=== PATIENT | female | born 1990 | race Caucasian/White ===

== ENCOUNTER 2023-06-09 08:25 | Outpatient (OUT) | payer OTHER, SELFPAY ==
--- NOTE | 2023-06-09 08:32 | US_ITS ---
[address] [address] Patient Name: RONY NICOLE MRN: [id number] date: 1990 Sex: F Assigned Patient Location: US Current Patient Location: US Accession/Order Number: [id number] Exam Date: 06/09/2023 08:32 Report Date: 06/09/2023 09:12 At the request of: LYNNETTE SALGUERO Procedure: US OB transvaginal EXAMINATION: US OB transvaginal HISTORY: MISSED MENSES COMPARISON: No relevant comparison available. FINDINGS: Garcia intrauterine gestation Gestational sac: 2.33 cm, 7 weeks 0 days CRL: 1.56 cm, 8 weeks 0 days Yolk sac: 4.4 mm Heart rate: 153 beats minute Cervix: Closed, 4.7 cm The uterus is normal, anteverted, anteflexed The right ovary was not visualized The left ovary is normal. Clinical age: 8 weeks 3 days Clinical HOOD: 01/16/2024 Ultrasound age: 8 weeks 0 days Ultrasound HOOD: 01/19/2024 US/US OB transvaginal IMPRESSION: Viable garcia intrauterine gestation measuring 8 weeks 0 days Electronically authenticated by: ELIZABETH LERMA Date: 06/09/2023 09:12
== END 2023-06-09 08:26 | disposition home or self-care (01) ==
LOC: US 08:30
PROVIDERS: Visit Provider Obstetrics & Gynecology
DX: Z34.91 Encounter for supervision of normal pregnancy, unspecified, first trimester (principal); N92.6 Irregular menstruation, unspecified
CPT/HCPCS: 76817

== ENCOUNTER 2023-06-21 16:29 | Outpatient (OUT) | payer OTHER, SELFPAY ==
[2023-06-21 17:03] LABS: Basophils Percent Auto 0.4 % (0.2-2.0); Eosinophils Absolute Auto 0.3 10^3/uL (0.0-0.7); Eosinophils Percent Auto 3.6 % (0.9-7.0); Hemoglobin 12.1 g/dL (12.0-16.0); Immature Granulocytes Abs Auto 0.02 10^3/uL (0.00-0.03); Immature Granulocytes Pct Auto 0.3 % (0.0-0.5); Lymphocytes Percent Auto 28.2 % (20.5-60.0); Mean Corpuscular HGB Conc 34.6 g/dL (29.9-35.2); Mean Corpuscular Hemoglobin 31.3 pg (26.7-34.0); Mean Corpuscular Volume 90.4 fL (81.0-99.0); Mean Platelet Volume 10.6 fL (9.5-13.5); Monocytes Absolute Auto 0.5 10^3/uL (0.3-0.8); Monocytes Percent Auto 6.8 % (1.7-12.0); Neutrophils Absolute Auto 4.2 10^3/uL (1.4-6.5); Neutrophils Percent Auto 60.7 % (43.0-75.0); Platelet Count 280 10^3/uL (150-450); Red Blood Count 3.87 10^6/uL (4.20-5.40); Red Cell Distribution Width 11.9 % (11.0-15.0); White Blood Count 6.9 10^3/uL (4.0-11.0)
[2023-06-21 17:06] LABS: BOX Test Sent Out Y
[2023-06-21 17:10] LABS: Estimated Average Glucose 94 mg/dL; Glycohemoglobin A1C 4.9 % (4.5-6.2)
[2023-06-21 18:16] LABS: Thyroid Stimulating Hormone 2.622 uIU/mL (0.358-3.740)
[2023-06-23 06:09] LABS: HBsAg Screen Negative (Negative); HIV Ab/p24 Ag Screen Non Reactive (Non Reactive); Rubella Antibodies, IgG 2.43 index (Immune >0.99)
[2023-06-23 12:10] LABS: Rapid Plasma Reagin, Quant Non Reactive titer (NonRea<1:1)
[2023-06-26 12:08] LABS: HCV Ab Reactive (Non Reactive)
== END 2023-06-21 16:30 | disposition home or self-care (01) ==
PROVIDERS: Visit Provider Obstetrics & Gynecology
DX: N92.6 Irregular menstruation, unspecified (principal)
CPT/HCPCS: 36415; 83036; 84443; 85025; 86592; 86762; 86803; 86850; 86900; 86901; 87086; 87340; 87389; 87522

== ENCOUNTER 2023-07-03 16:40 | Emergency (ER) | payer OTHER, SELFPAY ==
--- NOTE | 2023-07-03 16:42 | US_ITS ---
[address] [address] Patient Name: RONY NICOLE MRN: [facility]:[id number] date: 1990 Sex: F Assigned Patient Location: ER Current Patient Location: .[facility] Accession/Order Number: [id number] Exam Date: 07/03/2023 17:00 Report Date: 07/03/2023 18:03 At the request of: FABIÁN NORWOOD Procedure: US OB transvaginal PROCEDURE: US OB transvaginal, 07/03/2023 5:00 PM EST CLINICAL INDICATIONS: Encounter for first trimester , vaginal bleeding for one week 4 para 3 Expected gestational age: 11 weeks 5 days Expected HOOD: 01/17/2024 COMPARISON: 06/09/2023 TECHNIQUE: Transvaginal first trimester obstetric sonogram, grayscale, color evaluation. FINDINGS: Intrauterine gestational saclike structure is identified. A pole is seen. Yolk sac is not evident. No cardiac activity could be documented during sonographic surveillance, color-flow or M-mode Doppler interrogation. Mean gestational sac size: 4.21 cm, 9 weeks 4 days crown-rump length: 3.09 cm Sonographic gestational age: 10 weeks 0 days +/- 6 days Sonographic HOOD: 01/29/2024 Perigestational hemorrhage is not evident. Maternal ovaries are not identified bilaterally. 4.2 cm transvaginal cervical length, closed US/US OB transvaginal IMPRESSION: 1. Single intrauterine nonviable failed first trimester with incomplete spontaneous . Intrauterine gestational sac is noted. 3.09 cm pole is seen without cardiac activity. This meets criteria for nonviable . 2. No perigestational hemorrhage 3. 4.2 cm transvaginal cervical length 4. Nonvisualization the maternal ovaries bilaterally RESULTS PLACED IN THE STAT CALL FOLDER AT THE TIME OF THIS DICTATION. Electronically authenticated by: DUYEN ALEXANDER Date: 07/03/2023 18:03
[2023-07-03 16:49] VITALS: BP 146/80; PULSE 77; RESP 20; TEMP 36.8; O2SAT 100; BMI 33.3
--- NOTE | 2023-07-03 16:57 | ED.PREGNANC1 ---
HPI - General Chief complaint: Vaginal Bleeding Stated complaint: 12WKS PREG, SPOTTING Time Seen by Provider: 07/03/23 16:42 Source: patient Mode of arrival: walk-in Limitations: no limitations History of Present Illness HPI Narrative: patient is a 32-year-old female who presents the emergency department for the evaluation of vaginal spotting at twelve weeks . She states for the last week she has had red spotting with wiping after urination. She states she has now started to see small clots. She denies fevers, chills, nausea, vomiting. She has no abdominal cramping or urinary symptoms. Last ultrasound at this facility was 06/09/23 showing a viable IUP at eight weeks at that time. Related Data Home Medications Medication Instructions Recorded Confirmed ondansetron HCl 4 mg tablet 4 mg PO Q12H PRN nausea and 07/03/23 07/03/23 vomiting vitamin with calcium 1 tab PO DAILY 07/03/23 07/03/23 no.72-iron 27 mg-folic acid 1 mg tablet (M- Plus) Allergies Allergy/AdvReac Type Severity Reaction Status Date / Time No Known Drug Allergies Allergy Verified 07/03/23 16:55 Review of Systems ROS Constitutional Denies: fever or chills Cardiovascular Denies: chest pain Respiratory Denies: shortness of breath or cough Gastrointestinal Denies: abdominal pain, nausea or vomiting Genitourinary Reports: vaginal bleeding; Denies: painful urination Musculoskeletal Denies: back pain Integumentary/Breast Denies: rash Neurological Denies: headache PFSH PFSH Social History Smoking status: Never smoker Exam Narrative Exam Narrative: Gen.: Awake, alert, in no distress Head: Normocephalic, atraumatic ENT: Moist mucous membranes Respiratory: No respiratory distress Gastrointestinal: Abdomen is soft, nondistended and nontender to palpation Extremities: Moves extremities equally Psych: Normal mood and affect Neuro: No focal neuro deficit Skin: Warm, dry, intact Constitutional Vital Signs, click to edit/add: Last Vital Signs Temp 98.2 F 07/03/23 16:49 Pulse 77 07/03/23 16:49 Resp 20 07/03/23 16:49 BP 146/80 H 07/03/23 16:49 Pulse Ox 100 07/03/23 16:49 O2 Del Method Room Air 07/03/23 16:49 Course Vital Signs Vital signs: Vital Signs Temperature 98.2 F 07/03/23 16:49 Pulse Rate 77 07/03/23 16:49 Respiratory Rate 20 07/03/23 16:49 Blood Pressure 146/80 H 07/03/23 16:49 Pulse Oximetry 100 07/03/23 16:49 Oxygen Delivery Method Room Air 07/03/23 16:49 Temperature 98.2 F 07/03/23 16:49 Pulse Rate 77 07/03/23 16:49 Respiratory Rate 20 07/03/23 16:49 Blood Pressure 146/80 H 07/03/23 16:49 Pulse Oximetry 100 07/03/23 16:49 Oxygen Delivery Method Room Air 07/03/23 16:49 MDM - OB/Uterine Contractions MDM Narrative Medical decision making narrative: patient with A positive blood type, unremarkable urine specimen. ultrasound shows demise with incomplete spontaneous , cervix is closed. These results were given to the patient, I contacted Dr. Guillory the on-call NURSE PRACTITIONER PHYSICIAN ASSISTANT, no indication for an emergent D and C at this time. Follow-up tomorrow in the office with Dr. Malagon and return to the Emergency Room if symptoms change or worsen. Patient was instructed to use Motrin every six hours with food. Medical Records Attestation: I reviewed the patient's medical records. Lab Data Attestation: I reviewed the patient's lab results. Labs: Lab Results 07/03/23 07/03/23 Range/Units 16:55 17:08 HCG, Quant 5151 mIU/mL Urine Color Lt. yellow (YELLOW) Urine Clarity Clear (CLEAR) Urine pH 6.5 (5.0-9.0) Ur Specific [place] 1.010 (1.005-1.025) Urine Protein Negative (NEG/TRACE) mg/dL Urine Glucose (UA) Negative (NEGATIVE) mg/dL Urine Ketones Negative (NEGATIVE) mg/dL Urine Occult Blood Small A (NEGATIVE) Urine Nitrite Negative (NEGATIVE) Urine Bilirubin Negative (NEGATIVE) Urine Urobilinogen 0.2 (0.2-1.0) EU/dL Ur Leukocyte Esterase Negative (NEGATIVE) Urine RBC 0-2 (0-2) #/HPF Urine WBC None seen (NONE SEEN) #/HPF Ur Squamous Epith Cells Rare (NONE/RARE) #/LPF Urine Crystals None seen (None Seen) #/HPF Urine Bacteria None seen (NONE SEEN) #/HPF Urine Casts None seen (NONE SEEN) #/LPF Urine Mucus None seen (NONE SEEN) Ur Culture Indicated? No Blood Type A Positive Discharge Plan Discharge Chief Complaint: Vaginal Bleeding Clinical Impression: Miscarriage, Vaginal bleeding Patient Disposition: Home, Self-Care Time of Disposition Decision: 18:38 Condition: Good Prescriptions / Home Meds: No Action ondansetron HCl 4 mg tablet 4 mg PO Q12H PRN (Reason: nausea and vomiting) M-Geraldine Plus 27 mg iron- 1 mg tablet 1 tab PO DAILY Instructions: Miscarriage (ED) Additional Instructions: Call Dr. Malagon's office in the morning to be scheduled Stand Alone Forms: Portal Instructions Referrals: Physician,Non-Staff, MD [Primary Care Provider] - 1 week
[2023-07-03 17:34] LABS: Bilirubin Urine NEGATIVE (NEGATIVE); Blood Urine SMALL (NEGATIVE); Clarity Urine CLEAR (CLEAR); Color Urine LT. YELLOW (YELLOW); Glucose Urine UA NEGATIVE (NEGATIVE); Ketones Urine NEGATIVE (NEGATIVE); Leukocyte Esterase Urine NEGATIVE (NEGATIVE); Nitrite Urine NEGATIVE (NEGATIVE); Protein Urine NEGATIVE (NEG/TRACE); Urobilinogen Urine 0.2 EU/dL (0.2-1.0); pH Urine 6.5 (5.0-9.0)
[2023-07-03 17:35] LABS: Urine Microscopic Indicated YES
[2023-07-03 17:45] LABS: HCG Quantitative 5151 mIU/mL
[2023-07-03 17:57] LABS: Bacteria Urine NONE SEEN #/HPF (NONE SEEN); Cast Seen? NONE SEEN #/LPF (NONE SEEN); Crystals Seen? None Seen #/HPF (None Seen); Mucus Urine NONE SEEN (NONE SEEN); RBC Urine 0-2 #/HPF (0-2); Squamous Epithelial Cell Urine RARE #/LPF (NONE/RARE); WBC Urine NONE SEEN #/HPF (NONE SEEN)
[2023-07-03 17:58] LABS: Urine Culture Indicated NO
--- OUTSIDE RECORDS SUMMARY | 2023-08-08 19:23 | XMS_ITS | CCD ---
Author Name Unknown Address [facility] [place] [address] Organization [facility] Care Team Providers Care Piano Player Name Role Phone DR LYNNETTE MALAGON Admitting Unavailable JOSE M, DR CHURCH Attending Unavailable REQUEST, DR RAMOS LISTED Primary Care Unavaila DR LYNNETTE Hurd Consulting Unavailable NONE, XXXX Primary Care Physician Unavailab Donovan Kemp Attending Unavailable LYNNETTE MALAGON Attending Unavailable LUKAS RIDER Attending Unavailable Allergies Allergy Classification Reported Allergen(s) Allergy Type Date of Onset Reaction(s) Facility (1 source) Cefaclor Drug Allergy 06-06-2013 [facility] Repository Medications Current Medications Medication Drug Class(es) Dates Sig (Normalized) Sig (Original) dextromethorphan hydrobromide 3 mg/ml / promethazine hydrochloride 1.25 mg/ml oral solution (1 source) Phenothiazine, Uncompetitive V-josgkm-A-aspartat e Receptor Antagonist, Sigma-1 Agonist Start: 12-07-2018 take 5 mL by mouth every six hours for cough dextromethorphan- promethazine 15 mg-6.25 mg/5 mL Oral Syrup 5 mL 5 mL, Oral, q6hr for cough, 120 mL, Refill(s) 0 Start Date: 12/07/18 Status: Ordered etonogestrel 68 mg drug implant (1 source) Progestin Start: 05-24-2018 Nexplanon 68 mg subcutaneous implant 68 mg = 1 EA, SubCutaneous, Once, Refills(s) 0 Start Date: 05/24/18 Status: Ordered fluticasone 0.05 mg/inh Nasal [place] (1 source) Start: 12-07-2018 fluticasone 0.05 mg/inh Nasal [place] 1 spray(s), Nasal, BID, 16 gram, Refill(s) 0 Start Date: 12/07/18 Status: Ordered pantoprazole 40 mg extended release oral tablet (1 source) Proton Pump Inhibitor Start: 05-21-2021 take 1 tablet by mouth once daily pantoprazole 40 mg Oral EC Tab 40 mg = 1 tab(s), Oral, Daily, # 30 tab(s), Refills(s) 0, Pharmacy: [facility]/pharmacy #[id number], 165, cm, 05/21/21 11:57:00 EDT, Height/Length Dosing, 91, kg, 05/21/21 11:57:00 EDT, Weight Dosing Start Date: 05/21/21 Status: Ordered Zofran ODT 4 mg Tab-Dis (2 sources) Start: 05-21-2021 take 1 tablet by mouth every six hours as needed for nausea Zofran ODT 4 mg Tab-Dis 4 mg = 1 tab(s), Oral, q6hr, PRN Nausea/Vomiting, # 12 tab(s), Refills(s) 0, [id number], 165, cm, 05/21/21 11:57:00 EDT, Height/Length Dosing, 91, kg, 05/21/21 11:57:00 EDT, Weight Dosing Start Date: 05/21/21 Status: Ordered Start: 12-07-2018 take 1 tablet by sheila th every six hours Zofran ODT 4 mg Tab-Dis 4 mg = 1 tab(s), Oral, q6hr, # 10 tab(s), Refills(s) 0 Start Date: 12/07/18 Status: Ordered Problems Active Problems Problem Classification Problem Date Documented Date Episodic/Chronic Abdominal pain (1 source) Abdominal pain; Translations: [Unspecified abdominal pain] Onset: 05-21-2023 Episodic Deficiency and other anemia (1 source) Anemia 12-03-2017 Episodic Immunizations and screening for infectious disease (1 source) Encounter for screening for human papillomavirus (HPV); Translations: [ENC SCREENING HUMAN PAPILLOMAVIRUS] Onset: 06-02-2022 Episodic Inflammatory diseases of female pelvic organs (1 source) Cyst of Bartholin's gland duct 11-28-2017 Episodic Other complications of (1 source) Finding related to ; Translations: [Other specified related conditions, unspecified trimester] Onset: 05-21-2023 Episodic Other screening for suspected conditions (not mental disorders or infectious disease) (4 sources) Encounter for screening for malignant neoplasm of cervix; Translations: [ENC SCREENING MALIG NEOPLASM CERV] Onset: 06-01-2022 Episodic Substance-related disorders (1 source) Smoker 02-18-2018 Chronic Comment on above: Added secondary to d ocumentation in Social History. Past or Other Problems Problem Classification Problem Date Documented Da te Episodic/Chronic Unclassified (3 sources) Onset: 06-14-2011 Resolved: 06-21-2018 06-29-2018 Results Test Name Value Interpretation Reference Range Facil ity Auto Diffon 05-21-2023 Basophils/100 WBC (Bld) 0.4 % Normal 0.0-2.[address] [facility] Comment on above: Order Comment: Order Added by Discern Expert. Performed By: #### 1 [id number], 7509456, 9819846, 4529436, 9679114, 6086084, 81549970, 5499946 #### [facility] [address] [place] [address] Basophils/Leukocytes Auto (B ld) [Pure # fraction] 0.0 E9/L Normal 0.0-0.2 [facility] Comment on above: Order Comment: Order Added by Discern Expert. Performed By: #### 1 [id number], 3199891, 0906119, 2465827, 9070374, 7976216, 72099581, 7595166 #### [facility] [address] [place] [address] Eosinophils/100 WBC (Bld) 1.5 % Normal 0.0-8.0 [facility] Comment on above: Order Comment: Order Added by Discern Expert. Performed By: #### 1 [id number], 7393243, 8177720, 1503655, 5258566, 6392024, 71630222, 1085898 #### [facility] [address] [place] [address] Eosinophils/Leukocytes Auto (Bld) [Pure # fraction] 0.1 E9/L Normal 0.0-0.5 [facility] Comment on above: Order Comment: Order Added by Discern Expert. Performed By: #### 1 8558221, 0909343, 9568867, 5357447, 2308677, 5073934, 15900491, 6850460 #### [facility] [address] [place] [address]3576 Lymphocytes/100 WBC (Bld) 33.2 % Normal 14.0-50.0 [facility] Comment on above: Order Comment: Order Added by Discern Expert. Performed By: #### 1 0242619, 4194916, 2350074, 5823558, 8600252, 6694141, 15104285, 4252275 #### [facility] [address] [place] [address] Lymphocytes/Leukocytes Auto (Bld) [Pure # fraction] 2.0 E9/L Normal 1.0-4.0 [facility] Comment on above: Order Comment: Order Added by Isael Expert. Performed By: #### 1 6782404, 1415493, 2280920, 4565102, 5926635, 3106692, 31255942, 6824072 #### [facility] [address] [place] [address] Monocytes/100 WBC (Bld) 7.8 % Normal 4.0-14.0 [facility] Comment on above: Order Comment: Order Added by Isael Expert. Performed By: #### 1 9298468, 2433984, 0934118, 8981805, 3338777, 1425278, 61387228, 0558970 #### [facility] [address] [place] [address] Monocytes/Leukocytes Auto (B ld) [Pure # fraction] 0.5 E9/L Normal 0.2-1.0 [facility] Comment on above: Order Comment: Order Added by Isael Expert. Performed By: #### 1 6668797, 9868070, 5242460, 7070263, 9941143, 1690009, 56354710, 0031501 #### [facility] [address] [place] [address] Neutrophils/100 WBC (Bld) 57.1 % Normal 36.0-75.0 [facility] Comment on above: Order Comment: Order Added by Discern Expert. Performed By: #### 1 3689858, 4693180, 5676248, 7278191, 5674565, 3338880, 94324066, 9167662 #### [facility] [address] [place] [address] Neutrophils/Leukocytes Auto (Bld) [Pure # fraction] 3.4 E9/L Normal 2.0-7.5 [facility] Comment on above: Order Comment: Order Added by Discern Expert. Performed By: #### 1 9711932, 3307303, 9780026, 4789147, 0022181, 7861204, 53009107, 6689205 #### [facility] [address] [place] [address] B hCG Qualon 05-21-2023 Beta hCG Ql Positive Normal [facility] Comment on above: Performed By: #### 1 5936035, 4963850, 0704161, 4093247, 6614461, 1293437, 56982360, 9776462 #### [facility] [address] [place] [address] BMPon 05-21-2023 Creatinine [Mass/Vol] 0.5 mg/dL Normal 0.5-1.3 [facility] Comment on above: Performed By: #### 1 1094942, 1863858, 8420810, 6681553, 1340338, 7632267, 65365733, 0865190 #### [facility] [address] [place] [address] Urea nitrogen [Mass/Vol] 13 mg/dL Normal 5-21 [facility] Comment on above: Performed By: #### 1 1126131, 6262148, 3089471, 4352845, 2559719, 8053094, 22589627, 1460976 #### [facility] [address] [place] [address] Urea nitrogen/Creatinine [Mass ratio] 26 No Units High 10-20 [facility] Comment on above: Performed By: #### 1 5791101, 0351251, 9110016, 5425556, 9746175, 6830426, 37211930, 1135939 #### [facility] [address] [place] [address] Anion gap [Moles/Vol] 8 mmol/L Normal 6-16 [facility] Comment on above: Performed By: #### 1 9298931, 1628326, 0327610, 0254758, 5459391, 7448340, 40614169, 0772376 #### [facility] [address] [place] [address] Calcium [Mass/Vol] 9.2 mg/dL Normal 8.9-11.1 [facility] Comment on above: Performed By: #### 1 2636101, 1609024, 7604189, 6625766, 1758432, 2049066, 75926858, 2184887 #### [facility] [address] [place] [address] Chloride [Moles/Vol] 111 mmol/L Normal 101-111 [facility] Comment on above: Performed By: #### 1 4314616, 4456765, 4368418, 9396076, 2499810, 1245825, 97973839, 9398165 #### [facility] [address] [place] [address] CO2 [Moles/Vol] 23 mmol/L Normal 21-31 [facility] Comment on above: Performed By: #### 1 7555225, 8463165, 8855355, 6124231, 1204527, 3042243, 14571702, 1312924 #### [facility] [address] [place] [address] Glucose [Mass/Vol] 101 mg/dL Normal 55-199 [facility] Comment on above: Result Comment: If t his glucose result represents a fasting glucose, interpretation should refer to the following reference range: 55-99 mg/dL Performed By: #### 1 0710438, 4834798, 9855846, 6203494, 8499667, 1399213, 95803766, 8729501 #### [facility] [address] [place] [address] Potassium [Moles/Vol] 3.6 mmol/L Normal 3.5-5.3 [facility] Comment on above: Performed By: #### 1 0471221, 7381427, 3170133, 2439684, 4591919, 7418396, 89042384, 1375901 #### [facility] [address] [place] [address] Sodium [Moles/Vol] 138 mmol/L Normal 135-145 [facility] Comment on above: Performed By: #### 1 9290847, 2015505, 9837905, 1114999, 4532362, 6998875, 99819754, 8753622 #### [facility] [address] [place] [address] BhCG Quanton 05-21-2023 HCG.beta subunit Qn 9779 m[IU]/mL High 1-3 [facility] Comment on above: Result Comment: GEST ATIONAL AGE HCG RANGE (mIU/mL) NON- <1-3 0.2-1 WEEKS 5-50 1-2 WEEKS 50-500 2-3 WEEKS 100-5,000 3-4 WEEKS 500-10,000 4-5 WEEKS 1,000-50,000 5-6 WEEKS 10,000-100,000 6-8 WEEKS 15,000-200,000 8-12 WEEKS 10,000-100,000 Performed By: #### 1 1578858, 6263385, 4475615, 1476158, 8007199, 4728172, 73112454, 0014316 #### [facility] [address] [place] [address] CBC w/ Auto Diffon Erythrocyte distribution wid th (RBC) [Ratio] 12.9 % Normal 10.9-14.2 [facility] Comment on above: Performed By: #### 1 1883735, 0240099, 7313668, 7684084, 2737313, 2736055, 86535766, 4439552 #### [facility] [address] [place] [address] Hematocrit (Bld) [Volume fraction] 36.4 % Normal 34.0-46.0 [facility] Comment on above: Performed By: #### 1 6792854, 0707509, 0047045, 9959539, 0588088, 7825402, 44563500, 1992742 #### [facility] [address] [place] [address] Hemoglobin (Bld) [Mass/Vol] 12.5 g/dL Normal 12.0-16. 0 [facility] Comment on above: Performed By: #### 1 3628251, 2653063, 2155684, 3298083, 7961461, 9857164, 33331320, 2720858 #### [facility] [address] [place] [address] 57049 MCH (RBC) [Entitic mass] 30.4 pg Normal 27.0-34.0 [facility] Comment on above: Performed By: #### 1 9421730, 1424055, 5325878, 0126116, 4200492, 1944206, 28180341, 5868540 #### [facility] [address] [place] [address] 99624 MCHC (RBC) [Mass/Vol] 34.3 g/dL Normal 31.4-36.0 [facility] Comment on above: Performed By: #### 1 8442960, 9254934, 9151019, 7100987, 7927526, 3257451, 82552859, 0117728 #### [facility] [address] [place] [address]291 MCV (RBC) [Entitic vol] 88.4 fL Normal 80.0-100.[address] [facility] Comment on above: Performed By: #### 1 2764492, 3281107, 2430231, 2241937, 4180139, 1754028, 70354289, 8144495 #### [facility] [address] [place] [address]47 Platelet mean volume (Bld) [Entitic vol] 9.0 fL Normal 6.4-10.8 [facility] Comment on above: Performed By: #### 1 0431109, 7832134, 4891128, 7399202, 6366413, 2830119, 01992169, 9440427 #### [facility] [address] [place] [address] Platelets (Bld) [#/Vol] 273.0 E9/L Normal 150.0-500.0 [facility] Comment on above: Performed By: #### 1 6500482, 0310861, 3553266, 5095225, 8804874, 0883140, 82792773, 8615867 #### [facility] [address] [place] [address] RBC (Bld) [#/Vol] 4.1 E12/L Low 4.3-5.9 [facility] Comment on above: Performed By: #### 1 9275843, 9076430, 9211325, 8544984, 1190402, 1606769, 65038219, 1861539 #### [facility] [address] [place] [address] WBC corrected for nucl RBC A uto (Bld) [#/Vol] 5.9 E9/L Normal 4.0-11.0 [facility] Comment on above: Performed By: #### 1 6954636, 6950179, 0456538, 6607861, 0014867, 6647617, 51518733, 1420563 #### [facility] [address] [place] [address] CHEMISTRYOrdered By: SYSTEM SYSTEM on 05-21-2023 Albumin [Mass/Vol] 4.0 g/dL Normal 3.3 - 5.0 gm/dL [facility] Albumin/Globulin [Mass ratio] 1.3 {ratio} Normal 1.1 - 2.2 [facility] ALP [Catalytic activity/Vol] 50 [iU]/d Normal 21 - 98 Int._Unit/L [facility] ALT No additional P-5'-P [Catalytic activity/Vol] 19 [iU]/d Normal 6 - 46 Int._Unit/L [facility] Anion gap [Moles/Vol] 8 mmol/L Normal 6 - 16 mEq/L [facility] AST [Catalytic activity/Vol] 17 [iU]/d Normal 5 - 43 Int._Unit/L [facility] Bilirubin [Mass/Vol] 0.5 mg/dL Normal 0.0 - 1.1 mg/dL [facility] Bilirubin.direct [Mass/Vol] 0.1 mg/dL Normal 0.1 - 0.4 mg/dL [facility] Bilirubin.indirect [Mass or moles/Vol] 0.4 mg/dL Normal 0.1 - 0.9 mg/dL [facility] Calcium [Mass/Vol] 9.2 mg/dL Normal 8.9 - 11.1 mg/dL [facility] Chloride [Moles/Vol] 111 mmol/L Normal 101 - 111 mmol/ L [facility] CO2 [Moles/Vol] 23 mmol/L Normal 21 - 31 mmol/L [facility] Creatinine [Mass/Vol] 0.5 mg/dL Normal 0.5 - 1.3 mg/d L [facility] GFR/1.73 sq M.predicted among non-blacks MDRD (S/P/Bld) [Vol rate/Area] 129 mL/min/1.73 m2 Normal >=59mL/min/1.73 m2 [facility] Comment on above: Interpretive Data: C hronic kidney disease could be indicated at eGFR's of less than 60 mL/min/1.73m2. Kidney failure is indicated at less than 15 mL/min/1.73m2. Globulin (S) [Mass/Vol] 3.0 g/dL Normal 1.4 - 4.0 gm /dL [facility] Glucose [Mass/Vol] 101 mg/dL Normal 55 - 199 mg/dL [facility] Comment on above: Interpretive Data: I f this glucose result represents a fasting glucose, interpretation should refer to the following reference range: 55-99 mg/dL HCG.beta subunit Qn 9779 m[IU]/mL High 1 - 3 mIU/mL [facility] Comment on above: Interpretive Data: G ESTATIONAL AGE HCG RANGE (mIU/mL) NON- <1-3 0.2-1 WEEKS 5-50 1-2 WEEKS 50-500 2-3 WEEKS 100-5,000 3-4 WEEKS 500-10,000 4-5 WEEKS 1,000-50,000 5-6 WEEKS 10,000-100,000 6-8 WEEKS 15,000-200,000 8-12 WEEKS 10,000-100,000 Lipase [Catalytic activity/Vol] 32 U/L Normal 13 - 58 unit/L [facility] Potassium [Moles/Vol] 3.6 mmol/L Normal 3.5 - 5.3 mmol /L [facility] Protein [Mass/Vol] 7.0 g/dL Normal 6.0 - 7.8 gm/dL [facility] Sodium [Moles/Vol] 138 mmol/L Normal 135 - 145 mmol/L [facility] Urea nitrogen [Mass/Vol] 13 mg/dL Normal 5 - 21 mg/d L [facility] Urea nitrogen/Creatinine [Mass ratio] 26 mg/mg High 10 - 20 [facility] Consent for Treatmenton 100 Consent for Treatment [id number]:127 Normal [facility] Discharge Instructionson Discharge Instructions [id number]:127 Normal [facility] ED Clinical Summaryon 2022 ED Clinical Summary [place] [id number] ED Clinical Summary Person Information Name: RONY BOLAÑOS [facility] Age: 32 Years : 1990 Sex: Female Language: Croatian PCP: NONE, XXXX Marital Status: Single Visit Id: Visit Reason: Diarrhea; Nausea; Headache; HEADACHE DIZZNESS ABD PAIN Speciality: Acuity: 3 Enc Type: Emergency Med Service: Emergency Arrival: 05/21/2023 10:49:01 Discharge: 05/21/2023 15:06:40 LOS: 000 04:17 Checkin: 05/21/2023 10:49:01 Checkout: 05/21/2023 15:06:40 Dispo Type: Home (Routine DC) EVENTS: Event Name Event Status Request Date/Time Start Date/Time Complete Date/Time Arrive Complete 05/21/2023 10:49:01 05/21/2023 10:49:01 05/21/2023 10:49:01 Document Home Meds Request 05/21/2023 10:49:01 Triage Complete 05/21/2023 10:49:01 05/21/2023 11:05:03 05/21/2023 11:05:03 Registration Complete 05/21/2023 11:00:00 05/21/2023 11:00:00 05/21/2023 11:00:00 Reg Complete Request 05/21/2023 11:00:00 Reg Bed Request Complete 05/21/2023 11:00:00 05/21/2023 11:00:00 05/21/2023 11:00:00 Bed Assign Complete 05/21/2023 11:01:47 05/21/2023 11:01:47 05/21/2023 11:01:47 Dr Exam Complete 05/21/2023 11:01:47 05/21/2023 11:06:03 05/21/2023 11:06:03 RN Exam Complete 05/21/2023 11:01:47 05/21/2023 15:07:37 05/21/2023 15:07:37 Registration Start 05/21/2023 11:06:03 05/21/2023 14:29:40 Dr Exam Complete 05/21/2023 11:08:01 05/21/2023 11:08:01 05/21/2023 11:08:01 Pending Labs Complete 05/21/2023 11:27:27 05/21/2023 12:55:42 Lab Complete 05/21/2023 11:27:27 05/21/2023 12:55:43 Urine Collect Complete 05/21/2023 11:27:27 05/21/2023 12:55:43 X-Ray Complete 05/21/2023 11:27:27 05/21/2023 11:47:13 05/21/2023 11:58:53 Swab Complete 05/21/2023 11:27:27 05/21/2023 12:24:31 Pending Labs Complete 05/21/2023 11:54:44 05/21/2023 11:54:44 05/21/2023 12:19:42 Lab Complete 05/21/2023 11:54:44 05/21/2023 11:54:44 05/21/2023 12:19:42 Wet Read Request 05/21/2023 11:58:53 Pending Labs Complete 05/21/2023 11:58:54 05/21/2023 11:58:54 05/21/2023 11:59:01 Lab Complete 05/21/2023 11:58:54 05/21/2023 11:58:54 05/21/2023 11:59:01 Pending Labs Complete 05/21/2023 12:22:31 05/21/2023 12:22:31 05/21/2023 12:22:31 Pending Labs Cancel 05/21/2023 12:30:04 05/21/2023 12:35:17 Lab Cancel 05/21/2023 12:30:04 05/21/2023 12:35:17 Pending Labs Complete 05/21/2023 12:36:08 05/21/2023 12:36:08 05/21/2023 13:17:56 Lab Complete 05/21/2023 12:36:08 05/21/2023 12:36:08 05/21/2023 13:17:56 Meds Admin Complete 05/21/2023 12:44:29 05/21/2023 13:05:24 US Complete 05/21/2023 13:19:22 05/21/2023 14:06:37 05/21/2023 14:37:45 US Complete 05/21/2023 14:19:44 05/21/2023 14:19:53 05/21/2023 14:36:26 Discharge Complete 05/21/2023 14:59:08 05/21/2023 15:09:51 05/21/2023 15:09:51 Transfer Complete 05/21/2023 15:09:51 05/21/2023 15:09:51 05/21/2023 15:09:51 ADDRESS: [address] [place] [id number] PHYS DOC NOTES: MEDICAL INFORMATION: Prescriptions Given: Medications to Continue with No Changes Other Medications dextromethorphan-promethazine (dextromethorphan-promethazine 15 mg-6.25 mg/5 mL Oral Syrup 5 mL) 5 Milliliter By Mouth every 6 hours as needed for cough. Refills: 0. etonogestrel (Nexplanon 68 mg subcutaneous implant) 1 Each Subcutaneous Once. fluticasone nasal (fluticasone 0.05 mg/inh Nasal [place]) 1 Sprays Nasal Inhalation 2 times a day. Refills: 0. ondansetron (Zofran ODT 4 mg Tab-Dis) 1 Tablets By Mouth every 6 hours. Refills: 0. ondansetron (Zofran ODT 4 mg Tab-Dis) 1 Tablets By Mouth every 6 hours as needed Nausea/Vomiting. Refills: 0. pantoprazole (pantoprazole 40 mg Oral EC Tab) 1 Tablets By Mouth every day. Refills: 0. PATIENT EDUCATION INFORMATION: Instructions: Abdominal Pain During , Uzaf-uy-Surj Follow up: With: Address: When: Jason Raines [address] [place] [address], [facility] [address], [place] [address] [facility] (1) In 3 days 05/24/2023 Comments: Follow-up with your GUIDANCE SERVICES COORDINATOR. If not have any may follow-up with Dr. Raines. With: Address: When: XXXX [facility] , [place] In 3 days DIAGNOSIS: Abdominal pain in ; Unspecified abdominal pain Normal [facility] ED Note-Physicianon 05-21-20 ED Note-Physician Basic Information Time Seen: Joo LR, Osman Reese. 05/21/2023 11:06 Chief Complaint Patient presents with 3 days of headache, diarhrea with cramping, and nausea. History of Present Illness A 32-year-old female reports to the emergency department chief complaint of a headache, diarrhea with cramping in her abdomen, as well as some nausea. Reports that she is just felt unwell for the last 3 days. She states that she has not had any medication today. Reports that she just generally feels well. Denies any fevers or chills. Denies any cough or sore throat. Despite this he was going on. She reports that she has not been around any recent sick contacts, but her was also in the emergency department as she started to have fever as well as a sore throat. She denies any known allergies. Reports otherwise she is not on any medications. Review of Systems A 10 point review of systems is negative except as noted above. Medical and Surgical History: Reviewed and noted Social history: Lives at home Family History: Reviewed. Tobacco: denies Physical Exam Vitals & Measurements T: 36.7 ?C(Oral) HR: 77(Peripheral) RR: 16 BP: 147/84 SpO2: 100% HT: 165.10 cm WT: 100 kg BMI: 36.69 General: The patient appears well and in no apparent distress. Patient is resting comfortably in chair. afebrile Skin: Warm, dry, no pallor noted. Head: Normocephalic, atraumatic Neck: No JVD Eye: PERRLA, EOMI ENT: Moist mucus membranes Cardiovascular: Regular rate normal peripheral perfusion. radial pulses +2 bilaterally Respiratory: No respiratory distress no accessory muscle use no obvious audible wheezing. Lung sounds clear to auscultation Chest Wall: no deformity Musculoskeletal: normal ROM, no deformity, no swelling GI: No obvious distention. Soft, with mild tenderness generalized throughout the abdomen. No rebound tenderness or guarding noted. Neurological: A&O moves all extremities equal strength and symmetry Psychiatric: Cooperative and appropriate Medical Decision Making MEDICAL DECISION MAKING Number and Complexity of Problems Differential Diagnosis: [] [facility] Data External documents reviewed: [] My EKG interpretation: [] My CT interpretation: [] My X-ray interpretation: reviewed My Ultrasound interpretation: reviewed Decision rules/scores evaluated: [] Discussed with: [] Treatment and Disposition ED Course: 32-year-old female reports to the emergency department with chief complaint of headache, diarrhea with abdominal cramping, as well as nausea. Reports been going on for 3 days. States that she has recent sick contacts at home as well. Due to concerns we did do lab work. Lab work reviewed and noted. No acute changes seen except she was on her test. We did do a beta quant that showed a quantitative level over 9000. Due to this, with her having abdominal pain, and no known , we did do an ultrasound. Ultrasound revealed a single and early intrauterine . Reports that she does follow-up with Dr. Malagon. I discussed that she continue following up. Discussed cessation of ibuprofen. Discussed that she should follow-up immediately. Discussed return precautions. Follow-up with your primary care provider in 3 to 5 days. If symptoms worsen, do not improve, or new symptoms arise please report back to emergency department for further evaluation. The patient was understanding and agreeable to plan moving forward. [X] The patient is and presents with abdominal pain or vaginal bleeding. A trans-abdominal or trans-vaginal ultrasound was performed and the location is documented. [SATISFIES MIPS PERFORMANCE] [ ] The patient is pregant and presents with abdominal pain or vaginal bleeding. A trans-abdominal or trans-vaginal ultrasound was NOT performed because [] (ex. patient has visited the ED multiple times in the last 72 hours, patient has documented intrauterine ) [MIPS PERFORMANCE EXCEPTION/EXCLUSION] [ ] The patient is pregant and presents with abdominal pain or vaginal bleeding. A trans-abdominal or trans-vaginal ultrasound was NOT performed, no reason documented. [DOES NOT SATISFY MIPS PERFORMANCE] Shared decision making: [] Code status: [] Assessment/Plan Abdominal pain in (O26.899: Other specified related conditions, unspecified trimester) Unspecified abdominal pain (R10.9: Unspecified abdominal pain) Orders: acetaminophen, 650 mg = 2 tab(s), Tab, Oral, Once, Stop date 05/21/23 12:44:00 EDT, STAT, Start date 05/21/23 12:44:00 EDT, 05/21/23 12:44:00 EDT ondansetron, 4 mg = 1 tab(s), Tab-Dis, Oral, Once, Stop date 05/21/23 12:44:00 EDT, STAT, Start date 05/21/23 12:44:00 EDT, 05/21/23 12:44:00 EDT Automated Diff Basic Metabolic Panel Beta hCG Qual Beta hCG Quantitative CBC w/ Auto Diff eGFR Extra Blue Tube Hepatic Function Panel Influenza A&B Ag Lipase Level Rapid COVID Antigen ([facility]) UA With Cult Refl (more content not included)... Normal [facility] Comment on above: Result Comment: Elec tronically Signed By: Joo Osman LR.br\Date and Time Signed: 05/21/23 15:12 EDT\.br\Electronically Co-Signed By: Donovan Keller DO.br\Date and Time Co-Signed: 05/21/23 18:56 EDT ED Patient Education Noteon 05-21-2023 ED Patient Education Note Obstetrics and Gynecology Abdominal Pain During Belly (abdominal) pain is common during . There are many possible causes. Some causes are more serious than others. Sometimes the cause is not known. Always tell your doctor if you have belly pain. Follow these instructions at home: ? Do not have sex or put anything in your vagina until your pain goes away completely. ? Get plenty of rest until your pain gets better. ? Drink enough fluid to keep your pee (urine) pale yellow. ? Take uenr-hfv-pxvaixg and prescription medicines only as told by your doctor. ? Keep all follow-up visits. Contact a doctor if: ? You keep having pain after resting. ? Your pain gets worse after resting. ? You have lower belly pain that: ? Comes and goes at regular times. ? Spreads to your back. ? Feels like menstrual cramps. ? You have pain or burning when you pee (urinate). Get help right away if: ? You have a fever or chills. ? You feel like it is hard to breathe. ? You have bleeding from your vagina. ? You are leaking fluid or tissue from your vagina. ? You vomit for more than 24 hours. ? You have watery poop (diarrhea) for more than 24 hours. ? Your baby is moving less than usual. ? You feel very weak or faint. ? You have very bad pain in your upper belly. Summary ? Belly pain is common during . There are many possible causes. ? If you have belly pain during , tell your doctor right away. ? Keep all follow-up visits. This information is not intended to replace advice given to you by your health care provider. Make sure you discuss any questions you have with your health care provider. Document Revised: 04/20/2021 Document Reviewed: 04/20/2021 Elsevier Patient Education ? 2022 [employer] [facility] ED Patient Summaryon 10-01-2 023 ED Patient Summary [address] [address] Patient Discharge Instructions Person Information Name: RONY BOLAÑOS Age: 32 Years Arrival Date: 05/21/2023 10:49:01 Discharge Diagnosis: Abdominal pain in ; Unspecified abdominal pain Primary Care Physician: NONE, XXXX Provider Information Primary Provider: Donovan Keller DO Advanced Material Control Analyst:None The exam and treatment you received in the Emergency Department were for an urgent problem and are not intended as complete care. It is important that you follow up with a doctor, nurse practitioner, or physician?s pediatric dental assistant for ongoing care. If your symptoms become worse or you do not improve as expected and you are unable to reach your usual health care provider, you should return to the Emergency Department. We are available 24 hours a day. RONY BOLAÑOS has been given the following list of patient education materials, prescriptions and follow-up instructions: Follow-up Instructions: With: Address: When: Jason Raines [address] [place] [id number] Business (1) In 3 days 05/24/2023 Comments: Follow-up with your GUIDANCE SERVICES COORDINATOR. If not have any may follow-up with Dr. Raines. With: Address: When: [facility] , [place] In 3 days In the event that this physician does not participate in your insurance network, please consult with your insurance company to find a nearby participating provider. Patient Education Materials: Abdominal Pain During , Dnez-zd-Kbfn A MESSAGE TO ALL PATIENTS REGARDING OPIOIDS PRESCRIPTION OPIOIDS: WHAT YOU NEED TO KNOW Prescription opioids can be used to help relieve jtlfrmqd-yu-sqeaow pain and are often prescribed following a surgery or injury, or for certain health conditions. These medications can be an important part of the treatment but also come with serious risks. It is important to work with your healthcare provider to make sure you are getting the safest, most effective care. WHAT ARE THE RISKS AND SIDE EFFECTS OF OPIOID USE? Prescription opioids carry serious risks of addiction and overdose, especially with prolonged use. An opioid overdose, often marked by slowed breathing, can cause sudden . The use of prescription opioids can have a number of side effects as well, even when taken as directed: ? Tolerance?meaning you might need to take more of the medication for the same pain relief ? Physical dependence?meaning you have symptoms of withdrawal when a medication is stopped ? Increased sensitivity to pain ? Constipation ? Nausea, vomiting, and dry mouth ? Sleepiness and dizziness ? Confusion ? Depression ? Low levels of testosterone that can result in lower sex drive, energy, and strength ? Itching and sweating RISKS ARE GREATER WITH: ? History of drug misuse, substance use disorder, or overdose ? Mental health conditions (such as depression or anxiety) ? Sleep apnea ? Older age (65 years and older) ? Avoid alcohol while taking prescription opioids. Also, unless specifically advised by your health care provider, medications to avoid include: ? Benzodiazepines (such as Xanax or Valium) ? Muscle relaxants (such as Soma or Flexeril) ? Hypnotics (such as Ambien or Lunesta) ? Other prescription opioids KNOW YOUR OPTIONS Talk to your health care provider about ways to manage your pain that don?t involve prescription opioids. Some of these options may actually work better and have fewer risks and side effects. Options may include: ? Pain relievers such as acetaminophen, ibuprofen, and naproxen ? Some medication that are also used for depression or seizures ? Physical therapy and exercise ? Cognitive behavioral therapy, a psychological, goal-directed approach, in which patients learn how to modify physical, behavioral, and emotional triggers of pain and stress. IF YOU ARE PRESCRIBED OPIOIDS FOR PAIN: ? Never take opioids in greater amounts or more often than prescribed. ? Follow up with your primary health care provider. o Work together to create a plan on how to manage your pain. o Talk about ways to help manage your pain that don?t involve prescription opioids. o Talk about any and all concerns and side effects. ? Help prevent misuse and abuse o Never sell or share prescription opioids. o Never use another person?s prescription opioids. ? Store prescription opioids in a secure place and out of reach of others (this may include visitors, children, friends, and family). ? Safely dispose of unused prescription opioids: Find your community drug take-back program or your pharmacy mail-back program, or flush them down the toilet, following guidance from the Food and Drug Administration (www.fda.gov/Drugs/ResourcesForYou). ? Visit www.cdc.gov/drugoverdose to learn about the risks of opioids abuse and overdose (more content not included)... Normal [facility] HEMATOLOGYOrdered By: SYSTEM SYSTEM on 05-21-2023 Basophils/100 WBC (Bld) 0.4 % Normal 0.0 - 2.0 % [facility] HemeAutoSS Basophils/Leukocytes Auto (B ld) [Pure # fraction] 0.0 E9/L Normal 0.0 - 0.2 E9/L [facility] HemeAutoSS Eosinophils/100 WBC (Bld) 1.5 % Normal 0.0 - 8.0 % [facility] HemeAutoSS Eosinophils/Leukocytes Auto (Bld) [Pure # fraction] 0.1 E9/L Normal 0.0 - 0.5 E9/L [facility] HemeAutoS S Lymphocytes/100 WBC (Bld) 33.2 % Normal 14.0 - 50. 0 % [facility] HemeAutoSS Lymphocytes/Leukocytes Auto (Bld) [Pure # fraction] 2.0 E9/L Normal 1.0 - 4.0 E9/L [facility] HemeAutoS S Monocytes/100 WBC (Bld) 7.8 % Normal 4.0 - 14.0 % [facility] HemeAutoSS Monocytes/Leukocytes Auto (B ld) [Pure # fraction] 0.5 E9/L Normal 0.2 - 1.0 E9/L [facility] HemeAutoSS Neutrophils/100 WBC (Bld) 57.1 % Normal 36.0 - 75. 0 % [facility] HemeAutoSS Neutrophils/Leukocytes Auto (Bld) [Pure # fraction] 3.4 E9/L Normal 2.0 - 7.5 E9/L [facility] HemeAutoS S HEMATOLOGYOrdered By: Uma Perez on 05-21-2023 Erythrocyte distribution wid th (RBC) [Ratio] 12.9 % Normal 10.9 - 14.2 % [facility] HemeAutoSS Hematocrit (Bld) [Volume fraction] 36.4 % Normal 34.0 - 46.0 % [facility] HemeAutoSS Hemoglobin (Bld) [Mass/Vol] 12.5 g/dL Normal 12.0 - 1 6.0 gm/dL [facility] HemeAutoSS MCH (RBC) [Entitic mass] 30.4 pg Normal 27.0 - 34.0 pg [facility] HemeAutoSS MCHC (RBC) [Mass/Vol] 34.3 g/dL Normal 31.4 - 36.0 gm /dL [facility] HemeAutoSS MCV (RBC) [Entitic vol] 88.4 fL Normal 80.0 - 100.0 fL [facility] HemeAutoSS Platelet mean volume (Bld) [Entitic vol] 9.0 fL Normal 6.4 - 10.8 fL [facility]eAutoSS Platelets (Bld) [#/Vol] 273.0 E9/L Normal 150.0 - 500. 0 E9/L [facility] HemeAutoSS RBC (Bld) [#/Vol] 4.1 E12/L Low 4.3 - 5.9 E12/L [facility] HemeAutoSS WBC corrected for nucl RBC A uto (Bld) [#/Vol] 5.9 E9/L Normal 4.0 - 11.0 E9/L [facility] HemeAutoSS Hep Func Panelon 05-21-2023 Albumin [Mass/Vol] 4.0 g/dL Normal 3.3-5.0 [facility] Comment on above: Performed By: #### 1 [id number], 6144278, 9053623, 6436435, 9222513, 4301554, 16875172, 9943406 #### [facility] [address] [place] [address] Albumin/Globulin (S) [Mass conc ratio] 1.3 Normal 1.1-2.2 [facility] Comment on above: Performed By: #### 1 [id number], 5472561, 1441967, 2253174, 7606841, 6484852, 43324693, 8779405 #### [facility] [address] [place] [address] ALP [Catalytic activity/Vol] 50 Int._Unit/L Normal 21- 98 [facility] Comment on above: Performed By: #### 1 [id number], 3204571, 5293414, 3773388, 4398459, 6647075, 69530939, 9009867 #### [facility] [address] [place] [address] ALT No additional P-5'-P [Catalytic activity/Vol] 19 Int._Unit/L Normal 6-46 [facility] Comment on above: Performed By: #### 1 1017913, 3989994, 7056807, 7769036, 3590109, 1710685, 01930782, 5911623 #### [facility] [address] [place] [address] AST [Catalytic activity/Vol] 17 Int._Unit/L Normal 5-4 3 [facility] Comment on above: Performed By: #### 1 8548687, 2983154, 6855745, 7957013, 0804839, 0806026, 87078730, 7762401 #### [facility] [address] [place] [address] Bilirubin [Mass/Vol] 0.5 mg/dL Normal 0.0-1.1 [facility] Comment on above: Performed By: #### 1 4285047, 2154040, 9058373, 0953657, 6239353, 4859271, 95430681, 8855230 #### [facility] [address] [place] [address] Bilirubin.direct [Mass/Vol] 0.1 mg/dL Normal 0.1-0.4 [facility] Comment on above: Performed By: #### 1 2578983, 8932649, 5966003, 3257076, 8188375, 6905854, 21658236, 1463655 #### [facility] [address] [place] [address] Bilirubin.indirect [Mass or moles/Vol] 0.4 mg/dL Normal 0.1-0.9 [facility] Comment on above: Performed By: #### 1 2904109, 6501726, 7138217, 0568266, 2554567, 8847469, 35090045, 7633126 #### [facility] [address] [place] [address] Globulin (S) [Mass/Vol] 3.0 g/dL Normal 1.4-4.[address] [facility] Comment on above: Performed By: #### 1 7765091, 7170942, 7542131, 1488973, 4060228, 6412395, 77588030, 0076767 #### [facility] [address] [place] [address] Protein [Mass/Vol] 7.0 g/dL Normal 6.0-7.8 [facility] Comment on above: Performed By: #### 1 6841574, 9288866, 4374391, 0532478, 8526371, 6539946, 36891201, 3811035 #### [facility] [address] [place] [address] Influenza A&B Agon 3 Influenzae A Ag Negative Normal Negative [facility] Comment on above: Performed By: #### 1 7843909, [id number] #### [facility] [address] [place] [address] Influenzae B Ag Negative Normal Negative [facility] Comment on above: Result Comment: Test sensitivity and specificity vary for age group, specimen type, antigen types, and prevalence of disease. Test results must be evaluated in conjunction with other clinical data available to the physician. Individuals who received nasally administered Influenza A vaccine may have positive test results up to 3 days after vaccination. Performed By: #### 1 [id number], [id number] #### [facility] [address] [place] [address] Lipase Levelon 05-21-2023 Lipase [Catalytic activity/Vol] 32 U/L Normal 13-5 8 [facility] Comment on above: Performed By: #### 1 8647934, 7968371, 7145392, 4308173, 1868773, 6876565, 63492301, 5121233 #### [facility] [address] [place] [address] MICRO OTHER TESTSOrdered By: Michelle Can on 05-21-2023 Influenzae A Ag Negative (05/21/23 11:51 AM) Normal Negative [facility] Influenzae B Ag Negative 1 (05/21/23 11:51 AM) Normal Negative [facility] Comment on above: Interpretive Data: T est sensitivity and specificity vary for age group, specimen type, antigen types, and prevalence of disease. Test results must be evaluated in conjunction with other clinical data available to the physician. Individuals who received nasally administered Influenza A vaccine may have positive test results up to 3 days after vaccination. Rapid COV Int NEG Ctl Pass (05/21/23 11:51 AM) Normal [facility] Rapid COV Int POS Ctl Pass (05/21/23 11:51 AM) Normal [facility] SARS-CoV+SARS-CoV-2 (COVID-1 9) Ag IA.rapid Ql (Resp) Not Detected 5 (05/21/23 11:51 AM) Normal Not Detected [facility] Comment on above: Interpretive Data: [employer] Veritor System for Rapid Detection of SARS-CoV-2 is a chromatographic digital immunoassay intended for the direct and qualitative detection of SARS-CoV-2 nucleocapsid antigens in nasal swabs from individuals who are suspected of COVID-19 by their healthcare provider within the first five days of the onset of symptoms. Negative results should be treated as presumptive, do not rule out SARS-CoV-2 infection and should not be used as the sole basis for treatment or patient management decisions, including infection control decisions. Negative results should be considered in the context of a patient s recent exposures, history and the presence of clinical signs and symptoms consistent with COVID-19, and confirmed with a molecular assay, if necessary, for patient management. For in vitro diagnostic use. In the [place], only for use under an Emergency Use Authorization. In the [place], this test has not been FDA cleared or approved; this test has been authorized by FDA under an EUA for use by authorized laboratories; use by laboratories certified under the CLIA, 42 U.S.C. 263a, that meet requirements to perform moderate, high, or waived complexity tests and at the Point of Care (POC), i.e., in patient care settings operating under a CLIA Certificate of Waiver, Certificate of Compliance, or Certificate of Accreditation. This test has been authorized only for the detection of proteins from SARS-CoV-2, not for any other viruses or pathogens; and, in the [place], this test is only authorized for the duration of the declaration that circumstances exist justifying the authorization of emergency use of in vitro diagnostics for detection and/or diagnosis of the virus that causes COVID-19 under Section 564(b)(1) of the Act, 21 U.S.C. 360bbb-3(b)(1), unless the authorization is terminated or revoked sooner. Rapid COVID Antigen ([facility])on 05-21-2023 Rapid COV Int NEG Ctl Pass Normal Fis [facility] Comment on above: Performed By: #### 1 [id number], 8240779, 9492145, 5403942, 9255155, 6625312, 40694564, 2779340 #### [facility] [address] [place] [address] Rapid COV Int POS Ctl Pass Normal Fis [facility] Comment on above: Performed By: #### 1 6743404, 0379312, 8089095, 2270125, 0160718, 0365955, 57769541, 5412533 #### [facility] [address] [place] [address] SARS-CoV+SARS-CoV-2 (COVID-1 9) Ag IA.rapid Ql (Resp) Not detected Normal Not Detected [facility] Comment on above: Result Comment: The [employer] System for Rapid Detection of SARS-CoV-2 is a chromatographic digital immunoassay intended for the direct and qualitative detection of SARS-CoV-2 nucleocapsid antigens in nasal swabs from individuals who are suspected of COVID-19 by their healthcare provider within the first five days of the onset of symptoms. Negative results should be treated as presumptive, do not rule out SARS-CoV-2 infection and should not be used as the sole basis for treatment or patient management decisions, including infection control decisions. Negative results should be considered in the context of a patient?s recent exposures, history and the presence of clinical signs and symptoms consistent with COVID-19, and confirmed with a molecular assay, if necessary, for patient management. For in vitro diagnostic use. In the [place], only for use under an Emergency Use Authorization. In the [place], this test has not been FDA cleared or approved; this test has been authorized by FDA under an EUA for use by authorized laboratories; use by laboratories certified under the CLIA, 42 U.S.C. ?263a, that meet requirements to perform moderate, high, or waived complexity tests and at the Point of Care (POC), i.e., in patient care settings operating under a CLIA Certificate of Waiver, Certificate of Compliance, or Certificate of Accreditation. This test has been authorized only for the detection of proteins from SARS-CoV-2, not for any other viruses or pathogens; and, in the [place], this test is only authorized for the duration of the declaration that circumstances exist justifying the authorization of emergency use of in vitro diagnostics for detection and/or diagnosis of the virus that causes COVID-19 under Section 564(b)(1) of the Act, 21 U.S.C. ? 360bbb-3(b)(1), unless the authorization is terminated or revoked sooner. Performed By: #### 1 5097314, 1821045, 0887158, 3577455, 6019730, 5457863, 33488197, 2157939 #### [facility] [address] [place] [address] SEROLOGYOrdered By: Amairani Louise on 05-21-2023 Beta hCG Ql Positive (05/21/23 11:39 AM) Normal [facility] UA With Cult Reflexon 2022 Bilirubin Ql (U) Negative Normal Negative [facility] Comment on above: Performed By: #### 1 [id number] #### [facility] [address] [place] [address] Clarity (U) CLEAR Normal Clear [facility] Comment on above: Performed By: #### 1 [id number] #### [facility] [address] [place] [address] Color (U) YELLOW Normal Yellow [facility] Comment on above: Performed By: #### 1 [id number] #### [facility] [address] [place] [address] Epithelial cells.squamous LM .HPF (Urine sed) [#/Area] 5-8 Normal 0-2 [facility] Comment on above: Performed By: #### 1 [id number] #### [facility] [address] [place] [address] Glucose Test strip (U) [Mass/Vol] Negative Normal Negative [facility] Comment on above: Performed By: #### 1 [id number] #### [facility] [address] [place] [address] Hemoglobin Ql (U) Negative Normal Negative [facility] Comment on above: Performed By: #### 1 3349730 #### [facility] [address] [place] [address] Ketones (U) [Mass/Vol] Negative Normal Negative [facility] Comment on above: Performed By: #### 1 7680200 #### [facility] [address] [place] [address] [place].plasma/[place].RBC (Bld) [Mass ratio] 0-3 N ormal 0-3 [facility] Comment on above: Performed By: #### 1 7867258 #### [facility] [address] [place] [address] Nitrite Ql (U) Negative Normal Negative [facility] Comment on above: Performed By: #### 1 [id number] #### [facility] [address] [place] [address] pH (U) 5.5 [pH] Invalid Interpretation Code 5.0-9.0 [facility] Comment on above: Performed By: #### 1 [id number] #### [facility] [address] [place] [address] Protein (U) [Mass/Vol] Negative Normal Negative [facility] Comment on above: Performed By: #### 1 [id number] #### [facility] [address] [place] [address] Specific gravity (U) [Rel density] 1.020 Invalid Interpretation Code 1.005-1.030 [facility] Comment on above: Performed By: #### 1 [id number] #### [facility] [address] [place] [address] Type of Urine collection method Clean Catch Normal [facility] Comment on above: Performed By: #### 1 [id number] #### [facility] [address] [place] [address] Urobilinogen Qn (U) 0.2 {Clara'U}/dL Normal 0.0-1.0 [facility] Comment on above: Performed By: #### 1 [id number] #### [facility] [address] [place] [address] WBC Auto Ql (U) Negative Normal Negative [facility] Comment on above: Performed By: #### 1 [id number] #### [facility] [address] [place] [address] WBC LM.HPF (Urine sed) [#/Area] 0-5 Normal 0-5 [facility] Comment on above: Performed By: #### 1 [id number] #### [facility] [address] [place] [address] URINALYSISOrdered By: Chikis Louise on 05-21-2023 Bilirubin Ql (U) Negative (05/21/23 11:51 AM) Normal Negative [facility] UA Auto SS Clarity (U) Clear (05/21/23 11:51 AM) Normal Clear [facility] UA Auto SS Color (U) Yellow (05/21/23 11:51 AM) Normal Yellow [facility] UA Auto SS Epithelial cells.squamous LM.HPF (Urine sed) [#/Area] 5-8 /HPF Normal 0-2/HPF [facility] UA Auto SS Glucose Test strip (U) [Mass/Vol] Negative (05/21/23 11:51 AM) Normal Negative [facility] UA Auto SS Hemoglobin Ql (U) Negative (05/21/23 11:51 AM) Normal Negative [facility] UA Auto SS Ketones (U) [Mass/Vol] Negative (05/21/23 11:51 AM) Normal Negative [facility] UA Auto SS [place].plasma/Lith[place] um.RBC (Bld) [Mass ratio] 0-3 /HPF Normal 0-3/HPF [facility] UA Auto SS Nitrite Ql (U) Negative (05/21/23 11:51 AM) Normal Negative [facility] UA Auto SS pH (U) 5.5 *NA* (05/21/23 11:51 AM) Invalid Interpretation Code 5.0 - 9.0 [facility] UA Auto SS Protein (U) [Mass/Vol] Negative (05/21/23 11:51 AM) Normal Negative [facility] UA Auto SS Specific gravity (U) [Rel density] 1.020 *NA* (05/21/23 11:51 AM) Invalid Interpretation Code 1.005 - 1.030 [facility] UA Auto SS UA Spec Desc Clean Catch (05/21/23 11:51 AM) Normal [facility] UA Auto SS Urobilinogen Qn (U) [id number] {Clara'U}/dL Normal 0.0 - 1.0 EU/dL [facility] UA Auto SS WBC Auto Ql (U) Negative (05/21/23 11:51 AM) Normal Negative [facility] UA Auto SS WBC LM.HPF (Urine sed) [#/Area] 0-5 /HPF Normal 0-5/HPF [facility] UA Auto SS US 1st Trimesteron 05-21-2023 US 1st Trimester Exam Date/Time: 05/21/2023 14:37 EDT Reason for Exam: abdominal pain;Other (please specify) Report IMPRESSION: EARLY INTRAUTERINE CORRESPONDING TO Composite Ultrasound Age: 5 weeks, 4 days, +/- 1 week, DESCRIBED. NO OTHER FINDINGS OF CONCERN IDENTIFIED. EXAM: US 1st Trimester, US Transvaginal DATE: 05/21/2023 CLINICAL HISTORY: abdominal pain. LMP: 04/09/2023. Gestational Age by LMP: 6 weeks, 0 days COMPARISON: None available for this . TECHNIQUE: Transabdominal ultrasound was performed to visualize the entirety of the pelvis. Transvaginal scanning was performed to provide better detail of the uterus and ovaries. FINDINGS: An approximately Mean Sac Diameter: 0.9 cm gestational sac containing a small yolk sac is present within the central aspect of the uterine body/fundus, without significant surrounding subchorionic hemorrhage. There is no discrete pole or cardiac activity observed. Composite Ultrasound Age: 5 weeks, 4 days, +/- 1 week, by mean sac diameter. The estimated date of delivery by measurements is: HOOD from average ultrasound age: 0501/17/2024. The HOOD from LMP: 01/14/2024. There is no significant free fluid, or other findings of concern identified. Both ovaries appear within normal limits. Equivalent blood flow is demonstrated on Doppler analysis. The uterus measurements and an estimated volume are: Uterus Length: 9.2 cm Report Uterus Width: 6.6 cm Uterus Height: 5.5 cm Uterus Volume: 174.5 cm3 The right ovary measurements and estimated volume are: Right Ovary Length: 2.0 cm Right Ovary Width: 1.8 cm Right Ovary Height: 1.0 cm Right Ovary Volume: 1.8 cm3 The left ovary measurements and estimated volume are: Left Ovary Length: 2.3 cm Left Ovary Width: 2.3 cm Left Ovary Height: 1.2 cm Left Ovary Volume: 3.5 cm3 Ordering Provider: Osman Ge FINAL REPORT Dictated: 05/21/2023 2:53 pm Gonsalo Martinez MD Signed (Electronic Signature): 05/21/2023 2:53 pm Signed by: Gonsalo Martinez MD Transcribed by: PAULO Technologist: LUIS ANTONIO Technical Comments LMP : 04/09/2023 History 4 Para 3 Transabdominal Ultrasound Performed Transvaginal Ultrasound Performed Normal [facility] US Transvaginalon 05-21-2023 US Transvaginal Exam Date/Time : 05/21/2023 14:36 EDT Reason for Exam: abdominal pain Report PLEASE SEE US 1st Trimester REPORT DATED: 05/21/2023. Ordering Provider: Osman Ge FINAL REPORT Dictated: 05/21/2023 2:53 pm Gonsalo Martinez MD Signed (Electronic Signature): 05/21/2023 2:53 pm Signed by: Gonsalo Martinez MD Transcribed by: PAULO Technologist: LUIS ANTONIO Pedroza [facility] XR Chest 2 Viewson XR Chest 2 Views Exam Date/Time: 05/21/2023 11:58 EDT Reason for Exam: Cough Report IMPRESSION: NO EVIDENCE OF ACTIVE CARDIOPULMONARY DISEASE EXAM: XR Chest 2 Views DATE: 05/21/2023 11:47 AM CLINICAL HISTORY: Cough. COMPARISON: None available. TECHNIQUE: Upright PA and lateral radiographs of the chest were obtained. FINDINGS: There is no significant pulmonary infiltrate, cardiomegaly, pleural effusion, vascular congestion, pneumothorax, or displaced fractures identified. Ordering Provider: Osman Ge FINAL REPORT Dictated: 05/21/2023 2:03 pm Gonsalo Martinez MD Signed (Electronic Signature): 05/21/2023 2:03 pm Signed by: Gonsalo Martinez MD Transcribed by: PAULO Technologist: REINALDO Technical Comments Radiation Dose: Ka,r in mGy = na DAP = na Normal [facility] eGFRon 05-21-2023 GFR/1.73 sq M.predicted tonia g non-blacks MDRD (S/P/Bld) [Vol rate/Area] 129 mL/min/1.73 m2 Normal >=59 [facility] Comment on above: Order Comment: Order added by Discern Expert. Result Comment: Spa Host josselin kidney disease could be indicated at eGFR's of less than 60 mL/min/1.73m2. Kidney failure is indicated at less than 15 mL/min/1.73m2. Performed By: #### [id number], [id number] #### [facility] [address] [place] [address] PAP ACOG PANEL 2: 21 to 29on 06-08-2022 . . Normal [facility] Comment on above: Performed By: #### [id number] #### [facility] [address] [place] [address] Dr. Jaspreet Duran Age Gdln ACOG Testing - Normal [facility] Comment on above: Performed By: #### 4 [id number] #### [facility] [address] [place] [address] Dr. Jaspreet Duran DIAGNOSIS: Comment Normal [facility] Comment on above: Result Comment: NEGA TIVE FOR INTRAEPITHELIAL LESION OR MALIGNANCY. Performed By: #### 4 [id number] #### [facility] [address] [place] [address] Dr. Jaspreet Duran Methodology: Comment Normal [facility] Comment on above: Result Comment: This liquid based ThinPrep(R) pap test was screened with the use of an image guided system. Performed By: #### 4 [id number] #### [facility] [address] [place] [address] Dr. Jaspreet Duran Note: Comment Normal [facility] Comment on above: Result Comment: The Pap smear is a screening test designed to aid in the detection of premalignant and malignant conditions of the uterine cervix. It is not a diagnostic procedure and should not be used as the sole means of detecting cervical cancer. Both false-positive and false-negative reports do occur. . Performed By: #### 4 [id number] #### [facility] [address] [place] [address] Dr. Jaspreet Duran Performed by: Comment Normal [facility] Comment on above: Result Comment: Pricila Valerio, Culinary Intern (ASCP) Performed By: #### 4 [id number] #### [facility] [address] [place] [address] Dr. Jaspreet Duran Reflex Criteria: Comment Normal [facility] Comment on above: Result Comment: The HPV DNA reflex criteria were not met with this specimen result therefore, no HPV testing was performed. . Performed By: #### 4 [id number] #### [facility] [address] [place] [address] Dr. Jaspreet Duran Specimen adequacy: Comment Normal [facility] Comment on above: Result Comment: Sati sfactory for evaluation. No endocervical component is identified. Performed By: #### 4 [id number] #### [facility] [address] [place] [address] Dr. Jaspreet Duran COVID-19 Lab [facility] 11-11-20 21 SARS-CoV-2 (COVID-19) RNA NATALIE+probe Ql (Unsp spec) Not detected Normal Not Detected [facility] Comment on above: Order Comment: Reaso n for Exam Cough;Myalgia Healthcare Worker?: N Result Comment: This nucleic acid amplification test was developed and its performance characteristics determined by [employer]. Nucleic acid amplification tests include RT- PCR and TMA. This test has not been FDA cleared or approved. This test has been authorized by FDA under an Emergency Use Authorization (EUA). This test is only authorized for the duration of time the declaration that circumstances exist justifying the authorization of the emergency use of in vitro diagnostic tests for detection of SARS-CoV-2 virus and/or diagnosis of COVID-19 infection under section 564(b)(1) of the Act, 21 U.S.C. 360bbb-3(b) (1), unless the authorization is terminated or revoked sooner. When diagnostic testing is negative, the possibility of a false negative result should be considered in the context of a patient's recent exposures and the presence of clinical signs and symptoms consistent with COVID-19. An individual without symptoms of COVID-19 and who is not shedding SARS-CoV-2 virus would expect to have a negative (not detected) result in this assay. PERFORMED BY: [facility] [place] [address] PATHOLOGIST BATTERY ASSEMBLER LAUREANO JACK M.D. Performed By: #### C ORONAVIRUS #### [facility] , Vital Signs Date Time Vital Sign Value Performing Clinician Liana gibson 05-21-2023 14:00-0400 Diastolic blood pressure 79 mm[Hg] Donovan Krishna [facility] 05-21-2023 14:00-0400 Heart rate 72 /min Donovan Krishna [facility] 05-21-2023 14:00-0400 Respiratory rate 18 /min Donovan Keller [facility] 05-21-2023 14:00-0400 SaO2% (BldA) [Mass fraction] 99 % Donovan Keller [facility] 05-21-2023 14:00-0400 Systolic blood pressure 132 mm[Hg] Donovan Krishna [facility] 05-21-2023 11:02-0400 Body temperature 98.06 [degF] Donovan Krishna [facility] 05-21-2023 11:02-0400 Diastolic blood pressure 84 mm[Hg] Donovan Krishna [facility] 05-21-2023 11:02-0400 Heart rate 77 /min Donovan Krishna [facility] 05-21-2023 11:02-0400 Respiratory rate 16 /min Donovan Krishna [facility] 05-21-2023 11:02-0400 SaO2% (BldA) [Mass fraction] 100 % Donovan Keller [facility] 05-21-2023 11:02-0400 Systolic blood pressure 147 mm[Hg] Donovan Keller [facility] Encounters Encounter Date Encounter Type Care Provider Facility Start: 07-24-2023 End: 07-24-2023 ambulatory LUKAS ADRY Not Available Start: 07-06-2023 End: 07-06-2023 ambulatory LYNNETTE MALAGON Not Available Start: 05-21-2023 End: 05-21-2023 Emergency department patient visit Donovan Keller Facility[facility] Start: 05-21-2023 End: 05-21-2023 Emergency department patient visit Donovan Keller [facility] Start: 06-01-2022 End: 06-01-[address] LYNNETTE MALAGON Facility: Procedures Date Procedure Procedure Detail Performing Clinician Start: 11-02-2017 Cyst of Bartholin's gland duct (disorder) Donovan Keller None (qualifier value) Donovan Keller Payers Date Payer Category Payer [employer] [id number] 2022 [employer] [id number] 1992 Unknown [id number] 1992 Unknown [id number] 1992 Unknown [id number] 1992 Unknown [id number] 1959 Unknown [id number] Social History Date Type Detail Facility [facility] Comment on above: denies Tobacco smoking status No Smoking Status Entered [facility] Sex Assigned At Female [facility] Functional Status Date Assessment Result Facility 05-21-2023 Functional Status N/A [facility] Hospital Discharge instructions 05-21-2023 Note Date & Type Note Facility 05-21-2023 Hospital Discharg e instructions Patient Education 05/21/2023 15:09:51 Abdominal Pain During , Metj-tn-Vufg Abdominal Pain During Belly (abdominal) pain is common during . There are many possible causes. Some causes are more serious than others. Sometimes the cause is not known. Always tell your doctor if you have belly pain. Follow these instructions at home: Do not have sex or put anything in your vagina until your pain goes away completely. Get plenty of rest until your pain gets better. Drink enough fluid to keep your pee (urine) pale yellow. Take lnho-fta-fblfgbv and prescription medicines only as told by your doctor. Keep all follow-up visits. Contact a doctor if: You keep having pain after resting. Your pain gets worse after resting. You have lower belly pain that: ?Comes and goes at regular times. ?Spreads to your back. ?Feels like menstrual cramps. You have pain or burning when you pee (urinate). Get help right away if: You have a fever or chills. You feel like it is hard to breathe. You have bleeding from your vagina. You are leaking fluid or tissue from your vagina. You vomit for more than 24 hours. You have watery poop (diarrhea) for more than 24 hours. Your baby is moving less than usual. You feel very weak or faint. You have very bad pain in your upper belly. Summary Belly pain is common during . There are many possible causes. If you have belly pain during , tell your doctor right away. Keep all follow-up visits. This information is not intended to replace advice given to you by your health care provider. Make sure you discuss any questions you have with your health care provider. Document Revised: 04/20/2021 Document Reviewed: 04/20/2021 [employer] Patient Education 2022 [employer] Follow Up Care 05/21/2023 10:51:24 With:Jason Raines Address: [address], [address] [facility] [place] [address]- Business (1) When:05/24/2023 14:59:00 Comments:Follow-up with your GUIDANCE SERVICES COORDINATOR. If not have any may follow-up with Dr. Raines. With:XXXX NONE Address: [place] When:Within 3 Day(s) [facility] Evaluation + Plan note 05-21-2023 Note Date & Type Note Facility 05-21-2023 Evaluation + Plan note Extrac chano from: Title:ED Note Author:Osman Ge PA-C te:05/21/23 Abdominal pain in (O26.899: Other specified related conditions, unspecified trimester) Unspecified abdominal pain (R10.9: Unspecified abdominal pain) Orders: acetaminophen, 650 mg = 2 tab(s), Tab, Oral, Once, Stop date 05/21/23 12:44:00 EDT, STAT, Start date 05/21/23 12:44:00 EDT, 05/21/23 12:44:00 EDT ondansetron, 4 mg = 1 tab(s), Tab-Dis, Oral, Once, Stop date 05/21/23 12:44:00 EDT, STAT, Start date 05/21/23 12:44:00 EDT, 05/21/23 12:44:00 EDT Automated Diff Basic Metabolic Panel Beta hCG Qual Beta hCG Quantitative CBC w/ Auto Diff eGFR Extra Blue Tube Hepatic Function Panel Influenza A&B Ag Lipase Level Rapid COVID Antigen ([facility]) UA With Cult Reflex US 1st Trimester US Transvaginal XR Chest 2 Views [facility] Hospital course Narrative Note Date & Type Note Facility Hospital course Narrative No data available for this section [facility] Progress note Note Date & Type Note Facility Progress note No data available for this section [facility] Summary Purpose Family History No Family History Records FoundNo Family History Records Found No data available for this section No Family History Records FoundNo Family History Records Found Advance Directives No Advanced Directives Records FoundNo Advanced Directives Records FoundNo Advanced Directives Records FoundNo Advanced Directives Records Found Additional Source Comments INFORMATION SOURCE (unrecogn ized section and content) DATE CREATED AUTHOR 09/30/2021 [place] DATE CREATED AUTHOR AUTHOR'S ORGANIZ ATION 06/13/2022 [facility] DATE CREATED AUTHOR AUTHOR'S ORGANIZ ATION 05/26/2023 [facility] DATE CREATED AUTHOR AUTHOR'S ORGANIZ ATION 07/26/2023 [facility] EPIC FOR RECORDS PERTAINING TO PATIENTS WHO ARE OR HAVE BEEN ENROLLED IN A CHEMICAL DEPENDENCY/SUBSTANCEABUSE PROGRAM, SOME INFORMATION MAY BE OMITTED. This clinical summary was aggregated from multiple sources. Caution should be exercised in using it in the provision of clinical care. This summary normalizes information from multiple sources, and as a consequence, information in this document may materially change the coding, format and clinical context of patient data. In addition, data may be omitted in some cases. CLINICAL DECISIONS SHOULD BE BASED ON THE PRIMARY CLINICAL RECORDS. [facility] [employer] provides no warranty or guarantee of the accuracy or completeness of information in this document.
== END 2023-07-03 18:42 | disposition home or self-care (01) ==
PROVIDERS: Physician Assistant; Emergency Provider Emergency Medicine
DX: O03.4 Incomplete spontaneous abortion without complication (principal)
CPT/HCPCS: 36415; 76817; 81001; 84702; 86900; 86901; 99285

== ENCOUNTER 2023-07-06 14:25 | Outpatient (OUT) | payer OTHER, SELFPAY ==
[2023-07-06 15:20] LABS: Basophils Percent Auto 0.3 % (0.2-2.0); Eosinophils Absolute Auto 0.1 10^3/uL (0.0-0.7); Hematocrit 36.5 % (36.0-48.0); Hemoglobin 12.1 g/dL (12.0-16.0); Immature Granulocytes Abs Auto 0.01 10^3/uL (0.00-0.03); Immature Granulocytes Pct Auto 0.2 % (0.0-0.5); Lymphocytes Absolute Auto 1.6 10^3/uL (1.2-3.8); Lymphocytes Percent Auto 24.8 % (20.5-60.0); Mean Corpuscular HGB Conc 33.2 g/dL (29.9-35.2); Mean Corpuscular Hemoglobin 30.3 pg (26.7-34.0); Mean Corpuscular Volume 91.3 fL (81.0-99.0); Mean Platelet Volume 10.5 fL (9.5-13.5); Monocytes Absolute Auto 0.5 10^3/uL (0.3-0.8); Monocytes Percent Auto 7.8 % (1.7-12.0); Neutrophils Absolute Auto 4.2 10^3/uL (1.4-6.5); Neutrophils Percent Auto 64.9 % (43.0-75.0); Platelet Count 272 10^3/uL (150-450); Red Cell Distribution Width 11.7 % (11.0-15.0); White Blood Count 6.4 10^3/uL (4.0-11.0)
[2023-07-06 15:24] LABS: INR 1.04
[2023-07-06 15:36] LABS: Alanine Aminotransferase 21 U/L (14-59); Albumin Globulin Ratio 1.1; Albumin Level 3.8 g/dL (3.4-5.0); Alkaline Phosphatase 57 U/L (46-116); Anion Gap 12.6; Aspartate Amino Transferase 9 U/L (15-37); Bilirubin Direct 0.1 mg/dL (0.0-0.2); Bilirubin Total 0.5 mg/dL (0.2-1.0); Calcium 8.8 mg/dL (8.5-10.1); Carbon Dioxide 26.9 mmol/L (21.0-32.0); Chloride 105 mmol/L (98-107); Estimated GFR (African America >60 (>=60); Estimated GFR (Non-African Ame >60 (>=60); Globulin 3.5 g/dL; Glucose 122 mg/dL (74-106); Potassium 3.5 mmol/L (3.5-5.1); Sodium 141 mmol/L (136-145); Total Protein 7.3 g/dL (6.4-8.2)
[2023-07-06 15:59] LABS: HCG Quantitative 3138 mIU/mL
== END 2023-07-06 14:26 | disposition home or self-care (01) ==
PROVIDERS: Visit Provider Obstetrics & Gynecology
DX: Z01.812 Encounter for preprocedural laboratory examination (principal); O02.1 Missed abortion
CPT/HCPCS: 80048; 80076; 84702; 85025; 85610; 85730

== ENCOUNTER 2023-07-07 08:45 | Day surgery (SDC) | payer OTHER, SELFPAY ==
[2023-07-06 14:50] VITALS: BP 125/77; PULSE 94; RESP 16; TEMP 36.4; O2SAT 97; BMI 36.6
[2023-07-07 09:14] VITALS: BP 120/76; PULSE 76; RESP 16; TEMP 36.2; O2SAT 99
[2023-07-07 09:23] LABS: Basophils Percent Auto 0.5 % (0.2-2.0); Eosinophils Absolute Auto 0.2 10^3/uL (0.0-0.7); Eosinophils Percent Auto 2.9 % (0.9-7.0); Hematocrit 35.3 % (36.0-48.0); Hemoglobin 12.1 g/dL (12.0-16.0); Immature Granulocytes Abs Auto 0.01 10^3/uL (0.00-0.03); Immature Granulocytes Pct Auto 0.2 % (0.0-0.5); Lymphocytes Absolute Auto 1.5 10^3/uL (1.2-3.8); Lymphocytes Percent Auto 25.3 % (20.5-60.0); Mean Corpuscular HGB Conc 34.3 g/dL (29.9-35.2); Mean Corpuscular Hemoglobin 30.9 pg (26.7-34.0); Mean Corpuscular Volume 90.1 fL (81.0-99.0); Mean Platelet Volume 10.2 fL (9.5-13.5); Monocytes Absolute Auto 0.5 10^3/uL (0.3-0.8); Monocytes Percent Auto 8.5 % (1.7-12.0); Neutrophils Absolute Auto 3.7 10^3/uL (1.4-6.5); Neutrophils Percent Auto 62.6 % (43.0-75.0); Platelet Count 257 10^3/uL (150-450); Red Blood Count 3.92 10^6/uL (4.20-5.40); Red Cell Distribution Width 11.8 % (11.0-15.0); White Blood Count 5.9 10^3/uL (4.0-11.0)
--- NOTE | 2023-07-07 09:26 | US_ITS ---
The [address] [address] Patient Name: RONY BOLAÑOS MRN: [id number] date: 1990 Sex: F Assigned Patient Location: [facility] Current Patient Location: [facility] Accession/Order Number: [id number] Exam Date: 07/07/2023 09:32 Report Date: 07/07/2023 12:30 At the request of: LYNNETTE SALGUERO Procedure: US OB <= 14 weeks fetus PROCEDURE: US OB <= 14 weeks fetus, 07/07/2023 9:32 AM EST CLINICAL INDICATIONS: Encounter for first trimester , suspected miscarriage, vaginal bleeding 5 para 3 Expected gestational age: 12 weeks 2 days Expected HOOD 01/17/2024 COMPARISON: 07/03/2023 TECHNIQUE: Transabdominal, transvaginal first trimester obstetric sonogram, grayscale color and spectral evaluation. FINDINGS: A single intrauterine is identified. Intrauterine gestational sac is identified. There is irregular mild angular margination. crown-rump length: 3.15 cm Sonographic gestational age: 10 weeks 0 days +/- 6 days Sonographic HOOD 02/02/2024 Embryonic pole is identified. No cardiac activity could be documented with sonographic surveillance, M mode Doppler interrogation. Perigestational hemorrhage is not evident. Maternal ovaries are not demonstrated. US/US OB <= 14 weeks fetus IMPRESSION: 1. Single intrauterine nonviable failed first trimester with incomplete spontaneous . Intrauterine gestational sac, 3.15 cm pole identified without cardiac activity. This meets criteria for nonviable . 2. Mild irregular gestational sac, angular margins, No perigestational hemorrhage 3. Nonvisualization the maternal ovaries bilaterally Electronically authenticated by: DUYEN ALEXANDER Date: 07/07/2023 12:30
[2023-07-07 09:33] LABS: Alanine Aminotransferase 23 U/L (14-59); Albumin Globulin Ratio 1.1; Albumin Level 3.8 g/dL (3.4-5.0); Alkaline Phosphatase 57 U/L (46-116); Aspartate Amino Transferase 22 U/L (15-37); Bilirubin Direct 0.1 mg/dL (0.0-0.2); Bilirubin Total 0.4 mg/dL (0.2-1.0); Globulin 3.6 g/dL; Total Protein 7.4 g/dL (6.4-8.2)
[2023-07-07 09:47] LABS: INR 1.04; Partial Thromboplastin Time 30.5 sec (22.3-36.2)
[2023-07-07] MEDS: LACTATED RINGER'S SOLUTION 1,000 ML 50 ML IV (09:47)
[2023-07-07 10:07] LABS: HCG Quantitative 2869 mIU/mL
--- NOTE | 2023-07-07 12:02 | US_ITS ---
[address] [address] Patient Name: RONY BOLAÑOS MRN: [id number] date: 1990 Sex: F Assigned Patient Location: [facility] Current Patient Location: Accession/Order Number: [id number] Exam Date: 07/07/2023 12:05 Report Date: 07/07/2023 15:21 At the request of: LYNNETTE SALGUERO Procedure: US pelvis EXAMINATION: US pelvis HISTORY: D C in surgery. Rule out retained products COMPARISON: No relevant comparison available. FINDINGS: Limited transabdominal imaging of the uterus demonstrates a prominent lobular uterus. The endometrial cavity is not clearly observed. No color flow was used. US/US pelvis IMPRESSION: Limited imaging of the uterus Electronically authenticated by: ELIZABETH LERMA Date: 07/07/2023 15:21
--- NOTE | 2023-07-07 12:12 | PM.ONB ---
Brief Operative Note Date of procedure: 07/07/23 Pre-op diagnosis: miss first trimester Post-op diagnosis: same as pre-op Procedure: NAME OF PROCEDURE: [D&C suction ] PROCEDURE: The patient was taken back to the OR where she was given general anesthesia without difficulty. She was then placed in dorsal lithotomy position, prepped and draped in the normal sterile fashion. A weighted speculum was placed in the patient's vagina and the anterior lip of the cervix was identified and grasped with a single-tooth tenaculum. The patient was then gently dilated using Hegar dilators after we had sounded roughly to 12 cm. The suction curette was then tested. The suction curette was then placed in the patient's uterus and products of conception were removed using an 10-Upper Sor[place] suction curette. ?Excellent hemostasis was noted. The patient tolerated the procedure well. Sponge, lap, and needle counts were correct x 2. All instruments were then removed from the patient's vagina. The patient was taken to the Recovery Room in stable condition. ?? Anesthesia: TINGA Surgeon: Washington Malagon Estimated blood loss (mL): 10 Pathology: other (poc) Condition: stable Disposition: PACU
[2023-07-07 12:16] VITALS: BP 104/55; PULSE 68; RESP 16; O2SAT 97
[2023-07-07 12:46] VITALS: BP 111/61; PULSE 47; RESP 16; O2SAT 98
--- NOTE | 2023-07-07 12:55 | PC.NURSE ---
Peripad changed for medium amount red vaginal drainage; no clots noted
[2023-07-07 13:16] VITALS: BP 121/62; PULSE 63; RESP 14; O2SAT 100
--- NOTE | 2023-07-07 13:18 | PC.NURSE ---
LR with Pitocin continues infusing IV.Peripad noted to have small amount red drainage without clots
[2023-07-07 13:46] VITALS: BP 103/58; PULSE 51; RESP 16; O2SAT 100
--- NOTE | 2023-07-07 14:03 | PC.NURSE ---
Peripad changed for small amount red drainage without clots
== END 2023-07-07 14:10 | disposition home or self-care (01) ==
PROVIDERS: Anesthesiology; Visit Provider Obstetrics & Gynecology
PROC: (CPT 59820; principal; 2023-07-07 10:10)
DX: O02.1 Missed abortion (principal); F41.9 Anxiety disorder, unspecified; B19.20 Unspecified viral hepatitis C without hepatic coma; F31.9 Bipolar disorder, unspecified
CPT/HCPCS: 59820; 36415; 76801; 76856; 80076; 84702; 85025; 85610; 85730; 88305; J2704

== ENCOUNTER 2023-07-24 16:39 | Outpatient (OUT) | payer OTHER, SELFPAY ==
[2023-07-24 17:13] LABS: HCG Quantitative 6 mIU/mL
== END 2023-07-24 16:40 | disposition home or self-care (01) ==
LOC: LAB 16:41
PROVIDERS: Visit Provider Physician Assistant
DX: Z98.890 Other specified postprocedural states (principal)
CPT/HCPCS: 36415; 84702

== ENCOUNTER 2023-09-19 17:05 | Outpatient (OUT) | payer OTHER, SELFPAY ==
--- OUTSIDE RECORDS SUMMARY | 2023-09-19 17:11 | XMS_ITS | CCD ---
Author Name Unknown Address [facility] [place] [address] Organization [facility] Care Team Providers Care Curtain Stitcher Name Role Phone DR LYNNETTE MALAGON Admitting Unavailable JOSE M, DR CHURCH Attending Unavailable REQUEST, DR RAMOS LISTED Primary Care Unavaila DR LYNNETTE Hurd Consulting Unavailable NONE, XXXX Primary Care Physician Unavailab Donovan Kemp Attending Unavailable LYNNETTE MALAGON Attending Unavailable LUKAS RIDER Attending Unavailable Allergies Allergy Classification Reported Allergen(s) Allergy Type Date of Onset Reaction(s) Facility (1 source) Cefaclor Drug Allergy 06-06-2013 [facility] Repository Medications Current Medications Medication Drug Class(es) Dates Sig (Normalized) Sig (Original) dextromethorphan hydrobromide 3 mg/ml / promethazine hydrochloride 1.25 mg/ml oral solution (1 source) Phenothiazine, Uncompetitive P-dwsyny-Y-aspartat e Receptor Antagonist, Sigma-1 Agonist Start: 12-07-2018 [...] 05/24/18 Status: Ordered fluticasone 0.05 mg/inh Nasal [place] (1 source) Start: 12-07-2018 fluticasone 0.05 mg/inh Nasal [place] 1 spray(s), Nasal, BID, 16 gram, Refill(s) 0 Start Date: 12/07/18 Status: Ordered pantoprazole 40 mg extended release oral tablet (1 source) Proton Pump Inhibitor Start: 05-21-2021 take 1 tablet by mouth once daily pantoprazole 40 mg Oral EC Tab 40 mg = 1 tab(s), Oral, Daily, # 30 tab(s), Refills(s) 0, Pharmacy: [facility]/pharmacy #[id number], 165, cm, 05/21/21 11:57:00 EDT, Height/Length Dosing, 91, kg, 05/21/21 11:57:00 EDT, Weight Dosing Start Date: 05/21/21 Status: Ordered Zofran ODT 4 mg Tab-Dis (2 sources) Start: 05-21-2021 take 1 tablet by mouth every six hours as needed for nausea Zofran ODT 4 mg Tab-Dis 4 mg = 1 tab(s), Oral, q6hr, PRN Nausea/Vomiting, # 12 tab(s), Refills(s) 0, [id number] 165, cm, 05/21/21 11:57:00 EDT, Height/Length [...] Results Test Name Value Interpretation Reference Range Facility Auto Diffon 05-21-2023 Basophils/100 WBC (Bld) 0.4 % Normal 0.0-2.0 [facility] Comment on above: Order Comment: Order Added by Discern Expert. Performed By: #### 1 [id number], 2142248, 1571072, 8278852, 4145544, 8781706, 47373242, 9125793 #### [facility] Laboratory [address] [place] [address] Basophils/Leukocytes Auto (Bld) [Pure # fraction] 0.0 E9/L Normal 0.0-0.2 [facility] Comment on above: Order Comment: Order Added by Discern Expert. Performed By: #### 1 0174144, 8185549, 8226000, 3277608, 3462061, 6543434, 95109426, 5007181 #### [facility] [address] [place] [address] Eosinophils/100 WBC (Bld) 1.5 % Normal 0.0-8.0 [facility] Comment on above: Order Comment: Order Added by Discern Expert. Performed By: #### 1 8062611, 4240724, 8648545, 7373334, 4030010, 2759896, 06106197, 1094053 #### [facility] [address] [place] [address] Eosinophils/Leukocyte s Auto (Bld) [Pure # fraction] 0.1 E9/L Normal 0.0-0.5 [facility] Comment on above: Order Comment: Order Added by Discern Expert. Performed By: #### 1 9537719, 8016152, 1463310, 2083181, 2669343, 3895019, 89999277, 8947276 #### [facility] [address] [place] [address] Lymphocytes/100 WBC (Bld) 33.2 % Normal 14.0-50.0 [facility] Comment on above: Order Comment: Order Added by Discern Expert. Performed By: #### 1 3279439, 9123037, 6135632, 5281556, 2844372, 4589796, 63528798, 5663109 #### [facility] [address] [place] [address] Lymphocytes/Leukocyte s Auto (Bld) [Pure # fraction] 2.0 E9/L Normal 1.0-4.0 [facility] Comment on above: Order Comment: Order Added by Discern Expert. Performed By: #### 1 8074410, 9469249, 9698900, 3898283, 1405756, 6447925, 68602033, 3216158 #### [facility] [address] [place] [address] Monocytes/100 WBC (Bld) 7.8 % Normal 4.0-14.0 [facility] Comment on above: Order Comment: Order Added by Discern Expert. Performed By: #### 1 8837481, 8613045, 7600640, 0134955, 5506561, 2178244, 75581764, 9199655 #### [facility] [address] [place] [address] Monocytes/Leukocytes Auto (Bld) [Pure # fraction] 0.5 E9/L Normal 0.2-1.0 [facility] Comment on above: Order Comment: Order Added by Discern Expert. Performed By: #### 1 6242395, 1744686, 9001697, 2460287, 5331464, 6457200, 20472047, 3643660 #### [facility] [address] [place] [address] Neutrophils/100 WBC (Bld) 57.1 % Normal 36.0-75.0 [facility] Comment on above: Order Comment: Order Added by Discern Expert. Performed By: #### 1 9022048, 3851124, 5002089, 0641439, 7620837, 7889283, 38950206, 3177982 #### [facility] [address] [place] [address] Neutrophils/Leukocyte s Auto (Bld) [Pure # fraction] 3.4 E9/L Normal 2.0-7.5 [facility] Comment on above: Order Comment: Order Added by Discern Expert. Performed By: #### 1 6890690, 5031949, 4895860, 8123450, 0803034, 7254395, 56847711, 8229316 #### [facility] [address] [place] [address] B hCG Qualon 05-21-2023 Beta hCG Ql Positive Normal [facility] Comment on above: Performed By: #### 1 6622961, 6098401, 6361826, 6939271, 5678706, 3550755, 29747117, 1668840 #### [facility] [address] [place] [address] BMPon 05-21-2023 Creatinine [Mass/Vol] 0.5 mg/dL Normal 0.5-1.3 [facility] Comment on above: Performed By: #### 1 1147893, 6256462, 8075144, 3699421, 2181242, 5294483, 28157021, 6513899 #### [facility] [address] [place] [address] Urea nitrogen [Mass/Vol] 13 mg/dL Normal 5-21 [facility] Comment on above: Performed By: #### 1 5699785, 2558101, 8322584, 5460611, 0691818, 1050198, 81425382, 1190822 #### [facility] [address] [place] [address] Urea nitrogen/Creatinine [Mass ratio] 26 No Units High 10-20 [facility] Comment on above: Performed By: #### 1 6376136, 7858453, 8741903, 9905447, 3074405, 5185103, 58071788, 4694028 #### [facility] [address] [place] [address] Anion gap [Moles/Vol] 8 mmol/L Normal 6-16 [facility] Comment on above: Performed By: #### 1 7662578, 4707421, 3247037, 2445294, 4987002, 5098569, 02860198, 2625793 #### [facility] [address] [place] [address] Calcium [Mass/Vol] 9.2 mg/dL Normal 8.9-11.1 [facility] Comment on above: Performed By: #### 1 9280683, 6338020, 7084740, 6707061, 7922625, 4308381, 31170709, 7127504 #### [facility] [address] [place] [address] Chloride [Moles/Vol] 111 mmol/L Normal 101-111 [facility] Comment on above: Performed By: #### 1 3673266, 6066812, 8533972, 8570891, 6618554, 6719543, 66551375, 5237130 #### [facility] [address] [place] [address] CO2 [Moles/Vol] 23 mmol/L Normal 21-31 [facility] Comment on above: Performed By: #### 1 0223970, 1821692, 8280011, 3203243, 6165514, 9360524, 08686723, 1833616 #### [facility] [address] [place] [address] Glucose [Mass/Vol] 101 mg/dL Normal 55-199 [facility] Comment on above: Result Comment: If t his glucose result represents a fasting glucose, interpretation should refer to the following reference range: 55-99 mg/dL Performed By: #### 1 9609290, 1022245, 5627708, 5431754, 2595904, 5645012, 69571130, 7078544 #### [facility] [address] [place] [address] Potassium [Moles/Vol] 3.6 mmol/L Normal 3.5-5.3 [facility] Comment on above: Performed By: #### 1 5509236, 5912223, 9608818, 9385269, 7551352, 8015122, 08812059, 0991562 #### [facility] [address] [place] [address] Sodium [Moles/Vol] 138 mmol/L Normal 135-145 [facility] Comment on above: Performed By: #### 1 5203123, 4564908, 3496753, 1690395, 1074330, 9247304, 03629150, 9744463 #### [facility] [address] [place] [address] BhCG Quanton 05-21-2023 HCG.beta subunit Qn 9779 m[IU]/mL High 1-3 [facility] Comment on above: Result Comment: GEST ATIONAL AGE HCG RANGE (mIU/mL) NON- <1-3 0.2-1 WEEKS 5-50 1-2 WEEKS 50-500 2-3 WEEKS 100-5,000 3-4 WEEKS 500-10,000 4-5 WEEKS 1,000-50,000 5-6 WEEKS 10,000-100,000 6-8 WEEKS 15,000-200,000 8-12 WEEKS 10,000-100,000 Performed By: #### 1 1124275, 4265142, 4807336, 2007327, 5956582, 7587622, 16067945, 6545568 #### [facility] [address] [place] [address] CBC w/ Auto Diffon Erythrocyte distribution width (RBC) [Ratio] 12.9 % Normal 10.9-14.2 [facility] Comment on above: Performed By: #### 1 1809230, 0055634, 0945152, 0644552, 0876302, 7536291, 92537089, 3842388 #### [facility] [address] [place] [address] Hematocrit (Bld) [Volume fraction] 36.4 % Normal 34.0-46.0 [facility] Comment on above: Performed By: #### 1 5435460, 9378176, 6457888, 2768173, 8393634, 4972615, 48251429, 2396606 #### [facility] [address] [place] [address] Hemoglobin (Bld) [Mass/Vol] 12.5 g/dL Normal 12.0-16.0 [facility] Comment on above: Performed By: #### 1 8469303, 9729350, 4481247, 3102031, 9268453, 3563298, 81367896, 7747209 #### [facility] [address] [place] [address]651 MCH (RBC) [Entitic mass] 30.4 pg Normal 27.0-34.0 [facility] Comment on above: Performed By: #### 1 7217127, 6102004, 4754806, 2148062, 9069118, 4131062, 24669320, 6012985 #### [facility] [address] [place], [place] [address] MCHC (RBC) [Mass/Vol] 34.3 g/dL Normal 31.4-36.0 [facility] Comment on above: Performed By: #### 1 7570907, 1463688, 7508502, 9306151, 4227071, 5316789, 71483971, 1401947 #### [facility] [address] [place] [address] MCV (RBC) [Entitic vol] 88.4 fL Normal 80.0-100.0 [facility] Comment on above: Performed By: #### 1 1639666, 9717199, 6727800, 7336120, 1762721, 3115884, 34482461, 2196077 #### [facility] [address] [place] [address] Platelet mean volume (Bld) [Entitic vol] 9.0 fL Normal 6.4-10.8 [facility] Comment on above: Performed By: #### 1 0881907, 1594203, 2576567, 8037846, 8646423, 8528208, 62170614, 2369148 #### [facility] [address] [place] [address] Platelets (Bld) [#/Vol] 273.0 E9/L Normal 150.0-500.0 [facility] Comment on above: Performed By: #### 1 0666927, 8839113, 3527593, 8274666, 2755555, 6409298, 13782508, 7001991 #### [facility] [address] [place] [address] RBC (Bld) [#/Vol] 4.1 E12/L Low 4.3-5.9 [facility] Comment on above: Performed By: #### 1 1604311, 7092784, 6877739, 9337192, 9470661, 1768830, 85924882, 9596392 #### [facility] [address] [place] [address] WBC corrected for nucl RBC Auto (Bld) [#/Vol] 5.9 E9/L Normal 4.0-11.0 [facility] Comment on above: Performed By: #### 1 0889899, 6844117, 8741617, 9156165, 8253947, 3064192, 82562290, 1662926 #### [facility] [address] [place] [address] CHEMISTRYOrdered By: SYSTEM SYSTEM on 05-21-2023 Albumin [Mass/Vol] 4.0 g/dL Normal 3.3 - 5.0 gm/dL [facility] Albumin/Globulin [Mass ratio] 1.3 {ratio} Normal 1.1 - 2.2 [facility] ALP [Catalytic activity/Vol] 50 [iU]/d Normal 21 - 98 Int._Unit/L [facility] ALT No additional P-5'-P [Catalytic activity/Vol] 19 [iU]/d Normal 6 - 46 Int._Unit/L [facility] Anion gap [Moles/Vol] 8 mmol/L Normal 6 - 16 mEq/L [facility] AST [Catalytic activity/Vol] 17 [iU]/d Normal 5 - 43 Int._Unit/L [facility] Bilirubin [Mass/Vol] 0.5 mg/dL Normal 0.0 - 1 .1 mg/dL [facility] Bilirubin.direct [Mass/Vol] 0.1 mg/dL Normal 0.1 - 0.4 mg/dL [facility] Bilirubin.indirect [Mass or moles/Vol] 0.4 mg/dL Normal 0.1 - 0.9 mg/dL [facility] Calcium [Mass/Vol] 9.2 mg/dL Normal 8.9 - 11. 1 mg/dL [facility] Chloride [Moles/Vol] 111 mmol/L Normal 101 - 1 11 mmol/L [facility] CO2 [Moles/Vol] 23 mmol/L Normal 21 - 31 mmol/L [facility] Creatinine [Mass/Vol] 0.5 mg/dL Normal 0.5 - 1.3 mg/dL [facility] GFR/1.73 sq M.predicted among non-blacks MDRD (S/P/Bld) [Vol rate/Area] 129 mL/min/1.73 m2 Normal >=59mL/min/1. 73 m2 [facility] Chem S Comment on above: Interpretive Data: C hronic kidney disease could be indicated at eGFR's of less than 60 mL/min/1.73m2. Kidney failure is indicated at less than 15 mL/min/1.73m2. Globulin (S) [Mass/Vol] 3.0 g/dL Normal 1.4 - 4.0 gm/dL [facility] Glucose [Mass/Vol] 101 mg/dL Normal 55 - 199 mg/dL [facility] Comment on above: Interpretive Data: I [...] 32 U/L Normal 13 - 58 unit/L [facility] Potassium [Moles/Vol] 3.6 mmol/L Normal 3.5 - 5.3 mmol/L [facility] Protein [Mass/Vol] 7.0 g/dL Normal 6.0 - 7.8 gm/dL [facility] Sodium [Moles/Vol] 138 mmol/L Normal 135 - 145 mmol/L [facility] Urea nitrogen [Mass/Vol] 13 mg/dL Normal 5 - 21 mg/dL [facility] Remisol Urea nitrogen/Creatinine [Mass ratio] 26 mg/mg High 10 - 20 [facility] Remisol Consent for Treatmenton Consent for Treatment [id number] #[id number]:127 Normal [facility] Discharge Instructionson Discharge Instructions [id number] #[id number]:127 Normal [facility] ED Clinical Summaryon 2022 ED Clinical Summary [place] [id number] ED Clinical Summary Person Information Name: RONY BOLAÑOS Jessica/[facility] Age: 32 Years : 1990 Sex: Female Language: Polish PCP: NONE, XXXX Marital Status: Single Visit [...] 05/21/2023 15:09:51 05/21/2023 15:09:51 05/21/2023 15:09:51 ADDRESS: [address] [place] [id number] PHYS DOC NOTES: MEDICAL INFORMATION: Prescriptions Given: Medications to Continue with No Changes Other Medications dextromethorphan-pro methazine (dextromethorphan-pr omethazine 15 mg-6.25 mg/5 mL Oral Syrup 5 mL) 5 Milliliter By Mouth every 6 hours as needed for cough. Refills: 0. etonogestrel (Nexplanon 68 mg subcutaneous implant) 1 Each Subcutaneous Once. fluticasone nasal (fluticasone 0.05 mg/inh Nasal [place]) 1 Sprays Nasal Inhalation 2 times a [...] EDUCATION INFORMATION: Instructions: Abdominal Pain During , Rnzr-ml-Lvhc Follow up: With: Address: When: Jason Raines [address] [place] [address], [facility] [address], [place] [address] [facility] (1) In 3 days 05/24/2023 Comments: Follow-up with your MEDIA RELATIONS SPECIALIST. If not have any may follow-up with Dr. Raines. With: Address: When: XXXX [facility] , [place] In 3 days DIAGNOSIS: Abdominal pain in ; Unspecified abdominal pain Normal [facility] ED Note-Physicianon 05-21-20 ED Note-Physician Basic Information [...] and Complexity of Problems Differential Diagnosis: [] [facility] Data External documents reviewed: [] My EKG [...] A&B Ag Lipase Level Rapid COVID Antigen ([facility]) UA With Cult Refl (more content not included)... Normal [facility] Comment on above: Result Comment: Elec tronically Signed By: Joo LR, Osman Sosa\.br\Date and Time Signed: 05/21/23 15:12 EDT\.br\Electronically Co-Signed By: Donovan Keller DO\.br\Date and Time Co-Signed: 05/21/23 18:56 EDT ED [...] your pee (urine) pale yellow. ? Take skke-lug-mzxbprp and prescription medicines only as told by [...] Reviewed: 04/20/2021 Elsevier Patient Education ? 2022 [employer] Inc. Normal [facility] ED Patient Summaryon 023 ED Patient Summary [place] [id number] Patient Discharge Instructions Person Information Name: RONY BOLAÑOS Age: 32 Years Arrival Date: 05/21/2023 10:49:01 Discharge Diagnosis: Abdominal pain in ; Unspecified abdominal pain Primary Care Physician: NONE, XXXX Provider Information Primary Provider: Donovan Keller DO Advanced Assembly Machine Tool Setter:None The exam and treatment you received in the Emergency Department were for an urgent problem and are not intended as complete care. It is important that you follow up with a doctor, nurse practitioner, or physician?s railways assistant for ongoing care. If your symptoms [...] Follow-up Instructions: With: Address: When: Jason Raines [address] [place] [address], [place] [address], [place] [address] [facility] (1) In 3 days 05/24/2023 Comments: Follow-up with your MEDIA RELATIONS SPECIALIST. If not have any may follow-up with Dr. Raines. With: Address: When: VIN RAMOS [place] In 3 days In the event that this physician does not participate in your insurance network, please consult with your insurance company to find a nearby participating provider. Patient Education Materials: Abdominal Pain During , Jmqh-bk-Svfe A MESSAGE TO ALL PATIENTS REGARDING OPIOIDS PRESCRIPTION OPIOIDS: WHAT YOU NEED TO KNOW Prescription opioids can be used to help relieve qkdxtqhn-di-iicbtc pain and are often prescribed following a [...] guidance from the Food and Drug Administration (www.fda.gov/Drugs/R esourcesForYou). ? Visit www.cdc.gov/drugover dose to learn about the risks of opioids abuse and overdose (more content not included)... Normal [facility] HEMATOLOGYOrdered By: SYSTEM SYSTEM on 05-21-2023 Basophils/100 WBC (Bld) 0.4 % Normal 0.0 - 2.0 % [facility]eAuto[facility] Basophils/Leukocytes Auto (Bld) [Pure # fraction] 0.0 E9/L Normal 0.0 - 0.2 E9/L [facility] Eosinophils/100 WBC (Bld) 1.5 % Normal 0.0 - 8.0 % [facility]eAuto[facility] Eosinophils/Leukocyte s Auto (Bld) [Pure # fraction] 0.1 E9/L Normal 0.0 - 0.5 E9/L [facility] Lymphocytes/100 WBC (Bld) 33.2 % Normal 14.0 - 50.0 % [facility]eAuto[facility] Lymphocytes/Leukocyte s Auto (Bld) [Pure # fraction] 2.0 E9/L Normal 1.0 - 4.0 E9/L [facility] Monocytes/100 WBC (Bld) 7.8 % Normal 4.0 - 14.0 % [facility]eAuto[facility] Monocytes/Leukocytes Auto (Bld) [Pure # fraction] 0.5 E9/L Normal 0.2 - 1.0 E9/L [facility] Neutrophils/100 WBC (Bld) 57.1 % Normal 36.0 - 75.0 % [facility] Neutrophils/Leukocyte s Auto (Bld) [Pure # fraction] 3.4 E9/L Normal 2.0 - 7.5 E9/L [facility] HEMATOLOGYOrdered By: Uma Perez on 05-21-2023 Erythrocyte distribution width (RBC) [Ratio] 12.9 % Normal 10.9 - 14.2 % [facility] Hematocrit (Bld) [Volume fraction] 36.4 % Normal 34.0 - 46.0 % [facility] Hemoglobin (Bld) [Mass/Vol] 12.5 g/dL Normal 12.0 - 16.0 gm/dL [facility] MCH (RBC) [Entitic mass] 30.4 pg Normal 27.0 - 34.0 pg [facility] MCHC (RBC) [Mass/Vol] 34.3 g/dL Normal 31.4 - 36.0 gm/dL [facility] MCV (RBC) [Entitic vol] 88.4 fL Normal 80.0 - 100.0 fL [facility] Platelet mean volume (Bld) [Entitic vol] 9.0 fL Normal 6.4 - 10.8 fL [facility] HemeAutoSS Platelets (Bld) [#/Vol] 273.0 E9/L Normal 150.0 - 500.0 E9/L [facility] HemeAutoSS RBC (Bld) [#/Vol] 4.1 E12/L Low 4.3 - 5.9 E12/L [facility] HemeAutoSS WBC corrected for nucl RBC Auto (Bld) [#/Vol] 5.9 E9/L Normal 4.0 - 11.0 E9/L [facility] HemeAutoSS Hep Func Panelon 05-21-2023 Albumin [Mass/Vol] 4.0 g/dL Normal 3.3-5.0 [facility] Comment on above: Performed By: #### 1 9773313, 4743005, 1196300, 5778290, 8121796, 4290836, 20490038, 5153499 #### [facility] [address] [place] [address] Albumin/Globulin (S) [Mass conc ratio] 1.3 Normal 1.1-2.2 [facility] Comment on above: Performed By: #### 1 2252995, 2935791, 5763010, 6439625, 9175239, 4937972, 78729830, 8700592 #### [facility] [address] [place] [address] ALP [Catalytic activity/Vol] 50 Int._Unit/L Normal 21-98 [facility] Comment on above: Performed By: #### 1 2364565, 2845362, 8690428, 7885973, 2332177, 3557083, 81512086, 4116145 #### [facility] [address] [place] [address] ALT No additional P-5'-P [Catalytic activity/Vol] 19 Int._Unit/L Normal 6-46 [facility] Comment on above: Performed By: #### 1 5780075, 5588398, 9023241, 0361379, 1710617, 4036564, 50846900, 5482150 #### [facility] [address] [place] [address] AST [Catalytic activity/Vol] 17 Int._Unit/L Normal 5-43 [facility] Comment on above: Performed By: #### 1 2124395, 6743567, 6729214, 4209535, 1999652, 3851054, 15659109, 4275274 #### [facility] [address] [place] [address] Bilirubin [Mass/Vol] 0.5 mg/dL Normal 0.0-1.1 [facility] Comment on above: Performed By: #### 1 9118299, 4754027, 2734213, 2251595, 0429985, 4928200, 52501166, 6731854 #### [facility] [address] [place] [address] Bilirubin.direct [Mass/Vol] 0.1 mg/dL Normal 0.1-0.4 [facility] Comment on above: Performed By: #### 1 3183713, 0016497, 6881374, 3646931, 0300525, 4096212, 20347279, 1825640 #### [facility] [address] [place] [address] Bilirubin.indirect [Mass or moles/Vol] 0.4 mg/dL Normal 0.1-0.9 [facility] Comment on above: Performed By: #### 1 4993053, 8019725, 0575031, 4486313, 9981380, 1188638, 04804334, 6436652 #### [facility] [address] [place] [address] Globulin (S) [Mass/Vol] 3.0 g/dL Normal 1.4-4.0 [facility] Comment on above: Performed By: #### 1 8468990, 0669420, 6162013, 0088852, 8615824, 7667072, 60998802, 1391548 #### [facility] [address] [place] [address] Protein [Mass/Vol] 7.0 g/dL Normal 6.0-7.8 [facility] Comment on above: Performed By: #### 1 1890456, 5765095, 8546419, 9177312, 6973958, 2140381, 22492831, 8287384 #### [facility] [address] [place] [address] Influenza A&B Agon Influenzae A Ag Negative Normal Negative [facility] Comment on above: Performed By: #### 1 3225965, [id number] #### [facility] [address] [place] [address] Influenzae B Ag Negative Normal Negative [facility] Comment on above: Result Comment: Test sensitivity and specificity vary for age group, specimen type, antigen types, and prevalence of disease. Test results must be evaluated in conjunction with other clinical data available to the physician. Individuals who received nasally administered Influenza A vaccine may have positive test results up to 3 days after vaccination. Performed By: #### 1 [id number] #### [facility] [address] [place] [address] Lipase Levelon 05-21-2023 Lipase [Catalytic activity/Vol] 32 U/L Normal 13-58 [facility] Comment on above: Performed By: #### 1 [id number], [id number], [id number], [id number], [id number], [id number], [id number] #### [facility] [address] [place] [address] MICRO OTHER TESTSOrdered By: Michelle Can on 05-21-2023 Influenzae A Ag Negative (05/21/23 11:51 AM) Normal Negative [facility] Man Sero Influenzae B Ag Negative 1 (05/21/23 11:51 AM) Normal Negative [facility] Comment on above: Interpretive Data: [...] NEG Ctl Pass (05/21/23 11:51 AM) Normal [facility] Man Sero Rapid COV Int POS Ctl Pass (05/21/23 11:51 AM) Normal [facility] Sero SARS-CoV+SARS-CoV-2 (COVID-19) Ag IA.rapid Ql (Resp) Not Detected 5 (05/21/23 11:51 AM) Normal Not Detected [facility] Comment on above: Interpretive Data: T [employer]il[employer] Veritor System for Rapid Detection of SARS-CoV-2 [...] terminated or revoked sooner. Rapid COVID Antigen ([facility])on 05-21-2023 Rapid COV Int NEG Ctl Pass Normal Fis her [facility] Comment on above: Performed By: #### 1 [id number], [id number], [id number], [id number], [id number], [id number], [id number] #### [facility] [address] [place] [address] Rapid COV Int POS Ctl Pass Normal Fis her [facility] Comment on above: Performed By: #### 1 [id number], [id number], [id number], [id number], [id number], [id number], [id number], [id number] #### [facility] [address] [place] [address] SARS-CoV+SARS-CoV-2 (COVID-19) Ag IA.rapid Ql (Resp) Not detected Normal Not Detected [facility] Comment on above: Result Comment: The MySQL System for Rapid Detection of SARS-CoV-2 is [...] For in vitro diagnostic use. In the [facility], only for use under an Emergency Use [...] or revoked sooner. Performed By: #### 1 [id number], [id number], [id number], [id number], [id number], [id number], [id number], [id number] #### [facility] [address] [place] [address] SEROLOGYOrdered By: Amairani Louise on 05-21-2023 Beta hCG Ql Positive (05/21/23 11:39 AM) Normal [facility] UA With Cult Reflexon 2022 Bilirubin Ql (U) Negative Normal Negative [facility] Comment on above: Performed By: #### 1 [id number] #### [facility] [address] [place] [address] Clarity (U) CLEAR Normal Clear [facility] Comment on above: Performed By: #### 1 [id number] #### [facility] [address] [place] [address] Color (U) YELLOW Normal Yellow [facility] Comment on above: Performed By: #### 1 [id number] #### [facility] [address] [place] [address] Epithelial cells.squamous LM.HPF (Urine sed) [#/Area] 5-8 Normal 0-2 [facility] Comment on above: Performed By: #### 1 [id number] #### [facility] [address] [place] [address] Glucose Test strip (U) [Mass/Vol] Negative Normal Negative [facility] Comment on above: Performed By: #### 1 [id number] #### [facility] [address] [place] [address] Hemoglobin Ql (U) Negative Normal Negative [facility] Comment on above: Performed By: #### 1 [id number] #### [facility] [address] [place] [address] Ketones (U) [Mass/Vol] Negative Normal Negative [facility] Comment on above: Performed By: #### 1 [id number] #### [facility] [address] [place] [address] [place].plasma/Lithiu m.RBC (Bld) [Mass ratio] 0-3 Normal 0-3 [facility] Comment on above: Performed By: #### 1 [id number] #### [facility] [address] [place] [address] Nitrite Ql (U) Negative Normal Negative [facility] Comment on above: Performed By: #### 1 [id number] #### [facility] [address] [place] [address] pH (U) 5.5 [pH] Invalid Interpretation Code 5.0-9.0 [facility] Comment on above: Performed By: #### 1 [id number] #### [facility] [address] [place] [address] Protein (U) [Mass/Vol] Negative Normal Negative [facility] Comment on above: Performed By: #### 1 [id number] #### [facility] [address] [place] [address] Specific gravity (U) [Rel density] 1.020 Invalid Interpretation Code 1.005-1.030 [facility] Comment on above: Performed By: #### 1 [id number] #### [facility] [address] [place] [address] Type of Urine collection method Clean Catch Normal [facility] Comment on above: Performed By: #### 1 [id number] #### [facility] [address] [place] [address] Urobilinogen Qn (U) 0.2 {Clara'U}/dL Normal 0.0-1.0 [facility] Comment on above: Performed By: #### 1 [id number] #### [facility] [address] [place] [address] WBC Auto Ql (U) Negative Normal Negative [facility] Comment on above: Performed By: #### 1 [id number] #### [facility] [address] [place] [address] WBC LM.HPF (Urine sed) [#/Area] 0-5 Normal 0-5 [facility] Comment on above: Performed By: #### 1 [id number] #### [facility] [address] [place] [address] URINALYSISOrdered By: Chikis Louise on 05-21-2023 Bilirubin Ql (U) Negative (05/21/23 11:51 AM) Normal Negative [facility] UA Auto SS Clarity (U) Clear (05/21/23 11:51 AM) Normal Clear [facility] UA Auto SS Color (U) Yellow (05/21/23 11:51 AM) Normal Yellow [facility] UA Auto SS Epithelial cells.squamous LM.HPF (Urine sed) [#/Area] 5-8 /HPF Normal 0-2/HPF [facility] UA Aut o SS Glucose Test strip (U) [Mass/Vol] Negative (05/21/23 11:51 AM) Normal Negative [facility] UA Auto SS Hemoglobin Ql (U) Negative (05/21/23 11:51 AM) Normal Negative [facility] UA Auto SS Ketones (U) [Mass/Vol] Negative (05/21/23 11:51 AM) Normal Negative [facility] UA Auto SS [place].plasma/Lithiu m.RBC (Bld) [Mass ratio] 0-3 /HPF Normal 0-3/HPF [...] AM) Invalid Interpretation Code 1.005 - 1.030 [facility] UA Auto SS UA Spec Desc Clean Catch (05/21/23 11:51 AM) Normal [facility] UA Auto SS Urobilinogen Qn (U) 0.8923240 {Clara'U}/dL Normal 0.0 - 1.0 EU/dL [facility] UA Auto SS WBC Auto Ql (U) Negative (05/21/23 11:51 AM) Normal Negative [facility] UA Auto SS WBC LM.HPF (Urine sed) [#/Area] 0-5 /HPF Normal 0-5/HPF [facility] UA Auto SS US 1st Trimesteron 05-21-2023 [...] Transabdominal Ultrasound Performed Transvaginal Ultrasound Performed Normal [facility] US Transvaginalon 05-21-2023 US Transvaginal Exam Date/Time: 05/21/2023 14:36 EDT Reason for Exam: abdominal pain Report PLEASE SEE US 1st Trimester REPORT DATED: 05/21/2023. Ordering Provider: Osman Ge FINAL REPORT Dictated: 05/21/2023 2:53 pm Gonsalo Martinez MD Signed (Electronic Signature): 05/21/2023 2:53 pm Signed by: Gonsalo Martinez MD Transcribed by: PAULO Technologist: LUIS ANTONIO Normal [facility] XR Chest 2 Viewson XR Chest 2 [...] mGy = na DAP = na Normal [facility] eGFRon 05-21-2023 GFR/1.73 sq M.predicted among non-blacks MDRD (S/P/Bld) [Vol rate/Area] 129 mL/min/1.73 m2 Normal >=59 [facility] Comment on above: Order Comment: Order added by Discern Expert. Result Comment: [employer] josselin kidney disease could be indicated at eGFR's of less than 60 mL/min/1.73m2. Kidney failure is indicated at less than 15 mL/min/1.73m2. Performed By: #### 1 [id number], [id number], [id number], [id number], [id number], 7479132, [id number], [id number] #### [facility] [address] [place] [address] PAP ACOG PANEL 2: 21 to 29on 06-08-2022 . . [facility] Comment on above: Performed By: #### 4 [id number] #### [facility] [address] [place] [address] Dr. Jaspreet Duran Age Gdln ACOG Testing - [facility] Comment on above: Performed By: #### 4 [id number] #### [facility] [address] [place] [address] Dr. Jaspreet Duran DIAGNOSIS: Comment [facility] Comment on above: Result Comment: NEGA TIVE FOR INTRAEPITHELIAL LESION OR MALIGNANCY. Performed By: #### 4 [id number] #### [facility] [address] [place] [address] Dr. Jaspreet Duran Methodology: Comment [facility] Comment on above: Result Comment: This liquid based ThinPrep(R) pap test was screened with the use of an image guided system. Performed By: #### 4 [id number] #### [facility] [address] [place] [address] Dr. Jaspreet Duran Note: Comment [facility] Comment on above: Result Comment: The Pap smear is a screening test designed to aid in the detection of premalignant and malignant conditions of the uterine cervix. It is not a diagnostic procedure and should not be used as the sole means of detecting cervical cancer. Both false-positive and false-negative reports do occur. . Performed By: #### 4 [id number] #### [facility] [address] [address] [address] Jaspreet Duran Performed by: Comment Normal [facility] Comment on above: Result Comment: Pricila Valerio, Sales Closer (ASCP) Performed By: #### 4 [id number] #### [facility] [address] [place] [address] Dr. Jaspreet Duran Reflex Criteria: Comment Normal [facility] Comment on above: Result Comment: The HPV DNA reflex criteria were not met with this specimen result therefore, no HPV testing was performed. . Performed By: #### 4 [id number] #### [facility] [address] [address] [address] Jaspreet Duran Specimen adequacy: Comment Normal [facility] Comment on above: Result Comment: Sati sfactory for evaluation. No endocervical component is identified. Performed By: #### 4 [id number] #### [facility] [address] [place] [address] Dr. Jaspreet Duran COVID-19 Lab Corpon 11-12-19 21 SARS-CoV-2 (COVID-19) RNA NATALIE+probe Ql (Unsp spec) Not detected Normal Not Detected [facility] Comment on above: Order Comment: Reaso n for Exam Cough;Myalgia Healthcare Worker?: N Result Comment: This nucleic acid amplification test was developed and its performance characteristics determined by [facility]. Nucleic acid amplification tests include RT- PCR [...] detected) result in this assay. PERFORMED BY: [facility] [place] [address] PATHOLOGIST INSURANCE LICENSING SUPERVISOR LAUREANO JACK M.D. Performed By: #### C ORONAVIRUS #### [facility] , Vital Signs Date Time Vital Sign Value Performing Clinician Liana gibson 05-21-2023 14:00-0400 Diastolic blood pressure 79 mm[Hg] Donovan Krishna [facility] 05-21-2023 14:00-0400 Heart rate 72 /min Donovan Krishna [facility] 05-21-2023 14:00-0400 Respiratory rate 18 /min Donovan Krishna [facility] 05-21-2023 14:00-0400 SaO2% (BldA) [Mass fraction] 99 % Donovan Krishna [facility] 05-21-2023 14:00-0400 Systolic blood pressure 132 mm[Hg] Donovan Krishna [facility] 05-21-2023 11:02-0400 Body temperature 98.06 [degF] Donovan Krishna [facility] 05-21-2023 11:02-0400 Diastolic blood pressure 84 mm[Hg] Donovan Krishna [facility] 05-21-2023 11:02-0400 Heart rate 77 /min Donovan Krishna [facility] 05-21-2023 11:02-0400 Respiratory rate 16 /min Donovan Krishna [facility] 05-21-2023 11:02-0400 SaO2% (BldA) [Mass fraction] 100 % Donovan Krishna [facility] 05-21-2023 11:02-0400 Systolic blood pressure 147 mm[Hg] Donovan Keller [facility] Encounters Encounter Date Encounter Type Care Provider Facility Start: 07-24-2023 End: 07-24-2023 ambulatory LUKAS RIDER Not Available Start: 07-06-2023 End: 07-06-2023 ambulatory LYNNETTE MALAGON Not Available Start: 05-21-2023 End: 05-21-2023 Emergency department patient visit Donovan Keller Facility:[facility] Start: 05-21-2023 End: 05-21-2023 Emergency department patient visit Donovan Keller [facility] Start: 06-01-2022 End: 06-01-[address] LYNNETTE MALAGON Facility: Procedures Date Procedure Procedure Detail Performing Clinician Start: 11-02-2017 Cyst of Bartholin's gland duct (disorder) Donovan Keller None (qualifier value) Donovan Keller Payers Date Payer Category Payer [employer] [id number] 2022 [employer] [id number] 1990 Unknown [id number] 1990 Unknown [id number] 1990 Unknown [id number] 1992 Unknown [id number] 1959 Unknown [id number] Social History Date Type Detail Facility Tobacco [facility] Comment on above: denies Tobacco smoking status No Smokin g Status Entered [facility] Sex Assigned At Female [facility] Functional Status Date Assessment Result Facility 05-21-2023 Functional Status N/A [facility] Discharge instructions 05-21-2023 Note Date & Type Note Facility 05-21-2023 Hospital Discharg e instructions Patient Education 05/21/2023 15:09:51 Abdominal Pain During , [id number] Abdominal Pain During Belly (abdominal) pain is [...] keep your pee (urine) pale yellow. Take [id number]-fzigrqk and prescription medicines only as told by [...] provider. Document Revised: 04/20/2021 Document Reviewed: 04/20/2021 [employer] Patient Education 2022 [employer]. Follow Up Care 05/21/2023 10:51:24 With:Jason Ranies Address: [address], [address] [address]- Business (1) When:05/24/2023 14:59:00 Comments:Follow-up with your MEDIA RELATIONS SPECIALIST. If not have any may follow-up with Dr. Raines. With:XXXX NONE Address: [place] When:Within 3 Day(s) [facility] Evaluation + Plan note 05-21-2023 Note Date [...] A&B Ag Lipase Level Rapid COVID Antigen ([facility]) UA With Cult Reflex US 1st Trimester US Transvaginal XR Chest 2 Views [facility] Hospital course Narrative Note Date & Type Note Facility Hospital course Narrative No data available for this section [facility] Progress note Note Date & Type Note Facility Progress note No data available for this section [facility] Summary Purpose Family History No Family History Records FoundNo Family History Records Found No data available for this section No Family History Records FoundNo Family History Records Found Advance Directives No Advanced Directives Records FoundNo Advanced Directives Records FoundNo Advanced Directives Records FoundNo Advanced Directives Records Found Additional Source Comments INFORMATION SOURCE (unrecogn ized section and content) DATE CREATED AUTHOR 09/30/2021 [facility] DATE CREATED AUTHOR AUTHOR'S ORGANIZ ATION 06/13/2022 [facility] DATE CREATED AUTHOR AUTHOR'S ORGANIZ ATION 05/26/2023 [facility] DATE CREATED AUTHOR AUTHOR'S ORGANIZ ATION 07/26/2023 [facility] dical Specialists [facility] FOR RECORDS PERTAINING TO PATIENTS WHO ARE [...] BE BASED ON THE PRIMARY CLINICAL RECORDS. [facility] [employer] [facility]. provides no warranty or guarantee of the accuracy or completeness of information in this document.
[2023-09-19 17:45] LABS: HCG Quantitative 524 mIU/mL
== END 2023-09-19 17:06 | disposition home or self-care (01) ==
PROVIDERS: Visit Provider Obstetrics & Gynecology
DX: N92.6 Irregular menstruation, unspecified (principal)
CPT/HCPCS: 36415; 84702

== ENCOUNTER 2023-09-21 16:50 | Outpatient (RCR) | payer OTHER, SELFPAY ==
[2023-09-21 18:01] LABS: HCG Quantitative 1335 mIU/mL
== END 2023-10-19 17:42 | disposition home or self-care (01) ==
LOC: LAB 16:50
PROVIDERS: Visit Provider Obstetrics & Gynecology
DX: N92.6 Irregular menstruation, unspecified (principal)
CPT/HCPCS: 36415; 84702

== ENCOUNTER 2023-10-13 08:54 | Outpatient (OUT) | payer OTHER, SELFPAY ==
--- NOTE | 2023-10-13 08:58 | US_ITS ---
[address] [address] Patient Name: RNOY NICOLE MRN: [id number] date: 1990 Sex: F Assigned Patient Location: [facility] Current Patient Location: [facility] Accession/Order Number: [id number] Exam Date: 10/13/2023 08:58 Report Date: 10/13/2023 10:39 At the request of: LYNNETTE SALGUERO Procedure: US OB transvaginal EXAMINATION: US OB transvaginal HISTORY: MISSED MENSES COMPARISON: No relevant comparison available. FINDINGS: GESTATIONAL SAC: Present and normal appearing. YOLK SAC: Present and normal appearing. POLE: Present and normal appearing. CARDIAC: Present. UTERUS: Normal size and appearance. OVARIES: Right: Normal. Left: Corpus lutein cyst. CERVIX: 3.7 cm in length and closed. CUL-DE-SAC: Normal. OTHER: None. AGE BY LMP: 8 weeks 0 days HOOD BY LMP: 05/24/2024 AGE BY US CRL: 7 weeks 4 days HOOD BY US CRL: 05/27/2024 US/US OB transvaginal IMPRESSION: 1. Single live intrauterine . Electronically authenticated by: KISHOR COLLINS Date: 10/13/2023 10:39
--- OUTSIDE RECORDS SUMMARY | 2023-10-13 09:15 | XMS_ITS | CCD ---
Author Name Unknown Address [facility] [place] [address] Organization [facility] Care Team Providers Care Manager Party Name Role Phone DR LYNNETTE MALAGON Admitting Unavailable JOSE M, DR CHURCH Attending Unavailable REQUEST, DR RAMOS LISTED Primary Care Unavaila DR LYNNETTE Hurd Consulting Unavailable NONE, XXXX Primary Care Physician Unavailab Donovan Kemp Attending Unavailable LYNNETTE MALAGON Attending Unavailable LUKAS RIDER Attending Unavailable Allergies Allergy Classification Reported Allergen(s) Allergy Type Date of Onset Reaction(s) Facility (1 source) Cefaclor Drug Allergy 06-06-2013 [facility] Repository Medications Current Medications Medication Drug Class(es) Dates Sig (Normalized) Sig (Original) dextromethorphan hydrobromide 3 mg/ml / promethazine hydrochloride 1.25 mg/ml oral solution (1 source) Phenothiazine, Uncompetitive F-iqtewj-R-aspartat e Receptor Antagonist, Sigma-1 Agonist Start: 12-07-2018 [...] 05/24/18 Status: Ordered fluticasone 0.05 mg/inh Nasal Freedom (1 source) Start: 12-07-2018 fluticasone 0.05 mg/inh Nasal Freedom 1 spray(s), Nasal, BID, 16 gram, Refill(s) 0 Start Date: 12/07/18 Status: Ordered pantoprazole 40 mg extended release oral tablet (1 source) Proton Pump Inhibitor Start: 05-21-2021 take 1 tablet by mouth once daily pantoprazole 40 mg Oral EC Tab 40 mg = 1 tab(s), Oral, Daily, # 30 tab(s), Refills(s) 0, Pharmacy: [facility]/pharmacy #[id number], 165, cm, 05/21/21 11:57:00 EDT, Height/Length Dosing, 91, kg, 05/21/21 11:57:00 EDT, Weight Dosing Start Date: 05/21/21 Status: Ordered Zofran ODT 4 mg Tab-Dis (2 sources) Start: 05-21-2021 take 1 tablet by mouth every six hours as needed for nausea Zofran ODT 4 mg Tab-Dis 4 mg = 1 tab(s), Oral, q6hr, PRN Nausea/Vomiting, # 12 tab(s), Refills(s) 0, [id number] 165, cm, 05/21/21 11:57:00 EDT, [...] Basophils/100 WBC (Bld) 0.4 % Normal 0.0-2.0 [facility] Comment on above: Order Comment: Order Added by Discern Expert. Performed By: #### 1 [id number], 4998228, 0958032, 2307846, 7209002, 2167656, 73696339, 2430811 #### [facility] [address] [place] [address] Basophils/Leukocytes Auto (Bld) [Pure # fraction] 0.0 E9/L Normal 0.0-0.2 [facility] Comment on above: Order Comment: Order Added by Discern Expert. Performed By: #### 1 2228265, 8592467, 9006913, 5341236, 8300170, 6834722, 50433760, 5085622 #### [facility] [address] [place] [address] Eosinophils/100 WBC (Bld) 1.5 % Normal 0.0-8.0 [facility] Comment on above: Order Comment: Order Added by Discern Expert. Performed By: #### 1 6383728, 1454912, 4340130, 8477450, 3387662, 7307451, 34527149, 4409102 #### [facility] [address] [place] [address] Eosinophils/Leukocyte s Auto (Bld) [Pure # fraction] 0.1 E9/L Normal 0.0-0.5 [facility] Comment on above: Order Comment: Order Added by Discern Expert. Performed By: #### 1 7548507, 7983808, 4886538, 3716480, 1788966, 6125046, 99951640, 3113268 #### [facility] [address] [place] [address] Lymphocytes/100 WBC (Bld) 33.2 % Normal 14.0-50.0 [facility] Comment on above: Order Comment: Order Added by Discern Expert. Performed By: #### 1 2632986, 8467906, 8467094, 0075800, 5094104, 5230209, 42023009, 1726703 #### [facility] [address] [place] [address] Lymphocytes/Leukocyte s Auto (Bld) [Pure # fraction] 2.0 E9/L Normal 1.0-4.0 [facility] Comment on above: Order Comment: Order Added by Discern Expert. Performed By: #### 1 6328906, 5171622, 1321553, 6738624, 5526913, 1892442, 89971503, 9621352 #### [facility] [address] [place] [address] Monocytes/100 WBC (Bld) 7.8 % Normal 4.0-14.0 [facility] Comment on above: Order Comment: Order Added by Discern Expert. Performed By: #### 1 7322362, 7648586, 6839516, 8381258, 3751601, 1492665, 50428008, 2743964 #### [facility] [address] [place] [address] Monocytes/Leukocytes Auto (Bld) [Pure # fraction] 0.5 E9/L Normal 0.2-1.0 [facility] Comment on above: Order Comment: Order Added by Discern Expert. Performed By: #### 1 5941603, 7788320, 3731107, 5796326, 2912460, 2611743, 32032750, 7904417 #### [facility] [address] [place] [address] Neutrophils/100 WBC (Bld) 57.1 % Normal 36.0-75.0 [facility] Comment on above: Order Comment: Order Added by Discern Expert. Performed By: #### 1 2153777, 4413555, 1826138, 4898010, 6417055, 4931533, 43405137, 7609932 #### [facility] [address] [place] [address] Neutrophils/Leukocyte s Auto (Bld) [Pure # fraction] 3.4 E9/L Normal 2.0-7.5 [facility] Comment on above: Order Comment: Order Added by Discern Expert. Performed By: #### 1 1086907, 3090023, 2534099, 9915950, 0325402, 6696014, 09702877, 5272812 #### [facility] [address] [place] [address] B hCG Qualon 05-21-2023 Beta hCG Ql Positive Normal [facility] Comment on above: Performed By: #### 1 9143842, 2390660, 7039204, 0932712, 0430886, 5564370, 85012272, 9911997 #### [facility] [address] [place] [address] BMPon 05-21-2023 Creatinine [Mass/Vol] 0.5 mg/dL Normal 0.5-1.3 [facility] Comment on above: Performed By: #### 1 1187377, 9271353, 4746126, 8734579, 5924245, 5765811, 79494459, 0909191 #### [facility] [address] [place] [address] Urea nitrogen [Mass/Vol] 13 mg/dL Normal 5-21 [facility] Comment on above: Performed By: #### 1 2766997, 2443890, 8682657, 1729026, 2658510, 7037960, 02751252, 4264981 #### [facility] [address] [place] [address] Urea nitrogen/Creatinine [Mass ratio] 26 No Units High 10-20 [facility] Comment on above: Performed By: #### 1 2304413, 5564002, 9370806, 9739608, 8264716, 1083933, 74049704, 5214740 #### [facility] [address] [place] [address] Anion gap [Moles/Vol] 8 mmol/L Normal 6-16 [facility] Comment on above: Performed By: #### 1 3427254, 2819000, 2970082, 5544861, 1270266, 1531343, 61911090, 9514027 #### [facility] [address] [place] [address] Calcium [Mass/Vol] 9.2 mg/dL Normal 8.9-11.1 [facility] Comment on above: Performed By: #### 1 0085933, 9311927, 6928456, 4457551, 3632151, 6768395, 89441166, 6113651 #### [facility] [address] [place] [address] Chloride [Moles/Vol] 111 mmol/L Normal 101-111 [facility] Comment on above: Performed By: #### 1 3010764, 5460219, 1451374, 5922582, 7518854, 5575203, 26625051, 2805036 #### [facility] [address] [place] [address] CO2 [Moles/Vol] 23 mmol/L Normal 21-31 [facility] Comment on above: Performed By: #### 1 3978102, 2787957, 4894921, 1188995, 3059542, 8854311, 48506746, 7551285 #### [facility] [address] [place] [address] Glucose [Mass/Vol] 101 mg/dL Normal 55-199 [facility] Comment on above: Result Comment: If t his glucose result represents a fasting glucose, interpretation should refer to the following reference range: 55-99 mg/dL Performed By: #### 1 7018982, 6249558, 4362882, 2603717, 7690302, 8348320, 11173545, 8189508 #### [facility] [address] [place] [address] Potassium [Moles/Vol] 3.6 mmol/L Normal 3.5-5.3 [facility] Comment on above: Performed By: #### 1 7189196, 3795333, 0643573, 8251730, 6309951, 1859097, 00203643, 8077562 #### [facility] [address] [place] [address] Sodium [Moles/Vol] 138 mmol/L Normal 135-145 [facility] Comment on above: Performed By: #### 1 8285453, 1258691, 9627729, 3833907, 6776474, 6930352, 29367726, 7172412 #### [facility] [address] [place] [address] BhCG Quanton 05-21-2023 HCG.beta subunit Qn 9779 m[IU]/mL High 1-3 [facility] Comment on above: Result Comment: GEST ATIONAL AGE HCG RANGE (mIU/mL) NON- <1-3 0.2-1 WEEKS 5-50 1-2 WEEKS 50-500 2-3 WEEKS 100-5,000 3-4 WEEKS 500-10,000 4-5 WEEKS 1,000-50,000 5-6 WEEKS 10,000-100,000 6-8 WEEKS 15,000-200,000 8-12 WEEKS 10,000-100,000 Performed By: #### 1 5486744, 7598422, 9532960, 8695609, 0993464, 8066907, 01023652, 9039376 #### [facility] [address] [place] [address] CBC w/ Auto Diffon Erythrocyte distribution width (RBC) [Ratio] 12.9 % Normal 10.9-14.2 [facility] Comment on above: Performed By: #### 1 6640392, 0320812, 7840028, 2965583, 0235283, 1998531, 18400159, 4333723 #### [facility] [address] [place] [address] Hematocrit (Bld) [Volume fraction] 36.4 % Normal 34.0-46.0 [facility] Comment on above: Performed By: #### 1 3102580, 5990680, 6144583, 4180913, 8042424, 2691591, 74350304, 1212447 #### [facility] [address] [place] [address] Hemoglobin (Bld) [Mass/Vol] 12.5 g/dL Normal 12.0-16.0 [facility] Comment on above: Performed By: #### 1 4294092, 7866816, 0909507, 3376692, 1783174, 9846571, 37992208, 0775968 #### [facility] [address] [place] [address] MCH (RBC) [Entitic mass] 30.4 pg Normal 27.0-34.0 [facility] Comment on above: Performed By: #### 1 1111737, 0679888, 9431514, 3214297, 7441973, 5982930, 39248021, 4590476 #### [facility] [address] [place], [place] [address] MCHC (RBC) [Mass/Vol] 34.3 g/dL Normal 31.4-36.0 [facility] Comment on above: Performed By: #### 1 1114190, 6443954, 4811086, 3965958, 9809787, 5515198, 39348973, 9600784 #### [facility] [address] [place] [address] MCV (RBC) [Entitic vol] 88.4 fL Normal 80.0-100.0 [facility] Comment on above: Performed By: #### 1 8714259, 9029608, 4113601, 0282211, 6323779, 8038516, 17445307, 2060945 #### [facility] [address] [place] [address] Platelet mean volume (Bld) [Entitic vol] 9.0 fL Normal 6.4-10.8 [facility] Comment on above: Performed By: #### 1 2215552, 1134059, 7490974, 1994421, 4369576, 6161067, 58761408, 9485877 #### [facility] [address] [place] [address] Platelets (Bld) [#/Vol] 273.0 E9/L Normal 150.0-500.0 [facility] Comment on above: Performed By: #### 1 0804819, 2069624, 6377247, 4884314, 3553737, 3260227, 89415894, 0720499 #### [facility] [address] [place] [address] RBC (Bld) [#/Vol] 4.1 E12/L Low 4.3-5.9 [facility] Comment on above: Performed By: #### 1 5920565, 7700946, 6753018, 7883989, 7726660, 2686673, 26538747, 0201247 #### [facility] [address] [place] [address] WBC corrected for nucl RBC Auto (Bld) [#/Vol] 5.9 E9/L Normal 4.0-11.0 [facility] Comment on above: Performed By: #### 1 0619233, 5841480, 7545898, 7352743, 1986779, 6126926, 92415542, 4645335 #### [facility] [address] [place] [address] CHEMISTRYOrdered By: SYSTEM SYSTEM on 05-21-2023 Albumin [...] 129 mL/min/1.73 m2 Normal >=59mL/min/1. 73 m2 [facility] Chem S Comment on above: Interpretive Data: [...] 32 U/L Normal 13 - 58 unit/L [facility] Remisol Potassium [Moles/Vol] 3.6 mmol/L Normal 3.5 - 5.3 mmol/L FT Remisol Protein [Mass/Vol] 7.0 g/dL Normal 6.0 - 7.8 gm/dL FT [facility] Sodium [Moles/Vol] 138 mmol/L Normal 135 - 145 mmol/L FT [facility] Urea nitrogen [Mass/Vol] 13 mg/dL Normal 5 - 21 mg/dL [facility] Remisol Urea nitrogen/Creatinine [Mass ratio] 26 mg/mg High 10 - 20 [facility] Remisol Consent for Treatmenton Consent for Treatment [id number] #[id number]:127 Normal [facility] Discharge Instructionson Discharge Instructions [id number] #[id number]:127 Normal [facility] ED Clinical Summaryon 2022 ED Clinical Summary [place] [id number] ED Clinical Summary Person Information Name: RONY BOLAÑOS Jessica/[facility] Age: 32 Years : 1990 Sex: Female Language: Namibian PCP: NONE, XXXX Marital Status: Single Visit [...] 15:09:51 05/21/2023 15:09:51 05/21/2023 15:09:51 ADDRESS: [address] [place] [id number] PHYS DOC NOTES: MEDICAL INFORMATION: Prescriptions Given: Medications to Continue with No Changes Other Medications dextromethorphan-pro methazine (dextromethorphan-pr omethazine 15 mg-6.25 mg/5 mL Oral Syrup 5 mL) 5 Milliliter By Mouth every 6 hours as needed for cough. Refills: 0. etonogestrel (Nexplanon 68 mg subcutaneous implant) 1 Each Subcutaneous Once. fluticasone nasal (fluticasone 0.05 mg/inh Nasal Freedom) 1 Sprays Nasal Inhalation 2 times a [...] EDUCATION INFORMATION: Instructions: Abdominal Pain During , Btst-kh-Phcl Follow up: With: Address: When: Jason Raines [address] [place] [address], [facility] [address], [place] [address] [facility] (1) In 3 days 05/24/2023 Comments: Follow-up with your PROTOTYPE TECHNICIAN. If not have any may follow-up with Dr. Raines. With: Address: When: XXXX [facility] , [place] In 3 days DIAGNOSIS: Abdominal pain in ; Unspecified abdominal pain Normal [facility] ED Note-Physicianon 05-21-20 ED Note-Physician Basic Information [...] and Complexity of Problems Differential Diagnosis: [] [facility] Data External documents reviewed: [] My EKG [...] Cult Refl (more content not included)... Normal [facility] Comment on above: Result Comment: Elec tronically [...] your pee (urine) pale yellow. ? Take jwcn-mgq-itnilbv and prescription medicines only as told by [...] Patient Education ? 2022 [employer] Normal [facility] ED Patient Summaryon 023 ED Patient Summary [place] [id number] Patient Discharge Instructions Person Information Name: RONY BOLAÑOS Age: 32 Years Arrival Date: 05/21/2023 10:49:01 Discharge Diagnosis: Abdominal pain in ; Unspecified abdominal pain Primary Care Physician: NONE, XXXX Provider Information Primary Provider: Donovan Keller DO [employer] Skinner:None The exam and treatment you received in the Emergency Department were for an urgent problem and are not intended as complete care. It is important that you follow up with a doctor, nurse practitioner, or physician?s occupational therapist assistant for ongoing care. If your symptoms [...] Follow-up Instructions: With: Address: When: Jason Raines [address] [place] [address], [place] [address], [place] [address] [facility] (1) In 3 days 05/24/2023 Comments: Follow-up with your PROTOTYPE TECHNICIAN. If not have any may follow-up with Dr. Raines. With: Address: When: VIN RAMOS [place] In 3 days In the event that this physician does not participate in your insurance network, please consult with your insurance company to find a nearby participating provider. Patient Education Materials: Abdominal Pain During , Cnwy-ck-Zjeg A MESSAGE TO ALL PATIENTS REGARDING OPIOIDS PRESCRIPTION OPIOIDS: WHAT YOU NEED TO KNOW Prescription opioids can be used to help relieve ahcjkslg-eq-sxnflt pain and are often prescribed following a [...] and overdose (more content not included)... Normal [facility] HEMATOLOGYOrdered By: SYSTEM SYSTEM on 05-21-2023 Basophils/100 [...] 9.0 fL Normal 6.4 - 10.8 fL [facility] HemeAutoSS Platelets (Bld) [#/Vol] 273.0 E9/L Normal 150.0 - 500.0 E9/L [facility] HemeAutoSS RBC (Bld) [#/Vol] 4.1 E12/L Low 4.3 - 5.9 E12/L [facility] HemeAutoSS WBC corrected for nucl RBC Auto (Bld) [#/Vol] 5.9 E9/L Normal 4.0 - 11.0 E9/L [facility] HemeAutoSS Hep Func Panelon 05-21-2023 Albumin [Mass/Vol] 4.0 g/dL Normal 3.3-5.0 [facility] Comment on above: Performed By: #### 1 7267110, 1350277, 0709748, 4208848, 2724087, 3569007, 71981804, 0686331 #### [facility] [address] [place] [address] Albumin/Globulin (S) [Mass conc ratio] 1.3 Normal 1.1-2.2 [facility] Comment on above: Performed By: #### 1 2448331, 7414969, 3322366, 1189917, 5655705, 1988122, 77592489, 5086315 #### [facility] [address] [place] [address] ALP [Catalytic activity/Vol] 50 Int._Unit/L Normal 21-98 [facility] Comment on above: Performed By: #### 1 6319797, 9359029, 3394095, 9589883, 0103425, 8737140, 90673322, 1223073 #### [facility] [address] [place] [address] ALT No additional P-5'-P [Catalytic activity/Vol] 19 Int._Unit/L Normal 6-46 [facility] Comment on above: Performed By: #### 1 6317725, 2648557, 4625118, 7511860, 5700626, 4343813, 15906244, 6771395 #### [facility] [address] [place] [address] AST [Catalytic activity/Vol] 17 Int._Unit/L Normal 5-43 [facility] Comment on above: Performed By: #### 1 9011386, 9378392, 3743960, 4432613, 7554215, 2956721, 94781543, 3214161 #### [facility] [address] [place] [address] Bilirubin [Mass/Vol] 0.5 mg/dL Normal 0.0-1.1 [facility] Comment on above: Performed By: #### 1 8744308, 6421714, 6020362, 5518170, 8755224, 5683266, 85348127, 5711458 #### [facility] [address] [place] [address] Bilirubin.direct [Mass/Vol] 0.1 mg/dL Normal 0.1-0.4 [facility] Comment on above: Performed By: #### 1 9657469, 5776435, 7601881, 7852602, 7067048, 3829559, 34046129, 9548367 #### [facility] [address] [place] [address] Bilirubin.indirect [Mass or moles/Vol] 0.4 mg/dL Normal 0.1-0.9 [facility] Comment on above: Performed By: #### 1 2782783, 8072105, 5130670, 7497080, 1771258, 3491826, 48262102, 1995144 #### [facility] [address] [place] [address] Globulin (S) [Mass/Vol] 3.0 g/dL Normal 1.4-4.0 [facility] Comment on above: Performed By: #### 1 7548819, 2694696, 8014826, 9786421, 6098042, 9159313, 20052477, 6842180 #### [facility] [address] [place] [address] Protein [Mass/Vol] 7.0 g/dL Normal 6.0-7.8 [facility] Comment on above: Performed By: #### 1 0694812, 4763635, 6218283, 0972487, 7605393, 8397817, 43700324, 4390187 #### [facility] [address] [place] [address] Influenza A&B Agon Influenzae A Ag Negative Normal Negative [facility] Comment on above: Performed By: #### 1 8248035, [id number] #### [facility] [address] [place] [address] Influenzae B Ag Negative Normal Negative [facility] Comment on above: Result Comment: Test sensitivity and specificity vary for age group, specimen type, antigen types, and prevalence of disease. Test results must be evaluated in conjunction with other clinical data available to the physician. Individuals who received nasally administered Influenza A vaccine may have positive test results up to 3 days after vaccination. Performed By: #### 1 7981539, [id number] #### [facility] [address] [place] [address] Lipase Levelon 05-21-2023 Lipase [Catalytic activity/Vol] 32 U/L Normal 13-58 [facility] Comment on above: Performed By: #### 1 2968228, 3290360, 2386070, 9140191, 3826554, 2952462, 11808347, 9570479 #### [facility] [address] [place] [address] MICRO OTHER TESTSOrdered By: Michelle Can on 05-21-2023 Influenzae A Ag Negative (05/21/23 11:51 AM) Normal Negative [facility] Man Sero Influenzae B Ag Negative 1 (05/21/23 11:51 AM) Normal Negative [facility] Man Sero Comment on above: Interpretive Data: [...] NEG Ctl Pass (05/21/23 11:51 AM) Normal [facility] Man Sero Rapid COV Int POS Ctl Pass (05/21/23 11:51 AM) Normal [facility] Man Sero SARS-CoV+SARS-CoV-2 (COVID-19) Ag IA.rapid Ql (Resp) Not Detected 5 (05/21/23 11:51 AM) Normal Not Detected [facility] Man Sero Comment on above: Interpretive Data: T [employer] Veritor System for Rapid Detection of SARS-CoV-2 [...] terminated or revoked sooner. Rapid COVID Antigen ([facility])on 05-21-2023 Rapid COV Int NEG Ctl Pass Normal Fis her [facility] Comment on above: Performed By: #### 1 3307302, 3404690, 3081501, 9104382, 7379644, 4815052, 34075264, 3358962 #### [facility] [address] [place] [address] Rapid COV Int POS Ctl Pass Normal Fis her [facility] Comment on above: Performed By: #### 1 0559218, 2231420, 8024656, 5796191, 1209251, 1244354, 19741590, 2652686 #### [facility] [address] [place] [address] SARS-CoV+SARS-CoV-2 (COVID-19) Ag IA.rapid Ql (Resp) Not detected Normal Not Detected [facility] Comment on above: Result Comment: The [employer] System for Rapid Detection of SARS-CoV-2 is [...] For in vitro diagnostic use. In the [facility], only for use under an Emergency Use [...] or revoked sooner. Performed By: #### 1 6116163, 6177758, 6299730, 9250909, 8131845, 5609702, 07270921, 9362644 #### [facility] [address] [place] [address] SEROLOGYOrdered By: Amairani Louise on 05-21-2023 Beta hCG Ql Positive (05/21/23 11:39 AM) Normal [facility] Man Sero UA With Cult Reflexon 2022 Bilirubin Ql (U) Negative Normal Negative [facility] Comment on above: Performed By: #### 1 7507937 #### [facility] [address] [place] [address] Clarity (U) CLEAR Normal Clear [facility] Comment on above: Performed By: #### 1 5016015 #### [facility] [address] [place] [address] Color (U) YELLOW Normal Yellow [facility] Comment on above: Performed By: #### 1 1961182 #### [facility] [address] [place] [address] Epithelial cells.squamous LM.HPF (Urine sed) [#/Area] 5-8 Normal 0-2 [facility] Comment on above: Performed By: #### 1 8352618 #### [facility] [address] [place] [address] Glucose Test strip (U) [Mass/Vol] Negative Normal Negative [facility] Comment on above: Performed By: #### 1 6561342 #### [facility] [address] [place] [address] Hemoglobin Ql (U) Negative Normal Negative [facility] Comment on above: Performed By: #### 1 3996438 #### [facility] [address] [place] [address] Ketones (U) [Mass/Vol] Negative Normal Negative [facility] Comment on above: Performed By: #### 1 8043198 #### [facility] [address] [place] [address] [place].plasma/Lithiu m.RBC (Bld) [Mass ratio] 0-3 Normal 0-3 [facility] Comment on above: Performed By: #### 1 2058769 #### [facility] [address] [place] [address] Nitrite Ql (U) Negative Normal Negative [facility] [facility] Comment on above: Performed By: #### 1 [id number] #### [facility] [address] [place] [address] pH (U) 5.5 [pH] Invalid Interpretation Code 5.0-9.0 [facility] Comment on above: Performed By: #### 1 [id number] #### [facility] [address] [place] [address] Protein (U) [Mass/Vol] Negative Normal Negative [facility] Comment on above: Performed By: #### 1 [id number] #### [facility] [address] [place] [address] Specific gravity (U) [Rel density] 1.020 Invalid Interpretation Code 1.005-1.030 [facility] Comment on above: Performed By: #### 1 [id number] #### [facility] [address] [place] [address] Type of Urine collection method Clean Catch Normal [facility] Comment on above: Performed By: #### 1 [id number] #### [facility] [address] [place] [address] Urobilinogen Qn (U) 0.2 {Clara'U}/dL Normal 0.0-1.0 [facility] Comment on above: Performed By: #### 1 [id number] #### [facility] [address] [place] [address] WBC Auto Ql (U) Negative Normal Negative [facility] Comment on above: Performed By: #### 1 [id number] #### [facility] [address] [place] [address] WBC LM.HPF (Urine sed) [#/Area] 0-5 Normal 0-5 [facility] Comment on above: Performed By: #### 1 [id number] #### [facility] [address] [place] [address] URINALYSISOrdered By: Chikis Louise on 05-21-2023 Bilirubin [...] AM) Normal Negative [facility] UA Auto SS [place].plasma/Lithiu m.RBC (Bld) [Mass ratio] 0-3 /HPF Normal [...] [facility] UA Auto SS Urobilinogen Qn (U) 0.5343372 {Clara'U}/dL Normal 0.0 - 1.0 EU/dL [facility] UA Auto SS WBC Auto Ql (U) Negative (05/21/23 11:51 AM) Normal Negative [facility] UA Auto SS WBC LM.HPF (Urine sed) [#/Area] 0-5 /HPF Normal 0-5/HPF [facility] UA Auto SS US 1st Trimesteron 05-21-2023 [...] Transabdominal Ultrasound Performed Transvaginal Ultrasound Performed Normal [facility] US Transvaginalon 05-21-2023 US Transvaginal Exam Date/Time: 05/21/2023 14:36 EDT Reason for Exam: abdominal pain Report PLEASE SEE US 1st Trimester REPORT DATED: 05/21/2023. Ordering Provider: Osman Ge FINAL REPORT Dictated: 05/21/2023 2:53 pm Gonsalo Martinez MD Signed (Electronic Signature): 05/21/2023 2:53 pm Signed by: Gonsalo Martinez MD Transcribed by: PAULO Technologist: LUIS ANTONIO Normal [facility] XR Chest 2 Viewson XR Chest 2 [...] mGy = na DAP = na Normal [facility] eGFRon 05-21-2023 GFR/1.73 sq M.predicted among non-blacks MDRD (S/P/Bld) [Vol rate/Area] 129 mL/min/1.73 m2 Normal >=59 [facility] Comment on above: Order Comment: Order added by Discern Expert. Result Comment: Inspector Glass Or Mirror josselin kidney disease could be indicated at eGFR's of less than 60 mL/min/1.73m2. Kidney failure is indicated at less than 15 mL/min/1.73m2. Performed By: #### 1 [id number], [id number], [id number] #### [facility] [address] [place] [address] PAP ACOG PANEL 2: 21 to 29on 06-08-2022 . . [facility] Comment on above: Performed By: #### 4 [id number] #### [facility] [address] [place] [address] Dr. Jaspreet Duran Age Gdln ACOG Testing - [facility] Comment on above: Performed By: #### 4 [id number] #### [facility] [address] [place] [address] Dr. Jaspreet Duran DIAGNOSIS: Comment [facility] Comment on above: Result Comment: NEGA TIVE FOR INTRAEPITHELIAL LESION OR MALIGNANCY. Performed By: #### 4 [id number] #### [facility] [address] [place] [address] Dr. Jaspreet Duran Methodology: Comment [facility] Comment on above: Result Comment: This liquid based ThinPrep(R) pap test was screened with the use of an image guided system. Performed By: #### 4 [id number] #### [facility] [address] [place] [address] Dr. Jaspreet Duran Note: Comment [facility] Comment on above: Result Comment: The Pap smear is a screening test designed to aid in the detection of premalignant and malignant conditions of the uterine cervix. It is not a diagnostic procedure and should not be used as the sole means of detecting cervical cancer. Both false-positive and false-negative reports do occur. . Performed By: #### 4 [id number] #### [facility] [address] [address] [address] Jaspreet Duran Performed by: Comment Normal [facility] Comment on above: Result Comment: Pricila Valerio, Briefcase Sewer (ASCP) Performed By: #### 4 [id number] #### [facility] [address] [place] [address] Dr. Jaspreet Duran Reflex Criteria: Comment Normal [facility] Comment on above: Result Comment: The HPV DNA reflex criteria were not met with this specimen result therefore, no HPV testing was performed. . Performed By: #### 4 [id number] #### [facility] [address] [address] [address] Jaspreet Duran Specimen adequacy: Comment Normal [facility] Comment on above: Result Comment: Sati sfactory for evaluation. No endocervical component is identified. Performed By: #### 4 [id number] #### [facility] [address] [place] [address] Dr. Jaspreet Duran COVID-19 [facility] 11-12-19 21 SARS-CoV-2 (COVID-19) RNA NATALIE+probe Ql (Unsp spec) Not detected Normal Not Detected [facility] Comment on above: Order Comment: Reaso n for Exam Cough;Myalgia Healthcare Worker?: N Result Comment: This nucleic acid amplification test was developed and its performance characteristics determined by [employer]. Nucleic acid amplification tests include RT- PCR [...] detected) result in this assay. PERFORMED BY: [facility] [place] [address] PATHOLOGIST MACHINE SNELLER LAUREANO JACK M.D. Performed By: #### C ORONAVIRUS #### [facility] , Vital Signs Date Time Vital Sign Value Performing Clinician Liana gibson 05-21-2023 14:00-0400 Diastolic blood pressure 79 mm[Hg] Donovan Krishna [facility] 05-21-2023 14:00-0400 Heart rate 72 /min Donovan Krishna [facility] 05-21-2023 14:00-0400 Respiratory rate 18 /min Donovan Krishna [facility] 05-21-2023 14:00-0400 SaO2% (BldA) [Mass fraction] 99 % Donovan Krishna [facility] 05-21-2023 14:00-0400 Systolic blood pressure 132 mm[Hg] Donovan Krishna [facility] 05-21-2023 11:02-0400 Body temperature 98.06 [degF] Donovan Krishna [facility] 05-21-2023 11:02-0400 Diastolic blood pressure 84 mm[Hg] Donovan Krishna [facility] 05-21-2023 11:02-0400 Heart rate 77 /min Donovan Krishna [facility] 05-21-2023 11:02-0400 Respiratory rate 16 /min Donovan Krishna [facility] 05-21-2023 11:02-0400 SaO2% (BldA) [Mass fraction] 100 % Donovan Krishna [facility] 05-21-2023 11:02-0400 Systolic blood pressure 147 mm[Hg] Donovan Keller [facility] Encounters Encounter Date Encounter Type Care Provider Facility Start: 07-24-2023 End: 07-24-2023 ambulatory LUKAS RIDER Not Available Start: 07-06-2023 End: 07-06-2023 ambulatory LYNNETTE MALAGON Not Available Start: 05-21-2023 End: 05-21-2023 Emergency department patient visit Donovan Keller Facility:[facility] Start: 05-21-2023 End: 05-21-2023 Emergency department patient visit Donovan Keller [facility] Start: 06-01-2022 End: 06-01-[address] LYNNETTE MALAGON Facility: Procedures Date Procedure Procedure Detail Performing Clinician Start: 11-02-2017 Cyst of Bartholin's gland duct (disorder) Donovan Keller None (qualifier value) Donovan Keller Payers Date Payer Category Payer [employer] [id number] 2022 [employer] [id number] 1992 Unknown [id number] 1992 Unknown [id number] 1992 Unknown [id number] 1992 Unknown [id number] 1959 Unknown [id number] Social History Date Type Detail Facility Tobacco [facility] Comment on above: denies Tobacco smoking status No Smokin g Status Entered [facility] Sex Assigned At Female [facility] Functional Status Date Assessment Result Facility 05-21-2023 Functional Status N/A [facility] Hospital Discharge instructions 05-21-2023 Note Date & Type Note Facility 05-21-2023 Hospital Discharg e instructions Patient Education 05/21/2023 15:09:51 Abdominal Pain During , [id number] Abdominal Pain During Belly (abdominal) pain is [...] keep your pee (urine) pale yellow. Take [id number] and prescription medicines only as told by [...] provider. Document Revised: 04/20/2021 Document Reviewed: 04/20/2021 [employer] Patient Education 2022 [employer]. Follow Up Care 05/21/2023 10:51:24 With:Jason Raines Address: [address], [address] [address]- Business (1) When:05/24/2023 14:59:00 Comments:Follow-up with your PROTOTYPE TECHNICIAN. If not have any may follow-up with Dr. Raines. With:XXXX NONE Address: [place] When:Within [address] Day([address]) [facility] Evaluation + Plan note 05-21-2023 Note [...] A&B Ag Lipase Level Rapid COVID Antigen ([facility]) UA With Cult Reflex US 1st Trimester US Transvaginal XR Chest [address] [facility] Hospital course Narrative Note Date & Type Note Facility Hospital course Narrative No data available for this section [facility] Progress note Note Date & Type Note Facility Progress note No data available for this section [facility] Summary Purpose Family History No Family History Records FoundNo Family History Records Found No data available for this section No Family History Records FoundNo Family History Records Found Advance Directives No Advanced Directives Records FoundNo Advanced Directives Records FoundNo Advanced Directives Records FoundNo Advanced Directives Records Found Additional Source Comments INFORMATION SOURCE (unrecogn ized section and content) DATE CREATED AUTHOR 09/30/2021 [facility] DATE CREATED AUTHOR AUTHOR'S ORGANIZ ATION 06/13/2022 [facility] DATE CREATED AUTHOR AUTHOR'S ORGANIZ ATION 05/26/2023 [facility] DATE CREATED AUTHOR AUTHOR'S ORGANIZ ATION 07/26/2023 [facility] FOR RECORDS PERTAINING TO PATIENTS WHO [...] BE BASED ON THE PRIMARY CLINICAL RECORDS. [facility]. provides no warranty or guarantee of the accuracy or completeness of information in this document.
== END 2023-10-13 08:55 | disposition home or self-care (01) ==
PROVIDERS: Visit Provider Obstetrics & Gynecology
DX: Z34.91 Encounter for supervision of normal pregnancy, unspecified, first trimester (principal); Z3A.08 8 weeks gestation of pregnancy; N92.6 Irregular menstruation, unspecified
CPT/HCPCS: 76817

== ENCOUNTER 2023-10-27 15:41 | Outpatient (OUT) | payer OTHER, SELFPAY ==
[2023-10-27 16:29] LABS: Basophils Percent Auto 0.6 % (0.2-2.0); Eosinophils Absolute Auto 0.1 10^3/uL (0.0-0.7); Eosinophils Percent Auto 1.3 % (0.9-7.0); Hematocrit 33.5 % (36.0-48.0); Hemoglobin 11.3 g/dL (12.0-16.0); Immature Granulocytes Abs Auto 0.02 10^3/uL (0.00-0.03); Immature Granulocytes Pct Auto 0.3 % (0.0-0.5); Lymphocytes Absolute Auto 1.6 10^3/uL (1.2-3.8); Mean Corpuscular HGB Conc 33.7 g/dL (29.9-35.2); Mean Corpuscular Hemoglobin 30.9 pg (26.7-34.0); Mean Corpuscular Volume 91.5 fL (81.0-99.0); Mean Platelet Volume 10.9 fL (9.5-13.5); Monocytes Absolute Auto 0.5 10^3/uL (0.3-0.8); Monocytes Percent Auto 7.6 % (1.7-12.0); Neutrophils Absolute Auto 4.5 10^3/uL (1.4-6.5); Neutrophils Percent Auto 66.2 % (43.0-75.0); Platelet Count 262 10^3/uL (150-450); Red Blood Count 3.66 10^6/uL (4.20-5.40); Red Cell Distribution Width 11.8 % (11.0-15.0); White Blood Count 6.8 10^3/uL (4.0-11.0)
[2023-10-27 16:38] LABS: Estimated Average Glucose 103 mg/dL; Glycohemoglobin A1C 5.2 % (4.5-6.2)
[2023-10-29 08:08] LABS: Rubella Antibodies, IgG 2.12 index (Immune >0.99)
[2023-10-29 10:09] LABS: HBsAg Screen Negative (Negative)
[2023-10-29 13:09] LABS: Rapid Plasma Reagin, Quant Non Reactive titer (NonRea<1:1)
[2023-11-01 19:07] LABS: HCV Ab Reactive (Non Reactive)
[2023-11-02 10:13] LABS: HIV Ab/p24 Ag Screen Non Reactive (Non Reactive)
== END 2023-10-27 15:42 | disposition home or self-care (01) ==
LOC: LAB 15:44
PROVIDERS: Visit Provider Obstetrics & Gynecology
DX: Z36.0 Encounter for antenatal screening for chromosomal anomalies (principal); N92.6 Irregular menstruation, unspecified
CPT/HCPCS: 36415; 83036; 85025; 86592; 86762; 86803; 86850; 86900; 86901; 87086; 87340; 87389

== ENCOUNTER 2023-12-09 08:50 | Outpatient (OUT) | payer OTHER, SELFPAY ==
--- OUTSIDE RECORDS SUMMARY | 2023-12-09 08:54 | XMS_ITS | CCD ---
Author Organization [facility] Care Team Providers Care Admin Dir Name Role Phone DR LYNNETTE MALAGON Admitting Unavailable JOSE M, DR CHURCH Attending Unavailable REQUEST, DR RAMOS LISTED Primary Care Unavaila DR LYNNETTE Hurd Consulting Unavailable NONE, XXXX Primary Care Physician Unavailab Donovan Kemp Attending Unavailable LYNNETTE MALAGON Attending Unavailable LUKAS RIDER Attending Unavailable LYNNETTE MALAGON Attending Unavailable Allergies Allergy Classification Reported Allergen(s) Allergy Type Date of Onset Reaction(s) Facility (1 source) Cefaclor Drug Allergy 06-06-2013 [facility] Repository Medications Current Medications Medication Drug Class(es) Dates Sig (Normalized) Sig (Original) dextromethorphan hydrobromide 3 mg/ml / promethazine hydrochloride 1.25 mg/ml oral solution (1 source) Phenothiazine, Uncompetitive P-xwenya-V-aspartat e Receptor Antagonist, Sigma-1 Agonist Start: 12-07-2018 [...] 05/24/18 Status: Ordered fluticasone 0.05 mg/inh Nasal [place] (1 source) Start: 12-07-2018 fluticasone 0.05 mg/inh Nasal [place] 1 spray(s), Nasal, BID, 16 gram, Refill(s) 0 Start Date: 12/07/18 Status: Ordered pantoprazole 40 mg extended release oral tablet (1 source) Proton Pump Inhibitor Start: 05-21-2021 take 1 tablet by mouth once daily pantoprazole 40 mg Oral EC Tab 40 mg = 1 tab(s), Oral, Daily, # 30 tab(s), Refills(s) 0, [id number], 165, cm, 05/21/21 11:57:00 EDT, Height/Length Dosing, 91, kg, 05/21/21 11:57:00 EDT, Weight Dosing Start Date: 05/21/21 Status: Ordered Zofran ODT 4 mg Tab-Dis (2 sources) Start: 05-21-2021 take 1 tablet by mouth every six hours as needed for nausea Zofran ODT 4 mg Tab-Dis 4 mg = 1 tab(s), Oral, q6hr, PRN Nausea/Vomiting, # 12 tab(s), Refills(s) 0, [id number], 165, cm, 05/21/21 11:57:00 EDT, Height/Length [...] Basophils/100 WBC (Bld) 0.4 % Normal 0.0-2.0 [facility] Comment on above: Order Comment: Order Added by Discern Expert. Performed By: #### 1 [id number], 6184354, 5861031, 2993477, 1403529, 6899700, 39234559, 2631129 #### [facility] [address] [place] [address]55 Basophils/Leukocytes Auto (Bld) [Pure # fraction] 0.0 E9/L Normal 0.0-0.2 [facility] Comment on above: Order Comment: Order Added by Discern Expert. Performed By: #### 1 9302831, 9592034, 6589924, 4084315, 2144811, 7417531, 28396472, 1790990 #### [facility] [address] [place] [address] Eosinophils/100 WBC (Bld) 1.5 % Normal 0.0-8.0 [facility] Comment on above: Order Comment: Order Added by Discern Expert. Performed By: #### 1 1652679, 0194645, 4781576, 7638954, 2251214, 4035296, 34703496, 9527123 #### [facility] [address] [place] [address] Eosinophils/Leukocyte s Auto (Bld) [Pure # fraction] 0.1 E9/L Normal 0.0-0.5 [facility] Comment on above: Order Comment: Order Added by Discern Expert. Performed By: #### 1 4872956, 5606455, 5915462, 7515505, 9797551, 8682246, 28315391, 5518578 #### [facility] [address] [place] [address] 18036 Lymphocytes/100 WBC (Bld) 33.2 % Normal 14.0-50.0 [facility] Comment on above: Order Comment: Order Added by Discern Expert. Performed By: #### 1 3270201, 6730194, 9391252, 7380708, 0086604, 4465479, 88128909, 6716325 #### [facility] [address] [place] [address]2676 Lymphocytes/Leukocyte s Auto (Bld) [Pure # fraction] 2.0 E9/L Normal 1.0-4.0 [facility] Comment on above: Order Comment: Order Added by Discern Expert. Performed By: #### 1 1099614, 9294953, 1871507, 6791302, 8698386, 9782566, 98346986, 2898442 #### [facility] [address] [place] [address] 08856 Monocytes/100 WBC (Bld) 7.8 % Normal 4.0-14.0 [facility] Comment on above: Order Comment: Order Added by Discern Expert. Performed By: #### 1 2734808, 1967709, 5128592, 7692492, 7581639, 2082506, 37152136, 0614763 #### [facility] [address] [place] [address] 78448 Monocytes/Leukocytes Auto (Bld) [Pure # fraction] 0.5 E9/L Normal 0.2-1.0 [facility] Comment on above: Order Comment: Order Added by Discern Expert. Performed By: #### 1 2455881, 1746034, 4430253, 0335649, 8343664, 5524633, 34362978, 7289361 #### [facility] [address] [place] [address] 83635 Neutrophils/100 WBC (Bld) 57.1 % Normal 36.0-75.0 [facility] Comment on above: Order Comment: Order Added by Discern Expert. Performed By: #### 1 3611531, 6175007, 9546999, 4812359, 4998075, 4710377, 08595378, 4679647 #### [facility] [address] [place] [address] Neutrophils/Leukocyte s Auto (Bld) [Pure # fraction] 3.4 E9/L Normal 2.0-7.5 [facility] Comment on above: Order Comment: Order Added by Discern Expert. Performed By: #### 1 4432678, 9272512, 9225816, 2139493, 7175075, 5631409, 20528787, 9033961 #### [facility] [address] [place] [address] B hCG Qualon 05-21-2023 Beta hCG Ql Positive Normal [facility] Comment on above: Performed By: #### 1 2555318, 0377122, 0937067, 7098510, 5602073, 1458812, 08597905, 3591129 #### [facility] [address] [place] [address] BMPon 05-21-2023 Creatinine [Mass/Vol] 0.5 mg/dL Normal 0.5-1.3 [facility] Comment on above: Performed By: #### 1 1996901, 5950473, 9930148, 5635714, 8906753, 6666326, 00055121, 5740699 #### [facility] [address] [place] [address] Urea nitrogen [Mass/Vol] 13 mg/dL Normal 5-21 [facility] Comment on above: Performed By: #### 1 4751698, 1645204, 2718342, 4519828, 2506181, 1052327, 33709802, 5485642 #### [facility] [address] [place] [address] Urea nitrogen/Creatinine [Mass ratio] 26 No Units High - [facility] Comment on above: Performed By: #### 1 8167682, 7706108, 1261761, 3654819, 8515363, 7575608, 94627003, 3404238 #### [facility] [address] [place] [address] Anion gap [Moles/Vol] 8 mmol/L Normal 6-16 [facility] Comment on above: Performed By: #### 1 7856941, 4840116, 4577828, 0508143, 5163544, 5439915, 66222730, 1822891 #### [facility] [address] [place] [address] Calcium [Mass/Vol] 9.2 mg/dL Normal 8.9-11.1 [facility] Comment on above: Performed By: #### 1 3408888, 3236738, 5516908, 8274643, 2496563, 0728833, 68158018, 0677075 #### [facility] [address] [place] [address] Chloride [Moles/Vol] 111 mmol/L Normal 101-111 [facility] Comment on above: Performed By: #### 1 7025817, 8569040, 5546489, 4295756, 2117153, 9499598, 23118776, 0384786 #### [facility] [address] [place] [address] CO2 [Moles/Vol] 23 mmol/L Normal 21-31 [facility] Comment on above: Performed By: #### 1 3599811, 9375549, 3252057, 9456997, 5975405, 0114140, 53845064, 5304549 #### [facility] [address] [place] [address] Glucose [Mass/Vol] 101 mg/dL Normal 55-199 [facility] Comment on above: Result Comment: If t his glucose result represents a fasting glucose, interpretation should refer to the following reference range: 55-99 mg/dL Performed By: #### 1 1036766, 2101932, 3487290, 9893407, 5399544, 0105131, 07246684, 2569089 #### [facility] [address] [place] [address] Potassium [Moles/Vol] 3.6 mmol/L Normal 3.5-5.3 [facility] Comment on above: Performed By: #### 1 2420836, 8278509, 0985038, 9343303, 3516004, 2607075, 85319771, 8334806 #### [facility] [address] [place] [address] Sodium [Moles/Vol] 138 mmol/L Normal 135-145 [facility] Comment on above: Performed By: #### 1 1891117, 7112143, 5221378, 7364283, 5601640, 2246786, 04355509, 9980931 #### [facility] [address] [place] [address] BhCG Quanton 05-21-2023 HCG.beta subunit Qn 9779 m[IU]/mL High 1-[address] [facility] Comment on above: Result Comment: GEST ATIONAL AGE HCG RANGE (mIU/mL) NON- <1-3 0.2-1 WEEKS 5-50 1-2 WEEKS 50-500 2-3 WEEKS 100-5,000 3-4 WEEKS 500-10,000 4-5 WEEKS 1,000-50,000 5-6 WEEKS 10,000-100,000 6-8 WEEKS 15,000-200,000 8-12 WEEKS 10,000-100,000 Performed By: #### 1 7649196, 6760463, 9492014, 0588677, 1909525, 8696875, 72437027, 0697169 #### [facility] [address] [place] [address] CBC w/ Auto Diffon Erythrocyte distribution width (RBC) [Ratio] 12.9 % Normal 10.9-14.2 [facility] Comment on above: Performed By: #### 1 0558120, 4831296, 9854620, 6483480, 4721751, 1486298, 74829600, 1981797 #### [facility] [address] [place] [address] Hematocrit (Bld) [Volume fraction] 36.4 % Normal 34.0-46.0 [facility] Comment on above: Performed By: #### 1 0117777, 0218842, 1052388, 4263245, 3304985, 5790768, 62824312, 7161199 #### [facility] [address] [place] [address] Hemoglobin (Bld) [Mass/Vol] 12.5 g/dL Normal 12.0-16.0 [facility] Comment on above: Performed By: #### 1 4513142, 7121997, 3412090, 0383401, 9178130, 6734068, 09129615, 5309418 #### [facility] [address] [place] [address] 31624 MCH (RBC) [Entitic mass] 30.4 pg Normal 27.0-34.0 [facility] Comment on above: Performed By: #### 1 4255891, 3860189, 2442872, 0566824, 5502317, 9379273, 92392641, 0297443 #### [facility] [address] [place], [place] [address] MCHC (RBC) [Mass/Vol] 34.3 g/dL Normal 31.4-36.0 [facility] Comment on above: Performed By: #### 1 6417547, 1730545, 9079512, 9665827, 8039371, 7511410, 61230675, 9162643 #### [facility] [address] [place] [address] 10977 MCV (RBC) [Entitic vol] 88.4 fL Normal 80.0-100.0 [facility] Comment on above: Performed By: #### 1 2368298, 2673183, 0991731, 9563972, 1558193, 5380908, 44787831, 4763741 #### [facility] [address] [place] [address] Platelet mean volume (Bld) [Entitic vol] 9.0 fL Normal 6.4-10.8 [facility] Comment on above: Performed By: #### 1 2552223, 0990219, 4079678, 0516048, 6370271, 8418311, 07889109, 5256964 #### [facility] [address] [place] [address] Platelets (Bld) [#/Vol] 273.0 E9/L Normal 150.0-500.0 [facility] Comment on above: Performed By: #### 1 0073554, 3708201, 0329188, 9927193, 0428825, 3128783, 16113004, 4542930 #### [facility] [address] [place] [address] RBC (Bld) [#/Vol] 4.1 E12/L Low 4.3-5.9 [facility] Comment on above: Performed By: #### 1 0933312, 9295532, 0522674, 1046019, 3152292, 0778281, 16787542, 4029889 #### [facility] [address] [place] [address] WBC corrected for nucl RBC Auto (Bld) [#/Vol] 5.9 E9/L Normal 4.0-11.0 [facility] Comment on above: Performed By: #### 1 6879312, 9010906, 6270413, 5421310, 3851296, 0742289, 08170091, 7054312 #### [facility] [address] [place] [address] CHEMISTRYOrdered By: SYSTEM SYSTEM on 05-21-2023 Albumin [Mass/Vol] 4.0 g/dL Normal 3.3 - 5.0 gm/dL FT Remisol Albumin/Globulin [Mass ratio] 1.3 {ratio} Normal [...] 129 mL/min/1.73 m2 Normal >=59mL/min/1. 73 m2 [facility] Chem S Comment on above: Interpretive Data: [...] 13 mg/dL Normal 5 - 21 mg/dL FT Remisol Urea nitrogen/Creatinine [Mass ratio] 26 mg/mg High 10 - 20 FT Remisol Consent for Treatmenton Consent for Treatment [id number] #1.00CD:127 Normal [facility] Discharge Instructionson Discharge Instructions [id number] #1.00CD:127 Normal [facility] ED Clinical Summaryon 2022 ED Clinical Summary [place] [id number] ED Clinical Summary Person Information Name: RONY BOLAÑOS Jessica/[facility] Age: 32 Years : 1990 Sex: Female Language: Georgian PCP: NONE, XXXX Marital Status: Single Visit [...] 05/21/2023 15:09:51 05/21/2023 15:09:51 05/21/2023 15:09:51 ADDRESS: [address] [place] [address] [id number] PHYS DOC NOTES: MEDICAL INFORMATION: Prescriptions Given: Medications to Continue with No Changes Other Medications dextromethorphan-pro methazine (dextromethorphan-pr omethazine 15 mg-6.25 mg/5 mL Oral Syrup 5 mL) 5 Milliliter By Mouth every 6 hours as needed for cough. Refills: 0. etonogestrel (Nexplanon 68 mg subcutaneous implant) 1 Each Subcutaneous Once. fluticasone nasal (fluticasone 0.05 mg/inh Nasal [place]) 1 Sprays Nasal Inhalation 2 times a [...] EDUCATION INFORMATION: Instructions: Abdominal Pain During , Zpzo-lq-Odgi Follow up: With: Address: When: Jason Raines [address], [facility] [address], [facility] [address] [facility] (1) In 3 days 05/24/2023 Comments: Follow-up with your ELECTRICAL POWER ENGINEER. If not have any may follow-up with Dr. Raines. With: Address: When: XXXX NONE , [place] In 3 days DIAGNOSIS: Abdominal pain in ; Unspecified abdominal pain Normal [facility] ED Note-Physicianon 05-21-20 ED Note-Physician Basic Information [...] and Complexity of Problems Differential Diagnosis: [] [facility] Data External documents reviewed: [] My [...] A&B Ag Lipase Level Rapid COVID Antigen ([facility]) UA With Cult Refl (more content not included)... Normal [facility] Comment on above: Result Comment: Elec tronically Signed By: Osman Ge PA-C.br\Date and Time Signed: 05/21/23 15:12 EDT\.br\Electronically Co-Signed By: Krishna DO, Donovan M.\.br\Date and Time Co-Signed: 05/21/23 18:56 EDT ED [...] your pee (urine) pale yellow. ? Take wptq-yer-arbvyds and prescription medicines only as told by [...] Reviewed: 04/20/2021 Elsevier Patient Education ? 2022 [employer] Normal [facility] ED Patient Summaryon 023 ED Patient Summary [place] [id number] Patient Discharge Instructions Person Information Name: RONY BOLAÑOS Age: 32 Years Arrival Date: 05/21/2023 10:49:01 Discharge Diagnosis: Abdominal pain in ; Unspecified abdominal pain Primary Care Physician: NONE, XXXX Provider Information Primary Provider: Donovan Keller DO Advanced Accounting Analyst:None The exam and treatment you received in the Emergency Department were for an urgent problem and are not intended as complete care. It is important that you follow up with a doctor, nurse practitioner, or physician?s bilingual sales assistant for ongoing care. If your symptoms [...] Follow-up Instructions: With: Address: When: Jason Raines [address] [facility], [facility] [address], [place] [address] [facility] (1) In 3 days 05/24/2023 Comments: Follow-up with your ELECTRICAL POWER ENGINEER. If not have any may follow-up with Dr. Raines. With: Address: When: XXXX RICH[place] , [place] In 3 days In the event that this physician does not participate in your insurance network, please consult with your insurance company to find a nearby participating provider. Patient Education Materials: Abdominal Pain During , Htsg-ou-Zcgx A MESSAGE TO ALL PATIENTS REGARDING OPIOIDS PRESCRIPTION OPIOIDS: WHAT YOU NEED TO KNOW Prescription opioids can be used to help relieve iwssmywa-oa-kdhmnz pain and are often prescribed following a [...] and overdose (more content not included)... Normal [facility] HEMATOLOGYOrdered By: SYSTEM SYSTEM on [...] 9.0 fL Normal 6.4 - 10.8 fL [facility] HemeAutoSS Platelets (Bld) [#/Vol] 273.0 E9/L Normal 150.0 - 500.0 E9/L [facility] HemeAutoSS RBC (Bld) [#/Vol] 4.1 E12/L Low 4.3 - 5.9 E12/L [facility] HemeAutoSS WBC corrected for nucl RBC Auto (Bld) [#/Vol] 5.9 E9/L Normal 4.0 - 11.0 E9/L [facility] HemeAutoSS Hep Func Panelon 05-21-2023 Albumin [Mass/Vol] 4.0 g/dL Normal 3.3-5.0 [facility] Comment on above: Performed By: #### 1 5801910, 0675447, 0694430, 1682074, 1146495, 9532645, 60419386, 9836535 #### [facility] [address] [place] [address] Albumin/Globulin (S) [Mass conc ratio] 1.3 Normal 1.1-2.2 [facility] Comment on above: Performed By: #### 1 4668632, 7044542, 1504077, 7543378, 4232143, 7413775, 72441711, 1106262 #### [facility] [address] [place] [address] ALP [Catalytic activity/Vol] 50 Int._Unit/L Normal 21-98 [facility] Comment on above: Performed By: #### 1 5860668, 9242665, 5824660, 5716660, 5021585, 9928025, 40329284, 8178054 #### [facility] [address] [place] [address] ALT No additional P-5'-P [Catalytic activity/Vol] 19 Int._Unit/L Normal 6-46 [facility] Comment on above: Performed By: #### 1 3833452, 2114554, 6557874, 5766471, 4574736, 3742279, 14412250, 4945993 #### [facility] [address] [place] [address] AST [Catalytic activity/Vol] 17 Int._Unit/L Normal 5-43 [facility] Comment on above: Performed By: #### 1 4035470, 8052195, 4226153, 2114720, 1784467, 1612175, 45077289, 2413606 #### [facility] [address] [place] [address] Bilirubin [Mass/Vol] 0.5 mg/dL Normal 0.0-1.1 [facility] Comment on above: Performed By: #### 1 8734160, 2256646, 3343765, 6706372, 5745952, 5235055, 77918132, 5328532 #### [facility] [address] [place], [place] [address] Bilirubin.direct [Mass/Vol] 0.1 mg/dL Normal 0.1-0.4 [facility] Comment on above: Performed By: #### 1 9091275, 1448420, 8889867, 0566477, 6900249, 5994815, 57599618, 7490169 #### [facility] [address] [place] [address] 39532 Bilirubin.indirect [Mass or moles/Vol] 0.4 mg/dL Normal 0.1-0.9 [facility] Comment on above: Performed By: #### 1 1618606, 4462603, 6350453, 3742445, 7495383, 5013614, 76898258, 8071953 #### [facility] [address] [place] [address] 23952 Globulin (S) [Mass/Vol] 3.0 g/dL Normal 1.4-4.0 [facility] Comment on above: Performed By: #### 1 8031201, 0053359, 3070246, 4556862, 5570195, 8763671, 05029773, 5048317 #### [facility] [address] [place] [address] Protein [Mass/Vol] 7.0 g/dL Normal 6.0-7.8 [facility] Comment on above: Performed By: #### 1 0156223, 0422677, 6050560, 8267666, 6696679, 9086110, 62156239, 3191998 #### [facility] [address] [place] [address] Influenza A&B Agon Influenzae A Ag Negative Normal Negative [facility] Comment on above: Performed By: #### 1 6735144, [id number] #### [facility] [address] [place] [address] Influenzae B Ag Negative Normal Negative [facility] Comment on above: Result Comment: Test sensitivity and specificity vary for age group, specimen type, antigen types, and prevalence of disease. Test results must be evaluated in conjunction with other clinical data available to the physician. Individuals who received nasally administered Influenza A vaccine may have positive test results up to 3 days after vaccination. Performed By: #### 1 3008517, [id number] #### [facility] [address] [place] [address] Lipase Levelon 05-21-2023 Lipase [Catalytic activity/Vol] 32 U/L Normal 13-58 [facility] Comment on above: Performed By: #### 1 3370064, 6255198, 8107706, 6012463, 3357813, 6359535, 34280892, 6956308 #### [facility] [address] [place] [address] MICRO OTHER TESTSOrdered By: Michelle Can on 05-21-2023 Influenzae A Ag Negative (05/21/23 11:51 AM) Normal Negative [facility] Man Sero Influenzae B Ag Negative 1 (05/21/23 11:51 AM) Normal Negative [facility] Man Sero Comment on above: Interpretive Data: [...] NEG Ctl Pass (05/21/23 11:51 AM) Normal [facility] Man Sero Rapid COV Int POS Ctl Pass (05/21/23 11:51 AM) Normal [facility] Man Sero SARS-CoV+SARS-CoV-2 (COVID-19) Ag IA.rapid Ql (Resp) Not Detected 5 (05/21/23 11:51 AM) Normal Not Detected [facility] Man Sero Comment on above: Interpretive Data: T gilbert [employer] Veritor System for Rapid Detection of SARS-CoV-2 [...] terminated or revoked sooner. Rapid COVID Antigen ([facility])on 05-21-2023 Rapid COV Int NEG Ctl Pass Normal Fis her [facility] Comment on above: Performed By: #### 1 3656669, 1000256, 3064600, 4021821, 6675552, 9456360, 30963743, 7167277 #### [facility] [address] [place] [address] Rapid COV Int POS Ctl Pass Normal Fis her [facility] Comment on above: Performed By: #### 1 5029365, 5370512, 5117825, 4876617, 8922323, 0036354, 85939600, 2350691 #### [facility] [address] [place] [address] SARS-CoV+SARS-CoV-2 (COVID-19) Ag IA.rapid Ql (Resp) Not detected Normal Not Detected [facility] Comment on above: Result Comment: The [employer]? System for Rapid Detection of SARS-CoV-2 is [...] For in vitro diagnostic use. In the [facility], only for use under an [...] or revoked sooner. Performed By: #### 1 0878256, 8891596, 8648021, 1837329, 2862270, 9059122, 74650729, 2193732 #### [facility] [address] [place] [address] SEROLOGYOrdered By: Amairani Louise on 05-21-2023 Beta hCG Ql Positive (05/21/23 11:39 AM) Normal [facility] Man Sero UA With Cult Reflexon 2022 Bilirubin Ql (U) Negative Normal Negative [facility] Comment on above: Performed By: #### 1 4699751 #### [facility] [address] [place] [address] Clarity (U) CLEAR Normal Clear [facility] Comment on above: Performed By: #### 1 5319352 #### [facility] [address] [place] [address] Color (U) YELLOW Normal Yellow [facility] Comment on above: Performed By: #### 1 9020320 #### [facility] [address] [place] [address] Epithelial cells.squamous LM.HPF (Urine sed) [#/Area] 5-8 Normal 0-2 [facility] Comment on above: Performed By: #### 1 9231099 #### [facility] [address] [place] [address] Glucose Test strip (U) [Mass/Vol] Negative Normal Negative [facility] Comment on above: Performed By: #### 1 3140353 #### [facility] [address] [place] [address] Hemoglobin Ql (U) Negative Normal Negative [facility] Comment on above: Performed By: #### 1 8381922 #### [facility] [address] [place] [address] Ketones (U) [Mass/Vol] Negative Normal Negative [facility] Comment on above: Performed By: #### 1 9399399 #### [facility] [address] [place] [address] [place].plasma/Lithiu m.RBC (Bld) [Mass ratio] 0-3 Normal 0-3 [facility] Comment on above: Performed By: #### 1 3774537 #### [facility] [address] [place] [address] Nitrite Ql (U) Negative Normal Negative [facility] Comment on above: Performed By: #### 1 0831977 #### [facility] [address] [place] [address] pH (U) 5.5 [pH] Invalid Interpretation Code 5.0-9.0 [facility] Comment on above: Performed By: #### 1 6026568 #### [facility] [address] [place] [address] Protein (U) [Mass/Vol] Negative Normal Negative [facility] Comment on above: Performed By: #### 1 4293237 #### [facility] Laboratory [address] [place] [address] Specific gravity (U) [Rel density] 1.020 Invalid Interpretation Code 1.005-1.030 [facility] Comment on above: Performed By: #### 1 [id number] #### [facility] [address] [place] [address] Type of Urine collection method Clean Catch Normal [facility] Comment on above: Performed By: #### 1 [id number] #### [facility] [address] [place] [address] Urobilinogen Qn (U) 0.2 {Clara'U}/dL Normal 0.0-1.0 [facility] Comment on above: Performed By: #### 1 [id number] #### [facility] [address] [place] [address] WBC Auto Ql (U) Negative Normal Negative [facility] Comment on above: Performed By: #### 1 [id number] #### [facility] [address] [place] [address] WBC LM.HPF (Urine sed) [#/Area] 0-5 Normal 0-5 [facility] Comment on above: Performed By: #### 1 [id number] #### [facility] [address] [place] [address] URINALYSISOrdered By: Chikis Louise on 05-21-2023 Bilirubin [...] AM) Normal Negative [facility] UA Auto SS [place].plasma/Lithiu m.RBC (Bld) [Mass ratio] 0-3 /HPF Normal [...] [facility] UA Auto SS Urobilinogen Qn (U) 0.3044986 {Clara'U}/dL Normal 0.0 - 1.0 EU/dL [facility] UA Auto SS WBC Auto Ql (U) Negative (05/21/23 11:51 AM) Normal Negative [facility] UA Auto SS WBC LM.HPF (Urine sed) [#/Area] 0-5 /HPF Normal 0-5/HPF [facility] UA Auto SS US 1st Trimesteron 05-21-2023 [...] Transabdominal Ultrasound Performed Transvaginal Ultrasound Performed Normal [facility] US Transvaginalon 05-21-2023 US Transvaginal Exam Date/Time: 05/21/2023 14:36 EDT Reason for Exam: abdominal pain Report PLEASE SEE US 1st Trimester REPORT DATED: 05/21/2023. Ordering Provider: Osman Ge FINAL REPORT Dictated: 05/21/2023 2:53 pm Gonsalo Martinez MD Signed (Electronic Signature): 05/21/2023 2:53 pm Signed by: Gonsalo Martinez MD Transcribed by: PAULO Technologist: LUIS ANTONIO Normal [facility] XR Chest 2 Viewson XR Chest 2 [...] mGy = na DAP = na Normal [facility] eGFRon 05-21-2023 GFR/1.73 sq M.predicted among non-blacks MDRD (S/P/Bld) [Vol rate/Area] 129 mL/min/1.73 m2 Normal >=59 [facility] Comment on above: Order Comment: Order added by Discern Expert. Result Comment: Film Technician josselin kidney disease could be indicated at eGFR's of less than 60 mL/min/1.73m2. Kidney failure is indicated at less than 15 mL/min/1.73m2. Performed By: #### 1 [id number], [id number], [id number], [id number] #### [facility] [address] [place] [address] PAP ACOG PANEL 2: 21 to 29on 06-08-2022 . . [facility] Comment on above: Performed By: #### 4 [id number] #### [facility] Laboratory [address] [place] [address] Dr. Jaspreet Duran Age Gdln ACOG Testing - [facility] Comment on above: Performed By: #### 4 [id number] #### [facility] Laboratory [address] [place] [address] Dr. Jaspreet Duran DIAGNOSIS: Comment [facility] Comment on above: Result Comment: NEGA TIVE FOR INTRAEPITHELIAL LESION OR MALIGNANCY. Performed By: #### 4 [id number] #### [facility] Laboratory [address] [place] [address] Dr. Jaspreet Duran Methodology: Comment [facility] Comment on above: Result Comment: This liquid based ThinPrep(R) pap test was screened with the use of an image guided system. Performed By: #### 4 [id number] #### [facility] Laboratory [address] [place] [address] Dr. Jaspreet Duran Note: Comment [facility] Comment on above: Result Comment: The Pap smear is a screening test designed to aid in the detection of premalignant and malignant conditions of the uterine cervix. It is not a diagnostic procedure and should not be used as the sole means of detecting cervical cancer. Both false-positive and false-negative reports do occur. . Performed By: #### 4 [id number] #### [facility] Laboratory [address] [place] [address] Dr. Jaspreet Duran Performed by: Comment [facility] Comment on above: Result Comment: Pricila Valerio, Tub Chucker (ASCP) Performed By: #### 4 [id number] #### [facility] Laboratory [address] [place] [address] Dr. Jaspreet Duran Reflex Criteria: Comment Normal [facility] Comment on above: Result Comment: The HPV DNA reflex criteria were not met with this specimen result therefore, no HPV testing was performed. . Performed By: #### 4 [id number] #### [facility] Laboratory [address] [place] [address] Dr. Jaspreet Duran Specimen adequacy: Comment Normal [facility] Comment on above: Result Comment: Sati sfactory for evaluation. No endocervical component is identified. Performed By: #### 4 [id number] #### [facility] [address] [place] [address] Dr. Jaspreet Duran COVID-19 [facility] 11-11-20 21 SARS-CoV-2 (COVID-19) RNA NATALIE+probe Ql (Unsp spec) Not detected Normal Not Detected [facility] Comment on above: Order Comment: Reaso n for Exam Cough;Myalgia Healthcare Worker?: N Result Comment: This nucleic acid amplification test was developed and its performance characteristics determined by [employer]. Nucleic acid amplification tests include RT- PCR [...] detected) result in this assay. PERFORMED BY: [address] [address] PATHOLOGIST NON CLINICAL ADVISOR LAUREANO JACK M.D. Performed By: #### C ORONAVIRUS #### [facility] , Vital Signs Date Time Vital Sign Value Performing Clinician Liana gibson 05-21-2023 14:00-0400 Diastolic blood pressure 79 mm[Hg] Donovan Keller [facility] 05-21-2023 14:00-0400 Heart rate 72 /min Donovan Krishna [facility] 05-21-2023 14:00-0400 Respiratory rate 18 /min Donovan Krishna [facility] 05-21-2023 14:00-0400 SaO2% (BldA) [Mass fraction] 99 % Donovan Keller [facility] 05-21-2023 14:00-0400 Systolic blood pressure 132 mm[Hg] Donovan Krishna [facility] 05-21-2023 11:02-0400 Body temperature 98.06 [degF] Donovan Krishna [facility] 05-21-2023 11:02-0400 Diastolic blood pressure 84 mm[Hg] Donovan Krishna [facility] 05-21-2023 11:02-0400 Heart rate 77 /min Donovan Krishna [facility] 05-21-2023 11:02-0400 Respiratory rate 16 /min Donovan Krishna [facility] 05-21-2023 11:02-0400 SaO2% (BldA) [Mass fraction] 100 % Donovan Krishna [facility] 05-21-2023 11:02-0400 Systolic blood pressure 147 mm[Hg] Donovan Krishna [facility] Encounters Encounter Date Encounter Type Care Provider Facility Start: 11-13-2023 End: 11-13-2023 ambulatory LYNNETTE JOSE M Not Available Start: 10-13-2023 End: 10-13-2023 ambulatory LYNNETTE MALAGON Not Available Start: 07-24-2023 End: 07-24-2023 ambulatory LUKAS RIDER Not Available Start: 07-06-2023 End: 07-06-2023 ambulatory LYNNETTE MARTINZIO Not Available Start: 05-21-2023 End: 05-21-2023 Emergency department patient visit Donovan Keller Facility:[facility] Start: 05-21-2023 End: 05-21-2023 Emergency department patient visit Donovan Keller [facility] Start: 06-01-2022 End: 06-01-[address] LYNNETTE MALAGON Facility: Procedures Date Procedure Procedure Detail Performing Clinician Start: 11-02-2017 Cyst of Bartholin's gland duct (disorder) Donovan Keller None (qualifier value) Donovan Keller Payers Date Payer Category Payer [employer] [id number] 2022 [employer] [id number] 1992 Unknown [id number] 1992 Unknown [id number] 1992 Unknown [id number] 1992 Unknown [id number] 1992 Unknown [id number] 1992 Unknown [id number] 1959 Unknown [id number] Social History Date Type Detail Facility Tobacco [facility] Comment on above: denies Tobacco smoking status No Smokin g Status Entered [facility] Sex Assigned At Female [facility] Functional Status Date Assessment Result Rust 05-21-2023 Functional Status N/A [facility] Discharge instructions 05-21-2023 Note Date & Type Note Facility 05-21-2023 Hospital Discharg e instructions Patient Education 05/21/2023 15:09:51 Abdominal Pain During , Mwlm-[id number]-Udkh Abdominal Pain During Belly (abdominal) pain is [...] keep your pee (urine) pale yellow. Take xova-elg-gkxhccj and prescription medicines only as told by [...] provider. Document Revised: 04/20/2021 Document Reviewed: 04/20/2021 [employer] Patient Education 2022 [employer]. 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 If not have any may follow-up with Dr. Raines. With:XXXX NONE Address: [place] When:Within 3 Day(s) [facility] Evaluation + Plan note 05-21-2023 [...] A&B Ag Lipase Level Rapid COVID Antigen (FT) UA With Cult Reflex US 1st Trimester US Transvaginal XR Chest 2 Views [facility] Hospital course Narrative Note Date & Type Note Facility Hospital course Narrative No data available for this section [facility] Progress note Note Date & Type Note Facility Progress note No data available for this section [facility] Summary Purpose Family History No Family History Records FoundNo Family History Records Found No data available for this section No Family History Records FoundNo Family History Records Found Advance Directives No Advanced Directives Records FoundNo Advanced Directives Records FoundNo Advanced Directives Records FoundNo Advanced Directives Records Found Additional Source Comments INFORMATION SOURCE (unrecogn ized section and content) DATE CREATED AUTHOR 09/30/2021 [facility] DATE CREATED AUTHOR AUTHOR'S ORGANIZ ATION 06/13/2022 Marii Guzman [facility] DATE CREATED AUTHOR AUTHOR'S ORGANIZ ATION 05/26/2023 [facility] DATE CREATED AUTHOR AUTHOR'S ORGANIZ ATION 11/14/2023 [facility] FOR RECORDS PERTAINING TO PATIENTS WHO ARE [...] BE BASED ON THE PRIMARY CLINICAL RECORDS. [employer] provides no warranty or guarantee of the accuracy or completeness of information in this document.
[2023-12-09 10:03] LABS: Glucose 1 Hour 129 mg/dL (<130)
== END 2023-12-09 08:51 | disposition home or self-care (01) ==
LOC: LAB 08:52
PROVIDERS: Visit Provider Obstetrics & Gynecology
DX: Z86.32 Personal history of gestational diabetes (principal)
CPT/HCPCS: 36415; 82950

== ENCOUNTER 2023-12-11 20:56 | Outpatient (REF) | payer OTHER, SELFPAY ==
--- OUTSIDE RECORDS SUMMARY | 2023-12-11 21:02 | XMS_ITS | CCD ---
Author Organization [facility] Care Team Providers Care Hvac Lead Name Role Phone DR LYNNETTE MALAGON Admitting [...] (1 source) Cefaclor Drug Allergy 06-06-2013 [facility] Medications Current Medications Medication Drug Class(es) Dates Sig (Normalized) Sig (Original) dextromethorphan hydrobromide 3 mg/ml / promethazine hydrochloride 1.25 mg/ml oral solution (1 source) Phenothiazine, Uncompetitive G-ktesjf-Q-aspartat e Receptor Antagonist, Sigma-1 Agonist Start: 12-07-2018 [...] 05/24/18 Status: Ordered fluticasone 0.05 mg/inh Nasal [place] (1 source) Start: 12-07-2018 fluticasone 0.05 mg/inh Nasal [place] 1 spray(s), Nasal, BID, 16 gram, Refill(s) 0 Start Date: 12/07/18 Status: Ordered pantoprazole 40 mg extended release oral tablet (1 source) Proton Pump Inhibitor Start: 05-21-2021 take 1 tablet by mouth once daily pantoprazole 40 mg Oral EC Tab 40 mg = 1 tab(s), Oral, Daily, # 30 tab(s), Refills(s) 0, [id number], 165, cm, 05/21/21 11:57:00 EDT, Height/Length Dosing, 91, kg, 05/21/21 11:57:00 EDT, Weight Dosing Start Date: 05/21/21 Status: Ordered Zofran ODT 4 mg Tab-Dis (2 sources) Start: 05-21-2021 take 1 tablet by mouth every six hours as needed for nausea Zofran ODT 4 mg Tab-Dis 4 mg = 1 tab(s), Oral, q6hr, PRN Nausea/Vomiting, # 12 tab(s), Refills(s) 0, [id number], 165, cm, 05/21/21 11:57:00 EDT, [...] (Bld) 0.4 % Normal 0.0-2.0 [facility] Comment on above: Order Comment: Order Added by Discern Expert. Performed By: #### 1 [id number], 0367561, 2602820, 2253975, 0920661, 1005404, 66152075, 2770059 #### [facility] Laboratory [address] [place] [address] Basophils/Leukocytes Auto (Bld) [Pure # fraction] 0.0 E9/L Normal 0.0-0.2 [facility] Comment on above: Order Comment: Order Added by Discern Expert. Performed By: #### 1 [id number], 8541782, 9450111, 8900202, 6368641, 1722401, 30129422, 1236533 #### [facility] Laboratory [address] [place] [address] Eosinophils/100 WBC (Bld) 1.5 % Normal 0.0-8.0 [facility] Comment on above: Order Comment: Order Added by Discern Expert. Performed By: #### 1 4199661, 3599509, 7312107, 0424557, 3083870, 9526826, 75154269, 8634684 #### [facility] Laboratory [address] [place] [address] Eosinophils/Leukocyte s Auto (Bld) [Pure # fraction] 0.1 E9/L Normal 0.0-0.5 [facility] Comment on above: Order Comment: Order Added by Discern Expert. Performed By: #### 1 3729510, 0537566, 5633088, 5132172, 4996032, 5989268, 96289240, 1149497 #### [facility] Laboratory [address] [place] [address] Lymphocytes/100 WBC (Bld) 33.2 % Normal 14.0-50.0 [facility] Comment on above: Order Comment: Order Added by Discern Expert. Performed By: #### 1 4408616, 6214231, 3840511, 7287151, 7641473, 4722476, 80658226, 6226341 #### [facility] [address] [place] [address] Lymphocytes/Leukocyte s Auto (Bld) [Pure # fraction] 2.0 E9/L Normal 1.0-4.0 [facility] Comment on above: Order Comment: Order Added by Discern Expert. Performed By: #### 1 3610106, 6037035, 9068707, 8699640, 7742959, 3142480, 24058941, 7598014 #### [facility] [address] [place] [address] Monocytes/100 WBC (Bld) 7.8 % Normal 4.0-14.0 [facility] Comment on above: Order Comment: Order Added by Discern Expert. Performed By: #### 1 2437560, 7974357, 5987471, 3278404, 1640733, 6152966, 05004276, 1845063 #### [facility] [address] [place] [address] Monocytes/Leukocytes Auto (Bld) [Pure # fraction] 0.5 E9/L Normal 0.2-1.0 [facility] Comment on above: Order Comment: Order Added by Discern Expert. Performed By: #### 1 4863189, 8894511, 4328545, 4432003, 9102672, 2914515, 17305026, 2395185 #### [facility] [address] [place] [address] Neutrophils/100 WBC (Bld) 57.1 % Normal 36.0-75.0 [facility] Comment on above: Order Comment: Order Added by Discern Expert. Performed By: #### 1 2146200, 6490289, 4505072, 8126212, 7263264, 6354074, 87707824, 5102973 #### [facility] [address] [place] [address] Neutrophils/Leukocyte s Auto (Bld) [Pure # fraction] 3.4 E9/L Normal 2.0-7.5 [facility] Comment on above: Order Comment: Order Added by Discern Expert. Performed By: #### 1 9731882, 6757351, 9982308, 0708491, 9922365, 2269090, 44095375, 5545514 #### [facility] [address] [place] [address] B hCG Qualon 05-21-2023 Beta hCG Ql Positive Normal [facility] Comment on above: Performed By: #### 1 0324559, 6595596, 0080606, 5388088, 2238848, 3966434, 08292693, 8161435 #### [facility] [address] [place] [address] BMPon 05-21-2023 Creatinine [Mass/Vol] 0.5 mg/dL Normal 0.5-1.3 [facility] Comment on above: Performed By: #### 1 0264509, 0290810, 1957402, 1407551, 2247279, 4360488, 86443843, 8550001 #### [facility] [address] [place] [address] Urea nitrogen [Mass/Vol] 13 mg/dL Normal 5-21 [facility] Comment on above: Performed By: #### 1 3177900, 3691941, 3716151, 7164252, 7184804, 8283112, 27238454, 9499498 #### [facility] [address] [place] [address] Urea nitrogen/Creatinine [Mass ratio] 26 No Units High - [facility] Comment on above: Performed By: #### 1 0189428, 8399417, 1115152, 6980477, 1547587, 6225917, 33589405, 5414872 #### [facility] [address] [place] [address] Anion gap [Moles/Vol] 8 mmol/L Normal 6-16 [facility] Comment on above: Performed By: #### 1 4897307, 1662910, 5514278, 2985103, 3137980, 8067057, 02960530, 4724354 #### [facility] [address] [place] [address] Calcium [Mass/Vol] 9.2 mg/dL Normal 8.9-11.1 [facility] Comment on above: Performed By: #### 1 3338607, 0189004, 2020401, 6241481, 8076342, 2896518, 74634497, 9424938 #### [facility] [address] [place] [address] Chloride [Moles/Vol] 111 mmol/L Normal 101-111 [facility] Comment on above: Performed By: #### 1 3434451, 1369474, 3281734, 2645408, 7306606, 5121902, 90304781, 8699122 #### [facility] [address] [place] [address] CO2 [Moles/Vol] 23 mmol/L Normal 21-31 [facility] Comment on above: Performed By: #### 1 8654921, 0507921, 7031905, 2981307, 4539459, 3388357, 92403956, 7494816 #### [facility] [address] [place] [address] Glucose [Mass/Vol] 101 mg/dL Normal 55-199 [facility] Comment on above: Result Comment: If t his glucose result represents a fasting glucose, interpretation should refer to the following reference range: 55-99 mg/dL Performed By: #### 1 2165185, 2588719, 5522403, 2516686, 9894036, 0202503, 87976238, 1079055 #### [facility] [address] [place] [address] Potassium [Moles/Vol] 3.6 mmol/L Normal 3.5-5.3 [facility] Comment on above: Performed By: #### 1 4393886, 0349488, 5441639, 0768326, 0949633, 9517264, 50465017, 9125670 #### [facility] [address] [place] [address] Sodium [Moles/Vol] 138 mmol/L Normal 135-145 [facility] Comment on above: Performed By: #### 1 4467955, 3137233, 3448541, 7638955, 7499150, 5601772, 46785966, 3805818 #### [facility] [address] [place] [address] BhCG Quanton 05-21-2023 HCG.beta subunit Qn 9779 m[IU]/mL High 1-3 [facility] Comment on above: Result Comment: GEST ATIONAL AGE HCG RANGE (mIU/mL) NON- <1-3 0.2-1 WEEKS 5-50 1-2 WEEKS 50-500 2-3 WEEKS 100-5,000 3-4 WEEKS 500-10,000 4-5 WEEKS 1,000-50,000 5-6 WEEKS 10,000-100,000 6-8 WEEKS 15,000-200,000 8-12 WEEKS 10,000-100,000 Performed By: #### 1 9381755, 3862509, 9842697, 8854464, 3251976, 5409406, 67610949, 5930916 #### [facility] [address] [place] [address] CBC w/ Auto Diffon Erythrocyte distribution width (RBC) [Ratio] 12.9 % Normal 10.9-14.2 [facility] Comment on above: Performed By: #### 1 9186751, 0621047, 2929233, 8728105, 9420525, 3908196, 62027295, 9688188 #### [facility] [address] [place] [address] Hematocrit (Bld) [Volume fraction] 36.4 % Normal 34.0-46.0 [facility] Comment on above: Performed By: #### 1 8499121, 0922930, 3434251, 8536486, 7551702, 7104717, 53851370, 9128556 #### [facility] [address] [place] [address] Hemoglobin (Bld) [Mass/Vol] 12.5 g/dL Normal 12.0-16.0 [facility] Comment on above: Performed By: #### 1 3193866, 5734981, 8978740, 8201003, 8434435, 3131221, 20862012, 1188866 #### [facility] [address] [place] [address]324 MCH (RBC) [Entitic mass] 30.4 pg Normal 27.0-34.0 [facility] Comment on above: Performed By: #### 1 9112156, 9712435, 7340319, 6930333, 8127620, 7689426, 05470661, 2918907 #### [facility] Laboratory [address] [place], [place] [address] MCHC (RBC) [Mass/Vol] 34.3 g/dL Normal 31.4-36.0 [facility] Comment on above: Performed By: #### 1 5630007, 7856171, 2328464, 7943340, 2313959, 2067351, 88596958, 3030520 #### [facility] [address] [place] [address] MCV (RBC) [Entitic vol] 88.4 fL Normal 80.0-100.0 [facility] Comment on above: Performed By: #### 1 2165327, 6866169, 6543785, 6472264, 1164531, 0704102, 55256541, 3729976 #### [facility] Laboratory [address] [place] [address]66[address] Platelet mean volume (Bld) [Entitic vol] 9.0 fL Normal 6.4-10.8 [facility] Comment on above: Performed By: #### 1 9018844, 7221855, 9625392, 7906312, 2893532, 0254977, 27532140, 2141428 #### [facility] [address] [place] [address] Platelets (Bld) [#/Vol] 273.0 E9/L Normal 150.0-500.0 [facility] Comment on above: Performed By: #### 1 0747686, 2189774, 1396009, 6002885, 9269740, 3845738, 58603527, 0726286 #### [facility] [address] [place] [address] RBC (Bld) [#/Vol] 4.1 E12/L Low 4.3-5.9 [facility] Comment on above: Performed By: #### 1 4965646, 0524421, 3316759, 6839819, 3276319, 3990049, 77908239, 1669997 #### [facility] [address] [place] [address] WBC corrected for nucl RBC Auto (Bld) [#/Vol] 5.9 E9/L Normal 4.0-11.0 [facility] Comment on above: Performed By: #### 1 3959413, 0846026, 3822951, 8925406, 8776498, 3953927, 85751827, 6589454 #### [facility] [address] [place] [address] CHEMISTRYOrdered By: SYSTEM SYSTEM on 05-21-2023 Albumin [...] 129 mL/min/1.73 m2 Normal >=59mL/min/1. 73 m2 [facility] Chem S Comment on above: Interpretive Data: [...] for Treatmenton Consent for Treatment [id number] #1.00CD:127 Normal [facility] Discharge Instructionson Discharge Instructions [id number] #1.00CD:127 Normal [facility] ED Clinical Summaryon 2022 ED Clinical Summary [place] [id number] ED Clinical Summary Person Information Name: RONY BOLAÑOS Jessica/[facility] Age: 32 Years : 1990 Sex: Female Language: Greenlandic PCP: NONE, XXXX Marital Status: Single Visit [...] 05/21/2023 15:09:51 05/21/2023 15:09:51 05/21/2023 15:09:51 ADDRESS: [address] [place] [id number] PHYS DOC NOTES: MEDICAL INFORMATION: Prescriptions Given: Medications to Continue with No Changes Other Medications dextromethorphan-pro methazine (dextromethorphan-pr omethazine 15 mg-6.25 mg/5 mL Oral Syrup 5 mL) 5 Milliliter By Mouth every 6 hours as needed for cough. Refills: 0. etonogestrel (Nexplanon 68 mg subcutaneous implant) 1 Each Subcutaneous Once. fluticasone nasal (fluticasone 0.05 mg/inh Nasal [place]) 1 Sprays Nasal Inhalation 2 times a [...] EDUCATION INFORMATION: Instructions: Abdominal Pain During , Fzjr-ib-Ewfs Follow up: With: Address: When: Jason Raines [address], [place] [address] [facility] (1) In 3 days 05/24/2023 Comments: Follow-up with your RECENTERER. If not have any may follow-up with Dr. Raines. With: Address: When: XXXX NONE , [place] In 3 days DIAGNOSIS: Abdominal pain in ; Unspecified abdominal pain Normal [facility] ED Note-Physicianon 05-21-20 ED Note-Physician Basic Information [...] and Complexity of Problems Differential Diagnosis: [] [facility] Data External documents reviewed: [] My [...] A&B Ag Lipase Level Rapid COVID Antigen ([facility]) UA With Cult Refl (more content not included)... Normal [facility] Comment on above: Result Comment: Elec tronically [...] your pee (urine) pale yellow. ? Take giri-ueu-kwjjxra and prescription medicines only as told by [...] Reviewed: 04/20/2021 Elsevier Patient Education ? 2022 [employer] Normal [facility] ED Patient Summaryon 023 ED Patient Summary [place] [id number] Patient Discharge Instructions Person Information Name: RONY BOLAÑOS Age: 32 Years Arrival Date: 05/21/2023 10:49:01 Discharge Diagnosis: Abdominal pain in ; Unspecified abdominal pain Primary Care Physician: NONE, XXXX Provider Information Primary Provider: Donovan Keller DO Advanced Machine Setter Sheet Metal:None The exam and treatment you received in the Emergency Department were for an urgent problem and are not intended as complete care. It is important that you follow up with a doctor, nurse practitioner, or physician?s surgeon assistant for ongoing care. If your symptoms [...] Instructions: With: Address: When: Jason Raines [address] [facility], [place] [address] [facility] (1) In 3 days 05/24/2023 Comments: Follow-up with your RECENTERER. If not have any may follow-up with Dr. Raines. With: Address: When: XXXX RICH[place] , [place] In 3 days In the event that this physician does not participate in your insurance network, please consult with your insurance company to find a nearby participating provider. Patient Education Materials: Abdominal Pain During , Hlyk-li-Wscm A MESSAGE TO ALL PATIENTS REGARDING OPIOIDS PRESCRIPTION OPIOIDS: WHAT YOU NEED TO KNOW Prescription opioids can be used to help relieve ycihwzck-pl-ljhzhn pain and are often prescribed following a [...] (more content not included)... Normal [facility] HEMATOLOGYOrdered By: SYSTEM SYSTEM on 05-21-2023 Basophils/100 [...] 9.0 fL Normal 6.4 - 10.8 fL [facility] HemeAutoSS Platelets (Bld) [#/Vol] 273.0 E9/L Normal 150.0 - 500.0 E9/L [facility] HemeAutoSS RBC (Bld) [#/Vol] 4.1 E12/L Low 4.3 - 5.9 E12/L [facility] HemeAutoSS WBC corrected for nucl RBC Auto (Bld) [#/Vol] 5.9 E9/L Normal 4.0 - 11.0 E9/L [facility] HemeAutoSS Hep Func Panelon 05-21-2023 Albumin [Mass/Vol] 4.0 g/dL Normal 3.3-5.0 [facility] Comment on above: Performed By: #### 1 6841624, 7423759, 4545584, 4853581, 4187286, 8494351, 10033228, 8348918 #### [facility] Laboratory [address] [place] [address] Albumin/Globulin (S) [Mass conc ratio] 1.3 Normal 1.1-2.2 [facility] Comment on above: Performed By: #### 1 7118711, 1194310, 7634681, 8100288, 2393481, 9243447, 50305536, 7753624 #### [facility] [address] [place] [address] ALP [Catalytic activity/Vol] 50 Int._Unit/L Normal 21-98 [facility] Comment on above: Performed By: #### 1 7602722, 0156829, 1864013, 7074098, 9339386, 4690833, 20443001, 1634717 #### [facility] [address] [place] [address] ALT No additional P-5'-P [Catalytic activity/Vol] 19 Int._Unit/L Normal 6-46 [facility] Comment on above: Performed By: #### 1 8285313, 4295929, 4635472, 6388462, 9001649, 4278361, 07714370, 8334819 #### [facility] [address] [place] [address] AST [Catalytic activity/Vol] 17 Int._Unit/L Normal 5-43 [facility] Comment on above: Performed By: #### 1 0073260, 3889988, 5211329, 3095138, 1997508, 8045867, 33699208, 0963388 #### [facility] [address] [place] [address]225[address] Bilirubin [Mass/Vol] 0.5 mg/dL Normal 0.0-1.1 [facility] Comment on above: Performed By: #### 1 7083168, 5835134, 2851783, 2806564, 7531253, 1474754, 00170731, 0944548 #### [facility] Laboratory [address] [place], [place] [address] Bilirubin.direct [Mass/Vol] 0.1 mg/dL Normal 0.1-0.4 [facility] Comment on above: Performed By: #### 1 5129647, 6394593, 4249606, 6873210, 7650935, 7354138, 44754556, 3783676 #### [facility] [address] [place] [address] Bilirubin.indirect [Mass or moles/Vol] 0.4 mg/dL Normal 0.1-0.9 [facility] Comment on above: Performed By: #### 1 5790500, 9416622, 1203657, 7362671, 5356293, 9803065, 12518842, 6979085 #### [facility] [address] [place] [address] Globulin (S) [Mass/Vol] 3.0 g/dL Normal 1.4-4.0 [facility] Comment on above: Performed By: #### 1 3592772, 6679814, 5372112, 5655788, 1629947, 3764932, 39899789, 1186700 #### [facility] [address] [place] [address] Protein [Mass/Vol] 7.0 g/dL Normal 6.0-7.8 [facility] Comment on above: Performed By: #### 1 4740333, 0998598, 0268318, 9500514, 9574305, 7668991, 84522049, 9332894 #### [facility] [address] [place] [address] Influenza A&B Agon Influenzae A Ag Negative Normal Negative [facility] Comment on above: Performed By: #### 1 7515276, [id number] #### [facility] [address] [place] [address] Influenzae B Ag Negative Normal Negative [facility] Comment on above: Result Comment: Test sensitivity and specificity vary for age group, specimen type, antigen types, and prevalence of disease. Test results must be evaluated in conjunction with other clinical data available to the physician. Individuals who received nasally administered Influenza A vaccine may have positive test results up to 3 days after vaccination. Performed By: #### 1 0334171, [id number] #### [facility] [address] [place] [address] Lipase Levelon 05-21-2023 Lipase [Catalytic activity/Vol] 32 U/L Normal 13-58 [facility] Comment on above: Performed By: #### 1 6077441, 1559613, 4146665, 4977072, 8521880, 3491993, 48782790, 7370832 #### [facility] [address] [place] [address] MICRO OTHER TESTSOrdered By: Michelle Can on 05-21-2023 Influenzae A Ag Negative (05/21/23 11:51 AM) Normal Negative [facility] Man Sero Influenzae B Ag Negative 1 (05/21/23 11:51 AM) Normal Negative [facility] Man [facility]ero Comment on above: Interpretive Data: [...] NEG [place] (05/21/23 11:51 AM) Normal [facility] Man Sero Rapid COV Int POS [place] (05/21/23 11:51 AM) Normal [facility] Man Sero SARS-CoV+SARS-CoV-2 (COVID-19) Ag IA.rapid Ql (Resp) Not Detected 5 (05/21/23 11:51 AM) Normal Not Detected [facility] Man [facility]ero Comment on above: Interpretive Data: T gilbert [employer] Veritor System for Rapid Detection of SARS-CoV-2 [...] terminated or revoked sooner. Rapid COVID Antigen ([facility])on 05-21-2023 Rapid COV Int NEG [place] Normal Fis her [facility] Comment on above: Performed By: #### 1 7507223, 0255546, 5786944, 7560110, 6321987, 4059155, 33656139, 8906258 #### [facility] [address] [place] [address] Rapid COV Int POS [place] Normal Fis her [facility] Comment on above: Performed By: #### 1 6051548, 2871081, 6228800, 0661295, 5338865, 5350323, 73882367, 3336481 #### [facility] [address] [place] [address] SARS-CoV+SARS-CoV-2 (COVID-19) Ag IA.rapid Ql (Resp) Not detected Normal Not Detected [facility] Comment on above: Result Comment: The [employer]? System for Rapid Detection of SARS-CoV-2 is [...] For in vitro diagnostic use. In the [facility], only for use under an Emergency Use [...] or revoked sooner. Performed By: #### 1 1615392, 4337328, 9545806, 5082379, 9121264, 9763911, 13165617, 7420241 #### [facility] [address] [place] [address] SEROLOGYOrdered By: Amairani Louise on 05-21-2023 Beta hCG Ql Positive (05/21/23 11:39 AM) Normal [facility] Man Sero UA With Cult Reflexon 2022 Bilirubin Ql (U) Negative Normal Negative [facility] Comment on above: Performed By: #### 1 [id number] #### [facility] [address] [place] [address] Clarity (U) CLEAR Normal Clear [facility] Comment on above: Performed By: #### 1 [id number] #### [facility] [address] [place] [address] Color (U) YELLOW Normal Yellow [facility] Comment on above: Performed By: #### 1 [id number] #### [facility] [address] [place] [address] Epithelial cells.squamous LM.HPF (Urine sed) [#/Area] 5-8 Normal 0-2 [facility] Comment on above: Performed By: #### 1 [id number] #### [facility] [address] [place] [address]65[address] Glucose Test strip (U) [Mass/Vol] Negative Normal Negative [facility] Comment on above: Performed By: #### 1 [id number] #### [facility] [address] [place] [address] Hemoglobin Ql (U) Negative Normal Negative [facility] Comment on above: Performed By: #### 1 [id number] #### [facility] [address] [place] [address] Ketones (U) [Mass/Vol] Negative Normal Negative [facility] Comment on above: Performed By: #### 1 [id number] #### [facility] [address] [place] [address] Addition.plasma/Lithiu m.RBC (Bld) [Mass ratio] 0-3 Normal 0-3 [facility] Comment on above: Performed By: #### 1 [id number] #### [facility] [address] [place] [address] Nitrite Ql (U) Negative Normal Negative [facility] Comment on above: Performed By: #### 1 [id number] #### [facility] [address] [place] [address] pH (U) 5.5 [pH] Invalid Interpretation Code 5.0-9.0 [facility] Comment on above: Performed By: #### 1 [id number] #### [facility] [address] [place] [address] Protein (U) [Mass/Vol] Negative Normal Negative [facility] Comment on above: Performed By: #### 1 [id number] #### [facility] [address] [place] [address] Specific gravity (U) [Rel density] 1.020 Invalid Interpretation Code 1.005-1.030 [facility] Comment on above: Performed By: #### 1 [id number] #### [facility] [address] [place] [address] Type of Urine collection method Clean Catch Normal [facility] Comment on above: Performed By: #### 1 [id number] #### [facility] [address] [place] [address] Urobilinogen Qn (U) 0.2 {Clara'U}/dL Normal 0.0-1.0 [facility] Comment on above: Performed By: #### 1 [id number] #### [facility] [address] [place] [address] WBC Auto Ql (U) Negative Normal Negative [facility] Comment on above: Performed By: #### 1 [id number] #### [facility] [address] [place] [address] WBC LM.HPF (Urine sed) [#/Area] 0-5 Normal 0-5 [facility] Comment on above: Performed By: #### 1 [id number] #### [facility] [address] [place] [address] URINALYSISOrdered By: Chikis Louise on 05-21-2023 Bilirubin [...] AM) Normal Negative [facility] UA Auto SS [address] Addition.plasma/Lithiu m.RBC (Bld) [Mass ratio] 0-3 /HPF Normal [...] [facility] UA Auto SS Urobilinogen Qn (U) 0.7861816 {Clara'U}/dL Normal 0.0 - 1.0 EU/dL [facility] UA Auto SS WBC Auto Ql (U) Negative (05/21/23 11:51 AM) Normal Negative [facility] UA Auto SS WBC LM.HPF (Urine sed) [...] Performed Transvaginal Ultrasound Performed Normal [facility] US Transvaginalon 05-21-2023 US Transvaginal Exam Date/Time: 05/21/2023 14:36 EDT Reason for Exam: abdominal pain Report PLEASE SEE US 1st Trimester REPORT DATED: 05/21/2023. Ordering Provider: Osman Ge FINAL REPORT Dictated: 05/21/2023 2:53 pm Gonsalo Martinez MD Signed (Electronic Signature): 05/21/2023 2:53 pm Signed by: Gonsalo Martinez MD Transcribed by: PAULO Technologist: LUIS ANTONIO Normal [facility] XR Chest 2 Viewson XR Chest 2 [...] na DAP = na Normal [facility] eGFRon 05-21-2023 GFR/1.73 sq M.predicted among non-blacks MDRD (S/P/Bld) [Vol rate/Area] 129 mL/min/1.73 m2 Normal >=59 [facility] Comment on above: Order Comment: Order added by Discern Expert. Result Comment: Sports Medicine Physician josselin kidney disease could be indicated at eGFR's of less than 60 mL/min/1.73m2. Kidney failure is indicated at less than 15 mL/min/1.73m2. Performed By: #### 1 [id number], [id number], [id number], [id number] #### [facility] [address] [place] [address] PAP ACOG PANEL 2: 21 to 29on 06-08-2022 . . [facility] Comment on above: Performed By: #### 4 [id number] #### [facility] [address] [place] [address] Dr. Jaspreet Duran Age Gdln ACOG Testing - [facility] Comment on above: Performed By: #### 4 [id number] #### [facility] [address] [place] [address] Dr. Jaspreet Duran DIAGNOSIS: Comment [facility] Comment on above: Result Comment: NEGA TIVE FOR INTRAEPITHELIAL LESION OR MALIGNANCY. Performed By: #### 4 [id number] #### [facility] [address] [place] [address] Dr. Jaspreet Duran Methodology: Comment [facility] Comment on above: Result Comment: This liquid based ThinPrep(R) pap test was screened with the use of an image guided system. Performed By: #### 4 [id number] #### [facility] [address] [place] [address] Dr. Jaspreet Duran Note: Comment [facility] Comment on above: Result Comment: The Pap smear is a screening test designed to aid in the detection of premalignant and malignant conditions of the uterine cervix. It is not a diagnostic procedure and should not be used as the sole means of detecting cervical cancer. Both false-positive and false-negative reports do occur. . Performed By: #### 4 [id number] #### [facility] [address] [place] [address] Dr. Jaspreet Duran Performed by: Comment [facility] Comment on above: Result Comment: Pricila Valerio, Crane Chaser (ASCP) Performed By: #### 4 [id number] #### [facility] [address] [place] [address] Dr. Jaspreet Duran Reflex Criteria: Comment Normal [facility] Comment on above: Result Comment: The HPV DNA reflex criteria were not met with this specimen result therefore, no HPV testing was performed. . Performed By: #### 4 [id number] #### [facility] [address] [place] [address] Dr. Jaspreet Duran Specimen adequacy: Comment Normal [facility] Comment on above: Result Comment: Sati sfactory for evaluation. No endocervical component is identified. Performed By: #### 4 [id number] #### [facility] [address] [place] [address] Dr. Jaspreet Duran COVID-19 Lab [facility] 11-11-20 21 SARS-CoV-2 (COVID-19) RNA NATALIE+probe Ql (Unsp spec) Not detected Normal Not Detected [facility] Comment on above: Order Comment: Reaso n for Exam Cough;Myalgia Healthcare Worker?: N Result Comment: This nucleic acid amplification test was developed and its performance characteristics determined by [employer]. Nucleic acid amplification tests include RT- PCR [...] detected) result in this assay. PERFORMED BY: [address] [place] [address] PATHOLOGIST DOUGH MAKER LAUREANO JACK M.D. Performed By: #### C ORONAVIRUS #### [facility] , Vital Signs Date Time Vital Sign Value Performing Clinician Liana gibson 05-21-2023 14:00-0400 Diastolic blood pressure 79 mm[Hg] Donovan Keller [facility] 05-21-2023 14:00-0400 Heart rate 72 /min Donovan Krishna [facility] 05-21-2023 14:00-0400 Respiratory rate 18 /min Donovan Krishna [facility] 05-21-2023 14:00-0400 SaO2% (BldA) [Mass fraction] 99 % Donovan Keller [facility] 05-21-2023 14:00-0400 Systolic blood pressure 132 mm[Hg] Donovan Krishna [facility] 05-21-2023 11:02-0400 Body temperature 98.06 [degF] Donovan Krishna [facility] 05-21-2023 11:02-0400 Diastolic blood pressure 84 mm[Hg] Donovan Krishna [facility] 05-21-2023 11:02-0400 Heart rate 77 /min Donovan Krishna [facility] 05-21-2023 11:02-0400 Respiratory rate 16 /min Donovan Krishna [facility] 05-21-2023 11:02-0400 SaO2% (BldA) [Mass fraction] 100 % Donovan Krishna [facility] 05-21-2023 11:02-0400 Systolic blood pressure 147 mm[Hg] Donovan Krishna [facility] Encounters Encounter Date Encounter Type Care Provider Facility Start: 11-13-2023 End: 11-13-2023 ambulatory LYNNETTE JOSE M Not Available Start: 10-13-2023 End: 10-13-2023 ambulatory LYNNETTE MALAGON Not Available Start: 07-24-2023 End: 07-24-2023 ambulatory LUKAS RIDER Not Available Start: 07-06-2023 End: 07-06-2023 ambulatory LYNNETTE MARTINZIO Not Available Start: 05-21-2023 End: 05-21-2023 Emergency department patient visit Donovan Keller Facility:[facility] Start: 05-21-2023 End: 05-21-2023 Emergency department patient visit Donovan Keller [facility] Start: 06-01-2022 End: 06-01-[address] LYNNETTE MALAGON Facility: Procedures Date Procedure Procedure Detail Performing Clinician Start: 11-02-2017 Cyst of Bartholin's gland duct (disorder) Donovan Keller None (qualifier value) Donovan Keller Payers Date Payer Category Payer [employer] [id number] 2022 [employer] [id number] 1990 Unknown [id number] 1990 Unknown [id number] 1990 Unknown [id number] 1992 Unknown [id number] 1992 Unknown [id number] 1992 Unknown [id number] 1959 Unknown [id number] Social History Date Type Detail Facility Tobacco [facility] Comment on above: denies Tobacco smoking status No Smokin g Status Entered [facility] Sex Assigned At Female [facility] Functional Status Date Assessment Result [email or web address] 05-21-2023 Functional Status N/A [facility] Hospital Discharge instructions 05-21-2023 Note Date & Type Note Facility 05-21-2023 Hospital Discharg e instructions Patient Education 05/21/2023 15:09:51 Abdominal Pain During , Htkk-zf-Ypzh Abdominal Pain During Belly (abdominal) pain is [...] keep your pee (urine) pale yellow. Take hgyp-cdm-hkjynkn and prescription medicines only as told by [...] provider. Document Revised: 04/20/2021 Document Reviewed: 04/20/2021 [employer] Patient Education 2022 [employer] Follow Up Care 05/21/2023 10:51:24 With:Jason Raines Address: [place] [address]- Business (1) When:05/24/2023 14:59:00 Comments:Follow-up with your RECENTERER. If not have any may follow-up with Dr. Raines. With:XXXX NONE Address: [place] When:Within 3 Day(s) [facility] Evaluation + Plan note 05-21-2023 Note Date [...] Trimester US Transvaginal XR Chest 2 Views [facility] Hospital course Narrative Note Date & Type Note Facility Hospital course Narrative No data available for this section [facility] Progress note Note Date & Type Note Facility Progress note No data available for this section [facility] Summary Purpose Family History No Family History Records FoundNo Family History Records Found No data available for this section No Family History Records FoundNo Family History Records Found Advance Directives No Advanced Directives Records FoundNo Advanced Directives Records FoundNo Advanced Directives Records FoundNo Advanced Directives Records Found Additional Source Comments INFORMATION SOURCE (unrecogn ized section and content) DATE CREATED AUTHOR 09/30/2021 [facility] DATE CREATED AUTHOR AUTHOR'S ORGANIZ ATION 06/13/2022 Marii Guzman [facility] DATE CREATED AUTHOR AUTHOR'S ORGANIZ ATION 05/26/2023 [facility] DATE CREATED AUTHOR AUTHOR'S ORGANIZ ATION 11/14/2023 [facility] FOR RECORDS PERTAINING TO PATIENTS WHO [...] BE BASED ON THE PRIMARY CLINICAL RECORDS. [employer] provides no warranty or guarantee of the accuracy or completeness of information in this document.
[2023-12-15 14:12] LABS: Age Gdln ACOG Testing Note (.); HPV Aptima Negative (Negative); IGP, Aptima HPV, rfx 16/18,45 Note (.)
== END 2023-12-11 20:57 | disposition home or self-care (01) ==
LOC: LAB 20:56
PROVIDERS: Visit Provider Obstetrics & Gynecology
DX: Z01.419 Encounter for gynecological examination (general) (routine) without abnormal findings (principal)
CPT/HCPCS: 87624; G0145

== ENCOUNTER 2024-01-08 08:28 | Outpatient (OUT) | payer OTHER, SELFPAY ==
--- NOTE | 2024-01-08 08:30 | US_ITS ---
[address] [address] Patient Name: RONY BOLAÑOS MRN: [id number] date: 1990 Sex: F Assigned Patient Location: [facility] Current Patient Location: [facility] Accession/Order Number: [id number] Exam Date: 01/08/2024 08:31 Report Date: 01/08/2024 10:48 At the request of: LYNNETTE SALGUERO Procedure: US OB anatomy EXAMINATION: US OB anatomy, US OB cervical length HISTORY: ANATOMY COMPARISON: No relevant comparison available. TECHNIQUE: Transabdominal sonographic examination was performed for obstetrical and evaluation. FINDINGS: Number: 1 Heart Rate: 140.0 bpm H.B. /min Amniotic Fluid Volume: Subjectively normal Placental Location: POSTERIOR with lower margin 4.4 cm from os. Cervix Length: 4.4 cm, closed. ANATOMY: Normal Structures -cerebellum, choroid plexus, cisterna magna, lateral cerebral ventricles, orbits, midline falx, hard palate, four-chamber heart, RVOT, LVOT, stomach, kidneys, bladder, umbilical cord insertion into abdomen, three-vessel cord, cervical spine, thoracic spine, lumbar spine, sacral spine, right upper extremity, left upper extremity, right lower extremity, left lower extremity. SUBOPTIMALLY SEEN: None ABNORMALITIES: None BIOMETRY: BPD: 4.6 cm 20 weeks 0 days HC: 17.4 cm 20 weeks 0 days AC: 15.9 cm 21 weeks 0 days FL: 3.6 cm 21 weeks 2 days EFW:392.3 grams; 77% FL/AC: 22.5 FL/BPD: 77.3 HC/AC: 1.1 GESTATIONAL AGE: Age by EDC: 20 weeks 3 days HOOD by EDC: 05/24/2024 Age by current US: 20 weeks 4 days HOOD by current US: 05/23/2024 US/US OB anatomy IMPRESSION: 1. Single live intrauterine with growth detailed above. Electronically authenticated by: KISHOR COLLINS Date: 01/08/2024 10:48
--- NOTE | 2024-01-08 08:30 | US_ITS ---
[address] [address] Patient Name: RONY BOLAÑOS MRN: [id number] date: 1990 Sex: F Assigned Patient Location: [facility] Current Patient Location: [facility] Accession/Order Number: [id number] Exam Date: 01/08/2024 08:31 Report Date: 01/08/2024 10:48 At the request of: LYNNETTE SALGUERO Procedure: US OB cervical length EXAMINATION: US OB anatomy, US OB cervical length HISTORY: ANATOMY COMPARISON: No relevant comparison available. TECHNIQUE: Transabdominal sonographic examination was performed for obstetrical and evaluation. FINDINGS: Number: 1 Heart Rate: 140.0 bpm H.B. /min Amniotic Fluid Volume: Subjectively normal Placental Location: POSTERIOR with lower margin 4.4 cm from os. Cervix Length: 4.4 cm, closed. ANATOMY: Normal Structures -cerebellum, choroid plexus, cisterna magna, lateral cerebral ventricles, orbits, midline falx, hard palate, four-chamber heart, RVOT, LVOT, stomach, kidneys, bladder, umbilical cord insertion into abdomen, three-vessel cord, cervical spine, thoracic spine, lumbar spine, sacral spine, right upper extremity, left upper extremity, right lower extremity, left lower extremity. SUBOPTIMALLY SEEN: None ABNORMALITIES: None BIOMETRY: BPD: 4.6 cm 20 weeks 0 days HC: 17.4 cm 20 weeks 0 days AC: 15.9 cm 21 weeks 0 days FL: 3.6 cm 21 weeks 2 days EFW:392.3 grams; 77% FL/AC: 22.5 FL/BPD: 77.3 HC/AC: 1.1 GESTATIONAL AGE: Age by EDC: 20 weeks 3 days HOOD by EDC: 05/24/2024 Age by current US: 20 weeks 4 days HOOD by current US: 05/23/2024 US/US OB cervical length IMPRESSION: 1. Single live intrauterine with growth detailed above. Electronically authenticated by: KISHOR COLLINS Date: 01/08/2024 10:48
--- OUTSIDE RECORDS SUMMARY | 2024-01-08 08:46 | XMS_ITS | CCD ---
Author Organization [facility] Care Team Providers Care Principal Secretary Name Role Phone DR LYNNETTE MALAGON Admitting Unavailable JOSE M, DR CHURCH Attending Unavailable REQUEST, DR RAMOS LISTED Primary Care Unavaila yessenia MALAGON, DR CHURCH Consulting Unavailable NONE, XXXX Primary Care Physician Unavailab Donovan Kemp Attending Unavailable LYNNETTE MALAGON Attending Unavailable LYNNETTE MALAGON Attending Unavailable LYNNETTE MALAGON Attending Unavailable LUKAS RIDER Attending Unavailable Allergies Allergy Classification Reported Allergen(s) Allergy Type Date of Onset Reaction(s) Facility (1 source) Cefaclor Drug Allergy 06-06-2013 [facility] Repository Medications Current Medications Medication Drug Class(es) Dates Sig (Normalized) Sig (Original) dextromethorphan hydrobromide 3 mg/ml / promethazine hydrochloride 1.25 mg/ml oral solution (1 source) Phenothiazine, Uncompetitive I-otaimw-S-aspartat e Receptor Antagonist, Sigma-1 Agonist Start: 12-07-2018 [...] 05/24/18 Status: Ordered fluticasone 0.05 mg/inh Nasal Liberty (1 source) Start: 12-07-2018 fluticasone 0.05 mg/inh Nasal Liberty 1 spray(s), Nasal, BID, 16 gram, Refill(s) 0 Start Date: 12/07/18 Status: Ordered pantoprazole 40 mg extended release oral tablet (1 source) Proton Pump Inhibitor Start: 05-21-2021 take 1 tablet by mouth once daily pantoprazole 40 mg Oral EC Tab 40 mg = 1 tab(s), Oral, Daily, # 30 tab(s), Refills(s) 0, [id number] 165, cm, 05/21/21 11:57:00 EDT, Height/Length Dosing, 91, kg, 05/21/21 11:57:00 EDT, Weight Dosing Start Date: 05/21/21 Status: Ordered Zofran ODT 4 mg Tab-Dis (2 sources) Start: 05-21-2021 take 1 tablet by mouth every six hours as needed for nausea Zofran ODT 4 mg Tab-Dis 4 mg = 1 tab(s), Oral, q6hr, PRN Nausea/Vomiting, # 12 tab(s), Refills(s) 0, [id number] 165, cm, 05/21/21 11:57:00 EDT, [...] Basophils/100 WBC (Bld) 0.4 % Normal 0.0-2.0 [facility] Comment on above: Order Comment: Order Added by Discern Expert. Performed By: #### 1 [id number], 5564479, 6209648, 6603298, 7714899, 4418620, 92110338, 4747809 #### [facility] [address] [place] [address] Basophils/Leukocytes Auto (Bld) [Pure # fraction] 0.0 E9/L Normal 0.0-0.2 [facility] Comment on above: Order Comment: Order Added by Discern Expert. Performed By: #### 1 0341688, 9173051, 9062428, 9855923, 9533065, 5870161, 04323257, 9069381 #### [facility] [address] [place] [address] Eosinophils/100 WBC (Bld) 1.5 % Normal 0.0-8.0 [facility] Comment on above: Order Comment: Order Added by Discern Expert. Performed By: #### 1 4373195, 5996981, 4379882, 7285861, 5511857, 8691117, 95719900, 7523642 #### [facility] [address] [place] [address] Eosinophils/Leukocyte s Auto (Bld) [Pure # fraction] 0.1 E9/L Normal 0.0-0.5 [facility] Comment on above: Order Comment: Order Added by Discern Expert. Performed By: #### 1 4342690, 4536290, 0136103, 0748247, 1158523, 9215185, 61911801, 1064342 #### [facility] [address] [place] [address]40[address] Lymphocytes/100 WBC (Bld) 33.2 % Normal 14.0-50.0 [facility] Comment on above: Order Comment: Order Added by Discern Expert. Performed By: #### 1 1206580, 3937484, 2846448, 4971695, 2218609, 0270502, 65217673, 6421099 #### [facility] [address] [place] [address]88[address] Lymphocytes/Leukocyte s Auto (Bld) [Pure # fraction] 2.0 E9/L Normal 1.0-4.0 [facility] Comment on above: Order Comment: Order Added by Discern Expert. Performed By: #### 1 4519835, 1324025, 0007652, 9502916, 8620571, 8940384, 81766583, 4744521 #### [facility] [address] [place] [address] Monocytes/100 WBC (Bld) 7.8 % Normal 4.0-14.0 [facility] Comment on above: Order Comment: Order Added by Discern Expert. Performed By: #### 1 6090645, 3689388, 8042522, 6853351, 1611195, 2702644, 71014161, 9691978 #### [facility] [address] [place] [address] 287[address] Monocytes/Leukocytes Auto (Bld) [Pure # fraction] 0.5 E9/L Normal 0.2-1.0 [facility] Comment on above: Order Comment: Order Added by Discern Expert. Performed By: #### 1 9926418, 2999155, 3613452, 2993491, 3821356, 0484141, 63273609, 7638933 #### [facility] [address] [place] [address] Neutrophils/100 WBC (Bld) 57.1 % Normal 36.0-75.0 [facility] Comment on above: Order Comment: Order Added by Discern Expert. Performed By: #### 1 1685737, 1201196, 9976019, 8984578, 9975561, 2107901, 36803569, 2774002 #### [facility] [address] [place] [address] Neutrophils/Leukocyte s Auto (Bld) [Pure # fraction] 3.4 E9/L Normal 2.0-7.5 [facility] Comment on above: Order Comment: Order Added by Discern Expert. Performed By: #### 1 4112668, 6644589, 3217637, 9197121, 4801802, 0159853, 09317557, 2488835 #### [facility] [address] [place] [address] B hCG Qualon 05-21-2023 Beta hCG Ql Positive Normal [facility] Comment on above: Performed By: #### 1 9578691, 3865451, 8139726, 2097885, 4945560, 4185743, 81099906, 2099060 #### [facility] [address] [place] [address] BMPon 05-21-2023 Creatinine [Mass/Vol] 0.5 mg/dL Normal 0.5-1.3 [facility] Comment on above: Performed By: #### 1 4970236, 6785300, 2459526, 2965823, 4464473, 8970398, 56262249, 5454962 #### [facility] [address] [place] [address] Urea nitrogen [Mass/Vol] 13 mg/dL Normal 5-21 [facility] Comment on above: Performed By: #### 1 7621628, 6295958, 0466227, 9898192, 7385348, 8739148, 22279348, 9315165 #### [facility] [address] [place] [address] Urea nitrogen/Creatinine [Mass ratio] 26 No Units High 10-20 [facility] Comment on above: Performed By: #### 1 6933282, 5562434, 6227870, 4478833, 1831056, 1664160, 16275956, 5357262 #### [facility] [address] [place] [address] Anion gap [Moles/Vol] 8 mmol/L Normal 6-16 [facility] Comment on above: Performed By: #### 1 7568982, 2770602, 0767607, 5457788, 5377770, 3780483, 96144555, 2920021 #### [facility] [address] [place] [address] Calcium [Mass/Vol] 9.2 mg/dL Normal 8.9-11.1 [facility] Comment on above: Performed By: #### 1 0609978, 0256008, 2671938, 2300798, 6403806, 9945647, 92091487, 8185101 #### [facility] [address] [place] [address] Chloride [Moles/Vol] 111 mmol/L Normal 101-111 [facility] Comment on above: Performed By: #### 1 3491658, 3177911, 7832701, 6344535, 3598487, 8890802, 14874483, 7863499 #### [facility] [address] [place] [address] CO2 [Moles/Vol] 23 mmol/L Normal 21-31 [facility] Comment on above: Performed By: #### 1 5702872, 5856524, 6583354, 9184948, 6995923, 6665874, 58938382, 2848631 #### [facility] [address] [place] [address] Glucose [Mass/Vol] 101 mg/dL Normal 55-199 [facility] Comment on above: Result Comment: If t his glucose result represents a fasting glucose, interpretation should refer to the following reference range: 55-99 mg/dL Performed By: #### 1 1347907, 4870714, 8099959, 7657001, 3711467, 8013442, 90266158, 0563321 #### [facility] [address] [place] [address] Potassium [Moles/Vol] 3.6 mmol/L Normal 3.5-5.3 [facility] Comment on above: Performed By: #### 1 7255496, 0970012, 9271782, 9626831, 9661269, 4366319, 89522755, 3059422 #### [facility] [address] [place] [address] Sodium [Moles/Vol] 138 mmol/L Normal 135-145 [facility] Comment on above: Performed By: #### 1 0948222, 7468297, 4418530, 3936683, 2839618, 0413079, 33564657, 3919916 #### [facility] [address] [place] [address] BhCG Quanton 05-21-2023 HCG.beta subunit Qn 9779 m[IU]/mL High 1-3 [facility] Comment on above: Result Comment: GEST ATIONAL AGE HCG RANGE (mIU/mL) NON- <1-3 0.2-1 WEEKS 5-50 1-2 WEEKS 50-500 2-3 WEEKS 100-5,000 3-4 WEEKS 500-10,000 4-5 WEEKS 1,000-50,000 5-6 WEEKS 10,000-100,000 6-8 WEEKS 15,000-200,000 8-12 WEEKS 10,000-100,000 Performed By: #### 1 6006207, 7999717, 1643138, 9288456, 0637247, 2071043, 76345399, 7600221 #### [facility] [address] [place] [address] CBC w/ Auto Diffon Erythrocyte distribution width (RBC) [Ratio] 12.9 % Normal 10.9-14.2 [facility] Comment on above: Performed By: #### 1 5184338, 6004441, 3588009, 0455087, 1191859, 2052801, 03473909, 6014246 #### [facility] [address] [place] [address] Hematocrit (Bld) [Volume fraction] 36.4 % Normal 34.0-46.0 [facility] Comment on above: Performed By: #### 1 6138845, 6913039, 1553483, 0661265, 5625861, 8142857, 08141375, 8644747 #### [facility] [address] [place] [address] Hemoglobin (Bld) [Mass/Vol] 12.5 g/dL Normal 12.0-16.0 [facility] Comment on above: Performed By: #### 1 6667459, 1330820, 4928368, 7560076, 0581819, 4362263, 17487221, 2678982 #### [facility] [address] [place] [address] MCH (RBC) [Entitic mass] 30.4 pg Normal 27.0-34.0 [facility] Comment on above: Performed By: #### 1 5819094, 4493687, 6618989, 9215637, 6866109, 2129172, 17810788, 9827482 #### [facility] [address] [place] [address]358 MCHC (RBC) [Mass/Vol] 34.3 g/dL Normal 31.4-36.0 [facility] Comment on above: Performed By: #### 1 0771961, 6961315, 2052128, 5987078, 2904827, 4543667, 87573045, 1124139 #### [facility] [address] [place] [address]3948 MCV (RBC) [Entitic vol] 88.4 fL Normal 80.0-100.0 [facility] Comment on above: Performed By: #### 1 3404114, 9398039, 7358302, 2432321, 9692753, 3336088, 99311062, 2394741 #### [facility] [address] [place] [address] Platelet mean volume (Bld) [Entitic vol] 9.0 fL Normal 6.4-10.8 [facility] Comment on above: Performed By: #### 1 0347551, 0545581, 2697841, 1034189, 5273079, 9128580, 47878053, 3186607 #### [facility] [address] [place] [address] Platelets (Bld) [#/Vol] 273.0 E9/L Normal 150.0-500.0 [facility] Comment on above: Performed By: #### 1 2140833, 4313070, 1504067, 4049098, 9437802, 9214196, 83876491, 0342036 #### [facility] [address] [place] [address] RBC (Bld) [#/Vol] 4.1 E12/L Low 4.3-5.9 [facility] Comment on above: Performed By: #### 1 2220086, 1051531, 4282612, 4296402, 7065474, 3517486, 98092489, 6720670 #### [facility] [address] [place] [address] WBC corrected for nucl RBC Auto (Bld) [#/Vol] 5.9 E9/L Normal 4.0-11.0 [facility] Comment on above: Performed By: #### 1 1503214, 5893027, 4984245, 2241483, 3763645, 5696497, 19956496, 0547093 #### [facility] [address] [place] [address] CHEMISTRYOrdered By: SYSTEM SYSTEM on 05-21-2023 Albumin [...] 129 mL/min/1.73 m2 Normal >=59mL/min/1. 73 m2 [facility] S Comment on above: [...] 32 U/L Normal 13 - 58 unit/L [facility] Remisol Potassium [Moles/Vol] 3.6 mmol/L Normal 3.5 - 5.3 mmol/L FT Remisol Protein [Mass/Vol] 7.0 g/dL Normal 6.0 - 7.8 gm/dL [facility] Sodium [Moles/Vol] 138 mmol/L Normal 135 - 145 mmol/L [facility] Urea nitrogen [Mass/Vol] 13 mg/dL Normal 5 - 21 mg/dL [facility] Remisol Urea nitrogen/Creatinine [Mass ratio] 26 mg/mg High 10 - 20 [facility] Remisol Consent for Treatmenton Consent for Treatment [id number] #[id number]:127 Normal [facility] Discharge Instructionson Discharge Instructions [id number] #[id number]:127 Normal [facility] ED Clinical Summaryon 2022 ED Clinical Summary [address] [address] ED Clinical Summary Person Information Name: RONY BOLAÑOS [facility] Age: 32 Years : 1990 Sex: Female Language: [place] PCP: NONE, XXXX Marital Status: Single Visit [...] 05/21/2023 15:09:51 05/21/2023 15:09:51 05/21/2023 15:09:51 ADDRESS: [address] [place] [id number] PHYS DOC NOTES: MEDICAL INFORMATION: Prescriptions Given: Medications to Continue with No Changes Other Medications dextromethorphan-pro methazine (dextromethorphan-pr omethazine 15 mg-6.25 mg/5 mL Oral Syrup 5 mL) 5 Milliliter By Mouth every 6 hours as needed for cough. Refills: 0. etonogestrel (Nexplanon 68 mg subcutaneous implant) 1 Each Subcutaneous Once. fluticasone nasal (fluticasone 0.05 mg/inh Nasal Liberty) 1 Sprays Nasal Inhalation 2 times a [...] EDUCATION INFORMATION: Instructions: Abdominal Pain During , Ktdo-iv-Ibgk Follow up: With: Address: When: Jason Raines [address] [place] [address], [facility] [address], [place] [address] [facility] (1) In 3 days 05/24/2023 Comments: Follow-up with your RELOCATION ASSOCIATE. If not have any may follow-up with Dr. Raines. With: Address: When: XXXX NONE , [place] In 3 days DIAGNOSIS: Abdominal pain in ; Unspecified abdominal pain Normal [facility] ED Note-Physicianon 05-21-20 ED Note-Physician Basic Information [...] and Complexity of Problems Differential Diagnosis: [] [facility] Data External documents reviewed: [] My EKG [...] A&B Ag Lipase Level Rapid COVID Antigen ([facility]) UA With Cult Refl (more content not included)... Normal [facility] Comment on above: Result Comment: Elec tronically Signed By: Osman Ge PA-C\.br\Date and Time Signed: 05/21/23 15:12 EDT\.br\Electronically Co-Signed By: Donovan Keller DO.jaron\Date and Time Co-Signed: 05/21/23 18:56 EDT ED [...] your pee (urine) pale yellow. ? Take dezx-mpo-bpuujce and prescription medicines only as told by [...] Reviewed: 04/20/2021 Elsevier Patient Education ? 2022 [employer] Normal [facility] ED Patient Summaryon 023 ED Patient Summary [place] [id number] Patient Discharge Instructions Person Information Name: RONY BOLAÑOS Age: 32 Years Arrival Date: 05/21/2023 10:49:01 Discharge Diagnosis: Abdominal pain in ; Unspecified abdominal pain Primary Care Physician: NONE, XXXX Provider Information Primary Provider: Donovan Keller DO Advanced Edi Programmer Analyst:None The exam and treatment you received in the Emergency Department were for an urgent problem and are not intended as complete care. It is important that you follow up with a doctor, nurse practitioner, or physician?s marketing assistant manager for ongoing care. If your symptoms become worse or you do not improve as expected and you are unable to reach your usual health care provider, you should return to the Emergency Department. We are available 24 hours a day. RONY BOLAÑOS has been given the following list of patient education materials, prescriptions and follow-up instructions: Follow-up Instructions: With: Address: When: Jason Raines [address] [place] [address], [place] [address], [place] [address] [facility] (1) In 3 days 05/24/2023 Comments: Follow-up with your RELOCATION ASSOCIATE. If not have any may follow-up with Dr. Raines. With: Address: When: VIN RAMOS [place] In 3 days In the event that this physician does not participate in your insurance network, please consult with your insurance company to find a nearby participating provider. Patient Education Materials: Abdominal Pain During , Szgv-ya-Neha A MESSAGE TO ALL PATIENTS REGARDING OPIOIDS PRESCRIPTION OPIOIDS: WHAT YOU NEED TO KNOW Prescription opioids can be used to help relieve ajsthljr-kq-qcsjpn pain and are often prescribed following a [...] and overdose (more content not included)... Normal [facility] HEMATOLOGYOrdered By: SYSTEM SYSTEM on 05-21-2023 Basophils/100 [...] 9.0 fL Normal 6.4 - 10.8 fL [facility] HemeAutoSS Platelets (Bld) [#/Vol] 273.0 E9/L Normal 150.0 - 500.0 E9/L [facility] HemeAutoSS RBC (Bld) [#/Vol] 4.1 E12/L Low 4.3 - 5.9 E12/L [facility] HemeAutoSS WBC corrected for nucl RBC Auto (Bld) [#/Vol] 5.9 E9/L Normal 4.0 - 11.0 E9/L [facility] HemeAutoSS Hep Func Panelon 05-21-2023 Albumin [Mass/Vol] 4.0 g/dL Normal 3.3-5.0 [facility] Comment on above: Performed By: #### 1 7533692, 7143306, 7687292, 5463161, 7594015, 5788138, 70577227, 5375260 #### [facility] [address] [place] [address] Albumin/Globulin (S) [Mass conc ratio] 1.3 Normal 1.1-2.2 [facility] Comment on above: Performed By: #### 1 2648519, 1376928, 8875160, 5849630, 7721406, 4779459, 01321724, 2335277 #### [facility] [address] [place] [address] ALP [Catalytic activity/Vol] 50 Int._Unit/L Normal 21-98 [facility] Comment on above: Performed By: #### 1 1047219, 1569512, 5858425, 1350188, 0705226, 4194974, 46651737, 9590375 #### [facility] [address] [place] [address] ALT No additional P-5'-P [Catalytic activity/Vol] 19 Int._Unit/L Normal 6-46 [facility] Comment on above: Performed By: #### 1 0081203, 7292035, 3727668, 8137012, 6627727, 3920750, 00047202, 4808729 #### [facility] [address] [place] [address] AST [Catalytic activity/Vol] 17 Int._Unit/L Normal 5-43 [facility] Comment on above: Performed By: #### 1 5634609, 9636271, 4285040, 5302684, 6772710, 1453452, 46231345, 0074692 #### [facility] [address] [place] [address] Bilirubin [Mass/Vol] 0.5 mg/dL Normal 0.0-1.1 [facility] Comment on above: Performed By: #### 1 5400612, 6344167, 5055835, 1658317, 3194102, 6653856, 65952491, 7035895 #### [facility] [address] [place], [place] [address] Bilirubin.direct [Mass/Vol] 0.1 mg/dL Normal 0.1-0.4 [facility] Comment on above: Performed By: #### 1 4649507, 3950090, 0225152, 9042540, 9759804, 4929370, 72395041, 1505061 #### [facility] [address] [place] [address] Bilirubin.indirect [Mass or moles/Vol] 0.4 mg/dL Normal 0.1-0.9 [facility] Comment on above: Performed By: #### 1 6359757, 6193745, 1951943, 8435222, 1421334, 1666725, 26927734, 4284104 #### [facility] [address] [place] [address] Globulin (S) [Mass/Vol] 3.0 g/dL Normal 1.4-4.0 [facility] Comment on above: Performed By: #### 1 4653580, 0387005, 1440944, 0043654, 1973154, 8275664, 95732630, 6120589 #### [facility] [address] [place] [address]58[address] Protein [Mass/Vol] 7.0 g/dL Normal 6.0-7.8 [facility] Comment on above: Performed By: #### 1 3536665, 0798723, 1399882, 9637428, 6618068, 3496806, 94307706, 0370364 #### [facility] [address] [place] [address] Influenza A&B Agon Influenzae A Ag Negative Normal Negative [facility] Comment on above: Performed By: #### 1 6060412, [id number] #### [facility] [address] [place] [address] Influenzae B Ag Negative Normal Negative [facility] Comment on above: Result Comment: Test sensitivity and specificity vary for age group, specimen type, antigen types, and prevalence of disease. Test results must be evaluated in conjunction with other clinical data available to the physician. Individuals who received nasally administered Influenza A vaccine may have positive test results up to 3 days after vaccination. Performed By: #### 1 1789971, [id number] #### [facility] [address] [place] [address] Lipase Levelon 05-21-2023 Lipase [Catalytic activity/Vol] 32 U/L Normal 13-58 [facility] Comment on above: Performed By: #### 1 2550012, 3169763, 0359998, 4649571, 9321799, 6774775, 34653395, 2267791 #### [facility] [address] [place] [address] MICRO OTHER TESTSOrdered By: Michelle Can on 05-21-2023 Influenzae A Ag Negative (05/21/23 11:51 AM) Normal Negative [facility] Man Sero Influenzae B Ag Negative 1 (05/21/23 11:51 AM) Normal Negative [facility] Sero Comment on above: [...] NEG Ctl Pass (05/21/23 11:51 AM) Normal [facility] Man Sero Rapid COV Int POS Ctl Pass (05/21/23 11:51 AM) Normal [facility] [place] Sero SARS-CoV+SARS-CoV-2 (COVID-19) Ag IA.rapid Ql (Resp) Not Detected 5 (05/21/23 11:51 AM) Normal Not Detected [facility] Comment on above: Interpretive Data: T gilbert Opsmatic Veritor System for Rapid Detection of SARS-CoV-2 [...] terminated or revoked sooner. Rapid COVID Antigen ([facility])on 05-21-2023 Rapid COV Int NEG Ctl Pass Normal Fis her [facility] Comment on above: Performed By: #### 1 7212429, 8227460, 6187297, 0454278, 3945268, 0668533, 15400007, 8721020 #### [facility] [address] [place] [address] Rapid COV Int POS Ctl Pass Normal Fis her [facility] Comment on above: Performed By: #### 1 9413911, 6024707, 4082026, 3604072, 5854656, 9945842, 35165979, 7057818 #### [facility] [address] [place] [address] SARS-CoV+SARS-CoV-2 (COVID-19) Ag IA.rapid Ql (Resp) Not detected Normal Not Detected [facility] Comment on above: Result Comment: The Varioptic? System for Rapid Detection of SARS-CoV-2 is [...] For in vitro diagnostic use. In the [facility], only for use under an Emergency [...] or revoked sooner. Performed By: #### 1 9221987, 4802207, 1623647, 3781271, 8103483, 0636714, 85433254, 5618829 #### [facility] [address] [place] [address] SEROLOGYOrdered By: Amairani Louise on 05-21-2023 Beta hCG Ql Positive (05/21/23 11:39 AM) Normal [facility] Sero UA With Cult Reflexon 2022 Bilirubin Ql (U) Negative Normal Negative [facility] Comment on above: Performed By: #### 1 3475141 #### [facility] [address] [place] [address] Clarity (U) CLEAR Normal Clear [facility] Comment on above: Performed By: #### 1 2113193 #### [facility] [address] [place] [address] Color (U) YELLOW Normal Yellow [facility] Comment on above: Performed By: #### 1 2393721 #### [facility] [address] [place] [address] Epithelial cells.squamous LM.HPF (Urine sed) [#/Area] 5-8 Normal 0-2 [facility] Comment on above: Performed By: #### 1 8705215 #### [facility] [address] [place] [address] Glucose Test strip (U) [Mass/Vol] Negative Normal Negative [facility] Comment on above: Performed By: #### 1 7114043 #### [facility] [address] [place] [address] Hemoglobin Ql (U) Negative Normal Negative [facility] Comment on above: Performed By: #### 1 4411244 #### [facility] [address] [place] [address] Ketones (U) [Mass/Vol] Negative Normal Negative [facility] Comment on above: Performed By: #### 1 5533611 #### [facility] [address] [place] [address] [place].plasma/Lithiu m.RBC (Bld) [Mass ratio] 0-3 Normal 0-3 [facility] Comment on above: Performed By: #### 1 8626186 #### [facility] [address] [place] [address] Nitrite Ql (U) Negative Normal Negative [facility] Comment on above: Performed By: #### 1 7107606 #### [facility] [address] [place] [address] 87641 pH (U) 5.5 [pH] Invalid Interpretation Code 5.0-9.0 [facility] Comment on above: Performed By: #### 1 4278586 #### [facility] [address] [place] [address] Protein (U) [Mass/Vol] Negative Normal Negative [facility] [facility] Comment on above: Performed By: #### 1 [id number] #### [facility] [address] [place] [id number] Specific gravity (U) [Rel density] 1.020 Invalid Interpretation Code 1.005-1.030 [facility] Comment on above: Performed By: #### 1 [id number] #### [facility] [address] [place] [address] Type of Urine collection method Clean Catch Normal [facility] Comment on above: Performed By: #### 1 [id number] #### [facility] [address] [place] [address] Urobilinogen Qn (U) 0.2 {Clara'U}/dL Normal 0.0-1.0 [facility] Comment on above: Performed By: #### 1 [id number] #### [facility] [address] [place] [address] WBC Auto Ql (U) Negative Normal Negative [facility] Comment on above: Performed By: #### 1 [id number] #### [facility] [address] [place] [address] WBC LM.HPF (Urine sed) [#/Area] 0-5 Normal 0-5 [facility] Comment on above: Performed By: #### 1 [id number] #### [facility] [address] [place] [address] URINALYSISOrdered By: Chikis Louise on 05-21-2023 Bilirubin [...] AM) Normal Negative [facility] UA Auto SS [place].plasma/Lithiu m.RBC (Bld) [Mass ratio] 0-3 /HPF Normal [...] [facility] UA Auto SS Urobilinogen Qn (U) 0.5577913 {Clara'U}/dL Normal 0.0 - 1.0 EU/dL [facility] [place] Auto [place] WBC Auto Ql (U) Negative (05/21/23 11:51 AM) Normal Negative [facility] [place]A Auto SS WBC LM.HPF (Urine sed) [#/Area] 0-5 /HPF Normal 0-5/HPF [facility] [place]A Auto SS US 1st Trimesteron 05-21-2023 [...] Transabdominal Ultrasound Performed Transvaginal Ultrasound Performed Normal [facility] US Transvaginalon 05-21-2023 US Transvaginal Exam Date/Time: 05/21/2023 14:36 EDT Reason for Exam: abdominal pain Report PLEASE SEE US 1st Trimester REPORT DATED: 05/21/2023. Ordering Provider: Osman Ge FINAL REPORT Dictated: 05/21/2023 2:53 pm Gonsalo Martinez MD Signed (Electronic Signature): 05/21/2023 2:53 pm Signed by: Gonsalo Martinez MD Transcribed by: PAULO Technologist: LUIS ANTONIO Normal [facility] XR Chest 2 Viewson XR Chest 2 [...] mGy = na DAP = na Normal [facility] eGFRon 05-21-2023 GFR/1.73 sq M.predicted among non-blacks MDRD (S/P/Bld) [Vol rate/Area] 129 mL/min/1.73 m2 Normal >=59 [facility] Comment on above: Order Comment: Order added by Discern Expert. Result Comment: Batch Mixer josselin kidney disease could be indicated at eGFR's of less than 60 mL/min/1.73m2. Kidney failure is indicated at less than 15 mL/min/1.73m2. Performed By: #### 1 [id number], [id number], [id number], [id number] #### [facility] [address] [place] [address] PAP ACOG PANEL 2: 21 to 29on 06-08-2022 . . Normal [facility] Comment on above: Performed By: #### 4 [id number] #### [facility] [address] [place] [address] Dr. Jaspreet Duran Age Gdln ACOG Testing - [facility] Comment on above: Performed By: #### 4 [id number] #### [facility] [address] [place] [address] Dr. Jaspreet Duran DIAGNOSIS: Comment [facility] Comment on above: Result Comment: NEGA TIVE FOR INTRAEPITHELIAL LESION OR MALIGNANCY. Performed By: #### 4 [id number] #### [facility] [address] [place] [address] Dr. Jaspreet Duran Methodology: Comment [facility] Comment on above: Result Comment: This liquid based ThinPrep(R) pap test was screened with the use of an image guided system. Performed By: #### 4 [id number] #### [facility] [address] [place] [address] Dr. Jaspreet Duran Note: Comment [facility] Comment on above: Result Comment: The Pap smear is a screening test designed to aid in the detection of premalignant and malignant conditions of the uterine cervix. It is not a diagnostic procedure and should not be used as the sole means of detecting cervical cancer. Both false-positive and false-negative reports do occur. . Performed By: #### 4 [id number] #### [facility] [address] [place] [address] Dr. Jaspreet Duran Performed by: Comment Normal [facility] Comment on above: Result Comment: Pricila Valerio, Regulatory Affairs Analyst (ASCP) Performed By: #### 4 [id number] #### [facility] [address] [place] [address] Dr. Jaspreet Duran Reflex Criteria: Comment Normal [facility] Comment on above: Result Comment: The HPV DNA reflex criteria were not met with this specimen result therefore, no HPV testing was performed. . Performed By: #### 4 [id number] #### [facility] [address] [address] [address] Jaspreet Duran Specimen adequacy: Comment Normal [facility] Comment on above: Result Comment: Sati sfactory for evaluation. No endocervical component is identified. Performed By: #### 4 [id number] #### [facility] [address] [place] [address] Dr. Jaspreet Duran COVID-19 Lab [facility] 11-11- 21 SARS-CoV-2 (COVID-19) RNA NATALIE+probe Ql (Unsp spec) Not detected Normal Not Detected [facility] Comment on above: Order Comment: Reaso n for Exam Cough;Myalgia Healthcare Worker?: N Result Comment: This nucleic acid amplification test was developed and its performance characteristics determined by [employer]. Nucleic acid amplification tests include RT- PCR [...] detected) result in this assay. PERFORMED BY: [facility] [place] [address] PATHOLOGIST FIELD CROPS HARVEST MACHINE OPERATOR LAUREANO JACK M.D. Performed By: #### C ORONAVIRUS #### [facility] , Vital Signs Date Time Vital Sign Value Performing Clinician Liana gibson 05-21-2023 14:00-0400 Diastolic blood pressure 79 mm[Hg] Donovan Keller [facility] 05-21-2023 14:00-0400 Heart rate 72 /min Donovan Krishna [facility] 05-21-2023 14:00-0400 Respiratory rate 18 /min Donovan Krishna [facility] 05-21-2023 14:00-0400 SaO2% (BldA) [Mass fraction] 99 % Donovan Krishna [facility] 05-21-2023 14:00-0400 Systolic blood pressure 132 mm[Hg] Donovan Krishna [facility] 05-21-2023 11:02-0400 Body temperature 98.06 [degF] Donovan Krishna [facility] 05-21-2023 11:02-0400 Diastolic blood pressure 84 mm[Hg] Donovan Krishna [facility] 05-21-2023 11:02-0400 Heart rate 77 /min Donovan Krishna [facility] 05-21-2023 11:02-0400 Respiratory rate 16 /min Donovan Krishna [facility] 05-21-2023 11:02-0400 SaO2% (BldA) [Mass fraction] 100 % Donovan Krishna [facility] 05-21-2023 11:02-0400 Systolic blood pressure 147 mm[Hg] Donovan Krishna [facility] Encounters Encounter Date Encounter Type Care Provider Facility Start: 12-11-2023 End: 12-11-2023 ambulatory LYNNETTE JOSE M Not Available Start: 11-13-2023 End: 11-13-2023 ambulatory LYNNETTE JOSE M Not Available Start: 10-13-2023 End: 10-13-2023 ambulatory LYNNETTE JOSE M Not Available Start: 07-24-2023 End: 07-24-2023 ambulatory LUKAS RIDER Not Available Start: 07-06-2023 End: 07-06-2023 ambulatory LYNNETTE JOSE M Not Available Start: 05-21-2023 End: 05-21-2023 Emergency department patient visit Donovan Keller [place] Start: 05-21-2023 End: 05-21-2023 Emergency department patient visit Donovan Keller [facility] Start: 06-01-2022 End: 06-01-[address] LYNNETTE JOSE M Facility: Procedures Date Procedure Procedure Detail Performing Clinician Start: 11-02-2017 Cyst of Bartholin's gland duct (disorder) Donovan Keller None (qualifier value) Donovan Keller Payers Date Payer Category Payer [employer] [id number] 2022 [employer] [id number] 1992 Unknown [id number] 1992 Unknown [id number] 1992 Unknown [id number] 1992 Unknown [id number] 1992 Unknown [id number] 1992 Unknown [id number] 1992 Unknown [id number] 1959 Unknown [id number] Social History Date Type Detail Facility Tobacco [facility] Comment on above: denies Tobacco smoking status No Smokin g Status Entered [facility] Sex Assigned At Female [facility] Functional Status Date Assessment Result Facility 05-21-2023 Functional Status N/A [facility] Discharge instructions 05-21-2023 Note Date & Type Note Facility 05-21-2023 Hospital Discharg e instructions Patient Education 05/21/2023 15:09:51 Abdominal Pain During , Blbl-lu-[id number] Abdominal Pain During Belly (abdominal) pain is [...] keep your pee (urine) pale yellow. Take [id number] and prescription medicines only as told by [...] provider. Document Revised: 04/20/2021 Document Reviewed: 04/20/2021 [employer] Patient Education 2022 [employer]. Follow Up Care 05/21/2023 10:51:24 With:Jason Raines Address: [address], [facility] [address] [place] [address] Business (1) When:05/24/2023 14:59:00 Comments:Follow-up with your RELOCATION ASSOCIATE. If not have any may follow-up with Dr. Raines. With:XXXX NONE Address: [place] When:Within 3 Day(s) [facility] Evaluation + Plan note 05-21-2023 [...] A&B Ag Lipase Level Rapid COVID Antigen [place] UA With Cult Reflex US 1st Trimester US Transvaginal XR Chest 2 Views [facility] Hospital course Narrative Note Date & Type Note Facility Hospital course Narrative No data available for this section [facility] Progress note Note Date & Type Note Facility Progress note No data available for this section [facility] Summary Purpose Family History No Family History Records FoundNo Family History Records Found No data available for this section No Family History Records FoundNo Family History Records Found Advance Directives No Advanced Directives Records FoundNo Advanced Directives Records FoundNo Advanced Directives Records FoundNo Advanced Directives Records Found Additional Source Comments INFORMATION SOURCE (unrecogn ized section and content) DATE CREATED AUTHOR 09/30/2021 [facility] DATE CREATED AUTHOR AUTHOR'S ORGANIZ ATION 06/13/2022 [facility] DATE CREATED AUTHOR AUTHOR'S ORGANIZ ATION 05/26/2023 [facility] DATE CREATED AUTHOR AUTHOR'S ORGANIZ ATION 12/12/2023 [facility] EPIC FOR RECORDS PERTAINING TO PATIENTS [...] BE BASED ON THE PRIMARY CLINICAL RECORDS. [employer] provides no warranty or guarantee of the accuracy or completeness of information in this document.
== END 2024-01-08 08:29 | disposition home or self-care (01) ==
LOC: NOMS 08:29
PROVIDERS: Visit Provider Obstetrics & Gynecology
DX: Z36.89 Encounter for other specified antenatal screening (principal); Z3A.20 20 weeks gestation of pregnancy
CPT/HCPCS: 76805; 76817

== ENCOUNTER 2024-03-13 11:33 | Outpatient (OUT) | payer OTHER, SELFPAY ==
--- OUTSIDE RECORDS SUMMARY | 2024-03-13 11:47 | XMS_ITS | CCD ---
Author Organization [facility] Care Team Providers Care Hod Carrier Name Role Phone DR LYNNETTE MALAGON Admitting Unavailable JOSE M, DR CHURCH Attending Unavailable REQUEST, DR RAMOS LISTED Primary Care Unavaila yessenia MALAGON, DR CHURCH Consulting Unavailable NONE, XXXX Primary Care Physician Unavailab Donovan Kemp Attending Unavailable LYNNETTE MALAGON Attending Unavailable LYNNETTE MALAGON Attending Unavailable LYNNETTE MALAGON Attending Unavailable LUKAS RIDER Attending Unavailable LYNNETTE MALAGON Attending Unavailable LUKAS RIDER Attending Unavailable LYNNETTE MALAGON Attending Unavailable Allergies Allergy Classification Reported Allergen(s) Allergy Type Date of Onset Reaction(s) Facility (1 source) Cefaclor Drug Allergy 06-06-2013 [facility] Repository Medications Current Medications Medication Drug Class(es) Dates Sig (Normalized) Sig (Original) dextromethorphan hydrobromide 3 mg/ml / promethazine hydrochloride 1.25 mg/ml oral solution (1 source) Phenothiazine, Uncompetitive O-owgzif-B-aspartat e Receptor Antagonist, Sigma-1 Agonist Start: 12-07-2018 [...] 05/24/18 Status: Ordered fluticasone 0.05 mg/inh Nasal Morning View (1 source) Start: 12-07-2018 fluticasone 0.05 mg/inh Nasal Morning View 1 spray(s), Nasal, BID, 16 gram, Refill(s) 0 Start Date: 12/07/18 Status: Ordered pantoprazole 40 mg extended release oral tablet (1 source) Proton Pump Inhibitor Start: 05-21-2021 take 1 tablet by mouth once daily pantoprazole 40 mg Oral EC Tab 40 mg = 1 tab(s), Oral, Daily, # 30 tab(s), Refills(s) 0, Pharmacy: [facility]/pharmacy #[id number], 165, cm, 05/21/21 11:57:00 EDT, Height/Length Dosing, 91, kg, 05/21/21 11:57:00 EDT, Weight Dosing Start Date: 05/21/21 Status: Ordered Zofran ODT 4 mg Tab-Dis (2 sources) Start: 05-21-2021 take 1 tablet by mouth every six hours as needed for nausea Zofran ODT 4 mg Tab-Dis 4 mg = 1 tab(s), Oral, q6hr, PRN Nausea/Vomiting, # 12 tab(s), Refills(s) 0, [id number] 165, cm, 05/21/21 11:57:00 EDT, [...] Basophils/100 WBC (Bld) 0.4 % Normal 0.0-2.0 [facility] Comment on above: Order Comment: Order Added by Discern Expert. Performed By: #### 1 [id number], 8142907, 3035030, 8084786, 3115023, 1876303, 07965198, 2165121 #### [facility] [address] [place] [address] Basophils/Leukocytes Auto (Bld) [Pure # fraction] 0.0 E9/L Normal 0.0-0.2 [facility] Comment on above: Order Comment: Order Added by Discern Expert. Performed By: #### 1 4977063, 1813841, 6822976, 9507624, 0353618, 2835077, 53120870, 1128949 #### [facility] [address] [place] [address] Eosinophils/100 WBC (Bld) 1.5 % Normal 0.0-8.0 [facility] Comment on above: Order Comment: Order Added by Discern Expert. Performed By: #### 1 0672760, 8577650, 6606327, 3346646, 6284681, 3147744, 29484063, 2925079 #### [facility] [address] [place] [address] Eosinophils/Leukocyte s Auto (Bld) [Pure # fraction] 0.1 E9/L Normal 0.0-0.5 [facility] Comment on above: Order Comment: Order Added by Discern Expert. Performed By: #### 1 9170542, 1854446, 1287713, 1248971, 4408652, 8337321, 42287470, 8465538 #### [facility] [address] [place] [address] Lymphocytes/100 WBC (Bld) 33.2 % Normal 14.0-50.0 [facility] Comment on above: Order Comment: Order Added by Isael Expert. Performed By: #### 1 0330591, 4991558, 4862005, 5540985, 8853626, 3241604, 25891401, 2510835 #### [facility] [address] [place] [address] Lymphocytes/Leukocyte s Auto (Bld) [Pure # fraction] 2.0 E9/L Normal 1.0-4.0 [facility] Comment on above: Order Comment: Order Added by Isael Expert. Performed By: #### 1 7457236, 7713025, 2124181, 5530701, 1170001, 5313096, 20212868, 5066843 #### [facility] [address] [place] [address] Monocytes/100 WBC (Bld) 7.8 % Normal 4.0-14.0 [facility] Comment on above: Order Comment: Order Added by Isael Expert. Performed By: #### 1 5466468, 1159232, 9425465, 0445735, 2026370, 3118637, 07336474, 1094535 #### [facility] [address] [place] [address] Monocytes/Leukocytes Auto (Bld) [Pure # fraction] 0.5 E9/L Normal 0.2-1.0 [facility] Comment on above: Order Comment: Order Added by Isael Expert. Performed By: #### 1 7176932, 9016411, 9714201, 1805172, 7880906, 9606093, 37392111, 1456154 #### [facility] [address] [place] [address] Neutrophils/100 WBC (Bld) 57.1 % Normal 36.0-75.0 [facility] Comment on above: Order Comment: Order Added by Discern Expert. Performed By: #### 1 3135073, 8930043, 6849275, 0954000, 1476973, 5386017, 92617242, 9155130 #### [facility] [address] [place] [address] Neutrophils/Leukocyte s Auto (Bld) [Pure # fraction] 3.4 E9/L Normal 2.0-7.5 [facility] Comment on above: Order Comment: Order Added by Discern Expert. Performed By: #### 1 9547899, 2667456, 5364849, 6480742, 1566324, 1845956, 71656341, 7461100 #### [facility] [address] [place] [address] B hCG Qualon 05-21-2023 Beta hCG Ql Positive Normal [facility] Comment on above: Performed By: #### 1 0065872, 1872913, 8379122, 0566109, 3866541, 7160241, 23589673, 4277858 #### [facility] [address] [place] [address] BMPon 05-21-2023 Creatinine [Mass/Vol] 0.5 mg/dL Normal 0.5-1.3 [facility] Comment on above: Performed By: #### 1 8993184, 1167874, 3983396, 8272171, 4428267, 0152768, 21632187, 5281159 #### [facility] [address] [place] [address] Urea nitrogen [Mass/Vol] 13 mg/dL Normal 5-21 [facility] Comment on above: Performed By: #### 1 6387335, 4815089, 3012411, 1933119, 4931451, 0257586, 58723836, 6954573 #### [facility] [address] [place] [address] Urea nitrogen/Creatinine [Mass ratio] 26 No Units High 10-20 [facility] Comment on above: Performed By: #### 1 7186400, 6118208, 7533255, 8662442, 9199664, 6043118, 17893778, 2540826 #### [facility] [address] [place] [address] Anion gap [Moles/Vol] 8 mmol/L Normal 6-16 [facility] Comment on above: Performed By: #### 1 7273538, 0769426, 1792839, 1170402, 9122763, 2156697, 55296401, 1947221 #### [facility] [address] [place] [address] Calcium [Mass/Vol] 9.2 mg/dL Normal 8.9-11.1 [facility] Comment on above: Performed By: #### 1 9152596, 4795016, 8973508, 0948311, 2639559, 2343465, 55907926, 9540938 #### [facility] [address] [place] [address] Chloride [Moles/Vol] 111 mmol/L Normal 101-111 [facility] Comment on above: Performed By: #### 1 2845144, 8800838, 5113919, 1156675, 2908593, 5751040, 46084514, 2571670 #### [facility] [address] [place] [address] CO2 [Moles/Vol] 23 mmol/L Normal 21-31 [facility] Comment on above: Performed By: #### 1 1619753, 4631023, 6773255, 6460842, 9449794, 5430031, 11562921, 8422042 #### [facility] [address] [place] [address] Glucose [Mass/Vol] 101 mg/dL Normal 55-199 [facility] Comment on above: Result Comment: If t his glucose result represents a fasting glucose, interpretation should refer to the following reference range: 55-99 mg/dL Performed By: #### 1 1278963, 7482722, 2870420, 8314465, 8020425, 6801345, 50945905, 6907552 #### [facility] [address] [place] [address] Potassium [Moles/Vol] 3.6 mmol/L Normal 3.5-5.3 [facility] Comment on above: Performed By: #### 1 2062594, 2378076, 8016172, 5998588, 1199884, 2167789, 71075387, 1952781 #### [facility] [address] [place] [address] Sodium [Moles/Vol] 138 mmol/L Normal 135-145 [facility] Comment on above: Performed By: #### 1 3405016, 6434925, 5727696, 1028670, 6015796, 3428348, 76409433, 8996176 #### [facility] [address] [place] [address] BhCG Quanton 05-21-2023 HCG.beta subunit Qn 9779 m[IU]/mL High 1-3 [facility] Comment on above: Result Comment: GEST ATIONAL AGE HCG RANGE (mIU/mL) NON- <1-3 0.2-1 WEEKS 5-50 1-2 WEEKS 50-500 2-3 WEEKS 100-5,000 3-4 WEEKS 500-10,000 4-5 WEEKS 1,000-50,000 5-6 WEEKS 10,000-100,000 6-8 WEEKS 15,000-200,000 8-12 WEEKS 10,000-100,000 Performed By: #### 1 8151342, 4297067, 5728985, 7708299, 0069145, 2919947, 36804404, 1651532 #### [facility] [address] [place] [address] CBC w/ Auto Diffon Erythrocyte distribution width (RBC) [Ratio] 12.9 % Normal 10.9-14.2 [facility] Comment on above: Performed By: #### 1 8980077, 9925995, 9099958, 5553210, 1266942, 3406760, 46141441, 4035849 #### [facility] [address] [place] [address] Hematocrit (Bld) [Volume fraction] 36.4 % Normal 34.0-46.0 [facility] Comment on above: Performed By: #### 1 1418071, 9428689, 6920297, 3991007, 4798523, 5348892, 29514703, 9616303 #### [facility] [address] [place] [address] Hemoglobin (Bld) [Mass/Vol] 12.5 g/dL Normal 12.0-16.0 [facility] Comment on above: Performed By: #### 1 1087474, 6365792, 5474533, 4079609, 2481900, 1631276, 18585266, 2000102 #### [facility] [address] [place] [address] MCH (RBC) [Entitic mass] 30.4 pg Normal 27.0-34.0 [facility] Comment on above: Performed By: #### 1 0444116, 6316883, 9149464, 8136069, 7185630, 0482899, 25117310, 3335776 #### [facility] [address] [place] [address] MCHC (RBC) [Mass/Vol] 34.3 g/dL Normal 31.4-36.0 [facility] Comment on above: Performed By: #### 1 6151759, 7798670, 8153902, 6029717, 1951017, 2625067, 57065241, 0134155 #### [facility] [address] [place] [address] MCV (RBC) [Entitic vol] 88.4 fL Normal 80.0-100.0 [facility] Comment on above: Performed By: #### 1 2348256, 2201216, 3425693, 9227048, 6229832, 1042994, 89945476, 8878695 #### [facility] [address] [place] [address] Platelet mean volume (Bld) [Entitic vol] 9.0 fL Normal 6.4-10.8 [facility] Comment on above: Performed By: #### 1 9270393, 5345263, 0095383, 6322070, 9707261, 2037890, 45796693, 6562718 #### [facility] [address] [place] [address] Platelets (Bld) [#/Vol] 273.0 E9/L Normal 150.0-500.0 [facility] Comment on above: Performed By: #### 1 0982515, 6618465, 6419073, 4423995, 0405630, 7541007, 03877109, 9200703 #### [facility] [address] [place] [address] RBC (Bld) [#/Vol] 4.1 E12/L Low 4.3-5.9 [facility] Comment on above: Performed By: #### 1 7662073, 4991442, 1710905, 2033431, 3643530, 5070004, 96453370, 0235894 #### [facility] [address] [place], [place] [address] WBC corrected for nucl RBC Auto (Bld) [#/Vol] 5.9 E9/L Normal 4.0-11.0 [facility] Comment on above: Performed By: #### 1 8447927, 8180462, 1632213, 7438726, 1524365, 1656524, 94625714, 7756716 #### [facility] [address] [place] [address] CHEMISTRYOrdered By: SYSTEM SYSTEM on 05-21-2023 Albumin [...] 0.5 mg/dL Normal 0.5 - 1.3 mg/dL FT Remisol GFR/1.73 sq M.predicted among non-blacks MDRD (S/P/Bld) [Vol rate/Area] 129 mL/min/1.73 m2 Normal >=59mL/min/1. [address] [facility] Chem S Comment on above: Interpretive Data: [...] 32 U/L Normal 13 - 58 unit/L [facility] Remisol Potassium [Moles/Vol] 3.6 mmol/L Normal 3.5 - 5.3 mmol/L [facility] Remisol Protein [Mass/Vol] 7.0 g/dL Normal 6.0 - 7.8 gm/dL [facility] Remisol Sodium [Moles/Vol] 138 mmol/L Normal 135 - 145 mmol/L [facility] Remisol Urea nitrogen [Mass/Vol] 13 mg/dL Normal 5 - 21 mg/dL [facility] Remisol Urea nitrogen/Creatinine [Mass ratio] 26 mg/mg High 10 - 20 [facility] Remisol Consent for Treatmenton 100 Consent for Treatment [id number] #[id number]:127 Normal [facility] Discharge Instructionson Discharge Instructions [id number] #[id number]:127 Normal [facility] ED Clinical Summaryon 2022 ED Clinical Summary [place] [id number] ED Clinical Summary Person Information Name: RONY BOLAÑOS ARIK [facility] Age: 32 Years : 1990 Sex: Female Language: Kuwaiti PCP: NONE, XXXX Marital Status: Single Visit [...] 05/21/2023 15:09:51 05/21/2023 15:09:51 05/21/2023 15:09:51 ADDRESS: [address] [place] [id number] PHYS DOC NOTES: MEDICAL INFORMATION: Prescriptions Given: Medications to Continue with No Changes Other Medications dextromethorphan-pro methazine (dextromethorphan-pr omethazine 15 mg-6.25 mg/5 mL Oral Syrup 5 mL) 5 Milliliter By Mouth every 6 hours as needed for cough. Refills: 0. etonogestrel (Nexplanon 68 mg subcutaneous implant) 1 Each Subcutaneous Once. fluticasone nasal (fluticasone 0.05 mg/inh Nasal Morning View) 1 Sprays Nasal Inhalation 2 times a [...] EDUCATION INFORMATION: Instructions: Abdominal Pain During , Gcfr-xx-Wvko Follow up: With: Address: When: Jason Raines [address] [place] [address], [facility] [address], [place] [address] [facility] (1) In 3 days 05/24/2023 Comments: Follow-up with your FOOD SERVICE SALES REPRESENTATIVES. If not have any may follow-up with Dr. Raines. With: Address: When: XXXX [facility] [place] In 3 days DIAGNOSIS: Abdominal pain in ; Unspecified abdominal pain Normal [facility] ED Note-Physicianon 05-21-20 ED Note-Physician Basic [...] and Complexity of Problems Differential Diagnosis: [] [facility] Data External documents reviewed: [] My EKG [...] A&B Ag Lipase Level Rapid COVID Antigen ([facility]) UA With Cult Refl (more content not included)... Normal [facility] Comment on above: Result Comment: Elec tronically Signed By: Joo LR, Osman J.\.br\Date and Time Signed: 05/21/23 15:12 EDT\.br\Electronically Co-Signed [...] your pee (urine) pale yellow. ? Take hwso-hdi-qtkriuq and prescription medicines only as told by [...] Patient Education ? 2022 [employer] Normal [facility] ED Patient Summaryon 023 ED Patient Summary [address] [address] Patient Discharge Instructions Person Information Name: RONY BOLAÑOS Age: 32 Years Arrival Date: 05/21/2023 10:49:01 Discharge Diagnosis: Abdominal pain in ; Unspecified abdominal pain Primary Care Physician: NONE, XXXX Provider Information Primary Provider: Donovan Keller DO Advanced Tavern Keeper:Marlo The exam and treatment you received in the Emergency Department were for an urgent problem and are not intended as complete care. It is important that you follow up with a doctor, nurse practitioner, or physician?s anesthesiologist assistant for ongoing care. If your symptoms [...] Follow-up Instructions: With: Address: When: Jason Raines [address] [place] [address] Business (1) In 3 days 05/24/2023 Comments: Follow-up with your FOOD SERVICE SALES REPRESENTATIVES. If not have any may follow-up with Dr. Raines. With: Address: When: XXXX [facility] [place] In 3 days In the event that this physician does not participate in your insurance network, please consult with your insurance company to find a nearby participating provider. Patient Education Materials: Abdominal Pain During , Mfej-yq-Teuh A MESSAGE TO ALL PATIENTS REGARDING OPIOIDS PRESCRIPTION OPIOIDS: WHAT YOU NEED TO KNOW Prescription opioids can be used to help relieve szozelcf-df-gfgbam pain and are often prescribed following a [...] and overdose (more content not included)... Normal [facility] HEMATOLOGYOrdered By: SYSTEM SYSTEM on 05-21-2023 [...] 88.4 fL Normal 80.0 - 100.[address] [facility] HemeAutoSS Platelet mean volume (Bld) [Entitic vol] 9.0 fL Normal 6.4 - 10.[address] [facility] HemeAutoSS Platelets (Bld) [#/Vol] 273.0 E9/L Normal 150.0 - 500.0 E9/L [facility] HemeAutoSS RBC (Bld) [#/Vol] 4.1 E12/L Low 4.3 - 5.9 E12/L [facility] HemeAutoSS WBC corrected for nucl RBC Auto (Bld) [#/Vol] 5.9 E9/L Normal 4.0 - 11.0 E9/L [facility] HemeAutoSS Hep Func Panelon 05-21-2023 Albumin [Mass/Vol] 4.0 g/dL Normal 3.3-5.0 [facility] Comment on above: Performed By: #### 1 7285401, 3627866, 2587647, 6097075, 1112383, 4150831, 18749720, 2449554 #### [facility] [address] [place] [address] Albumin/Globulin (S) [Mass conc ratio] 1.3 Normal 1.1-2.2 [facility] Comment on above: Performed By: #### 1 9322322, 9988871, 2794113, 4207351, 9525097, 7425845, 87089404, 9561759 #### [facility] [address] [place] [address] ALP [Catalytic activity/Vol] 50 Int._Unit/L Normal 21-98 [facility] Comment on above: Performed By: #### 1 7896022, 0636323, 7188510, 1469543, 6342891, 6426480, 51986413, 0485123 #### [facility] [address] [place] [address] ALT No additional P-5'-P [Catalytic activity/Vol] 19 Int._Unit/L Normal 6-46 [facility] Comment on above: Performed By: #### 1 4191705, 0998634, 9246533, 3277843, 2524755, 1526525, 50961554, 6374768 #### [facility] [address] [place] [address] AST [Catalytic activity/Vol] 17 Int._Unit/L Normal 5-43 [facility] Comment on above: Performed By: #### 1 2575679, 6665286, 0110862, 9051636, 8770164, 0978188, 52035635, 9385762 #### [facility] [address] [place] [address] Bilirubin [Mass/Vol] 0.5 mg/dL Normal 0.0-1.1 [facility] Comment on above: Performed By: #### 1 2785674, 3698813, 2203257, 6954517, 3015088, 8994527, 36131879, 2080986 #### [facility] [address] [place] [address] Bilirubin.direct [Mass/Vol] 0.1 mg/dL Normal 0.1-0.4 [facility] Comment on above: Performed By: #### 1 2591087, 7298551, 4628354, 5808466, 8874250, 2953056, 68593811, 4942336 #### [facility] [address] [place] [address] Bilirubin.indirect [Mass or moles/Vol] 0.4 mg/dL Normal 0.1-0.9 [facility] Comment on above: Performed By: #### 1 3899585, 1553854, 0528503, 0464618, 3934726, 8987740, 99031656, 0340272 #### [facility] [address] [place] [address] Globulin (S) [Mass/Vol] 3.0 g/dL Normal 1.4-4.0 [facility] Comment on above: Performed By: #### 1 6341148, 8294367, 7008249, 0678118, 8683694, 5684362, 67567123, 0535373 #### [facility] [address] [place] [address] Protein [Mass/Vol] 7.0 g/dL Normal 6.0-7.8 [facility] Comment on above: Performed By: #### 1 3054303, 3069005, 9657005, 4494188, 6513014, 6247690, 54476365, 3958298 #### [facility] [address] [place] [address] Influenza A&B Agon Influenzae A Ag Negative Normal Negative [facility] Comment on above: Performed By: #### 1 6735602, [id number] #### [facility] [address] [place] [address] Influenzae B Ag Negative Normal Negative [facility] Comment on above: Result Comment: Test sensitivity and specificity vary for age group, specimen type, antigen types, and prevalence of disease. Test results must be evaluated in conjunction with other clinical data available to the physician. Individuals who received nasally administered Influenza A vaccine may have positive test results up to 3 days after vaccination. Performed By: #### 1 [id number], [id number] #### [facility] [address] [place] [address] Lipase Levelon 05-21-2023 Lipase [Catalytic activity/Vol] 32 U/L Normal 13-58 [facility] Comment on above: Performed By: #### 1 6272955, 9223297, 2801428, 0256265, 4139865, 2122591, 64616425, 8215515 #### [facility] [address] [place] [address] MICRO OTHER TESTSOrdered By: Michelle Can on 05-21-2023 Influenzae A Ag Negative (05/21/23 11:51 AM) Normal Negative [facility] Man Sero Influenzae B Ag Negative 1 (05/21/23 11:51 AM) Normal Negative [facility] Man Sero Comment on above: Interpretive Data: [...] NEG Ctl Pass (05/21/23 11:51 AM) Normal [facility] Man Sero Rapid COV Int POS Ctl Pass (05/21/23 11:51 AM) Normal [facility] Man Sero SARS-CoV+SARS-CoV-2 (COVID-19) Ag IA.rapid Ql (Resp) Not Detected 5 (05/21/23 11:51 AM) Normal Not Detected FT Man Sero Comment on above: Interpretive Data: [employer] gilbert [employer] System for Rapid Detection of SARS-CoV-2 is [...] Int NEG Ctl Pass Normal Fis her [facility] Comment on above: Performed By: #### 1 2825208, 1538180, 9595638, 8987088, 4178535, 3784495, 82113997, 4612178 #### [facility] [address] [place] [address] Rapid COV Int POS Ctl Pass Normal Fis her [facility] Comment on above: Performed By: #### 1 6322329, 1778885, 2265687, 4212264, 5047917, 9512000, 42052820, 2526671 #### [facility] [address] [place] [address] SARS-CoV+SARS-CoV-2 (COVID-19) Ag IA.rapid Ql (Resp) Not detected Normal Not Detected [facility] Comment on above: Result Comment: The AfterYes System for Rapid Detection of SARS-CoV-2 is [...] or revoked sooner. Performed By: #### 1 0927368, 2528006, 4497201, 9158291, 1869737, 1956356, 47003959, 0089889 #### [facility] [address] [place] [address] SEROLOGYOrdered By: Amairani Louise on 05-21-2023 Beta hCG Ql Positive (05/21/23 11:39 AM) Normal [facility] Man Sero UA With Cult Reflexon 2022 Bilirubin Ql (U) Negative Normal Negative [facility] Comment on above: Performed By: #### 1 [id number] #### [facility] [address] [place] [address] Clarity (U) CLEAR Normal Clear [facility] Comment on above: Performed By: #### 1 6872491 #### [facility] [address] [place] [address] Color (U) YELLOW Normal Yellow [facility] Comment on above: Performed By: #### 1 6555142 #### [facility] [address] [place] [address] Epithelial cells.squamous LM.HPF (Urine sed) [#/Area] 5-8 Normal 0-2 [facility] [facility] Comment on above: Performed By: #### 1 [id number] #### [facility] [address] [place] [address] Glucose Test strip (U) [Mass/Vol] Negative Normal Negative [facility] Comment on above: Performed By: #### 1 [id number] #### [facility] [address] [place] [address] Hemoglobin Ql (U) Negative Normal Negative [facility] Comment on above: Performed By: #### 1 [id number] #### [facility] [address] [place] [address] Ketones (U) [Mass/Vol] Negative Normal Negative [facility] Comment on above: Performed By: #### 1 [id number] #### [facility] [address] [place] [address] [place].plasma/Lithiu m.RBC (Bld) [Mass ratio] 0-3 Normal 0-3 [facility] Comment on above: Performed By: #### 1 [id number] #### [facility] [address] [place] [address] Nitrite Ql (U) Negative Normal Negative [facility] Comment on above: Performed By: #### 1 [id number] #### [facility] [address] [place] [address] pH (U) 5.5 [pH] Invalid Interpretation Code 5.0-9.0 [facility] Comment on above: Performed By: #### 1 [id number] #### [facility] [address] [place] [address] Protein (U) [Mass/Vol] Negative Normal Negative [facility] Comment on above: Performed By: #### 1 [id number] #### [facility] [address] [place] [address] Specific gravity (U) [Rel density] 1.020 Invalid Interpretation Code 1.005-1.030 [facility] Comment on above: Performed By: #### 1 [id number] #### [facility] [address] [place] [address] Type of Urine collection method Clean Catch Normal [facility] Comment on above: Performed By: #### 1 [id number] #### [facility] [address] [place] [address] Urobilinogen Qn (U) 0.2 {Clara'U}/dL Normal 0.0-1.0 [facility] Comment on above: Performed By: #### 1 [id number] #### [facility] [address] [place] [address] WBC Auto Ql (U) Negative Normal Negative [facility] Comment on above: Performed By: #### 1 [id number] #### [facility] [address] [place] [address] WBC LM.HPF (Urine sed) [#/Area] 0-5 Normal 0-5 [facility] Comment on above: Performed By: #### 1 [id number] #### [facility] [address] [place] [address] URINALYSISOrdered By: hCikis Louise on 05-21-2023 Bilirubin Ql (U) Negative [...] AM) Normal Negative [facility] UA Auto SS [place].plasma/Lithiu m.RBC (Bld) [Mass ratio] 0-3 /HPF Normal [...] Desc Clean Catch (05/21/23 11:51 AM) Normal [facility] UA Auto SS Urobilinogen Qn (U) 0.9422765 {Clara'U}/dL Normal 0.0 - 1.0 EU/dL [facility] UA Auto SS WBC Auto Ql (U) Negative (05/21/23 11:51 AM) Normal Negative [facility] UA Auto SS WBC LM.HPF (Urine sed) [#/Area] 0-5 /HPF Normal 0-5/HPF [facility] UA Auto SS US 1st Trimesteron 05-21-2023 [...] Transabdominal Ultrasound Performed Transvaginal Ultrasound Performed Normal [facility] US Transvaginalon 05-21-2023 US Transvaginal Exam Date/Time: 05/21/2023 14:36 EDT Reason for Exam: abdominal pain Report PLEASE SEE US 1st Trimester REPORT DATED: 05/21/2023. Ordering Provider: Osman Ge FINAL REPORT Dictated: 05/21/2023 2:53 pm Gonsalo Martinez MD Signed (Electronic Signature): 05/21/2023 2:53 pm Signed by: Gonsalo Martinez MD Transcribed by: PAULO Technologist: LUIS ANTONIO Normal [facility] XR Chest 2 Viewson XR Chest [...] mGy = na DAP = na Normal [facility] eGFRon 05-21-2023 GFR/1.73 sq M.predicted among non-blacks MDRD (S/P/Bld) [Vol rate/Area] 129 mL/min/1.73 m2 Normal >=59 [facility] Comment on above: Order Comment: Order added by Discern Expert. Result Comment: Senior Project Coordinator josselin kidney disease could be indicated at eGFR's of less than 60 mL/min/1.73m2. Kidney failure is indicated at less than 15 mL/min/1.73m2. Performed By: #### 1 [id number], [id number], [id number], [id number] #### [facility] [address] [place] [address] PAP ACOG PANEL 2: 21 to 29on 06-08-2022 . . Normal [facility] Comment on above: Performed By: #### 4 [id number] #### [facility] [address] [place] [address] Dr. Jaspreet Duran Age Gdln ACOG Testing - Normal [facility] Comment on above: Performed By: #### 4 [id number] #### [facility] [address] [address] [address] Jaspreet Duran DIAGNOSIS: Comment [facility] Comment on above: Result Comment: NEGA TIVE FOR INTRAEPITHELIAL LESION OR MALIGNANCY. Performed By: #### 4 [id number] #### [facility] [address] [place] [address] Dr. Jaspreet Duran Methodology: Comment [facility] Comment on above: Result Comment: This liquid based ThinPrep(R) pap test was screened with the use of an image guided system. Performed By: #### 4 [id number] #### [facility] [address] [place] [address] Dr. Jaspreet Duran Note: Comment [facility] Comment on above: Result Comment: The Pap smear is a screening test designed to aid in the detection of premalignant and malignant conditions of the uterine cervix. It is not a diagnostic procedure and should not be used as the sole means of detecting cervical cancer. Both false-positive and false-negative reports do occur. . Performed By: #### 4 [id number] #### [facility] [address] [address] [address] Jaspreet Duran Performed by: Comment Normal [facility] Comment on above: Result Comment: Pricila Valerio, Typesetters Printer (ASCP) Performed By: #### 4 [id number] #### [facility] [address] [place] [address] Dr. Jaspreet Duran Reflex Criteria: Comment Normal [facility] Comment on above: Result Comment: The HPV DNA reflex criteria were not met with this specimen result therefore, no HPV testing was performed. . Performed By: #### 4 [id number] #### [facility] [address] [address] [address] Jaspreet Duran Specimen adequacy: Comment Normal [facility] Comment on above: Result Comment: Sati sfactory for evaluation. No endocervical component is identified. Performed By: #### 4 [id number] #### [facility] [address] [place] [address] Dr. Jaspreet Duran COVID-19 [facility] 11-12-19 21 SARS-CoV-2 (COVID-19) RNA NATALIE+probe Ql (Unsp spec) Not detected Normal Not Detected [facility] Comment on above: Order Comment: Reaso n for Exam Cough;Myalgia Healthcare Worker?: N Result Comment: This nucleic acid amplification test was developed and its performance characteristics determined by [facility]. Nucleic acid amplification tests include RT- PCR [...] detected) result in this assay. PERFORMED BY: [facility] [place] [address] PATHOLOGIST JAVA PROGRAMMING PROFESSOR LAUREANO JACK M.D. Performed By: #### C ORONAVIRUS #### [facility] , Vital Signs Date Time Vital Sign Value Performing Clinician Liana gibson 05-21-2023 14:00-0400 Diastolic blood pressure 79 mm[Hg] Donovan Krishna [facility] 05-21-2023 14:00-0400 Heart rate 72 /min Donovan Krishna [facility] 05-21-2023 14:00-0400 Respiratory rate 18 /min Donovan Krishna [facility] 05-21-2023 14:00-0400 SaO2% (BldA) [Mass fraction] 99 % Donovan Krishna [facility] 05-21-2023 14:00-0400 Systolic blood pressure 132 mm[Hg] Donovan Krishna [facility] 05-21-2023 11:02-0400 Body temperature 98.06 [degF] Donovan Krishna [facility] 05-21-2023 11:02-0400 Diastolic blood pressure 84 mm[Hg] Donovan Krishna [facility] 05-21-2023 11:02-0400 Heart rate 77 /min Donovan Krishna [facility] 05-21-2023 11:02-0400 Respiratory rate 16 /min Donovan Krishna [facility] 05-21-2023 11:02-0400 SaO2% (BldA) [Mass fraction] 100 % Donovan Krishna [facility] 05-21-2023 11:020400 Systolic blood pressure 147 mm[Hg] Donovan Keller [facility] Encounters Encounter Date Encounter Type Care Provider Facility Start: 02-29-2024 End: 02-29-2024 ambulatory LYNNETTE JOSE M Not Available Start: 02-08-2024 End: 02-08-2024 ambulatory LYNNETTE JOSE M Not Available Start: 01-08-2024 End: 01-08-2024 ambulatory LUKAS ADRY Not Available Start: 12-11-2023 End: 12-11-2023 ambulatory LYNNETTE JOSE M Not Available Start: 11-13-2023 End: 11-13-2023 ambulatory LYNNETTE JOSE M Not Available Start: 10-13-2023 End: 10-13-2023 ambulatory LYNNETTE JOSE M Not Available Start: 07-24-2023 End: 07-24-2023 ambulatory LUKAS ADRY Not Available Start: 07-06-2023 End: 07-06-2023 ambulatory LYNNETTE JOSE M Not Available Start: 05-21-2023 End: 05-21-2023 Emergency department patient visit Donovan Keller Facility:[facility] Start: 05-21-2023 End: 05-21-2023 Emergency department patient visit Donovan Keller [facility] Start: 06-01-2022 End: 06-01-[address] LYNNETTE MALAGON Facility: Procedures Date Procedure Procedure Detail Performing Clinician Start: 11-02-2017 Cyst of Bartholin's gland duct (disorder) Donovan Keller None (qualifier value) Donovan Keller Payers Date Payer Category Payer [employer] [id number] 2022 [employer] [id number] 1990 Unknown [id number] 1990 Unknown [id number] 1992 Unknown [id number] 1992 Unknown [id number] [id number] 1992 Unknown [id number] [id number] 1992 Unknown [id number] [id number] 1992 Unknown [id number] [id number] 1992 Unknown [id number] [id number] 1992 Unknown [id number] [id number] 1992 Unknown [id number] 1959 Unknown [id number] Social History Date Type Detail Facility Tobacco [facility] Comment on above: denies Tobacco smoking status No Smokin g Status Entered [facility] Sex Assigned At Female [facility] Functional Status Date Assessment Result Facility 05-21-2023 Functional Status N/A [facility] Discharge instructions 05-21-2023 Note Date & Type Note Facility 05-21-2023 Hospital Discharg e instructions Patient Education 05/21/2023 15:09:51 Abdominal Pain During , [id number] Abdominal Pain During Belly (abdominal) pain is [...] keep your pee (urine) pale yellow. Take [id number]-[id number] and prescription medicines only as told by [...] provider. Document Revised: 04/20/2021 Document Reviewed: 04/20/2021 [employer] Patient Education 2022 [employer]. 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 If not have any may follow-up with Dr. Raines. With:XXXX NONE Address: [place] When:Within 3 Day(s) [facility] Evaluation + Plan note 05-21-2023 Note [...] A&B Ag Lipase Level Rapid COVID Antigen ([facility]) UA With Cult Reflex US 1st Trimester US Transvaginal XR Chest 2 Views [facility] Hospital course Narrative Note Date & Type Note Facility Hospital course Narrative No data available for this section [facility] Progress note Note Date & Type Note Facility Progress note No data available for this section [facility] Summary Purpose Family History No Family History Records FoundNo Family History Records Found No data available for this section No Family History Records FoundNo Family History Records Found Advance Directives No Advanced Directives Records FoundNo Advanced Directives Records FoundNo Advanced Directives Records FoundNo Advanced Directives Records Found Additional Source Comments INFORMATION SOURCE (unrecogn ized section and content) DATE CREATED AUTHOR 09/30/2021 [facility] DATE CREATED AUTHOR AUTHOR'S ORGANIZ ATION 06/13/2022 [facility] DATE CREATED AUTHOR AUTHOR'S ORGANIZ ATION 05/26/2023 [facility] DATE CREATED AUTHOR AUTHOR'S ORGANIZ ATION 03/06/2024 [facility] FOR RECORDS PERTAINING TO PATIENTS WHO ARE [...] BE BASED ON THE PRIMARY CLINICAL RECORDS. [facility]. provides no warranty or guarantee of the accuracy or completeness of information in this document.
[2024-03-13 13:07] LABS: Basophils Percent Auto 0.3 % (0.2-2.0); Eosinophils Absolute Auto 0.1 10^3/uL (0.0-0.7); Eosinophils Percent Auto 0.7 % (0.9-7.0); Hematocrit 30.7 % (36.0-48.0); Hemoglobin 10.3 g/dL (12.0-16.0); Immature Granulocytes Abs Auto 0.04 10^3/uL (0.00-0.03); Immature Granulocytes Pct Auto 0.5 % (0.0-0.5); Lymphocytes Absolute Auto 1.5 10^3/uL (1.2-3.8); Lymphocytes Percent Auto 20.8 % (20.5-60.0); Mean Corpuscular HGB Conc 33.6 g/dL (29.9-35.2); Mean Corpuscular Hemoglobin 30.8 pg (26.7-34.0); Mean Corpuscular Volume 91.9 fL (81.0-99.0); Mean Platelet Volume 10.8 fL (9.5-13.5); Monocytes Absolute Auto 0.5 10^3/uL (0.3-0.8); Monocytes Percent Auto 6.9 % (1.7-12.0); Neutrophils Absolute Auto 5.2 10^3/uL (1.4-6.5); Neutrophils Percent Auto 70.8 % (43.0-75.0); Platelet Count 250 10^3/uL (150-450); Red Blood Count 3.34 10^6/uL (4.20-5.40); Red Cell Distribution Width 11.6 % (11.0-15.0); White Blood Count 7.4 10^3/uL (4.0-11.0)
[2024-03-13 13:48] LABS: Glucose 1 Hour 135 mg/dL (<130)
== END 2024-03-13 11:34 | disposition home or self-care (01) ==
LOC: LAB 11:34
PROVIDERS: Visit Provider Obstetrics & Gynecology
DX: O36.63X0 Maternal care for excessive fetal growth, third trimester, not applicable or unspecified (principal); Z13.1 Encounter for screening for diabetes mellitus; Z3A.00 Weeks of gestation of pregnancy not specified
CPT/HCPCS: 36415; 82950; 85025

== ENCOUNTER 2024-03-13 12:56 | Outpatient (OUT) | payer OTHER, SELFPAY ==
--- NOTE | 2024-03-13 12:59 | US_ITS ---
[address] [address] Patient Name: RONY BOLAÑOS MRN: [id number] date: 1990 Sex: F Assigned Patient Location: [facility] Current Patient Location: [facility] Accession/Order Number: [id number] Exam Date: 03/13/2024 12:59 Report Date: 03/13/2024 13:31 At the request of: LYNNETTE SALGUERO Procedure: US OB growth EXAMINATION: US OB growth HISTORY: LARGE FOR GESTATIONAL AGE COMPARISON: No relevant comparison available. FINDINGS: Heart Rate: 144 bpm Amniotic Fluid Volume: 10.7 cm , largest pocket 4.3 cm Number: 1 Position: Cephalic presentation, longitudinal lie BIOMETRY: BPD: 7.12 cm; 28 weeks 4 days; 10.10 % HC: 27.50 cm; 30 weeks 0 days; 24.50 % AC: 25.64 cm; 29 weeks 6 days; 47.40 % FL: 5.92 cm; 30 weeks 6 days; 68.50 % EFW: 1346.22 g; 50.20 %, 3 lbs. 5 oz. FL/AC: 23.09 FL/BPD: 83.15 HC/AC: 1.07 GESTATIONAL AGE: Age by EDC: 29 weeks 5 days HOOD by EDC: 2024-05-24 Age by US: 29 weeks 6 days HOOD by US: 2024-05-23 US/US OB growth IMPRESSION: Normal interval growth Electronically authenticated by: ELIZABETH LERMA Date: 03/13/2024 13:31
== END 2024-03-13 12:57 | disposition home or self-care (01) ==
LOC: NOMS 12:57
PROVIDERS: Visit Provider Obstetrics & Gynecology
DX: O36.63X0 Maternal care for excessive fetal growth, third trimester, not applicable or unspecified (principal); Z3A.29 29 weeks gestation of pregnancy; Z13.1 Encounter for screening for diabetes mellitus
CPT/HCPCS: 36415; 76816; 82950; 85025

== ENCOUNTER 2024-04-25 19:23 | Outpatient (REF) | payer OTHER, SELFPAY ==
--- OUTSIDE RECORDS SUMMARY | 2024-04-25 19:27 | XMS_ITS | CCD ---
Author Organization [facility] Care Team Providers Care Puffer Tender Name Role Phone DR LYNNETTE MALAGON Admitting Unavailable JOSE M, DR CHURCH Attending Unavailable REQUEST, DR RAMOS LISTED Primary Care Unavaila yessenia MALAGON, DR CHURCH Consulting Unavailable NONE, XXXX Primary Care Physician Unavailab Donovan Kemp Attending Unavailable JOSE M, LYNNETTE Attending Unavailable JOSE M, LYNNETTE Attending Unavailable JOSE M, LYNNETTE Attending Unavailable ADRYLUKAS CALLES Attending Unavailable JOSE M, LYNNETTE Attending Unavailable ADRY, LUKAS Attending Unavailable JOSE M, LYNNETTE Attending Unavailable ADRY, LUKAS Attending Unavailable JOSE M, LYNNETTE Attending Unavailable JOSE M, LYNNETTE Attending Unavailable Allergies Allergy Classification Reported Allergen(s) Allergy Type Date of Onset Reaction(s) Facility (1 source) Cefaclor Drug Allergy 06-06-2013 [facility] Repository Medications Current Medications Medication Drug Class(es) Dates Sig (Normalized) Sig (Original) dextromethorphan hydrobromide 3 mg/ml / promethazine hydrochloride 1.25 mg/ml oral solution (1 source) Phenothiazine, Uncompetitive V-auwehl-Q-aspartat e Receptor Antagonist, Sigma-1 Agonist Start: 12-07-2018 [...] 05/24/18 Status: Ordered fluticasone 0.05 mg/inh Nasal [place] (1 source) Start: 12-07-2018 fluticasone 0.05 mg/inh Nasal [place] 1 spray(s), Nasal, BID, 16 gram, Refill(s) 0 Start Date: 12/07/18 Status: Ordered pantoprazole 40 mg extended release oral tablet (1 source) Proton Pump Inhibitor Start: 05-21-2021 take 1 tablet by mouth once daily pantoprazole 40 mg Oral EC Tab 40 mg = 1 tab(s), Oral, Daily, # 30 tab(s), Refills(s) 0, Pharmacy: [facility]/pharmacy #[id number], 165, cm, 05/21/21 11:57:00 EDT, Height/Length Dosing, 91, kg, 05/21/21 11:57:00 EDT, Weight Dosing Start Date: 05/21/21 Status: Ordered Zofran ODT 4 mg Tab-Dis (2 sources) Start: 05-21-2021 take 1 tablet by mouth every six hours as needed for nausea Zofran ODT 4 mg Tab-Dis 4 mg = 1 tab(s), Oral, q6hr, PRN Nausea/Vomiting, # 12 tab(s), Refills(s) 0, Pharmacy: [facility]/pharmacy #[id number], 165, cm, 05/21/21 11:57:00 EDT, [...] Basophils/100 WBC (Bld) 0.4 % Normal 0.0-2.0 [facility] Comment on above: Order Comment: Order Added by Discern Expert. Performed By: #### 1 7906043, 1543664, 2836055, 2239451, 4666174, 0475819, 98663541, 1402483 #### [facility] [address] [place] [address] Basophils/Leukocytes Auto (Bld) [Pure # fraction] 0.0 E9/L Normal 0.0-0.2 [facility] Comment on above: Order Comment: Order Added by Discern Expert. Performed By: #### 1 4092108, 3215397, 5123580, 5899822, 8781291, 1237685, 76027871, 8978923 #### [facility] [address] [place] [address] Eosinophils/100 WBC (Bld) 1.5 % Normal 0.0-8.0 [facility] Comment on above: Order Comment: Order Added by Discern Expert. Performed By: #### 1 8446911, 5900908, 7635793, 1523499, 5567840, 1840542, 81821097, 4633023 #### [facility] [address] [place] [address] Eosinophils/Leukocyte s Auto (Bld) [Pure # fraction] 0.1 E9/L Normal 0.0-0.5 [facility] Comment on above: Order Comment: Order Added by Isael Expert. Performed By: #### 1 5206188, 4495120, 2709145, 2376929, 5327696, 3772801, 15365578, 9247944 #### [facility] [address] [place] [address] Lymphocytes/100 WBC (Bld) 33.2 % Normal 14.0-50.0 [facility] Comment on above: Order Comment: Order Added by Discern Expert. Performed By: #### 1 0602021, 4779565, 3877777, 8713617, 2998537, 6964215, 19183444, 2128586 #### [facility] [address] [place] [address] Lymphocytes/Leukocyte s Auto (Bld) [Pure # fraction] 2.0 E9/L Normal 1.0-4.0 [facility] Comment on above: Order Comment: Order Added by Isael Expert. Performed By: #### 1 7151000, 4543426, 4956248, 7633247, 3565220, 0183570, 32776696, 1581612 #### [facility] [address] [place] [address] Monocytes/100 WBC (Bld) 7.8 % Normal 4.0-14.0 [facility] Comment on above: Order Comment: Order Added by Isael Expert. Performed By: #### 1 5033693, 3535099, 1042696, 2390255, 4134132, 2631185, 19609494, 6524207 #### [facility] [address] [place] [address] Monocytes/Leukocytes Auto (Bld) [Pure # fraction] 0.5 E9/L Normal 0.2-1.0 [facility] Comment on above: Order Comment: Order Added by Isael Expert. Performed By: #### 1 7826555, 3939520, 2311912, 5961365, 5470939, 6914320, 13416906, 3838335 #### [facility] [address] [place] [address] Neutrophils/100 WBC (Bld) 57.1 % Normal 36.0-75.0 [facility] Comment on above: Order Comment: Order Added by Discern Expert. Performed By: #### 1 3938893, 7060361, 3375601, 9431565, 4325710, 4820688, 84594614, 2779548 #### [facility] [address] [place] [address] Neutrophils/Leukocyte s Auto (Bld) [Pure # fraction] 3.4 E9/L Normal 2.0-7.5 [facility] Comment on above: Order Comment: Order Added by Discern Expert. Performed By: #### 1 1167429, 5853861, 8338477, 1337287, 6738873, 3261477, 49707306, 0094829 #### [facility] [address] [place] [address] B hCG Qualon 05-21-2023 Beta hCG Ql Positive Normal [facility] Comment on above: Performed By: #### 1 7820774, 9828199, 8951633, 1637161, 7241595, 1804984, 17035255, 7862797 #### [facility] [address] [place] [address] BMPon 05-21-2023 Creatinine [Mass/Vol] 0.5 mg/dL Normal 0.5-1.3 [facility] Comment on above: Performed By: #### 1 4406409, 0605206, 2684077, 0351057, 9632913, 2615922, 09565647, 5431992 #### [facility] [address] [place] [address] Urea nitrogen [Mass/Vol] 13 mg/dL Normal 5-21 [facility] Comment on above: Performed By: #### 1 2710943, 2222597, 3907368, 8160281, 1926598, 3570026, 46366801, 4679576 #### [facility] [address] [place] [address] Urea nitrogen/Creatinine [Mass ratio] 26 No Units High 10-20 [facility] Comment on above: Performed By: #### 1 3069045, 8051787, 2133268, 9478731, 1604095, 7822052, 93984749, 3223336 #### [facility] [address] [place] [address] Anion gap [Moles/Vol] 8 mmol/L Normal 6-16 [facility] Comment on above: Performed By: #### 1 0506046, 6612469, 2019272, 2415050, 0951768, 0226244, 37506235, 0731582 #### [facility] [address] [place] [address] Calcium [Mass/Vol] 9.2 mg/dL Normal 8.9-11.1 [facility] Comment on above: Performed By: #### 1 0970296, 3827027, 3166541, 2060420, 5779887, 0127460, 47022284, 2778625 #### [facility] [address] [place] [address] Chloride [Moles/Vol] 111 mmol/L Normal 101-111 [facility] Comment on above: Performed By: #### 1 6498900, 9883620, 7819716, 3820867, 1543099, 3406505, 32427609, 3099864 #### [facility] [address] [place] [address] CO2 [Moles/Vol] 23 mmol/L Normal 21-31 [facility] Comment on above: Performed By: #### 1 4799284, 4091391, 4951524, 3378977, 4943574, 7885918, 12643886, 0779035 #### [facility] [address] [place] [address] Glucose [Mass/Vol] 101 mg/dL Normal 55-199 [facility] Comment on above: Result Comment: If t his glucose result represents a fasting glucose, interpretation should refer to the following reference range: 55-99 mg/dL Performed By: #### 1 1522166, 2740402, 8939699, 2575596, 2470908, 1744893, 15705652, 2094299 #### [facility] [address] [place] [address] Potassium [Moles/Vol] 3.6 mmol/L Normal 3.5-5.3 [facility] Comment on above: Performed By: #### 1 7929301, 3252478, 3351418, 5439440, 6209189, 4836535, 83868920, 7096572 #### [facility] [address] [place] [address] Sodium [Moles/Vol] 138 mmol/L Normal 135-145 [facility] Comment on above: Performed By: #### 1 9024603, 4508077, 1221562, 1925227, 8863403, 0731267, 11902672, 5632837 #### [facility] [address] [place] [address] BhCG Quanton 05-21-2023 HCG.beta subunit Qn 9779 m[IU]/mL High 1-[address] [facility] Comment on above: Result Comment: GEST ATIONAL AGE HCG RANGE (mIU/mL) NON- <1-3 0.2-1 WEEKS 5-50 1-2 WEEKS 50-500 2-3 WEEKS 100-5,000 3-4 WEEKS 500-10,000 4-5 WEEKS 1,000-50,000 5-6 WEEKS 10,000-100,000 6-8 WEEKS 15,000-200,000 8-12 WEEKS 10,000-100,000 Performed By: #### 1 4079645, 0127337, 4061862, 8116961, 6331814, 0716463, 21774380, 1153978 #### [facility] [address] [place] [address] CBC w/ Auto Diffon 3 Erythrocyte distribution width (RBC) [Ratio] 12.9 % Normal 10.9-14.2 [facility] Comment on above: Performed By: #### 1 3639460, 7748535, 8297003, 7562502, 5107184, 4333087, 50931424, 7341567 #### [facility] [address] [place] [address] Hematocrit (Bld) [Volume fraction] 36.4 % Normal 34.0-46.0 [facility] Comment on above: Performed By: #### 1 8159941, 0155746, 0011329, 9917377, 9644318, 5486881, 98701968, 7185818 #### [facility] [address] [place] [address] Hemoglobin (Bld) [Mass/Vol] 12.5 g/dL Normal 12.0-16.0 [facility] Comment on above: Performed By: #### 1 5011040, 1610782, 2706349, 2491077, 8687027, 5440107, 60392962, 9770674 #### [facility] [address] [place] [address] MCH (RBC) [Entitic mass] 30.4 pg Normal 27.0-34.0 [facility] Comment on above: Performed By: #### 1 4026265, 8742582, 9158031, 0233988, 2745192, 4907240, 37448796, 3221225 #### [facility] [address] [place] [address] MCHC (RBC) [Mass/Vol] 34.3 g/dL Normal 31.4-36.0 [facility] Comment on above: Performed By: #### 1 3785492, 6308898, 6519101, 9756504, 8554958, 3637745, 04902501, 4573356 #### [facility] [address] [place] [address] MCV (RBC) [Entitic vol] 88.4 fL Normal 80.0-100.0 [facility] Comment on above: Performed By: #### 1 8763028, 1106937, 4552301, 2186466, 5678256, 0004457, 58044973, 5259326 #### [facility] [address] [place] [address] Platelet mean volume (Bld) [Entitic vol] 9.0 fL Normal 6.4-10.8 [facility] Comment on above: Performed By: #### 1 4798492, 0561235, 1965109, 4933420, 3598276, 3452376, 73210627, 8181601 #### [facility] [address] [place] [address] Platelets (Bld) [#/Vol] 273.0 E9/L Normal 150.0-500.0 [facility] Comment on above: Performed By: #### 1 6522327, 3654701, 8026410, 6933435, 1285003, 6958843, 46281186, 2997696 #### [facility] [address] [place] [address] RBC (Bld) [#/Vol] 4.1 E12/L Low 4.3-5.9 [facility] Comment on above: Performed By: #### 1 6760167, 1541533, 5843643, 7849425, 7534930, 1039171, 51586083, 1484131 #### [facility] [address] [place] [address] WBC corrected for nucl RBC Auto (Bld) [#/Vol] 5.9 E9/L Normal 4.0-11.0 [facility] Comment on above: Performed By: #### 1 8668494, 1302852, 6705520, 7780611, 6786367, 1415273, 83399915, 8231505 #### [facility] [address] [place] [address] CHEMISTRYOrdered By: SYSTEM SYSTEM on 05-21-2023 Albumin [...] 129 mL/min/1.73 m2 Normal >=59mL/min/1. 73 m2 [facility] Chem S Comment on [...] 32 U/L Normal 13 - 58 unit/L [facility] Remisol Potassium [Moles/Vol] 3.6 mmol/L Normal 3.5 - 5.3 mmol/L FT Remisol Protein [Mass/Vol] 7.0 g/dL Normal 6.0 - 7.8 gm/dL [facility] Sodium [Moles/Vol] 138 mmol/L Normal 135 - 145 mmol/L [facility] Urea nitrogen [Mass/Vol] 13 mg/dL Normal 5 - 21 mg/dL [facility] Remisol Urea nitrogen/Creatinine [Mass ratio] 26 mg/mg High 10 - 20 FT Remisol Consent for Treatmenton Consent for Treatment [id number] #[id number]:127 Normal [facility] Discharge Instructionson Discharge Instructions [id number] #[id number]:127 Normal [facility] ED Clinical Summaryon 2022 ED Clinical Summary [address] [address] ED Clinical Summary Person Information Name: RONY BOLAÑOS Jessica/[facility] Age: 32 Years : 1990 [...] 05/21/2023 15:09:51 05/21/2023 15:09:51 05/21/2023 15:09:51 ADDRESS: [address] [place] [id number] PHYS DOC NOTES: MEDICAL INFORMATION: Prescriptions Given: Medications to Continue with No Changes Other Medications dextromethorphan-pro methazine (dextromethorphan-pr omethazine 15 mg-6.25 mg/5 mL Oral Syrup 5 mL) 5 Milliliter By Mouth every 6 hours as needed for cough. Refills: 0. etonogestrel (Nexplanon 68 mg subcutaneous implant) 1 Each Subcutaneous Once. fluticasone nasal (fluticasone 0.05 mg/inh Nasal [place]) 1 Sprays Nasal Inhalation 2 times a [...] EDUCATION INFORMATION: Instructions: Abdominal Pain During , Cuey-rr-Vlva Follow up: With: Address: When: Jason Raines [address] [place] [address], [facility] [address], [place] [address] Business (1) In 3 days 05/24/2023 Comments: Follow-up with your PRIMARY SCHOOL TEACHER LIBRARIAN. If not have any may follow-up with Dr. Raines. With: Address: When: XXXX NONE , [place] In 3 days DIAGNOSIS: Abdominal pain in ; Unspecified abdominal pain Normal [facility] ED Note-Physicianon 05-21-20 ED Note-Physician Basic [...] and Complexity of Problems Differential Diagnosis: [] [facility] Data External documents reviewed: [] My [...] Cult Refl (more content not included)... Normal [facility] Comment on above: Result Comment: Elec [...] your pee (urine) pale yellow. ? Take gkbj-mxr-ryujkfl and prescription medicines only as told by [...] Reviewed: 04/20/2021 Elsevier Patient Education ? 2022 [employer] [facility] ED Patient Summaryon 023 ED Patient Summary [address] [address] Patient Discharge Instructions Person Information Name: RONY BOLAÑOS Age: 32 Years Arrival Date: 05/21/2023 10:49:01 Discharge Diagnosis: Abdominal pain in ; Unspecified abdominal pain Primary Care Physician: NONE, XXXX Provider Information Primary Provider: Donovan Keller DO Advanced Mechanical Engineering Director:Marlo The exam and treatment you received in the Emergency Department were for an urgent problem and are not intended as complete care. It is important that you follow up with a doctor, nurse practitioner, or physician?s graduate teaching assistant for ongoing care. If your symptoms [...] Follow-up Instructions: With: Address: When: Jason Raines [address] [place] [id number] Business (1) In 3 days 05/24/2023 Comments: Follow-up with your PRIMARY SCHOOL TEACHER LIBRARIAN. If not have any may follow-up with Dr. Raines. With: Address: When: XXXX [facility] , [place] In 3 days In the event that this physician does not participate in your insurance network, please consult with your insurance company to find a nearby participating provider. Patient Education Materials: Abdominal Pain During , Wnry-db-Wpsf A MESSAGE TO ALL PATIENTS REGARDING OPIOIDS PRESCRIPTION OPIOIDS: WHAT YOU NEED TO KNOW Prescription opioids can be used to help relieve sugcywhy-jq-ijgbtv pain and are often prescribed following a [...] and overdose (more content not included)... Normal [facility] HEMATOLOGYOrdered By: SYSTEM SYSTEM on 05-21-2023 [...] 34.3 g/dL Normal 31.4 - 36.0 gm/dL FT HemeAutoSS MCV (RBC) [Entitic vol] 88.4 fL Normal 80.0 - 100.0 fL FT HemeAutoSS Platelet mean volume (Bld) [Entitic vol] 9.0 fL Normal 6.4 - 10.8 fL FT HemeAutoSS Platelets (Bld) [#/Vol] 273.0 E9/L Normal 150.0 - 500.0 E9/L FT HemeAutoSS RBC (Bld) [#/Vol] 4.1 E12/L Low 4.3 - 5.9 E12/L FT HemeAutoSS WBC corrected for nucl RBC Auto (Bld) [#/Vol] 5.9 E9/L Normal 4.0 - 11.0 E9/L [facility] HemeAutoSS Hep Func Panelon 05-21-2023 Albumin [Mass/Vol] 4.0 g/dL Normal 3.3-5.0 [facility] Comment on above: Performed By: #### 1 8527111, 7722623, 5278518, 0973039, 2644595, 0526873, 99752111, 2762231 #### [facility] [address] [place] [address] Albumin/Globulin (S) [Mass conc ratio] 1.3 Normal 1.1-2.2 [facility] Comment on above: Performed By: #### 1 5168009, 0395879, 9576177, 1448260, 9326241, 5373236, 86246428, 6652485 #### [facility] [address] [place] [address] ALP [Catalytic activity/Vol] 50 Int._Unit/L Normal 21-98 [facility] Comment on above: Performed By: #### 1 8956292, 0296763, 6280191, 0085595, 1421365, 7140052, 68621200, 1668377 #### [facility] [address] [place] [address] ALT No additional P-5'-P [Catalytic activity/Vol] 19 Int._Unit/L Normal 6-46 [facility] Comment on above: Performed By: #### 1 0863728, 1992771, 7024686, 3879801, 6850801, 9306312, 01525313, 3349286 #### [facility] [address] [place], [place] [address] AST [Catalytic activity/Vol] 17 Int._Unit/L Normal 5-43 [facility] Comment on above: Performed By: #### 1 1652178, 5827764, 4883197, 2907858, 6707811, 7567154, 45243716, 9489227 #### [facility] [address] [place] [address] Bilirubin [Mass/Vol] 0.5 mg/dL Normal 0.0-1.1 [facility] Comment on above: Performed By: #### 1 6462259, 7523661, 0384090, 6921607, 9173211, 7854298, 54026407, 7741273 #### [facility] [address] [place] [address] Bilirubin.direct [Mass/Vol] 0.1 mg/dL Normal 0.1-0.4 [facility] Comment on above: Performed By: #### 1 9807683, 2714669, 6886436, 0785627, 3221621, 3439752, 90452085, 4638535 #### [facility] [address] [place], [place] [address] Bilirubin.indirect [Mass or moles/Vol] 0.4 mg/dL Normal 0.1-0.9 [facility] Comment on above: Performed By: #### 1 0076071, 0320509, 7541256, 7080320, 4873820, 0949533, 97364057, 0366404 #### [facility] [address] [place] [address] Globulin (S) [Mass/Vol] 3.0 g/dL Normal 1.4-4.0 [facility] Comment on above: Performed By: #### 1 9568316, 8893131, 6099135, 1923542, 7604597, 4943884, 59629163, 8636160 #### [facility] [address] [place] [address] Protein [Mass/Vol] 7.0 g/dL Normal 6.0-7.8 [facility] Comment on above: Performed By: #### 1 3982676, 0890823, 7610095, 3669015, 7160935, 9775686, 28837891, 7314029 #### [facility] [address] [place] [address] Influenza A&B Agon Influenzae A Ag Negative Normal Negative [facility] Comment on above: Performed By: #### 1 5743682, [id number] #### [facility] [address] [place] [address] Influenzae B Ag Negative Normal Negative [facility] Comment on above: Result Comment: Test sensitivity and specificity vary for age group, specimen type, antigen types, and prevalence of disease. Test results must be evaluated in conjunction with other clinical data available to the physician. Individuals who received nasally administered Influenza A vaccine may have positive test results up to 3 days after vaccination. Performed By: #### 1 3249739, [id number] #### [facility] [address] [place] [address] Lipase Levelon 05-21-2023 Lipase [Catalytic activity/Vol] 32 U/L Normal 13-58 [facility] Comment on above: Performed By: #### 1 6101329, 9693173, 1923771, 8043028, 6649082, 8068844, 70178835, 5314496 #### [facility] [address] [place] [address] MICRO OTHER TESTSOrdered By: Michelle Can on 05-21-2023 Influenzae A Ag Negative (05/21/23 11:51 AM) Normal Negative [facility] Man Sero Influenzae B Ag Negative 1 (05/21/23 11:51 AM) Normal Negative [facility] Man Sero Comment on [...] NEG Ctl Pass (05/21/23 11:51 AM) Normal [facility] Man Sero Rapid COV Int POS Ctl Pass (05/21/23 11:51 AM) Normal [facility] Man Sero SARS-CoV+SARS-CoV-2 (COVID-19) Ag IA.rapid Ql (Resp) Not Detected 5 (05/21/23 11:51 AM) Normal Not Detected [facility] Man Sero Comment on above: Interpretive Data: [employer] System for Rapid Detection of SARS-CoV-2 [...] Comment on above: Performed By: #### 1 2387559, 9792421, 3361833, 2975211, 3110598, 4860656, 13066997, 9431608 #### [facility] [address] [place] [address] Rapid COV Int POS Ctl Pass Normal Fis her [facility] Comment on above: Performed By: #### 1 2776415, 8666517, 8015731, 2873991, 5810317, 7538214, 68015833, 2645752 #### [facility] [address] [place] [address] SARS-CoV+SARS-CoV-2 (COVID-19) Ag IA.rapid Ql (Resp) Not detected Normal Not Detected [facility] Comment on above: Result Comment: [employer] System for Rapid Detection of SARS-CoV-2 is [...] or revoked sooner. Performed By: #### 1 8148302, 4206616, 6211549, 5868111, 0492375, 6082708, 74796785, 4402816 #### [facility] [address] [place] [address] SEROLOGYOrdered By: Amairani Louise on 05-21-2023 Beta hCG Ql Positive (05/21/23 11:39 AM) Normal [facility] Man Sero UA With Cult Reflexon 2022 Bilirubin Ql (U) Negative Normal Negative [facility] Comment on above: Performed By: #### 1 7448315 #### [facility] [address] [place] [address] Clarity (U) CLEAR Normal Clear [facility] Comment on above: Performed By: #### 1 0927714 #### [facility] [address] [place] [address] Color (U) YELLOW Normal Yellow [facility] Comment on above: Performed By: #### 1 3000690 #### [facility] [address] [place] [address] Epithelial cells.squamous LM.HPF (Urine sed) [#/Area] 5-8 Normal 0-2 [facility] Comment on above: Performed By: #### 1 6759284 #### [facility] [address] [place] [address] Glucose Test strip (U) [Mass/Vol] Negative Normal Negative [facility] Comment on above: Performed By: #### 1 5316966 #### [facility] [address] [place] [address] Hemoglobin Ql (U) Negative Normal Negative [facility] Comment on above: Performed By: #### 1 3411730 #### [facility] [address] [place] [address] Ketones (U) [Mass/Vol] Negative Normal Negative [facility] Comment on above: Performed By: #### 1 5264601 #### [facility] [address] [place] [address] Brimley.plasma/Lithiu m.RBC (Bld) [Mass ratio] 0-3 Normal 0-3 [facility] Comment on above: Performed By: #### 1 1569713 #### [facility] [address] [place] [address] Nitrite Ql (U) Negative Normal Negative [facility] Comment on above: Performed By: #### 1 3052761 #### [facility] [address] [place] [address] pH (U) 5.5 [pH] Invalid Interpretation Code 5.0-9.0 [facility] Comment on above: Performed By: #### 1 8165583 #### [facility] [address] [place] [address] Protein (U) [Mass/Vol] Negative Normal Negative [facility] Comment on above: Performed By: #### 1 3833304 #### [facility] Laboratory [address] [place] [address] Specific gravity (U) [Rel density] 1.020 Invalid Interpretation Code 1.005-1.030 [facility] Comment on above: Performed By: #### 1 [id number] #### [facility] Laboratory [address] [place] [address] Type of Urine collection method Clean Catch Normal [facility] Comment on above: Performed By: #### 1 [id number] #### [facility] [address] [place] [address] Urobilinogen Qn (U) 0.2 {Clara'U}/dL Normal 0.0-1.0 [facility] Comment on above: Performed By: #### 1 [id number] #### [facility] Laboratory [address] [place] [address] WBC Auto Ql (U) Negative Normal Negative [facility] Comment on above: Performed By: #### 1 [id number] #### [facility] [address] [place] [address] WBC LM.HPF (Urine sed) [#/Area] 0-5 Normal 0-5 [facility] Comment on above: Performed By: #### 1 [id number] #### [facility] [address] [place] [address] URINALYSISOrdered By: Chikis Louise on 05-21-2023 Bilirubin [...] AM) Normal Negative [facility] UA Auto SS Brimley.plasma/Lithiu m.RBC (Bld) [Mass ratio] 0-3 /HPF Normal [...] AM) Invalid Interpretation Code 1.005 - 1.030 [facility] UA Auto SS UA Spec Desc Clean Catch (05/21/23 11:51 AM) Normal [facility] UA Auto SS Urobilinogen Qn (U) 0.9865398 {Clara'U}/dL Normal 0.0 - 1.0 EU/dL [facility] UA Auto SS WBC Auto Ql (U) Negative (05/21/23 11:51 AM) Normal Negative [facility] UA Auto SS WBC LM.HPF (Urine sed) [#/Area] 0-5 /HPF Normal 0-5/HPF [facility] UA Auto SS US [...] Transabdominal Ultrasound Performed Transvaginal Ultrasound Performed Normal [facility] US Transvaginalon 05-21-2023 US Transvaginal Exam Date/Time: 05/21/2023 14:36 EDT Reason for Exam: abdominal pain Report PLEASE SEE US 1st Trimester REPORT DATED: 05/21/2023. Ordering Provider: Osman Ge FINAL REPORT Dictated: 05/21/2023 2:53 pm Gonsalo Martinez MD Signed (Electronic Signature): 05/21/2023 2:53 pm Signed by: Gonsalo Martinez MD Transcribed by: PAULO Technologist: LUIS ANTONIO Pedroza [facility] XR Chest 2 Viewson XR Chest [...] mGy = na DAP = na Normal [facility] eGFRon 05-21-2023 GFR/1.73 sq M.predicted among non-blacks MDRD (S/P/Bld) [Vol rate/Area] 129 mL/min/1.73 m2 Normal >=59 [facility] Comment on above: Order Comment: Order added by Discern Expert. Result Comment: Press Shop Supervisor josselin kidney disease could be indicated at eGFR's of less than 60 mL/min/1.73m2. Kidney failure is indicated at less than 15 mL/min/1.73m2. Performed By: #### 1 [id number] #### [facility] Laboratory [address] [place] [address] PAP ACOG PANEL 2: 21 to 29on 06-08-2022 . . Normal [facility] Comment on above: Performed By: #### 4 [id number] #### [facility] [address] [place] [address] Dr. Jaspreet Duran Age Gdln ACOG Testing - [facility] Comment on above: Performed By: #### 4 [id number] #### [facility] [address] [place] [address] Dr. Jaspreet Duran DIAGNOSIS: Comment [facility] Comment on above: Result Comment: NEGA TIVE FOR INTRAEPITHELIAL LESION OR MALIGNANCY. Performed By: #### 4 [id number] #### [facility] [address] [place] [address] Dr. Jaspreet Duran Methodology: Comment [facility] Comment on above: Result Comment: This liquid based ThinPrep(R) pap test was screened with the use of an image guided system. Performed By: #### 4 [id number] #### [facility] [address] [place] [address] Dr. Jaspreet Duran Note: Comment [facility] Comment on above: Result Comment: The Pap smear is a screening test designed to aid in the detection of premalignant and malignant conditions of the uterine cervix. It is not a diagnostic procedure and should not be used as the sole means of detecting cervical cancer. Both false-positive and false-negative reports do occur. . Performed By: #### 4 [id number] #### [facility] [address] [place] [address] Dr. Jaspreet Duran Performed by: Comment Normal [facility] Comment on above: Result Comment: Pricila Valerio, Safe Technician (ASCP) Performed By: #### 4 [id number] #### [facility] [address] [place] [address] Dr. Jaspreet Duran Reflex Criteria: Comment Normal [facility] Comment on above: Result Comment: The HPV DNA reflex criteria were not met with this specimen result therefore, no HPV testing was performed. . Performed By: #### 4 [id number] #### [facility] [address] [place] [address] Dr. Jaspreet Duran Specimen adequacy: Comment Normal [facility] Comment on above: Result Comment: Sati sfactory for evaluation. No endocervical component is identified. Performed By: #### 4 [id number] #### [facility] [address] [place] [address] Dr. Jaspreet Duran COVID-19 Lab [facility] 11-12-19 21 SARS-CoV-2 (COVID-19) RNA NATALIE+probe Ql (Unsp spec) Not detected Normal Not Detected [facility] Comment on above: Order Comment: Reaso n for Exam Cough;Myalgia Healthcare Worker?: N Result Comment: This nucleic acid amplification test was developed and its performance characteristics determined by [employer]. Nucleic acid amplification tests include RT- PCR [...] detected) result in this assay. PERFORMED BY: [facility] [address] [place] [place] [address] PATHOLOGIST UNLOADER OPERATOR LAUREANO JACK M.D. Performed By: #### C ORONAVIRUS #### [facility] , Vital Signs Date Time Vital Sign Value Performing Clinician Faci lity 05-21-2023 14:00-0400 Diastolic blood pressure 79 mm[Hg] Donovan Krishna [facility] 05-21-2023 14:00-0400 Heart rate 72 /min Donovan Krishna [facility] 05-21-2023 14:00-0400 Respiratory rate 18 /min Donovan Keller [facility] 05-21-2023 14:00-0400 SaO2% (BldA) [Mass fraction] 99 % Donovan Keller [facility] 05-21-2023 14:00-0400 Systolic blood pressure 132 mm[Hg] Donovan Krishna [facility] 05-21-2023 11:02-0400 Body temperature 98.06 [degF] Donovan Krishna [facility] 05-21-2023 11:02-0400 Diastolic blood pressure 84 mm[Hg] Donovan Krishna [facility] 05-21-2023 11:02-0400 Heart rate 77 /min Donovan Krishna [facility] 05-21-2023 11:02-0400 Respiratory rate 16 /min Donovan Krishna [facility] 05-21-2023 11:02-0400 SaO2% (BldA) [Mass fraction] 100 % Donovan Keller [facility] 05-21-2023 11:02-0400 Systolic blood pressure 147 mm[Hg] Donovan Keller [facility] Encounters Encounter Date Encounter Type Care Provider Facility Start: 04-11-2024 End: 04-11-2024 ambulatory LYNNETTE JOSE M Not Available Start: 03-27-2024 End: 03-27-2024 ambulatory LYNNETTE JOSE M Not Available Start: 03-13-2024 End: 03-13-2024 ambulatory LUKAS ADRY Not Available Start: 02-29-2024 End: 02-29-2024 ambulatory LYNNETTE JOSE [...] 05-21-2023 Emergency department patient visit Donovan Keller Facility:[facility] Start: 05-21-2023 End: 05-21-2023 Emergency department patient visit Donovan Keller [facility] Start: 06-01-2022 End: 06-01-[address] LYNNETTE JOSE M Facility: Procedures Date Procedure Procedure Detail Performing Clinician Start: 11-02-2017 Cyst of Bartholin's gland duct (disorder) Donovan Keller None (qualifier value) Donovan Keller Payers Date Payer Category Payer [employer] [id number] 2022 [employer] [id number] 2022 [employer] [id number] 1992 Unknown [id number] 1992 Unknown [id number] [id number] 1992 Unknown [id number] 2.16.840.1.064877.3.579.2.1259 1992 Unknown [id number] 2.16.840.1.325035.3.579.2.9 1992 Unknown [id number] 2.16.840.1.952046.3.579.2.9 1992 Unknown [id number] 2.16.840.1.425960.3.579.2.1259 1992 Unknown [id number] 2.16.840.1.599223.3.579.2.9 1992 Unknown [id number] 2.16.840.1.716299.3.579.2.9 1992 Unknown [id number] 2.16.840.1.919293.3.579.2.9 1992 Unknown [id number] 2.16.840.1.221282.3.579.2.1259 1992 Unknown [id number] 2.16.840.1.709088.3.579.2.9 1992 Unknown [id number] 2.16.840.1.767525.3.579.2.1259 1992 Unknown [id number] 2.16.840.1.903421.3.579.2.1259 1959 Unknown [id number] Social History Date Type Detail Facility Tobacco [facility] Comment on above: denies Tobacco smoking status No Smokin g Status Entered [facility] Sex Assigned At Female [facility] Functional Status Date Assessment Result Facility 05-21-2023 Functional Status N/A [facility] Discharge instructions 05-21-2023 Note Date & Type Note Facility 05-21-2023 Hospital Discharg e instructions Patient Education 05/21/2023 15:09:51 Abdominal Pain During , [id number] Abdominal Pain During Belly (abdominal) pain is [...] keep your pee (urine) pale yellow. Take [id number] and prescription medicines only as told by [...] provider. Document Revised: 04/20/2021 Document Reviewed: 04/20/2021 [employer] Patient Education 2022 [employer]. 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 If not have any may follow-up with Dr. Raines. With:XXXX NONE Address: [place] When:Within 3 Day(s) [facility] Evaluation + Plan note 05-21-2023 Note [...] A&B Ag Lipase Level Rapid COVID Antigen ([facility]) UA With Cult Reflex US 1st Trimester US Transvaginal XR Chest 2 Views [facility] Hospital course Narrative Note Date & Type Note Facility Hospital course Narrative No data available for this section [facility] Progress note Note Date & Type Note Facility Progress note No data available for this section [facility] Summary Purpose Family History No Family History Records FoundNo Family History Records Found No data available for this section No Family History Records FoundNo Family History Records Found Advance Directives No Advanced Directives Records FoundNo Advanced Directives Records FoundNo Advanced Directives Records FoundNo Advanced Directives Records Found Additional Source Comments INFORMATION SOURCE (unrecogn ized section and content) DATE CREATED AUTHOR 09/30/2021 [facility] DATE CREATED AUTHOR AUTHOR'S ORGANIZ ATION 06/13/2022 [facility] DATE CREATED AUTHOR AUTHOR'S ORGANIZ ATION 05/26/2023 [facility] DATE CREATED AUTHOR AUTHOR'S ORGANIZ ATION 04/13/2024 [facility] EPIC FOR RECORDS PERTAINING [...] BE BASED ON THE PRIMARY CLINICAL RECORDS. [employer] provides no warranty or guarantee of the accuracy or completeness of information in this document.
== END 2024-04-25 19:24 | disposition home or self-care (01) ==
LOC: LAB 19:23
PROVIDERS: Visit Provider Obstetrics & Gynecology
DX: Z34.93 Encounter for supervision of normal pregnancy, unspecified, third trimester (principal)
CPT/HCPCS: 87081; 87150

== ENCOUNTER 2024-05-22 18:29 | Inpatient (IN) | payer OTHER, SELFPAY ==
--- OUTSIDE RECORDS SUMMARY | 2024-05-22 18:34 | XMS_ITS | CCD ---
Author Organization [facility] Care Team Providers Care Tomographic Tech Name Role Phone DR LYNNETTE MALAGON Admitting Unavailable JOSE M, DR CHURCH Attending Unavailable REQUEST, DR RAMOS LISTED Primary Care Unavaila ble JOSE M, DR CHURCH Consulting Unavailable NONE, XXXX Primary [...] (1 source) Cefaclor Drug Allergy 06-06-2013 [facility] Repository Medications Current Medications Medication Drug Class(es) Dates Sig (Normalized) Sig (Original) dextromethorphan hydrobromide 3 mg/ml / promethazine hydrochloride 1.25 mg/ml oral solution (1 source) Phenothiazine, Uncompetitive K-eycrmr-U-aspartat e Receptor Antagonist, Sigma-1 Agonist Start: 12-07-2018 [...] 05/24/18 Status: Ordered fluticasone 0.05 mg/inh Nasal Jackson (1 source) Start: 12-07-2018 fluticasone 0.05 mg/inh Nasal Jackson 1 spray(s), Nasal, BID, 16 gram, Refill(s) 0 Start Date: 12/07/18 Status: Ordered pantoprazole 40 mg extended release oral tablet (1 source) Proton Pump Inhibitor Start: 05-21-2021 take 1 tablet by mouth once daily pantoprazole 40 mg Oral EC Tab 40 mg = 1 tab(s), Oral, Daily, # 30 tab(s), Refills(s) 0, Pharmacy: [facility]/pharmacy #[id number], 165, cm, 05/21/21 11:57:00 EDT, Height/Length Dosing, 91, kg, 05/21/21 11:57:00 EDT, Weight Dosing Start Date: 05/21/21 Status: Ordered Zofran ODT 4 mg Tab-Dis (2 sources) Start: 05-21-2021 take 1 tablet by mouth every six hours as needed for nausea Zofran ODT 4 mg Tab-Dis 4 mg = 1 tab(s), Oral, q6hr, PRN Nausea/Vomiting, # 12 tab(s), Refills(s) 0, [id number] 165, cm, 05/21/21 11:57:00 EDT, [...] Basophils/100 WBC (Bld) 0.4 % Normal 0.0-2.0 [facility] Comment on above: Order Comment: Order Added by Discern Expert. Performed By: #### 1 [id number], 3133847, 4410678, 6900303, 7390614, 5645782, 89052021, 4894566 #### [facility] [address] [place] [address] Basophils/Leukocytes Auto (Bld) [Pure # fraction] 0.0 E9/L Normal 0.0-0.2 [facility] Comment on above: Order Comment: Order Added by Discern Expert. Performed By: #### 1 7756710, 9297760, 8997102, 6349567, 7692036, 1666105, 40803964, 7021922 #### [facility] [address] [place] [address] Eosinophils/100 WBC (Bld) 1.5 % Normal 0.0-8.0 [facility] Comment on above: Order Comment: Order Added by Discern Expert. Performed By: #### 1 6849076, 4172047, 3177634, 4048422, 0106140, 4098476, 56293739, 2660576 #### [facility] [address] [place] [address] Eosinophils/Leukocyte s Auto (Bld) [Pure # fraction] 0.1 E9/L Normal 0.0-0.5 [facility] Comment on above: Order Comment: Order Added by Discern Expert. Performed By: #### 1 1269530, 3005236, 4228685, 1293801, 7901400, 4015777, 74908924, 6451934 #### [facility] [address] [place] [address] Lymphocytes/100 WBC (Bld) 33.2 % Normal 14.0-50.0 [facility] Comment on above: Order Comment: Order Added by Discern Expert. Performed By: #### 1 0100902, 5622879, 8110490, 9103345, 6022898, 2978978, 11132523, 8957013 #### [facility] [address] [place] [address] Lymphocytes/Leukocyte s Auto (Bld) [Pure # fraction] 2.0 E9/L Normal 1.0-4.0 [facility] Comment on above: Order Comment: Order Added by Isael Expert. Performed By: #### 1 4397115, 6656344, 5640833, 1212645, 8355095, 1776381, 97111211, 8361769 #### [facility] [address] [place] [address] Monocytes/100 WBC (Bld) 7.8 % Normal 4.0-14.0 [facility] Comment on above: Order Comment: Order Added by Discern Expert. Performed By: #### 1 3150474, 1304343, 5880715, 0870131, 3810437, 1503935, 92620956, 4325436 #### [facility] [address] [place] [address] Monocytes/Leukocytes Auto (Bld) [Pure # fraction] 0.5 E9/L Normal 0.2-1.0 [facility] Comment on above: Order Comment: Order Added by Discern Expert. Performed By: #### 1 3130214, 8315631, 6173608, 2766597, 4309451, 9090004, 21117347, 1627254 #### [facility] [address] [place] [address] Neutrophils/100 WBC (Bld) 57.1 % Normal 36.0-75.0 [facility] Comment on above: Order Comment: Order Added by Discern Expert. Performed By: #### 1 4827312, 5366496, 3799048, 2275868, 1890623, 6759653, 72474598, 0928523 #### [facility] [address] [place] [address] Neutrophils/Leukocyte s Auto (Bld) [Pure # fraction] 3.4 E9/L Normal 2.0-7.5 [facility] Comment on above: Order Comment: Order Added by Discern Expert. Performed By: #### 1 6746041, 5071203, 4455232, 7893972, 6065252, 1046868, 71897676, 6059881 #### [facility] [address] [place] [address] B hCG Qualon 05-21-2023 Beta hCG Ql Positive Normal [facility] Comment on above: Performed By: #### 1 1084176, 2754471, 4329595, 2129047, 4169724, 2362480, 82453114, 8125952 #### [facility] [address] [place] [address] BMPon 05-21-2023 Creatinine [Mass/Vol] 0.5 mg/dL Normal 0.5-1.3 [facility] Comment on above: Performed By: #### 1 1311927, 7788309, 6410095, 6329260, 8892911, 7320059, 57093473, 9931997 #### [facility] [address] [place] [address] Urea nitrogen [Mass/Vol] 13 mg/dL Normal 5-21 [facility] Comment on above: Performed By: #### 1 2135783, 5976770, 8601908, 9477010, 1497974, 0354479, 99910972, 9599589 #### [facility] [address] [place] [address] [place] [address] Urea nitrogen/Creatinine [Mass ratio] 26 No Units High 10-20 [facility] Comment on above: Performed By: #### 1 3281325, 7316939, 1110608, 2932381, 1760155, 6621592, 32710344, 7743910 #### [facility] [address] [place] [address] Anion gap [Moles/Vol] 8 mmol/L Normal 6-16 [facility] Comment on above: Performed By: #### 1 3270193, 5766591, 9200859, 0472011, 7246234, 5583810, 31760729, 4524037 #### [facility] [address] [place] [address] Calcium [Mass/Vol] 9.2 mg/dL Normal 8.9-11.1 [facility] Comment on above: Performed By: #### 1 3861613, 4681054, 4311087, 0383544, 6015977, 5360433, 00335995, 4617215 #### [facility] [address] [place] [address] Chloride [Moles/Vol] 111 mmol/L Normal 101-111 [facility] Comment on above: Performed By: #### 1 8569922, 7508038, 5733922, 3319547, 0297398, 8553503, 01077947, 3624017 #### [facility] [address] [place] [address] CO2 [Moles/Vol] 23 mmol/L Normal 21-31 [facility] Comment on above: Performed By: #### 1 1040532, 6500298, 6085380, 9429193, 2886427, 9368703, 72279284, 5160716 #### [facility] [address] [place] [address] Glucose [Mass/Vol] 101 mg/dL Normal 55-199 [facility] Comment on above: Result Comment: If t his glucose result represents a fasting glucose, interpretation should refer to the following reference range: 55-99 mg/dL Performed By: #### 1 5251507, 4566527, 4902761, 4091674, 5678635, 6843006, 45647129, 6294830 #### [facility] [address] [place] [address] Potassium [Moles/Vol] 3.6 mmol/L Normal 3.5-5.3 [facility] Comment on above: Performed By: #### 1 4069777, 7500704, 9757849, 9570204, 4722404, 5479030, 68471026, 2258870 #### [facility] [address] [place] [address] Sodium [Moles/Vol] 138 mmol/L Normal 135-145 [facility] Comment on above: Performed By: #### 1 9155115, 2386623, 9164339, 6035771, 6500968, 0253860, 78558409, 5981885 #### [facility] [address] [place] [address] BhCG Quanton 05-21-2023 HCG.beta subunit Qn 9779 m[IU]/mL High 1-3 [facility] Comment on above: Result Comment: GEST ATIONAL AGE HCG RANGE (mIU/mL) NON- <1-3 0.2-1 WEEKS 5-50 1-2 WEEKS 50-500 2-3 WEEKS 100-5,000 3-4 WEEKS 500-10,000 4-5 WEEKS 1,000-50,000 5-6 WEEKS 10,000-100,000 6-8 WEEKS 15,000-200,000 8-12 WEEKS 10,000-100,000 Performed By: #### 1 9704893, 6713650, 5627504, 9304921, 9340737, 8089270, 20500862, 8347476 #### [facility] [address] [place] [address] CBC w/ Auto Diffon Erythrocyte distribution width (RBC) [Ratio] 12.9 % Normal 10.9-14.2 [facility] Comment on above: Performed By: #### 1 4480688, 1322560, 2483093, 2378587, 5411808, 4089263, 31781832, 8793177 #### [facility] [address] [place] [address] Hematocrit (Bld) [Volume fraction] 36.4 % Normal 34.0-46.0 [facility] Comment on above: Performed By: #### 1 0630512, 6608656, 1765783, 6846281, 4272838, 1520353, 19356573, 4248339 #### [facility] [address] [place] [address] Hemoglobin (Bld) [Mass/Vol] 12.5 g/dL Normal 12.0-16.0 [facility] Comment on above: Performed By: #### 1 5517221, 2371053, 4365166, 1909218, 8661700, 1160941, 06176814, 7185815 #### [facility] [address] [place] [address] MCH (RBC) [Entitic mass] 30.4 pg Normal 27.0-34.0 [facility] Comment on above: Performed By: #### 1 7729501, 1413089, 0760177, 0356713, 1614629, 2314902, 10394332, 3553031 #### [facility] [address] [place] [address] MCHC (RBC) [Mass/Vol] 34.3 g/dL Normal 31.4-36.0 [facility] Comment on above: Performed By: #### 1 2895598, 9371279, 7454002, 4241491, 0891934, 8624497, 94068657, 1132844 #### [facility] [address] [place] [address] MCV (RBC) [Entitic vol] 88.4 fL Normal 80.0-100.0 [facility] Comment on above: Performed By: #### 1 4199118, 6218892, 0614174, 3265920, 6799142, 3218074, 10234201, 2984129 #### [facility] [address] [place] [address] Platelet mean volume (Bld) [Entitic vol] 9.0 fL Normal 6.4-10.8 [facility] Comment on above: Performed By: #### 1 7416445, 1888417, 7390643, 1279919, 8285450, 2041549, 24342246, 3801274 #### [facility] [address] [place] [address] Platelets (Bld) [#/Vol] 273.0 E9/L Normal 150.0-500.0 [facility] Comment on above: Performed By: #### 1 9894079, 0410819, 2647172, 7023261, 0602229, 5447631, 39563863, 7168238 #### [facility] [address] [place] [address] RBC (Bld) [#/Vol] 4.1 E12/L Low 4.3-5.9 [facility] Comment on above: Performed By: #### 1 8383649, 0617852, 8402863, 3269292, 6181296, 0732619, 39753583, 1553185 #### [facility] [address] [place] [address] WBC corrected for nucl RBC Auto (Bld) [#/Vol] 5.9 E9/L Normal 4.0-11.0 [facility] Comment on above: Performed By: #### 1 8493822, 7279069, 4065741, 4433166, 0552780, 7824072, 64149875, 9627592 #### [facility] [address] [place] [address] CHEMISTRYOrdered By: SYSTEM SYSTEM on 05-21-2023 Albumin [...] 129 mL/min/1.73 m2 Normal >=59mL/min/1. 73 m2 [facility] Comment on above: Interpretive Data: [...] for Treatmenton Consent for Treatment [id number] #1.00CD:127 Normal [facility] Discharge Instructionson Discharge Instructions [id number] #1.00CD:127 Normal [facility] ED Clinical Summaryon 2022 ED Clinical Summary [place] [address] ED Clinical Summary Person Information Name: RONY BOLAÑOS ARIK [facility] Age: 32 Years : 1990 Sex: Female Language: St Helenian PCP: NONE, XXXX Marital Status: Single Visit [...] 05/21/2023 15:09:51 05/21/2023 15:09:51 05/21/2023 15:09:51 ADDRESS: [facility] ISELA BOB [facility] [id number] PHYS DOC NOTES: MEDICAL INFORMATION: Prescriptions Given: Medications to Continue with No Changes Other Medications dextromethorphan-pro methazine (dextromethorphan-pr omethazine 15 mg-6.25 mg/5 mL Oral Syrup 5 mL) 5 Milliliter By Mouth every 6 hours as needed for cough. Refills: 0. etonogestrel (Nexplanon 68 mg subcutaneous implant) 1 Each Subcutaneous Once. fluticasone nasal (fluticasone 0.05 mg/inh Nasal Jackson) 1 Sprays Nasal Inhalation 2 times a [...] EDUCATION INFORMATION: Instructions: Abdominal Pain During , Seut-cb-Twfu Follow up: With: Address: When: Jason Raines [address] [place] [address], [address] [address] [facility] (3) In 3 days 05/24/2023 Comments: Follow-up with your DESIGN AND SALES CONSULTANT. If not have any may follow-up with Dr. Raines. With: Address: When: XXXX NONE , [place] In 3 days DIAGNOSIS: Abdominal pain in ; Unspecified abdominal pain Normal [facility] ED Note-Physicianon 05-21-20 ED Note-Physician Basic Information Time Seen: Joo LR, Osman Sosa 05/21/2023 11:06 Chief Complaint Patient presents with [...] and Complexity of Problems Differential Diagnosis: [] [facility] Data External documents reviewed: [] My [...] A&B Ag Lipase Level Rapid COVID Antigen [place] UA With Cult Refl (more content not included)... Normal [facility] Comment on above: Result Comment: Elec [...] your pee (urine) pale yellow. ? Take iokb-unt-edzkzxj and prescription medicines only as told by [...] Reviewed: 04/20/2021 Elsevier Patient Education ? 2022 [employer] Normal [facility] ED Patient Summaryon 023 ED Patient Summary [address] [address] Patient Discharge Instructions Person Information Name: RONY BOLAÑOS Age: 32 Years Arrival Date: 05/21/2023 10:49:01 Discharge Diagnosis: Abdominal pain in ; Unspecified abdominal pain Primary Care Physician: NONE, XXXX Provider Information Primary Provider: Donovan Keller DO Advanced Assortment Planner:Marlo The exam and treatment you received in the Emergency Department were for an urgent problem and are not intended as complete care. It is important that you follow up with a doctor, nurse practitioner, or physician?s digital assistant for ongoing care. If your symptoms [...] Follow-up Instructions: With: Address: When: Jason Raines [address] [place] [address] Business (1) In 3 days 05/24/2023 Comments: Follow-up with your DESIGN AND SALES CONSULTANT. If not have any may follow-up with Dr. Raines. With: Address: When: XXXX [place] , [place] In 3 days In the event that this physician does not participate in your insurance network, please consult with your insurance company to find a nearby participating provider. Patient Education Materials: Abdominal Pain During , Dwqz-ne-Scgj A MESSAGE TO ALL PATIENTS REGARDING OPIOIDS PRESCRIPTION OPIOIDS: WHAT YOU NEED TO KNOW Prescription opioids can be used to help relieve pwvpsoib-fr-hwardy pain and are often prescribed following a [...] and overdose (more content not included)... Normal [facility] HEMATOLOGYOrdered By: SYSTEM SYSTEM on 05-21-2023 [...] 30.4 pg Normal 27.0 - 34.0 pg FT HemeAutoSS MCHC (RBC) [Mass/Vol] 34.3 g/dL Normal [...] E9/L Normal 4.0 - 11.0 E9/L [facility] HemeAutoSS Hep Func Panelon 05-21-2023 Albumin [Mass/Vol] 4.0 g/dL Normal 3.3-5.0 [facility] Comment on above: Performed By: #### 1 1130821, 7517177, 1530721, 9071458, 4004579, 0718246, 19685461, 0354472 #### [facility] [address] [place] [address] Albumin/Globulin (S) [Mass conc ratio] 1.3 Normal 1.1-2.2 [facility] Comment on above: Performed By: #### 1 7145164, 9599298, 5336473, 0277358, 0445729, 0673243, 46680555, 1361879 #### [facility] [address] [place] [address] ALP [Catalytic activity/Vol] 50 Int._Unit/L Normal 21-98 [facility] Comment on above: Performed By: #### 1 6351989, 6314080, 2013265, 7525798, 4595958, 9556818, 28004160, 2341003 #### [facility] [address] [place] [address] ALT No additional P-5'-P [Catalytic activity/Vol] 19 Int._Unit/L Normal 6-46 [facility] Comment on above: Performed By: #### 1 1462490, 1605157, 2454629, 4027756, 4682673, 8901748, 81372278, 7052164 #### [facility] [address] [place] [address] AST [Catalytic activity/Vol] 17 Int._Unit/L Normal 5-43 [facility] Comment on above: Performed By: #### 1 2366050, 5862321, 5065419, 4639054, 9024127, 5971435, 85158654, 7561099 #### [facility] [address] [place] [address] Bilirubin [Mass/Vol] 0.5 mg/dL Normal 0.0-1.1 [facility] Comment on above: Performed By: #### 1 2476807, 6077956, 7565648, 2024236, 5487482, 3005582, 01141494, 8898098 #### [facility] [address] [place] [address] Bilirubin.direct [Mass/Vol] 0.1 mg/dL Normal 0.1-0.4 [facility] Comment on above: Performed By: #### 1 9151498, 6323718, 5281815, 8975109, 5230063, 0987216, 70732805, 7055989 #### [facility] [address] [place] [address] Bilirubin.indirect [Mass or moles/Vol] 0.4 mg/dL Normal 0.1-0.9 [facility] Comment on above: Performed By: #### 1 0601661, 7695719, 6067175, 2403866, 5775343, 7018378, 67164222, 7190300 #### [facility] [address] [place] [address] Globulin (S) [Mass/Vol] 3.0 g/dL Normal 1.4-4.0 [facility] Comment on above: Performed By: #### 1 6691655, 3263342, 9946851, 2319830, 2886035, 5270177, 17335119, 7067816 #### [facility] [address] [place] [address] Protein [Mass/Vol] 7.0 g/dL Normal 6.0-7.8 [facility] Comment on above: Performed By: #### 1 4245361, 4770947, 5667016, 3139563, 8174944, 6250663, 30239493, 7385780 #### [facility] [address] [place] [address] Influenza A&B Agon Influenzae A Ag Negative Normal Negative [facility] Comment on above: Performed By: #### 1 2086054, [id number] #### [facility] [address] [place] [address] Influenzae B Ag Negative Normal Negative [facility] Comment on above: Result Comment: Test sensitivity and specificity vary for age group, specimen type, antigen types, and prevalence of disease. Test results must be evaluated in conjunction with other clinical data available to the physician. Individuals who received nasally administered Influenza A vaccine may have positive test results up to 3 days after vaccination. Performed By: #### 1 1958507, [id number] #### [facility] [address] [place] [address] Lipase Levelon 05-21-2023 Lipase [Catalytic activity/Vol] 32 U/L Normal 13-58 [facility] Comment on above: Performed By: #### 1 6966190, 1175399, 6850076, 6953806, 8219970, 9094013, 17944532, 0528265 #### [facility] [address] [place] [address] MICRO OTHER TESTSOrdered By: Michelle Can on 05-21-2023 Influenzae A Ag Negative (05/21/23 11:51 AM) Normal Negative [facility] [place] Sero Influenzae B Ag Negative 1 (05/21/23 11:51 AM) Normal Negative [facility] Comment on above: Interpretive [...] Ctl Pass (05/21/23 11:51 AM) Normal [facility] [place] Sero Rapid COV Int POS Ctl Pass (05/21/23 11:51 AM) Normal [facility] Sero SARS-CoV+SARS-CoV-2 (COVID-19) Ag IA.rapid Ql (Resp) Not Detected 5 (05/21/23 11:51 AM) Normal Not Detected [facility] Comment on above: Interpretive Data: [employer]LEXANDALEX[employer]itor System for Rapid Detection of SARS-CoV-2 is [...] For in vitro diagnostic use. In the [facility], only for use under an Emergency Use Authorization. In the [facility], this test has not been FDA cleared [...] Int NEG Ctl Pass Normal Fis her [facility] Comment on above: Performed By: #### 1 2457099, 9072466, 2398399, 9015495, 6276977, 2944311, 80137734, 2415853 #### [facility] [address] [place] [address] Rapid COV Int POS Ctl Pass Normal Fis her [facility] Comment on above: Performed By: #### 1 6333807, 0526429, 9161442, 6535780, 7470247, 5641602, 32925765, 8346856 #### [facility] [address] [place] [address] SARS-CoV+SARS-CoV-2 (COVID-19) Ag IA.rapid Ql (Resp) Not detected Normal Not Detected [facility] Comment on above: Result Comment: The [employer] Ver[employer]? System for Rapid Detection of SARS-CoV-2 is [...] other viruses or pathogens; and, in the [facility], this test is only authorized for the duration of the declaration that circumstances exist justifying the authorization of emergency use of in vitro diagnostics for detection and/or diagnosis of the virus that causes COVID-19 under Section 564(b)(1) of the Act, 21 U.S.C. ? 360bbb-3(b)(1), unless the authorization is terminated or revoked sooner. Performed By: #### 1 3393892, 4010192, 3347551, 4796714, 3549354, 4403239, 72922560, 9404017 #### [facility] [address] [place] [address] SEROLOGYOrdered By: Amairani Louise on 05-21-2023 Beta hCG Ql Positive (05/21/23 11:39 AM) Normal [facility] [place] Sero UA With Cult Reflexon 2022 Bilirubin Ql (U) Negative Normal Negative [facility] Comment on above: Performed By: #### 1 [id number] #### [facility] [address] [place] [address] Clarity (U) CLEAR Normal Clear [facility] Comment on above: Performed By: #### 1 5051799 #### [facility] [address] [place] [address] Color (U) YELLOW Normal Yellow [facility] Comment on above: Performed By: #### 1 0810105 #### [facility] [address] [place] [address] Epithelial cells.squamous LM.HPF (Urine sed) [#/Area] 5-8 Normal 0-2 [facility] Comment on above: Performed By: #### 1 5756109 #### [facility] [address] [place] [address] Glucose Test strip (U) [Mass/Vol] Negative Normal Negative [facility] Comment on above: Performed By: #### 1 8477190 #### [facility] [address] [place] [address] Hemoglobin Ql (U) Negative Normal Negative [facility] Comment on above: Performed By: #### 1 4244255 #### [facility] [address] [place] [address] Ketones (U) [Mass/Vol] Negative Normal Negative [facility] Comment on above: Performed By: #### 1 5077681 #### [facility] [address] [place] [address] [place].plasma/Lithiu m.RBC (Bld) [Mass ratio] 0-3 Normal 0-3 [facility] Comment on above: Performed By: #### 1 3159974 #### [facility] [address] [place] [address] Nitrite Ql (U) Negative Normal Negative [facility] Comment on above: Performed By: #### 1 5114899 #### [facility] [address] [place] [address] pH (U) 5.5 [pH] Invalid Interpretation Code 5.0-9.0 [facility] Comment on above: Performed By: #### 1 3326760 #### [facility] [address] [place] [address] Protein (U) [Mass/Vol] Negative Normal Negative [facility] Comment on above: Performed By: #### 1 2253035 #### [facility] [address] [place] [address] Specific gravity (U) [Rel density] 1.020 Invalid Interpretation Code 1.005-1.030 [facility] Comment on above: Performed By: #### 1 9004177 #### [facility] [address] [place] [address] Type of Urine collection method Clean Catch Normal [facility] Comment on above: Performed By: #### [id number] #### [facility] [address] [place] [id number] Urobilinogen Qn (U) 0.2 {Clara'U}/dL Normal 0.0-1.0 [facility] Comment on above: Performed By: #### 1 [id number] #### [facility] [address] [place] [address] WBC Auto Ql (U) Negative Normal Negative [facility] Comment on above: Performed By: #### 1 [id number] #### [facility] [address] [place] [address] WBC LM.HPF (Urine sed) [#/Area] 0-5 Normal 0-5 [facility] Comment on above: Performed By: #### 1 [id number] #### [facility] [address] [place] [address] URINALYSISOrdered By: Chikis Louise on 05-21-2023 Bilirubin [...] AM) Normal Negative [facility] UA Auto SS [place].plasma/Lithiu m.RBC (Bld) [Mass ratio] 0-3 /HPF Normal [...] AM) Invalid Interpretation Code 1.005 - 1.030 [facility] UA Auto SS UA Spec Desc Clean Catch (05/21/23 11:51 AM) Normal [facility] UA Auto SS Urobilinogen Qn (U) 0.0207410 {Clara'U}/dL Normal 0.0 - 1.0 EU/dL [facility] UA Auto SS WBC Auto Ql (U) Negative (05/21/23 11:51 AM) Normal Negative [facility] UA Auto SS WBC LM.HPF (Urine sed) [#/Area] 0-5 /HPF Normal 0-5/HPF [facility] [place] Auto [place] US 1st Trimesteron [...] 3 Transabdominal Ultrasound Performed Transvaginal Ultrasound Performed [facility] US Transvaginalon 05-21-2023 US Transvaginal Exam Date/Time: 05/21/2023 14:36 EDT Reason for Exam: abdominal pain Report PLEASE SEE US 1st Trimester REPORT DATED: 05/21/2023. Ordering Provider: Osman Ge FINAL REPORT Dictated: 05/21/2023 2:53 pm Gonsalo Martinez MD Signed (Electronic Signature): 05/21/2023 2:53 pm Signed by: Gonsalo Martinez MD Transcribed by: PAULO Technologist: LUIS ANTONIO [facility] XR Chest 2 Viewson XR Chest [...] mGy = na DAP = na Normal [facility] eGFRon 05-21-2023 GFR/1.73 sq M.predicted among non-blacks MDRD (S/P/Bld) [Vol rate/Area] 129 mL/min/1.73 m2 Normal >=59 [facility] Comment on above: Order Comment: Order added by Discern Expert. Result Comment: [employer] josselin kidney disease could be indicated at eGFR's of less than 60 mL/min/1.73m2. Kidney failure is indicated at less than 15 mL/min/1.73m2. Performed By: #### 1 [id number], [id number] #### [facility] [address] [place] [address] PAP ACOG PANEL 2: 21 to 29on 06-08-2022 . . Normal [facility] Comment on above: Performed By: #### 4 [id number] #### [facility] [address] [place] [address] Dr. Jaspreet Duran Age Gdln ACOG Testing - [facility] Comment on above: Performed By: #### 4 [id number] #### [facility] [address] [place] [address] Dr. Jaspreet Duran DIAGNOSIS: Comment [facility] Comment on above: Result Comment: NEGA TIVE FOR INTRAEPITHELIAL LESION OR MALIGNANCY. Performed By: #### 4 [id number] #### [facility] [address] [place] [address] Dr. Jaspreet Duran Methodology: Comment [facility] Comment on above: Result Comment: This liquid based ThinPrep(R) pap test was screened with the use of an image guided system. Performed By: #### 4 [id number] #### [facility] [address] [place] [address] Dr. Jaspreet Duran Note: Comment [facility] Comment on above: Result Comment: The Pap smear is a screening test designed to aid in the detection of premalignant and malignant conditions of the uterine cervix. It is not a diagnostic procedure and should not be used as the sole means of detecting cervical cancer. Both false-positive and false-negative reports do occur. . Performed By: #### 4 [id number] #### [facility] [address] [place] [address] Dr. Jaspreet Duran Performed by: Comment Normal [facility] Comment on above: Result Comment: Pricila Valerio, Section Leader Screen Printing (ASCP) Performed By: #### 4 [id number] #### [facility] [address] [place] [address] Dr. Jaspreet Duran Reflex Criteria: Comment Normal [facility] Comment on above: Result Comment: The HPV DNA reflex criteria were not met with this specimen result therefore, no HPV testing was performed. . Performed By: #### 4 [id number] #### [facility] [address] [place] [address] Dr. Jaspreet Duran Specimen adequacy: Comment Normal [facility] Comment on above: Result Comment: Sati sfactory for evaluation. No endocervical component is identified. Performed By: #### 4 [id number] #### [facility] [address] [place] [address] Dr. Jaspreet Duran COVID-19 Lab [facility] 11-12-19 21 SARS-CoV-2 (COVID-19) RNA NATALIE+probe Ql (Unsp spec) Not detected Normal Not Detected [facility] Comment on above: Order Comment: Reaso n for Exam Cough;Myalgia Healthcare Worker?: N Result Comment: This nucleic acid amplification test was developed and its performance characteristics determined by [employer]. Nucleic acid amplification tests include RT- PCR [...] detected) result in this assay. PERFORMED BY: [facility] [place] [address] PATHOLOGIST [employer] LAUREANO JACK M.D. Performed By: #### C ORONAVIRUS #### [facility] , Vital Signs Date Time Vital Sign Value Performing Clinician Liana gibson 05-21-2023 14:00-0400 Diastolic blood pressure 79 mm[Hg] Donovan Keller [facility] 05-21-2023 14:00-0400 Heart rate 72 /min Donovan Keller [facility] 05-21-2023 14:00-0400 Respiratory rate 18 /min Donovanmango Keller [facility] 05-21-2023 14:00-0400 SaO2% (BldA) [Mass fraction] 99 % Donovanmango Keller [facility] 05-21-2023 14:00-0400 Systolic blood pressure 132 mm[Hg] Donovan Keller [facility] 05-21-2023 11:02-0400 Body temperature 98.06 [degF] Donovan Keller [facility] 05-21-2023 11:02-0400 Diastolic blood pressure 84 mm[Hg] Donovan Keller [facility] 05-21-2023 11:02-0400 Heart rate 77 /min Donovan Keller [facility] 05-21-2023 11:02-0400 Respiratory rate 16 /min Donovan Keller [facility] 05-21-2023 11:02-0400 SaO2% (BldA) [Mass fraction] 100 % Donovan Keller [facility] 05-21-2023 11:02-0400 Systolic blood pressure 147 mm[Hg] Donovan Krishna [facility] Encounters Encounter Date Encounter Type Care Provider Facility Start: 05-15-2024 End: 05-15-2024 ambulatory LYNNETTE JOSE M Not Available Start: 05-09-2024 End: 05-09-2024 ambulatory LYNNETTE JOSE M Not Available Start: 05-02-2024 End: 05-02-2024 ambulatory LUKAS ADRY Not Available Start: 04-25-2024 End: 04-25-2024 ambulatory LYNNETTE JOSE M Not Available Start: 04-11-2024 End: 04-11-2024 ambulatory LYNENTTE JOSE M Not Available Start: 03-27-2024 End: [...] Emergency department patient visit Donovan Keller [place] [place]: 05-21-2023 End: 05-21-2023 Emergency department patient visit Donovan MArron Keller [facility] Start: 06-01-2022 End: 06-01-[address] LYNNETTE MALAGON Facility:[facility] Procedures Date Procedure Procedure Detail Performing Clinician Start: 11-02-2017 Cyst of Bartholin's gland duct (disorder) Donovan Krishna None (qualifier value) Donovan Krishna Payers Date Payer Category Payer [employer] [id number] 2022 [employer] [id number] 2022 [employer] [id number] 1992 Unknown [id number] [id number] 1992 Unknown [id number] 2.16.840.1.457788.3.579.2.727 1992 Unknown [id number] 2.16.840.1.385062.3.579.2.9 1992 Unknown [id number] 2.16.840.1.787897.3.579.2.1259 1992 Unknown [id number] 2.16.840.1.389167.3.579.2.1259 1992 Unknown [id number] 2.16.840.1.848312.3.579.2.1259 1992 Unknown [id number] 2.16.840.1.427548.3.579.2.9 1992 Unknown [id number] 2.16.840.1.779979.3.579.2.1259 1992 Unknown [id number] 2.16.840.1.458871.3.579.2.1259 1992 Unknown [id number] 2.16.840.1.002835.3.579.2.1259 1992 Unknown [id number] 2.16.840.1.097076.3.579.2.9 1992 Unknown [id number] 2.16.840.1.025704.3.579.2.9 1992 Unknown [id number] 2.16.840.1.679096.3.579.2.1258 1992 Unknown [id number] 2.16.840.1.681588.3.579.2.9 1992 Unknown [id number] 2.16.840.1.145164.3.579.2.9 1992 Unknown [id number] 2.16.840.1.343498.3.579.2.9 1992 Unknown [id number] 2.16.840.1.413056.3.579.2.9 1959 Unknown [id number] Social History Date Type Detail Facility Tobacco [facility] Comment on above: denies Tobacco smoking status No Smokin g Status Entered [facility] Sex Assigned At Female [facility] Functional Status Date Assessment Result Facility 05-21-2023 Functional Status N/A [facility] Hospital Discharge instructions 05-21-2023 Note Date & Type Note Facility 05-21-2023 Hospital Discharg e instructions Patient Education 05/21/2023 15:09:51 Abdominal Pain During , Hkjc-qz-Kzme Abdominal Pain During Belly (abdominal) pain is [...] keep your pee (urine) pale yellow. Take mfjv-lun-uivtypl and prescription medicines only as told by [...] provider. Document Revised: 04/20/2021 Document Reviewed: 04/20/2021 [employer] Patient Education 2022 [employer]. Follow Up Care 05/21/2023 10:51:24 With:Jason Raines Address: [facility] [place], [address] [address] [facility] () When:05/24/2023 14:59:00 Comments:Follow-up with your DESIGN AND SALES CONSULTANT. If not have any may follow-up with Dr. Raines. With:XXXX NONE Address: [place] When:Within 3 Day(s) [facility] Evaluation + Plan note 05-21-2023 Note Date & Type Note Facility 05-21-2023 Evaluation + Plan note Extrac chano from: Title:ED Note Author:Joo LR, Osman Selby te:05/21/23 Abdominal pain in (O26.899: Other specified [...] A&B Ag Lipase Level Rapid COVID Antigen [place] UA With Cult Reflex US 1st Trimester US Transvaginal XR Chest 2 Views [facility] Hospital course Narrative Note Date & Type Note Facility Hospital course Narrative No data available for this section [facility] Progress note Note Date & Type Note Facility Progress note No data available for this section [facility] Summary Purpose Family History No Family History Records FoundNo Family History Records Found No data available for this section No Family History Records FoundNo Family History Records Found Advance Directives No Advanced Directives Records FoundNo Advanced Directives Records FoundNo Advanced Directives Records FoundNo Advanced Directives Records Found Additional Source Comments INFORMATION SOURCE (unrecogn ized section and content) DATE CREATED AUTHOR 09/30/2021 [facility] DATE CREATED AUTHOR AUTHOR'S ORGANIZ ATION 06/13/2022 [facility] DATE CREATED AUTHOR AUTHOR'S ORGANIZ ATION 05/26/2023 [facility] DATE CREATED AUTHOR AUTHOR'S ORGANIZ ATION 05/17/2024 [facility] dical Specialists [facility] FOR RECORDS PERTAINING TO PATIENTS [...] BE BASED ON THE PRIMARY CLINICAL RECORDS. [facility]. provides no warranty or guarantee of the accuracy or completeness of information in this document.
[2024-05-22 19:09] LABS: Hemoglobin 10.1 g/dL (12.0-16.0); Mean Corpuscular HGB Conc 32.6 g/dL (29.9-35.2); Mean Corpuscular Hemoglobin 29.2 pg (26.7-34.0); Mean Corpuscular Volume 89.6 fL (81.0-99.0); Mean Platelet Volume 11.6 fL (9.5-13.5); Platelet Count 262 10^3/uL (150-450); Red Blood Count 3.46 10^6/uL (4.20-5.40); Red Cell Distribution Width 12.9 % (11.0-15.0); White Blood Count 10.5 10^3/uL (4.0-11.0)
[2024-05-22] MEDS: OXYTOCIN/0.9 % SODIUM CHLORIDE 10 UNITS/500 ML PLAST..BAG 6 UNIT IV (19:54)
[2024-05-22] MEDS: 0.9 % SODIUM CHLORIDE 1,000 ML 125 ML IV (19:54)
[2024-05-22 19:59] VITALS: TEMP 36.2
[2024-05-22 20:22] VITALS: BP 142/88; PULSE 70
[2024-05-22 20:31] VITALS: BP 144/87; PULSE 75
[2024-05-22 20:45] VITALS: BP 145/88; PULSE 78
[2024-05-22 20:47] VITALS: BP 144/94; PULSE 69
[2024-05-22] MEDS: NALBUPHINE HCL 10 MG/ML AMPULE IV (22:38)
[2024-05-22] MEDS: OXYTOCIN/0.9 % SODIUM CHLORIDE 20 UNITS/1,000 ML PLAST..BAG 125 UNIT IV (23:49)
--- NOTE | 2024-05-22 23:55 | PM.OBPRCVD ---
Procedure Intrapartal events: None Induction method: per pitocin protocol Delivery augmentation: rupture of membranes and pitocin Delivery monitor: external FHT and external uterine Route of delivery: Episiotomy Description: none L&D Laceration Description: none Estimated blood loss (mL): 200 Anesthesia type: None Disposition: floor Gender: female presentation: vertex Placental delivery description: Manual Removal cord description: 3 Vessels
[2024-05-23] VITALS (10 sets, daily range): BP systolic 110–159; BP diastolic 55–98; PULSE 59–86; TEMP 36.4–36.5
[2024-05-23] MEDS: IBUPROFEN 600 MG TABLET PO ×2 (00:36→16:00)
[2024-05-23] MEDS: GLYCERIN/WITCH HAZEL PADS 1 PAD TOPICAL (00:52)
[2024-05-23] MEDS: BENZOCAINE/MENTHOL 85 GRAM SPRAY BOTTLE 1 APPLIC TOPICAL (00:53)
[2024-05-23 07:23] LABS: Basophils Percent Auto 0.2 % (0.2-2.0); Eosinophils Percent Auto 0.3 % (0.9-7.0); Hematocrit 33.2 % (36.0-48.0); Hemoglobin 10.8 g/dL (12.0-16.0); Immature Granulocytes Abs Auto 0.09 10^3/uL (0.00-0.03); Immature Granulocytes Pct Auto 0.6 % (0.0-0.5); Lymphocytes Absolute Auto 1.9 10^3/uL (1.2-3.8); Lymphocytes Percent Auto 12.6 % (20.5-60.0); Mean Corpuscular HGB Conc 32.5 g/dL (29.9-35.2); Mean Corpuscular Hemoglobin 28.9 pg (26.7-34.0); Mean Corpuscular Volume 88.8 fL (81.0-99.0); Mean Platelet Volume 11.2 fL (9.5-13.5); Monocytes Absolute Auto 1.1 10^3/uL (0.3-0.8); Monocytes Percent Auto 6.8 % (1.7-12.0); Neutrophils Absolute Auto 12.3 10^3/uL (1.4-6.5); Neutrophils Percent Auto 79.5 % (43.0-75.0); Platelet Count 265 10^3/uL (150-450); Red Blood Count 3.74 10^6/uL (4.20-5.40); Red Cell Distribution Width 12.9 % (11.0-15.0); White Blood Count 15.4 10^3/uL (4.0-11.0)
--- NOTE | 2024-05-23 14:54 | P.OBPN_ITS ---
OB - PN: Subj Subjective Patient comments: no complaints, pain well controlled and flatus present infant status: doing well [place] feeding status: exclusively Exam Narrative Exam Narrative: voicing no complaints Constitutional Vital Signs, click to edit/add: Last Vital Signs Temp 97.6 F 05/23/24 12:20 Pulse 82 05/23/24 12:43 Resp 16 05/23/24 12:20 BP 137/86 05/23/24 12:43 O2 Del Method Room Air 05/23/24 12:20 Documenting provider has reviewed patient's vital signs: yes Common normals: no apparent distress, oriented x3, no limitations, healthy appearing, alert and well nourished HENMT Common normals: normocephalic and head/scalp atraumatic Eye Common normals: PERRL Pupil: accommodation reflex normal Neck & C-Spine Common normals: full ROM Respiratory Common normals: normal respiratory effort Auscultation: clear to auscultation bilaterally Cardio Common normals: regular rate and regular rhythm GI Common normals: Normal to inspection, nondistended, normoactive bowel sounds present, soft to palpation and non-tender Common normals: no CVA tenderness Back & Pelvis Common normals: no thoracic nor lumbar tenderness Extremity Common normals: normal to inspection Neuro Common normals: oriented x3, CN's II-XII intact bilaterally, moves all e xtremities, no focal motor deficits and no sensory deficits noted Motor exam: strength 5/5 throughout Psych Common normals: mental status grossly normal, thought process normal, cooperative, affect normal and speech normal Results Labs Labs: Short CBC 05/22/24 05/23/24 Range/Units 18:56 07:10 WBC 10.5 15.4 H (4.0-11.0) 10^3/uL Hgb 10.1 L 10.8 L (12.0-16.0) g/dL Hct 31.0 L 33.2 L (36.0-48.0) % Plt Count 262 265 (150-450) 10^3/uL OB - PN: A/P Assessment and Plan (1) Normal vaginal delivery: Assessment and Plan: vss, exam nonfocal, baby doing well, breast feeding Plan routine care Plan - Vaginal Delivery day: 1 Plan: routine care Time Spent with Patient Time: Total time spent is greater than 50% in coordination of care (as documented) at patient's floor/unit and/or counseling patient: Total time spent with greater than 50% in coordination of care (as documented) at patient's floor/unit and/or counseling patient: less than 15 minutes
[2024-05-23] MEDS: IRON PS COMPLEX/B12/FOLIC ACID CAPSULE 1 CAP PO (16:01)
[2024-05-24] VITALS (7 sets, daily range): BP systolic 141–169; BP diastolic 79–87; PULSE 65–74; TEMP 35.9–37
[2024-05-24] MEDS: IRON PS COMPLEX/B12/FOLIC ACID CAPSULE 1 CAP PO (08:25)
[2024-05-24] MEDS: IBUPROFEN 600 MG TABLET PO (08:25)
[2024-05-24 09:14] LABS: Basophils Percent Auto 0.5 % (0.2-2.0); Eosinophils Absolute Auto 0.2 10^3/uL (0.0-0.7); Eosinophils Percent Auto 2.3 % (0.9-7.0); Hemoglobin 10.1 g/dL (12.0-16.0); Immature Granulocytes Abs Auto 0.06 10^3/uL (0.00-0.03); Immature Granulocytes Pct Auto 0.7 % (0.0-0.5); Lymphocytes Absolute Auto 1.8 10^3/uL (1.2-3.8); Lymphocytes Percent Auto 20.5 % (20.5-60.0); Mean Corpuscular HGB Conc 31.6 g/dL (29.9-35.2); Mean Corpuscular Hemoglobin 28.6 pg (26.7-34.0); Mean Corpuscular Volume 90.7 fL (81.0-99.0); Mean Platelet Volume 11.1 fL (9.5-13.5); Monocytes Absolute Auto 0.6 10^3/uL (0.3-0.8); Neutrophils Absolute Auto 6.1 10^3/uL (1.4-6.5); Platelet Count 253 10^3/uL (150-450); Red Blood Count 3.53 10^6/uL (4.20-5.40); Red Cell Distribution Width 13.2 % (11.0-15.0); White Blood Count 8.8 10^3/uL (4.0-11.0)
[2024-05-24] MEDS: NIFEdipine 30 MG TAB.ER.24 PO (09:22)
[2024-05-24 09:29] LABS: Alanine Aminotransferase 15 U/L (14-59); Albumin Globulin Ratio 0.6; Albumin Level 2.4 g/dL (3.4-5.0); Alkaline Phosphatase 100 U/L (46-116); Aspartate Amino Transferase 20 U/L (15-37); BUN Creatinine Ratio 15.8; Bilirubin Total 0.3 mg/dL (0.2-1.0); Calcium 9.3 mg/dL (8.5-10.1); Chloride 104 mmol/L (98-107); Estimated GFR (African America >60 (>=60 mL/min/1.73m^2); Estimated GFR (Non-African Ame >60 (>=60 mL/min/1.73m^2); Globulin 3.9 g/dL; Glucose 93 mg/dL (74-106); Potassium 3.9 mmol/L (3.5-5.1); Sodium 137 mmol/L (136-145); Total Protein 6.3 g/dL (6.4-8.2)
[2024-05-24 09:35] LABS: Anion Gap 13.7; Carbon Dioxide 23.2 mmol/L (21.0-32.0)
--- NOTE | 2024-05-24 12:32 | P.DS_ITS ---
DS: Providers Provider Date of admission: 05/22/24 18:29 Primary care physician: Non-Staff Physician, Admitting clinician: Washington Malagon Attending physician on discharge: Latricia Guillory DS: Diagnosis Discharge Diagnosis (1) Normal vaginal delivery: (2) Hypertension affecting , delivered, current hospitalization: Assessment and plan: started nifedipine 30 mg extended release one qd, blood pressure well controlled, will have blood pressure check tomorrow Plan s/p vaginal delivery with posppartum hypertension. teaching done one and purpose of nifedipine explained. script provided for nifedipine 30 mg extended release one qd OB - DS: Summary Hospital Course Hospital Course: uncomplicated. postdelivery hypertension not associated with signs or symptoms of preeclampsia Time spent discussing smoking cessation with patient: 3 to 10 minutes Peripartum Data - Vaginal Delivery Laceration description: none Complications complications: none Infant Delivery method: spontaneous vaginal delivery Gender: female Discharge plan: home Status at Discharge Cognitive/behavioral status at discharge: wnl Functional status at discharge: independent ambulation Time Spent with Patient Time attestation: Total time spent providing and/or coordinating discharge services: Time spent: less than 30 minutes Exam Narrative Exam Narrative: voicing no complaints Constitutional Vital Signs, click to edit/add: Last Vital Signs Temp 98.6 F 05/24/24 08:20 Pulse 70 05/24/24 12:03 Resp 14 05/24/24 08:20 BP 141/82 05/24/24 12:03 O2 Del Method Room Air 05/24/24 08:20 Documenting provider has reviewed patient's vital signs: yes Common normals: no apparent distress, oriented x3, no limitations, healthy appearing, alert and well nourished [facility] Common normals: normocephalic and head/scalp atraumatic Eye Common normals: PERRL Pupil: accommodation reflex normal Neck & C-Spine Common normals: full ROM and supple Respiratory Common normals: normal respiratory effort Auscultation: clear to auscultation bilaterally Cardio Common normals: regular rate and regular rhythm GI Common normals: Normal to inspection, nondistended, normoactive bowel sounds present, soft to palpation and non-tender Common normals: no CVA tenderness Back & Pelvis Common normals: no thoracic nor lumbar tenderness Extremity Common normals: normal to inspection, full ROM and no calf tenderness Neuro Common normals: CN's II-XII intact bilaterally, moves all extremities, no focal motor deficits and no sensory deficits noted Motor exam: strength 5/5 throughout Psych Common normals: mental status grossly normal, thought process normal, cooperative, affect normal, speech normal and activity/motor behavior normal DS: Data Data Completed and Pending Labs on day of discharge: Labs from last 24 hours 05/24/24 09:07 WBC 8.8 RBC 3.53 L Hgb 10.1 L Hct 32.0 L MCV 90.7 MCH 28.6 MCHC 31.6 RDW 13.2 Plt Count 253 MPV 11.1 Neut % (Auto) 69.0 Lymph % (Auto) 20.5 [place] % (Auto) 7.0 Eos % (Auto) 2.3 Baso % (Auto) 0.5 Neut # (Auto) 6.1 Lymph # (Auto) 1.8 [place] # (Auto) 0.6 Eos # (Auto) 0.2 Baso # (Auto) 0.0 Abs Immat Gran (auto) 0.06 H Imm/Tot Granulo (auto) 0.7 H Sodium 137 Potassium 3.9 Chloride 104 Carbon Dioxide 23.2 Anion Gap 13.7 BUN 9.0 Creatinine 0.57 Est GFR ( Amer) >60 Est GFR (Non-Af Amer) >60 BUN/Creatinine Ratio 15.8 Glucose 93 Calcium 9.3 Total Bilirubin 0.3 AST 20 ALT 15 Alkaline Phosphatase 100 Total Protein 6.3 L Albumin 2.4 L Globulin 3.9 Albumin/Globulin Ratio 0.6 Discharge Plan Discharge Disposition: Home, Self-Care Condition: Good Assessment: new onset hypertension well controlled on nifedipine extended release 30 mg po qd. no signs or symptoms of toxemia, CMP unremarkable Plan of Treatment: instructions on PIH, discharge home, blood pressure check tomorrow Discharge Medications: Continued ibuprofen 800 mg tablet 800 mg PO Q8H PRN (Reason: pain) 14 Days Qty: 40 0RF Discontinued doxycycline hyclate 100 mg capsule 100 mg PO BID 7 Days Qty: 14 0RF Activity: resume usual activities as tolerated Activity Detail: no sex six weeks, walking only exercise six weeks, may shower, no bathtub 4 weeks, only lift baby 4 weeks Diet: regular diet Print Language: Guyanese Patient Instructions: Vaginal Delivery (DC), Hypertension During (DC) Activity Restrictions/Additional Instructions: follow up tomorrow for BP check and bilirubin check for baby Forms: Portal Instructions Follow Up Appointments: post exam due in six weeks with provider Discharge location: home
== END 2024-05-24 13:30 | disposition home or self-care (01) | DRG 807 ==
PROVIDERS: Obstetrics & Gynecology; Admitting Provider Obstetrics & Gynecology; Visit Provider Obstetrics & Gynecology
DX: O80 Encounter for full-term uncomplicated delivery (principal); Z37.0 Single live birth; O16.5 Unspecified maternal hypertension, complicating the puerperium; Z3A.39 39 weeks gestation of pregnancy
CPT/HCPCS: 36415; 80053; 85025; 85027; 86850; 86900; 86901; J2300

== ENCOUNTER 2024-12-16 21:01 | Outpatient (REF) | payer OTHER, SELFPAY ==
[2024-12-19 11:13] LABS: Age Gdln ACOG Testing Note (.); HPV Aptima Negative (Negative); IGP, Aptima HPV, rfx 16/18,45 Note (.)
== END 2024-12-16 21:02 | disposition home or self-care (01) ==
LOC: LAB 21:01
PROVIDERS: Visit Provider Obstetrics & Gynecology
DX: Z01.419 Encounter for gynecological examination (general) (routine) without abnormal findings (principal)
CPT/HCPCS: 87624; 88175

== ENCOUNTER 2025-04-04 09:39 | Outpatient (OUT) | payer OTHER, SELFPAY ==
--- OUTSIDE RECORDS SUMMARY | 2025-04-03 11:01 | XMS_ITS | Encounter Summary ---
Author Organization [facility] Address [address] [place] [address] Care Team Providers Care Analytical Data Scientist Name Role Phone Unavailable Primary Care Provider Unavailabl e Encounter Details Date Type Department Care Team (Late st Contact Info) Description 01/08/2024 Clinisync Result Encounter [facility] External Department Unsolicited Lynnette Malagon, DO [address] [place] [address] Social History Tobacco Use Types Packs/Day Years Used Date Smoking Tobacco: Never Alcohol Use Standard Drinks/Week Comments Never 0 (1 standard drink = 0.6 oz pur e alcohol) caffeine: none Comments Yes Sex and Gender Information Value Date Recorded Sex Assigned at Not on file Legal Sex Female 8:15 PM EDT Gender Identity Not on file Sexual Orientation Not on file documented as of this encounter Plan of Treatment Upcoming Encounters Date Type Department Care Team (Late st Contact Info) Description 12/18/2025 10:00 AM EDT Office Visit [facility] [address] [place] [phone] Lynnette Malagon DO [address] [place] [address] documented as of this encounter Procedures Procedure Name Priority Date/Time Associated Diagnosis Comments US OB CERVICAL LENGTH 01/08/2024 10:48 AM EDT documented in this encounter Results * US OB CERVICAL LENGTH (01/08/2024 10:48 AM EDT) Anatomical Region Laterality Modality Other 01/08/2024 10:4 8 AM EDT Narrative 01/08/2024 10:51 AM EDT [address] [address] Ultrasound Report Signed Patient: RONY PLASENCIA MR#: [id number] : 1990 Acct:[id number] Age/Sex: 33 / F ADM Date: 01/08/24 Loc: [facility] Attending Dr: Lynnette Malagon D.O. Ordering Physician: Lynnette Malagon D.O. Date of Service: 01/08/24 Procedure(s): US OB cervical length Accession Number(s): [id number] cc: Lynnette Malagon D.O.; Physician,Non-Staff [place] [address] [address] Patient Name: RONY PLASENCIA MRN: [facility]:[id number] date: 1990 Sex: F Assigned Patient Location: [facility] Current Patient Location: [facility] Accession/Order Number: [id number] Exam Date: 01/08/2024 08:31 Report Date: 01/08/2024 10:48 At the request of: LYNNETTE MALAGON Procedure: US OB cervical length EXAMINATION: US OB anatomy, US OB cervical length HISTORY: ANATOMY COMPARISON: No relevant comparison available. TECHNIQUE: Transabdominal sonographic examination was performed for obstetrical and evaluation. FINDINGS: Number: 1 Heart Rate: 140.0 bpm H.B. /min Amniotic Fluid Volume: Subjectively normal Placental Location: POSTERIOR with lower margin 4.4 cm from os. Cervix Length: 4.4 cm, closed. ANATOMY: Normal Structures -cerebellum, choroid plexus, cisterna magna, lateral cerebral ventricles, orbits, midline falx, hard palate, four-chamber heart, RVOT, LVOT, stomach, kidneys, bladder, umbilical cord insertion into abdomen, three-vessel cord, cervical spine, thoracic spine, lumbar spine, sacral spine, right upper extremity, left upper extremity, right lower extremity, left lower extremity. SUBOPTIMALLY SEEN: None ABNORMALITIES: None BIOMETRY: BPD: 4.6 cm 20 weeks 0 days HC: 17.4 cm 20 weeks 0 days AC: 15.9 cm 21 weeks 0 days FL: 3.6 cm 21 weeks 2 days EFW:392.3 grams; 77% FL/AC: 22.5 FL/BPD: 77.3 HC/AC: 1.1 GESTATIONAL AGE: Age by EDC: 20 weeks 3 days HOOD by EDC: 05/24/2024 Age by current US: 20 weeks 4 days HOOD by current US: 05/23/2024 US/US OB cervical length IMPRESSION: 1. Single live intrauterine with growth detailed above. Electronically authenticated by: KISHOR ANTHONY Date: 01/08/2024 10:48 Dictated By: Kishor Anthony M.D. Signed By: 01/08/24 1051 DD/ 1048 TD/TT: Franchise Specialist: Procedure Note Radiology, Radiologist, MD - 01/08/2024 [place] [address] Ultrasound Report Signed Patient: RONY PLASENCIA [facility]#: [id number] : 1990Acct:[id number] Age/Sex: Date: 01/08/24 Loc: [facility] Attending Dr: Lynnette Malagon D.O. Ordering Physician: Lynnette Malagon D.O. Date of Service: 01/08/24 Procedure(s): US OB cervical length Accession Number(s): [id number] cc: Lynnette Malagon D.O.; Physician,Non-Staff [place] The [place] [address] Patient Name: RONY PLASENCIA MRN: [id number] date: 1990 Sex: F Assigned [facility] Current [facility] Accession/Order Number: [id number] Exam Date: 01/08/2024 08:31 Report Date: 01/08/2024 10:48 At the request of: LYNNETTE MALAGON Procedure: US OB cervical length EXAMINATION: US OB anatomy, US OB cervical length HISTORY: ANATOMY COMPARISON: No relevant comparison available. TECHNIQUE: Transabdominal sonographic examination was performed for obstetrical and evaluation. FINDINGS: Number: 1 Heart Rate: 140.0 bpm H.B. /min Amniotic Fluid Volume: Subjectively normal Placental Location: POSTERIOR with lower margin 4.4 cm from os. Cervix Length: 4.4 cm, closed. ANATOMY: Normal Structures -cerebellum, choroid plexus, cisterna magna, lateral cerebral ventricles, orbits, midline falx, hard palate, four-chamberheart, RVOT, LVOT, stomach, kidneys, bladder, umbilical cord insertion intoabdomen, three-vessel cord, cervical spine, thoracic spine, lumbar spine, sacralspine, right upper extremity, left upper extremity, right lower extremity, leftlower extremity. SUBOPTIMALLY SEEN: None ABNORMALITIES: None BIOMETRY: BPD: 4.6 cm 20 weeks 0 days HC: 17.4 cm 20 weeks 0 days AC: 15.9 cm 21 weeks 0 days FL: 3.6 cm 21 weeks 2 days EFW:392.3 grams; 77% FL/AC: 22.5 FL/BPD: 77.3 HC/AC: 1.1 GESTATIONAL AGE: Age by EDC: 20 weeks 3 days HOOD by EDC: 05/24/2024 Age by current US: 20 weeks 4 days HOOD by current US: 05/23/2024 US/US OB cervical length IMPRESSION: 1. Single live intrauterine with growth detailed above. Electronically authenticated by: KISHOR ANTHONY Date: 01/08/2024 10:48 Dictated By: Kishor Anthony M.D. Signed By:01/08/24 1051 DD/ 1048 TD/TT: Franchise Specialist: us Lynnette Manas DO [facility] Final Result documented in this encounter Visit Diagnoses Not on filedocumented in this encounter
--- OUTSIDE RECORDS SUMMARY | 2025-04-03 11:01 | XMS_ITS | Encounter Summary ---
Author Organization [facility] Address [address] [place] [address] Care Team Providers Care Gifted Teacher Name Role Phone Unavailable Primary Care Provider Unavailabl e Encounter Details Date Type Department Care Team (Late st Contact Info) Description 01/08/2024 Clinisync Result Encounter [facility] External Department Unsolicited Lynnette Malagon, DO [address] [place] [address] Social History Tobacco Use Types Packs/Day Years [...] EDT Office Visit [facility] [address] [place] [phone] Lynnette Malagon DO [address] [place] [address] documented as of this encounter Procedures Procedure Name Priority Date/Time Associated Diagnosis Comments US OB ANATOMY 01/08/2024 10:48 AM EDT documented in this encounter Results * US OB ANATOMY (01/08/2024 10:48 AM EDT) Anatomical Region Laterality Modality Other 01/08/2024 10:4 8 AM EDT Narrative 01/08/2024 10:51 AM EDT [address] [address] Ultrasound Report Signed Patient: RONY PLASENCIA MR#: [id number] : 1990 Acct:[id number] Age/Sex: 33 / F ADM Date: 01/08/24 Loc: [facility] Attending Dr: Lynnette Malagon D.O. Ordering Physician: Lynnette Malagon D.O. Date of Service: 01/08/24 Procedure(s): US OB anatomy Accession Number(s): [id number] cc: Lynnette Malagon D.O.; Physician,Non-Staff [place] [address] [address] Patient Name: RONY PLASENCIA MRN: [facility]:[id number] date: 1990 Sex: F Assigned Patient Location: [facility] Current Patient Location: [facility] Accession/Order Number: [id number] Exam Date: 01/08/2024 08:31 Report Date: 01/08/2024 10:48 At the request of: LYNNETTE MALAGON Procedure: US OB anatomy EXAMINATION: US OB anatomy, US OB cervical [...] HOOD by current US: 05/23/2024 US/US OB anatomy IMPRESSION: 1. Single live intrauterine with growth detailed above. Electronically authenticated by: KISHOR ANTHONY Date: 01/08/2024 10:48 Dictated By: Kishor Anthony M.D. Signed By: 01/08/24 1051 DD/ 1048 TD/TT: Tripper: Procedure Note Radiology, Radiologist, MD - 01/08/2024 [place] [address] Ultrasound Report Signed Patient: RONY PLASENCIA [facility]#: [id number] : 1990Acct:[id number] Age/Sex: M Date: 01/08/24 Loc: [facility] Attending Dr: Lynnette Malagon D.O. Ordering Physician: Lynnette Malagon D.O. Date of Service: 01/08/24 Procedure(s): US OB anatomy Accession Number(s): [id number] cc: Lynnette Malagon D.O.; Physician,Non-Staff [place] The [place] [address] Patient Name: RONY PLASENCIA MRN: [id number] date: 1990 Sex: F Assigned Patient Location: [facility] Current Patient Location: [facility] Accession/Order Number: [id number] Exam Date: 01/08/2024 08:31 Report Date: 01/08/2024 10:48 At the request of: LYNNETTE MALAGON Procedure: US OB anatomy EXAMINATION: US OB anatomy, US OB cervical [...] HOOD by current US: 05/23/2024 US/US OB anatomy IMPRESSION: 1. Single live intrauterine with growth detailed above. Electronically authenticated by: KISHOR ANTHONY Date: 01/08/2024 10:48 Dictated By: Kishor Anthony M.D. Signed By:01/08/24 1051 DD/ 1048 TD/TT: Tripper: us Lynnette Manas DO [facility] Final Result documented in this encounter Visit Diagnoses Not on filedocumented in this encounter
--- OUTSIDE RECORDS SUMMARY | 2025-04-03 11:02 | XMS_ITS | Encounter Summary ---
Author Organization [facility] Address [address] [place] [address] Care Team Providers Care Animal Trapper Name Role Phone Unavailable Primary Care Provider Unavailabl e Encounter Details Date Type Department Care Team (Late Contact Info) Description 07/07/2023 Clinisync Result Encounter [facility] External Department Unsolicited Lynnette Malagon, DO [address] [place], [place] [phone] Social History Tobacco Use Types Packs/Day Years Used Date Smoking Tobacco: Never Alcohol Use Standard Drinks/Week Comments Never 0 (1 standard drink = 0.6 oz pur e alcohol) caffeine: none Comments No Sex and Gender Information Value Date Recorded Sex Assigned at Not on file Legal Sex Female 8:15 PM EDT Gender Identity Not on file Sexual Orientation Not on file COVID-19 Exposure Response Date Recorded In the last 10 days, have yo u been in contact with someone who was confirmed or suspected to have Coronavirus/COVID-19? No / Unsure 07/04/2023 9:38 AM EST documented as of this encounter Plan of Treatment Upcoming Encounters Date Type Department Care Team (Late st Contact Info) Description 12/18/2025 10:00 AM EDT Office Visit [facility] [address] [place] [phone] Lynnette Malagon, DO [address] [place] [address] documented as of this encounter Procedures Procedure Name Priority Date/Time Associated Diagnosis Comments US PELVIS 07/07/2023 3:21 PM EST documented in this encounter Results * US PELVIS (07/07/2023 3:21 PM EST) Anatomical Region Laterality Modality Other 07/07/2023 3:21 PM EST Narrative 07/07/2023 3:21 [place] [address] Ultrasound Report Signed Patient: RONY PLASENCIA MR#: [id number] : 1990 Acct:[id number] Age/Sex: 32 / F ADM Date: 07/07/23 Loc: SURGOUT Attending Dr: Lynnette Malagon D.O. Ordering Physician: Lynnette Malagon D.O. Date of Service: 07/07/23 Procedure(s): US pelvis Accession Number(s): [id number] cc: Lynnette Malagon D.O.; Physician,Non-Staff [place] The [place] [address] Patient Name: RONY PLASENCIA MRN: [facility]:[id number] date: 1990 Sex: F Assigned Patient Location: [facility] Current Patient Location: Accession/Order Number: [id number] Exam Date: 07/07/2023 12:05 Report Date: 07/07/2023 15:21 At the request of: LYNNETTE MALAGON Procedure: US pelvis EXAMINATION: US pelvis HISTORY: D C in surgery. Rule out retained products COMPARISON: No relevant comparison available. FINDINGS: Limited transabdominal imaging of the uterus demonstrates a prominent lobular uterus. The endometrial cavity is not clearly observed. No color flow was used. US/US pelvis IMPRESSION: Limited imaging of the uterus Electronically authenticated by: ELIZABETH LERMA Date: 07/07/2023 15:21 Dictated By: Elizabeth Lerma M.D. Signed By: 07/07/23 1523 DD/ 1521 TD/TT: Nail Feeder: Procedure Note Radiology, Radiologist, MD - 07/07/[address] [address] Ultrasound Report Signed Patient: RONY PLASENCIA [facility]#: [id number] : 1990Acct:[id number] Age/Sex: 32 / FADM Date: 07/07/23 Loc: SURGOUT Attending Dr: Lynnette Malagon D.O. Ordering Physician: Lynnette Malagon D.O. Date of Service: 07/07/23 Procedure(s): US pelvis Accession Number(s): [id number] cc: Lynnette Malagon D.O.; Physician,Non-Staff [place] The [place] [id number] Patient Name: RONY PLASENCIA MRN: [id number] date: 1990 Sex: F Assigned Patient Location: [facility] Current Patient Location: Accession/Order Number: [id number] Exam Date: 07/07/2023 12:05 Report Date: 07/07/2023 15:21 At the request of: LYNNETTE MALAGON Procedure: US pelvis EXAMINATION: US pelvis HISTORY: D C in surgery. Rule out retained products COMPARISON: No relevant comparison available. FINDINGS: Limited transabdominal imaging of the uterus demonstrates a prominentlobular uterus. The endometrial cavity is not clearly observed. No color flow was used. US/US pelvis IMPRESSION: Limited imaging of the uterus Electronically authenticated by: ELIZABETH LERMA Date: 07/07/2023 15:21 Dictated By: Elizabeth Lerma M.D. Signed By:07/07/23 1523 DD/ 1521 TD/TT: Nail Feeder: us Lynnette Malagon DO [facility] Final Result documented in this encounter Visit Diagnoses Not on filedocumented in this encounter
--- OUTSIDE RECORDS SUMMARY | 2025-04-03 11:02 | XMS_ITS | Encounter Summary ---
Author Organization [facility] Address [address] [facility] [place] [address] Care Team Providers Care Slot Machine Mechanic Name Role Phone Unavailable Primary Care Provider Unavailabl e Encounter Details Date Type Department Care Team (Late Contact Info) Description 12/31/2024 Orders Only [facility] [address] [place] [phone] Antoinette Patricio LPN [address] [place] [address] Social History Tobacco Use Types Packs/Day Years Used Date Smoking Tobacco: Never Smokeless Tobacco: Never Alcohol Use Standard Drinks/Week Comments [...] Encounters Date Type Department Care Team (Late Contact Info) Description 12/18/2025 10:00 AM EDT Office Visit ARLENE PARKS [address] [place] [phone] [place] Malagon DO [address] [facility] [place] [address] documented as of this encounter Procedures Procedure Name Priority Date/Time Associated Diagnosis Comments PAP SMEAR Routine 12/16/2024 12:00 AM EDT documented in this encounter Results * Pap Smear (12/16/2024 12:00 AM EDT) Swab Cervical swab / Unknown us Manas Nurse [facility] Ob LAB CYTOLOGY ORDERABLES Final Result EXTERNAL LAB documented in this encounter Visit Diagnoses Not on filedocumented in this encounter
--- OUTSIDE RECORDS SUMMARY | 2025-04-03 11:02 | XMS_ITS | Encounter Summary ---
Author Organization [facility] Address [address] [place] [address] Care Team Providers Care Xm1 Tank Driver Name Role Phone Unavailable Primary Care Provider Unavailabl e Encounter Details Date Type Department Care Team (Late Contact Info) Description 03/15/2024 Abstract [facility] [address] [place] [phone] Mara Gould LPN [address] [place] [phone] Social History Tobacco Use Types Packs/Day Years [...] AM EDT Office Visit ARLENE PARKS [address] [place] [phone] Washington Malagon DO [address] [place], [place] [phone] documented as of this encounter Visit Diagnoses Not on filedocumented in this encounter
--- OUTSIDE RECORDS SUMMARY | 2025-04-03 11:02 | XMS_ITS | Encounter Summary ---
Author Organization [facility] Address [address] [place] [address] Care Team Providers Care Vp Clinical Name Role Phone Unavailable Primary Care Provider Unavailabl e Encounter Details Date Type Department Care Team (Late Contact Info) Description 10/31/2023 Abstract [facility] [address] [place] [phone] Antoinette Patricio LPN [address] [facility] [place] [facility] Social History Tobacco Use Types Packs/Day Years [...] AM EDT Office Visit ARLENE PARKS [address] [place] [phone] Washington Malagon DO [address] [place] [phone] documented as of this encounter Visit Diagnoses Not on filedocumented in this encounter
--- OUTSIDE RECORDS SUMMARY | 2025-04-03 11:02 | XMS_ITS | Patient Health Record ---
Author Organization The [facility] [place] Address [address] [place] [address] Care Team Providers Care Installation Service Representative Name Role Phone Ovidio Brenner Primary Care Provider [phone] Allergies No Known Allergies Reason For Referral No Information Social History Tobacco Use: Social History Observation Description Date Details (start date - stop date) Former Smoker 03/21/2011 - 03/21/2017 Tobacco Control (Standard) Question Answer Notes Tobacco use: Former smoker When did you start smoking? 03/21/2011 When did you stop smoking? 03/21/2017 How long has it been since y ou last smoked? 5-10 years Additional Findings: Tobacco non-user Ex -moderate cigarette smoker (10-19/day) Problems Problem Type SNOMED Code ICD Code Onset Dates Problem Status W/U Status Risk Notes Problem Hypertension (I10) Active confirmed Problem Well adult (119962483) Well adult (Z00.00) Active confirmed Vital Signs Blood pressure diastolic 88 mm Hg 03/26/2025 Height 65.5 in 03/26/2025 Blood pressure systolic 132 mm Hg 03/26/2025 Weight 224.4 lbs 03/26/2025 BMI 36.77 kg/m2 03/26/2025 Encounters Encounter Location Date Provider Diagnosis [facility] [address] [place] [address] 03/26/2025 Ovidio Brenner Well adult Z00.0 0 Assessments Encounter Date Diagnosis (ICD Code) Assessment Notes Treatment Notes Treatment Clinical Notes Section Notes 03/26/2025 Well adult (ICD-10 - Z00.00) well adulte - borderline hypertesnions - watching eiet bettertl; Plan Of Treatment Pending Test Test Name Order Date HEMOGLOBIN A1C (GLYCO) 03/26/2025 LIPID PANEL (CHOL/TRIG/HDL/LDL) 03/26/20 25 Insulin Level 03/26/2025 THYROID PANEL (T4/TSH/FREE T3) 5 CMP (COMP MET ESPANA) w/eGFR CKD-EPI 2024 CBC WITH DIFF 03/26/2025 Insurance Providers Payer Name Payer Address Payer Phone Subscriber Number Group Number Insured Name Patient Relationship to Insured Coverage Start Date Coverage End Date [facility] [address] [place] [phone] [id number] Giselle Plasencia Self - patient is the insured Medical (General) History Medical History History ICD Code Hypertension I10 Surgical History Surgery Date(Month/Year) Tonsillectomy Maxillofacial surgery- multiple Hospitalization History Reason Date(Month/Year) Childbirth x4
--- OUTSIDE RECORDS SUMMARY | 2025-04-03 11:02 | XMS_ITS | Encounter Summary ---
Author Organization [facility] Address [address] [place] [address] Care Team Providers Care Auto Mechanic Apprentice Name Role Phone Unavailable Primary Care Provider Unavailabl e Encounter Details Date Type Department Care Team (Late Contact Info) Description 05/22/2024 Abstract ARLENE PARKS [address] [place] [phone] Washington Malagon DO [facility] [address] [place], [place] [address] Social History Tobacco Use Types Packs/Day Years [...] AM EDT Office Visit ARLENE PARKS [address] [place] [phone] Washington Malagon DO [address] [place] [address] documented as of this encounter Visit Diagnoses Not on filedocumented in this encounter
--- OUTSIDE RECORDS SUMMARY | 2025-04-03 11:02 | XMS_ITS | Clinical Summary ---
Author Organization [facility] Address [address] [place] [address] Care Team Providers Care Manager Of Health Name Role Phone Unavailable Primary Care Provider Unavailabl e Allergies Active Allergy Reactions Criticality Noted Date Comments Octacosanol Unknown 11/10/2023 Medications aspirin 81 MG EC tablet Take 81 mg by mouth Daily Active MV-Min-Fe Fum-FA-DHA ( 1 PO) Take 1 each by mouth Daily Active Vit-Fe Fumarate-FA (M- Plus) 27-1 MG tabletIndicatio ns:Missed menses TAKE 1 TABLET BY MOUTH EVERY DAY IN THE MORNING 90 tablet 3 08/30/2024 Active Family History Medical History Relation Name Comments Schizophrenia Father Rheum arthritis Maternal Grandmother Cristina Payne Thyroid disease Mother Tomeka Devlin Diabetes Other some on mother's side Hypertension Other some on mother's side Relation Name Status Comments Daughter 1 Alive Daughter 2 Alive Daughter 3 Alive Father Alive Maternal Grandmother Cristina Payne Mother Tomeka Devlin Alive Other some on mother's side Social History Tobacco Use Types Packs/Day Years Used Date Smoking Tobacco: Never Smokeless Tobacco: Never Tobacco Cessation:Counseling Given: Not Answered Alcohol Use Standard Drinks/Week Comments Never 0 (1 standard drink = 0.6 oz pur e alcohol) caffeine: none Comments No Sex and Gender Information Value Date Recorded Sex Assigned at Not on file Legal Sex Female 8:15 PM EDT Gender Identity Not on file Sexual Orientation Not on file Last Filed Vital Signs Vital Sign Reading Time Taken Comments Blood Pressure 130/80 12/16/2024 10:39 AM EDT Pulse - - Temperature - - Respiratory Rate - - Oxygen Saturation - - Inhaled Oxygen Concentration - - Weight 103 kg (227 lb 8 oz) 12/16/2024 10:39 AM EDT Height 166.4 cm (5' 5.5 ) 09/08/2022 12:00 PM ES T Body Mass Index 37.28 09/08/2022 12:00 PM EST Plan of Treatment Upcoming Encounters Date Type Department Care Team (Late st Contact Info) Description 12/18/2025 10:00 AM EDT Office Visit [facility] [address] [place] [phone] Washington Malagon, [address] [place] [address] Health Maintenance Due Date Last Done Comments Influenza Vaccine (#1) 2025 Pap Smear 12/17/2027 12/16/2024, 12/12/2023, 05/21 Cervical Cancer Screening 12/11/2028 HPV/Cotest 12/11/2028 Procedures Procedure Name Priority Date/Time Associated Diagnosis Comments PAP SMEAR Routine 12/16/2024 12:00 AM EDT from Last 3 Months or Most Recently Relevant to Health Maintenance Results * Pap Smear (12/16/2024 12:00 AM EDT) Swab Cervical swab / Unknown Manas Nurse [facility] Ob LAB CYTOLOGY ORDERABLES Final Result EXTERNAL LAB from Last 3 Months or Most Recently Relevant to Health Maintenance Insurance
--- OUTSIDE RECORDS SUMMARY | 2025-04-03 11:02 | XMS_ITS | Encounter Summary ---
Author Organization [facility] Address [address] [facility] [place] [address] Care Team Providers Care Paint Spray Inspector Name Role Phone Unavailable Primary Care Provider Unavailabl e Encounter Details Date Type Department Care Team (Late Contact Info) Description 04/25/2024 Abstract ARLENE PARKS [address] [place] [phone] Washington Malagon DO [facility] [address] [place], [place] [address] Social History Tobacco Use Types Packs/Day Years [...] Office Visit ARLENE PARKS [address] [place] [phone] Washington Malagon DO [address] [place] [address] documented as of this encounter Visit Diagnoses Not on filedocumented in this encounter
--- OUTSIDE RECORDS SUMMARY | 2025-04-03 11:02 | XMS_ITS | Encounter Summary ---
Author Organization [facility] Address [address] [place] [address] [place] [address] Care Team Providers Care Inspector Eyeglass Frames Name Role Phone Unavailable Primary Care Provider Unavailabl e Encounter Details Date Type Department Care Team (Late Contact Info) Description 07/07/2023 Clinisync Result Encounter [facility] External Department Unsolicited Lynnette Malagon, DO [address] [place], [place] [phone] Social History Tobacco Use Types Packs/Day Years [...] EDT Office Visit [facility] [address] [place] [phone] Lynnette Malagon, DO [address] [place] [address] documented as of this encounter Procedures Procedure Name Priority Date/Time Associated Diagnosis Comments US OB L= 14 WEEKS FETUS 07/07/2023 12:30 PM EST documented in this encounter Results * US OB L= 14 WEEKS FETUS (07/07/2023 12:30 PM EST) Anatomical Region Laterality Modality Other 07/07/2023 12:3 0 PM EST Narrative 07/07/2023 12:30 [place] [address] Ultrasound Report Signed Patient: RONY PLASENCIA MR#: [id number] : 1990 Acct:[id number] Age/Sex: 32 / F ADM Date: 07/07/23 Loc: SURGOUT Attending Dr: Lynnette Malagon D.O. Ordering Physician: Lynnette Malagon D.O. Date of Service: 07/07/23 Procedure(s): US OB <= 14 weeks fetus Accession Number(s): [id number] cc: Lynnette Malagon D.O.; Physician,Non-Staff [place]ron [place] [address] Patient Name: RONY PLASENCIA MRN: [id number] date: 1990 Sex: F Assigned Patient Location: [facility] Current Patient Location: [facility] Accession/Order Number: [id number] Exam Date: 07/07/2023 09:32 Report Date: 07/07/2023 12:30 At the request of: LYNNETTE MALAGON Procedure: US OB <= 14 weeks fetus PROCEDURE: US OB <= 14 weeks fetus, 07/07/2023 9:32 AM EST CLINICAL INDICATIONS: Encounter for first trimester , suspected miscarriage, vaginal bleeding 5 para 3 Expected gestational age: 12 weeks 2 days Expected HOOD 01/17/2024 COMPARISON: 07/03/2023 TECHNIQUE: Transabdominal, transvaginal first trimester obstetric sonogram, grayscale color and spectral evaluation. FINDINGS: A single intrauterine is identified. Intrauterine gestational sac is identified. There is irregular mild angular margination. crown-rump length: 3.15 cm Sonographic gestational age: 10 weeks 0 days +/- 6 days Sonographic HOOD 02/02/2024 Embryonic pole is identified. No cardiac activity could be documented with sonographic surveillance, M mode Doppler interrogation. Perigestational hemorrhage is not evident. Maternal ovaries are not demonstrated. US/US OB <= 14 weeks fetus IMPRESSION: 1. Single intrauterine nonviable failed first trimester with incomplete spontaneous . Intrauterine gestational sac, 3.15 cm pole identified without cardiac activity. This meets criteria for nonviable . 2. Mild irregular gestational sac, angular margins, No perigestational hemorrhage 3. Nonvisualization the maternal ovaries bilaterally Electronically authenticated by: DUYEN ALEXANDER Date: 07/07/2023 12:30 Dictated By: Duyen Alexander M.D. Signed By: 07/07/23 1233 DD/ 1230 TD/TT: Crm Coordinator: Procedure Note Radiology, Radiologist, MD - 07/07/2023 [place] [address] Ultrasound Report Signed Patient: RONY PLASENCIA AMR#: [id number] : 1990Acct:[id number] Age/Sex: 32 FADM Date: 07/07/23 Loc: SURGOUT Attending Dr: Lynnette Malagon D.O. Ordering Physician: Lynnette Malagon D.O. Date of Service: 07/07/23 Procedure(s): US OB <= 14 weeks fetus Accession Number(s): [id number] cc: Lynnette Malagon D.O.; Physician,Non-Staff [place] The [place] [address] Patient Name: RONY PLASENCIA MRN: [id number] date: 1990 Sex: F Assigned Patient Location: [facility] Current Patient Location: [facility] Accession/Order Number: [id number] Exam Date: 07/07/2023 09:32 Report Date: 07/07/2023 12:30 At the request of: LYNNETTE MALAGON Procedure: US OB <= 14 weeks fetus PROCEDURE: US OB <= 14 weeks fetus, 07/07/2023 9:32 AM EST CLINICAL INDICATIONS: Encounter for first trimester , suspected miscarriage, vaginal bleeding 5 para 3 Expected gestational age: 12 weeks 2 days Expected HOOD 01/17/2024 COMPARISON: 07/03/2023 TECHNIQUE: Transabdominal, transvaginal first trimester obstetricsonogram, grayscale color and spectral evaluation. FINDINGS: A single intrauterine is identified. Intrauterine gestationalsac is identified. There is irregular mild angular margination. crown-rump length: 3.15 cm Sonographic gestational age: 10 weeks 0 days +/- 6 days Sonographic HOOD 02/02/2024 Embryonic pole is identified. No cardiac activity could be documented with sonographic surveillance, M mode Doppler interrogation. Perigestational hemorrhage is not evident. Maternal ovaries are not demonstrated. US/US OB <= 14 weeks fetus IMPRESSION: 1. Single intrauterine nonviable failed first trimester with incomplete spontaneous . Intrauterine gestational sac, 3.15 cmfetal pole identified without cardiac activity. This meets criteria fornonviable . 2. Mild irregular gestational sac, angular margins, No perigestational hemorrhage 3. Nonvisualization the maternal ovaries bilaterally Electronically authenticated by: DUYEN ALEXANDER Date: 07/07/2023 12:30 Dictated By: Duyen Alexander M.D. Signed By:07/07/23 1233 DD/ 1230 TD/TT: Crm Coordinator: us Lynnette Manas DO [facility] Final Result documented in this encounter Visit Diagnoses Not on filedocumented in this encounter
--- OUTSIDE RECORDS SUMMARY | 2025-04-03 11:02 | XMS_ITS | Encounter Summary ---
Author Organization [facility] Address [address] [facility] [place] [address] Care Team Providers Care Electronics Technician Name Role Phone Unavailable Primary Care Provider Unavailabl e Encounter Details Date Type Department Care Team (Late Contact Info) Description 11/01/2023 Abstract N[facility]yl[facility] PARKS [address] [place] [phone] Antoinette Patricio LPN [address] [facility] Desiree CAMARENA [facility]11 Social History Tobacco Use Types Packs/Day Years [...] AM EDT Office Visit ARLENE PARKS [address] [place] [phone] [place] Malagon DO [address] [place] [phone] documented as of this encounter Visit Diagnoses Not on filedocumented in this encounter
--- OUTSIDE RECORDS SUMMARY | 2025-04-03 11:02 | XMS_ITS | Encounter Summary ---
Author Organization [facility] Address [address] [facility] [place] [address] Care Team Providers Care Footwear Sales Representative Name Role Phone Unavailable Primary Care Provider Unavailabl e Encounter Details Date Type Department Care Team (Late Contact Info) Description 04/28/2024 Abstract ARLENE PARKS [address] [place] [phone] [facility] [address] [place], [place] [address] Social History Tobacco Use Types Packs/Day Years [...] Office Visit ARLENE PARKS [address] [place] [phone] [place] Malagon DO [address] [place] [address] documented as of this encounter Visit Diagnoses Not on filedocumented in this encounter
--- OUTSIDE RECORDS SUMMARY | 2025-04-03 11:02 | XMS_ITS | Encounter Summary ---
Author Organization [facility] Address [address] [facility] [place] [address] Care Team Providers Care Syrup Maker Name Role Phone Unavailable Primary Care Provider Unavailabl e Encounter Details Date Type Department Care Team (Late Contact Info) Description 05/22/2024 Abstract ARLENE PARKS [address] [place] [phone] [place] Malagon DO [facility] [address], [place] [address] Social History Tobacco Use Types Packs/Day Years [...] Office Visit ARLENE PARKS [address] [place] [phone] Washington Malagon DO [address] [place] [address] documented as of this encounter Visit Diagnoses Not on filedocumented in this encounter
--- OUTSIDE RECORDS SUMMARY | 2025-04-03 11:02 | XMS_ITS | Encounter Summary ---
Author Organization [facility] Address [address] [place] [address] Care Team Providers Care Armature Varnisher Name Role Phone Unavailable Primary Care Provider Unavailabl e Encounter Details Date Type Department Care Team (Late st Contact Info) Description 06/09/2023 Clinisync Result Encounter [facility] External Department Unsolicited Lynnette Malagon, DO [address] [place] [address] Social History Tobacco Use Types Packs/Day Years Used Date Smoking Tobacco: Never Assessed Comments Yes Sex and Gender Information Value Date Recorded Sex Assigned at Not on file Legal Sex Female 8:15 PM EDT Gender Identity Not on file Sexual Orientation Not on file documented as of this encounter Plan of Treatment Upcoming Encounters Date Type Department Care Team (Late st Contact Info) Description 12/18/2025 10:00 AM EDT Office Visit [facility] [address] [facility] [place] [phone] Lynnette Malagon, DO [address] [place] [address] documented as of this encounter Procedures Procedure Name Priority Date/Time Associated Diagnosis Comments US OB TRANSVAGINAL 06/09/2023 9: 12 AM EDT documented in this encounter Results * US OB TRANSVAGINAL (06/09/2023 9:12 AM EDT) Anatomical Region Laterality Modality Other 06/09/2023 9:12 AM EDT Narrative 06/09/2023 9:12 AM EDT [address] [address] Ultrasound Report Signed Patient: Rony Nicole MR#: [id number] : 1990 Acct:[id number] Age/Sex: 32 / F ADM Date: 06/09/23 Loc: US Attending Dr: Lynnette Malagon D.O. Ordering Physician: Lynnette Malagon D.O. Date of Service: 06/09/23 Procedure(s): US OB transvaginal Accession Number(s): [id number] cc: Lynnette Malagon D.O.; Physician,Non-Staff [place] [address] [address] Patient Name: RONY NICOLE MRN: [id number] date: 1990 Sex: F Assigned Patient Location: US Current Patient Location: US Accession/Order Number: [id number] Exam Date: 06/09/2023 08:32 Report Date: 06/09/2023 09:12 At the request of: LYNNETTE MALAGON Procedure: US OB transvaginal EXAMINATION: US OB transvaginal HISTORY: MISSED MENSES COMPARISON: No relevant comparison available. FINDINGS: Garcia intrauterine gestation Gestational sac: 2.33 cm, 7 weeks 0 days CRL: 1.56 cm, 8 weeks 0 days Yolk sac: 4.4 mm Heart rate: 153 beats minute Cervix: Closed, 4.7 cm The uterus is normal, anteverted, anteflexed The right ovary was not visualized The left ovary is normal. Clinical age: 8 weeks 3 days Clinical HOOD: 01/16/2024 Ultrasound age: 8 weeks 0 days Ultrasound HOOD: 01/19/2024 US/US OB transvaginal IMPRESSION: Viable garcia intrauterine gestation measuring 8 weeks 0 days Electronically authenticated by: ELIZABETH LERMA Date: 06/09/2023 09:12 Dictated By: Elizabeth Lerma M.D. Signed By: 06/09/23913 DD/ 1 TD/TT: Children'S Book Author: Procedure Note Radiology, Radiologist, MD [place] 06/09/2023 [place] [address] Ultrasound Report Signed Patient: Rony Nicole AMR#: [id number] : 1990Acct:[id number] Age/Sex: 32 / FADM Date: 06/09/23 Loc: US Attending Dr: Lynnette Malagon D.O. Ordering Physician: Lynnette Malagon D.O. Date of Service: 06/09/23 Procedure(s): US OB transvaginal Accession Number(s): [id number] cc: Lynnette Malagon D.O.; Physician,Non-Staff [place] The [place] [id number] Patient Name: RONY NICOLE MRN: [id number] date: 1990 Sex: F Assigned Patient Location: US Current Patient Location: US Accession/Order Number: [id number] Exam Date: 06/09/2023 08:32 Report Date: 06/09/2023 09:12 At the request of: LYNNETTE MALAGON Procedure: US OB transvaginal EXAMINATION: US OB transvaginal HISTORY: MISSED MENSES COMPARISON: No relevant comparison available. FINDINGS: Garcia intrauterine gestation Gestational sac: 2.33 cm, 7 weeks 0 days CRL: 1.56 cm, 8 weeks 0 days Yolk sac: 4.4 mm Heart rate: 153 beats minute Cervix: Closed, 4.7 cm The uterus is normal, anteverted, anteflexed The right ovary was not visualized The left ovary is normal. Clinical age: 8 weeks 3 days Clinical HOOD: 01/16/2024 Ultrasound age: 8 weeks 0 days Ultrasound HOOD: 01/19/2024 US/US OB transvaginal IMPRESSION: Viable garcia intrauterine gestation measuring 8 weeks 0 days Electronically authenticated by: ELIZABETH LERMA Date: 06/09/2023 09:12 Dictated By: Elizabeth Lerma M.D. Signed By:06/09/23913 DD/ 1 TD/TT: Children'S Book Author: us Lynnette Westono DO [facility] Final Result documented in this encounter Visit Diagnoses Not on filedocumented in this encounter
--- OUTSIDE RECORDS SUMMARY | 2025-04-03 11:02 | XMS_ITS | Encounter Summary ---
Author Organization [facility] Address [address] [place] [address] Care Team Providers Care Form Coverer Name Role Phone Unavailable Primary Care Provider Unavailabl e Encounter Details Date Type Department Care Team (Late st Contact Info) Description 03/13/2024 Clinisync Result Encounter [facility] External Department Unsolicited Lynnette Malagon, DO [address] [place] [address] Social History Tobacco Use Types Packs/Day Years [...] on file documented as of this encounter Miscellaneous Notes * Result Encounter Note - Mara Gould LPN - 03/13/2024 1:36 PM EDT Detailed voicemail left for pt and order sent over to [facility] documented in this encounter Plan of Treatment Upcoming Encounters Date Type Department Care Team (Late st Contact Info) Description 12/18/2025 10:00 AM EDT Office Visit [facility] [address] [place] [phone] Lynnette Malagon, DO [address] [place] [address] documented as of this encounter Procedures Procedure Name Priority Date/Time Associated Diagnosis Comments US OB GROWTH 03/13/2024 1:31 PM EDT GLUCOSE 1 HOUR Routine 03/13/2024 12:35 PM EDT documented in this encounter Results * US OB GROWTH (03/13/2024 1:31 PM EDT) Anatomical Region Laterality Modality Other 03/13/2024 1:31 PM EDT Narrative 03/13/2024 1:34 [place] [address] Ultrasound Report Signed Patient: RONY PLASENCIA MR#: [id number] : 1990 Acct:[id number] Age/Sex: 33 / F ADM Date: 03/13/24 Loc: NOMS Attending Dr: Lynnette Malagon D.O. Ordering Physician: Lynnette Malagon D.O. Date of Service: 03/13/24 Procedure(s): US OB growth Accession Number(s): [id number] cc: Lynnette Malagon D.O.; Physician,Non-Staff M.Sherry The [address] [id number] Patient Name: RONY PLASENCIA MRN: [id number] date: 1990 Sex: F Assigned Patient Location: [facility] Current Patient Location: [facility] Accession/Order Number: [id number] Exam Date: 03/13/2024 12:59 Report Date: 03/13/2024 13:31 At the request of: LYNNETTE MALAGON Procedure: US OB growth EXAMINATION: US OB growth HISTORY: LARGE FOR GESTATIONAL AGE COMPARISON: No relevant comparison available. FINDINGS: Heart Rate: 144 bpm Amniotic Fluid Volume: 10.7 cm , largest pocket 4.3 cm Number: 1 Position: Cephalic presentation, longitudinal lie BIOMETRY: BPD: 7.12 cm; 28 weeks 4 days; 10.10 % HC: 27.50 cm; 30 weeks 0 days; 24.50 % AC: 25.64 cm; 29 weeks 6 days; 47.40 % FL: 5.92 cm; 30 weeks 6 days; 68.50 % EFW: 1346.22 g; 50.20 %, 3 lbs. 5 oz. FL/AC: 23.09 FL/BPD: 83.15 HC/AC: 1.07 GESTATIONAL AGE: Age by EDC: 29 weeks 5 days HOOD by EDC: 2024-05-24 Age by US: 29 weeks 6 days HOOD by US: 2024-05-23 US/US OB growth IMPRESSION: Normal interval growth Electronically authenticated by: ELIZABETH LERMA Date: 03/13/2024 13:31 Dictated By: Elizabeth Lerma M.D. Signed By: 03/13/244 DD/ 30 TD/TT: Process Safety Engineer: Procedure Note Radiology, Radiologist, MD - 03/13/2024 [place] [address] Ultrasound Report Signed Patient: RONY PLASENCIA AMR#: [id number] : 1990Acct:[id number] Age/Sex: Date: 03/13/24 Loc: NOMS Attending Dr: Lynnette [place]laagon D.O. Ordering Physician: Lynnette Malagon D.O. Date of Service: 03/13/24 Procedure(s): US OB growth Accession Number(s): [id number] cc: Lynnette Malagon D.O.; Physician,Non-Staff [place] The [place] [address] Patient Name: RONY PLASENCIA MRN: [id number] date: 1990 Sex: F Assigned Patient Location: [facility] Current Patient Location: [facility] Accession/Order Number: [id number] Exam Date: 03/13/2024 12:59 Report Date: 03/13/2024 13:31 At the request of: LYNNETTE MALAGON Procedure: US OB growth EXAMINATION: US OB growth HISTORY: LARGE FOR GESTATIONAL AGE COMPARISON: No relevant comparison available. FINDINGS: Heart Rate: 144 bpm Amniotic Fluid Volume: 10.7 cm , largest pocket 4.3 cm Number: 1 Position: Cephalic presentation, longitudinal lie BIOMETRY: BPD: 7.12 cm; 28 weeks 4 days; 10.10 % HC: 27.50 cm; 30 weeks 0 days; 24.50 % AC: 25.64 cm; 29 weeks 6 days; 47.40 % FL: 5.92 cm; 30 weeks 6 days; 68.50 % EFW: 1346.22 g; 50.20 %, 3 lbs. 5 oz. FL/AC: 23.09 FL/BPD: 83.15 HC/AC: 1.07 GESTATIONAL AGE: Age by EDC: 29 weeks 5 days HOOD by EDC: 2024-05-24 Age by US: 29 weeks 6 days HOOD by US: 2024-05-23 US/US OB growth IMPRESSION: Normal interval growth Electronically authenticated by: ELIZABETH LERMA Date: 03/13/2024 13:31 Dictated By: Elizabeth Lerma M.D. Signed By:03/13/241333 DD/ 30 TD/TT: Process Safety Engineer: us Lynnette Manas DO [facility] Final Result * (ABNORMAL) GLUCOSE 1 HOUR (03/13/2024 12:35 PM EDT) GLUCOSE 1 HOUR 135(H) <130 mg/dL TBH 03/13/2024 12:3 5 PM EDT 03/13/2024 12:37 PM EDT Narrative [facility] - 03/13/2024 1:49 PM EDT us Lynnette Manas DO LAB BLOOD ORDERABLES Final Resul t [facility] documented in this encounter Visit Diagnoses Not on filedocumented in this encounter
--- OUTSIDE RECORDS SUMMARY | 2025-04-03 11:02 | XMS_ITS | Encounter Summary ---
Author Organization [facility] Address [address] [place] [address] [place] [address] Care Team Providers Care Help Desk Rep Name Role Phone Unavailable Primary Care Provider Unavailabl e Encounter Details Date Type Department Care Team (Late st Contact Info) Description 10/13/2023 Clinisync Result Encounter [facility] External Department Unsolicited Lynnette Malagon, DO [address] [place] [address] Social History Tobacco Use Types Packs/Day Years [...] EDT Office Visit ARLENE [facility] OBGYN [address] [place] [phone] Lynnette Malagon DO [address] [place] [address] documented as of this encounter Procedures Procedure Name Priority Date/Time Associated Diagnosis Comments US OB TRANSVAGINAL 10/13/2023 10 :39 AM EST documented in this encounter Results * US OB TRANSVAGINAL (10/13/2023 10:39 AM EST) Anatomical Region Laterality Modality Other 10/13/2023 10:3 9 AM EST Narrative 10/13/2023 10:41 AM EST [address] [address] Ultrasound Report Signed Patient: RONY NICOLE MR#: [id number] : 1990 Acct:[id number] Age/Sex: 33 / F ADM Date: 10/13/23 Loc: NOMS Attending Dr: Lynnette Malagon D.O. Ordering Physician: Lynnette Malagon D.O. Date of Service: 10/13/23 Procedure(s): US OB transvaginal Accession Number(s): [id number] cc: Lynnette Malagon D.O.; Physician,Non-Staff [place] [address] [address] Patient Name: RONY NICOLE MRN: [id number] date: 1990 Sex: F Assigned Patient Location: [facility] Current Patient Location: [facility] Accession/Order Number: [id number] Exam Date: 10/13/2023 08:58 Report Date: 10/13/2023 10:39 At the request of: LYNNETTE MALAGON Procedure: US OB transvaginal EXAMINATION: US OB transvaginal HISTORY: MISSED MENSES COMPARISON: No relevant comparison available. FINDINGS: GESTATIONAL SAC: Present and normal appearing. YOLK SAC: Present and normal appearing. POLE: Present and normal appearing. CARDIAC: Present. UTERUS: Normal size and appearance. OVARIES: Right: Normal. Left: Corpus lutein cyst. CERVIX: 3.7 cm in length and closed. CUL-DE-SAC: Normal. OTHER: None. AGE BY LMP: 8 weeks 0 days HOOD BY LMP: 05/24/2024 AGE BY US CRL: 7 weeks 4 days HOOD BY US CRL: 05/27/2024 US/US OB transvaginal IMPRESSION: 1. Single live intrauterine . Electronically authenticated by: KISHOR ANTHONY Date: 10/13/2023 10:39 Dictated By: Kishor Anthony M.D. Signed By: 10/13/23 1041 DD/ 1039 TD/TT: Furnace Fitter: Procedure Note Radiology, Radiologist, MD - 10/25/2023 The [place] [id number] Ultrasound Report Signed Patient: RONY NICOLE AMR#: [id number] : 1990Acct:[id number] Age/Sex: 33 / FADM Date: 10/13/23 Loc: [facility]OMS Attending Dr: Lynnette Malagon D.O. Ordering Physician: Lynnette Malagon D.O. Date of Service: 10/13/23 Procedure(s): US OB transvaginal Accession Number(s): [id number] cc: Lynnette Malagon D.O.; Physician,Non-Staff [place] The [place] [id number] Patient Name: RONY NICOLE MRN: [id number] date: 1990 Sex: F Assigned Patient Location: [facility] Current Patient Location: [facility] Accession/Order Number: [id number] Exam Date: 10/13/2023 08:58 Report Date: 10/13/2023 10:39 At the request of: LYNNETTE MALAGON Procedure: US OB transvaginal EXAMINATION: US OB transvaginal HISTORY: MISSED MENSES COMPARISON: No relevant comparison available. FINDINGS: GESTATIONAL SAC: Present and normal appearing. YOLK SAC: Present and normal appearing. POLE: Present and normal appearing. CARDIAC: Present. UTERUS: Normal size and appearance. OVARIES: Right: Normal. Left: Corpus lutein cyst. CERVIX: 3.7 cm in length and closed. CUL-DE-SAC: Normal. OTHER: None. AGE BY LMP: 8 weeks 0 days HOOD BY LMP: 05/24/2024 AGE BY US CRL: 7 weeks 4 days HOOD BY US CRL: 05/27/2024 US/US OB transvaginal IMPRESSION: 1. Single live intrauterine . Electronically authenticated by: KISHOR ANTHONY Date: 10/13/2023 10:39 Dictated By: Kishor Anthony M.D. Signed By:10/13/23 1041 DD/ 1039 TD/TT: Furnace Fitter: us Lynnette Malagon DO [facility] Final Result documented in this encounter Visit Diagnoses Not on filedocumented in this encounter
--- OUTSIDE RECORDS SUMMARY | 2025-04-03 11:02 | XMS_ITS | Patient Health Record ---
Author Organization [facility] es Address [address] [facility] [place] [address] Care Team Providers Care Shuttle Route Vehicle Operator Name Role Phone Lalit Jarrell Primary Care Provider Reason For Referral No Information Plan Of Treatment No Information Insurance Providers Payer Name Payer Address Payer Phone Subscriber Number Group Number Insured Name Patient Relationship to Insured Coverage Start Date Coverage End Date Dental [employer] [facility] [address] [place] [address] [id number] RONY BOLAÑOS Self - patient is the insured 3 3 Dental [employer] [facility] Care[employer] [address] [place] [address] [id number] RONY BOLAÑOS Self - patient is the insured 3 3
--- OUTSIDE RECORDS SUMMARY | 2025-04-03 11:05 | XMS_ITS | CCD ---
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 Name Role Phone DR LYNNETTE MALAGON Admitting Unavailable MANAS, DR CHURCH Attending Unavailable REQUEST, DR NONE LISTED Primary Care Unavaila yessenia MALAGON, DR CHURCH Consulting Unavailable NONE, XXXX Primary Care Physician Unavailab Donovan Kemp Attending Unavailable Unavailable Primary Care Provider Unavailabl e MANAS, LYNNETTE Attending Unavailable KIMBERLEE RIDER Attending Unavailable MANAS, LYNNETTE Attending Unavailable MANAS, LYNNETTE Attending Unavailable ADRY, KIMBERLEE Attending Unavailable MANAS, LYNNETTE Attending Unavailable MANAS, LYNNETTE Attending Unavailable MANAS, LYNNETTE Attending Unavailable ADRY, KIMBERLEE Attending Unavailable MANAS, LYNNETTE Attending Unavailable MANAS, LYNNETTE Attending Unavailable MANAS, LYNNETTE Attending Unavailable MANAS, LYNNETTE Attending Unavailable ADRY, KIMBERLEE Attending Unavailable Allergies Allergy Classification Reported Allergen(s) Allergy Type Date of Onset Reaction(s) Facility (1 source) Cefaclor Drug Allergy 06-06-2013 [facility] Repository Medications Current Medications Medication Drug Class(es) Dates Sig (Normalized) Sig (Original) aspirin 81 mg delayed release oral tablet (20 sources) Platelet Aggregation Inhibitor, Nonsteroidal Anti-inflammatory Drug take 1 tablet by mouth once daily aspirin 81 MG EC tablet Take 81 mg by mouth Daily Active dextromethorphan hydrobromide 3 mg/ml / promethazine hydrochloride 1.25 mg/ml oral solution (1 source) Phenothiazine, Uncompetitive N-lizckw-Q-aspartate Receptor Antagonist, Sigma-1 Agonist Start: 9 take 5 mL by mouth every six hours for cough dextromethorphan-pr omethazine 15 mg-6.25 mg/5 mL Oral Syrup 5 mL 5 mL, Oral, q6hr for cough, 120 mL, Refill(s) 0 Start Date: 12/07/18 Status: Ordered etonogestrel 68 mg drug implant (1 source) Progestin Start: 8 Nexplanon 68 mg subcutaneous implant 68 mg = 1 EA, SubCutaneous, Once, Refills(s) 0 Start Date: 05/24/18 Status: Ordered fluticasone 0.05 mg/inh Nasal [place] (1 source) Start: 9 fluticasone 0.05 mg/inh Nasal [place] 1 spray(s), Nasal, BID, 16 gram, Refill(s) 0 Start Date: 12/07/18 Status: Ordered NIFEdipine 30 mg osmotic 24 hr extended release oral tablet (2 sources) Dihydropyridine Calcium Channel Navi Start: 4 End: 4 take 1 tablet by mouth once daily NIFEdipine XL (Procardia XL) 30 MG 24 hr tablet Indications: hypertension Take 1 tablet (30 mg) by mouth Daily Do not crush, chew, or split. 30 tablet 06/24/2024 06/27/2024 Discontinued (Therapy completed) pantoprazole 40 mg extended release oral tablet (1 source) Proton Pump Inhibitor Start: 1 take 1 tablet by mouth once daily pantoprazole 40 mg Oral EC Tab 40 mg = 1 tab(s), Oral, Daily, # 30 tab(s), Refills(s) 0, Pharmacy: [facility]/pharmacy #[id number], 165, cm, 05/21/21 11:57:00 EDT, Height/Length Dosing, 91, kg, 05/21/21 11:57:00 EDT, Weight Dosing Start Date: 05/21/21 Status: Ordered polysaccharide iron complex 391 mg oral capsule (20 sources) Start: 4 End: 5 take 1 capsule by mouth once daily iron polysaccharides (ProFe) 391.3 (180 Fe) MG capsule Indications: Low hemoglobin Take 1 capsule (391.3 mg) by mouth Daily 30 capsule 6 03/13/2024 06/27/2024 Discontinued MV-Min-Fe Fum-FA-DHA ( 1 PO) (8 sources) MV-Min- Fe Fum-FA-DHA ( 1 PO) Take 1 each by mouth Daily Active Vit-Fe Fumarate-FA (M-Geraldine Plus) 27-1 MG tablet (20 sources) Start: take 1 tablet by mouth once daily in the morning Vit-Fe Fumarate-FA (M- Plus) 27-1 MG tablet Indications: Missed menses TAKE 1 TABLET BY MOUTH EVERY DAY IN THE MORNING 90 tablet 3 08/30/2024 Active Start: 06-09-2023 End: 06-08-2024 take 1 tablet by mouth in the morning Vit-Fe Fumarate-FA (M- Plus) 27-1 MG tablet Indications: Missed menses Take 1 tablet by mouth in the morning. 90 tablet 3 06/09/2023 06/08/2024 Active Zofran ODT 4 mg Tab-Dis (2 sources) Start: 05-21-2021 take 1 tablet by mouth every six hours as needed for nausea Zofran ODT 4 mg Tab-Dis 4 mg = 1 tab(s), Oral, q6hr, PRN Nausea/Vomiting, # 12 tab(s), Refills(s) 0, Pharmacy: [facility]/pharmacy #[id number], 165, cm, 05/21/21 [...] other anemia (1 source) Anemia 12-03-2017 Episodic Hypertension complicating ; childbirth and the puerperium (2 sources) Hypertensive disorder; Translations: [Unspecified maternal hypertension, complicating the puerperium] 06-27-2024 Chronic Immunizations and screening for infectious disease (1 source) Encounter for screening for human papillomavirus (HPV); Translations: [ENC SCREENING HUMAN PAPILLOMAVIRUS] Onset: 06-02-2022 Episodic Inflammatory diseases of female pelvic organs (1 source) Cyst of Bartholin's gland duct 11-28-2017 Episodic Other complications of (1 source) Finding related to ; Translations: [Other specified related conditions, unspecified trimester] Onset: 05-21-2023 Episodic Other and delivery including normal (14 sources) Third trimester ; Translations: [Encounter for supervision of normal , unspecified, third trimester] 05-22-2024 Episodic Other screening for suspected conditions (not mental disorders or infectious disease) (4 sources) Encounter for screening for malignant neoplasm of cervix; Translations: [ENC SCREENING MALIG NEOPLASM CERV] Onset: 06-01-2022 Episodic Residual codes; unclassified (2 sources) Gestation period, 39 weeks; Translations: [39 weeks gestation of ] 05-22-2024 Episodic Substance-related disorders (1 source) Smoker 02-18-2018 Chronic Comment on above: Added secondary to d ocumentation in Social History. Past or Other Problems Problem Classification Problem Date Documented Da te Episodic/Chronic Unclassified (3 sources) Onset: 06-14-2011 Resolved: 06-21-2018 06-29-2018 Results Test Name Value Interpretation Reference Range Facility IGP,APTIMA HPV,AGE GDLNon AGE GDLN ACOG TESTING Note . [facility] Comment on above: TESTS RESULT FLAG UN ITS REF RANGE LAB Clinician Provided Cytology Information Source.............Cervix;Endocervix No. of containers..01 ThinPrep Vial Age Algo ACOG Emi... 30-65 01 FLAG LEGEND: L-Low Normal,H-High Normal,LL-Alert Low,HH-Alert High <-Panic Low,>-Panic High,A-Abnormal,AA-Critical Abnormal Performed at: 01 =[address] [place] [address] Amy Wong MD, HPV APTIMA Negative Negative [facility] Comment on above: This nucleic acid am plification test detects fourteen high- risk HPV types (16,18,31,33,35,39,45,51,52,56,58,59,66,68) without differentiation. Performed at: =[address] [id number] Administrative Job Titles: Amy Wong MD, Phone: [phone] Performed at: [address] [id number] Administrative Job Titles: Amy Wong MD, Phone: [phone] IGP, APTIMA HPV, RFX 16/18,45 Note . [facility] Comment on above: TESTS RESULT FLAG UN ITS REF RANGE LAB DIAGNOSIS: 02 NEGATIVE FOR INTRAEPITHELIAL LESION OR MALIGNANCY. Specimen adequacy: 02 Satisfactory for evaluation. Endocervical and/or squamous metaplastic cells (endocervical component) are present. Performed by: Melissa Valerio, [employer] ([employer]) . 02 Note: Note 02 The Pap smear is a screening test designed to aid in the detection of premalignant and malignant conditions of the uterine cervix. It is not a diagnostic procedure and should not be used as the sole means of detecting cervical cancer. Both false-positive and false-negative reports do occur. Test Methodology: Note 02 This liquid based ThinPrep(R) pap test was screened with the use of an image guided system. HPV Genotype Reflex Note 02 Criteria not met, HPV Genotype not performed. FLAG LEGEND: L-Low Normal,H-High Normal,LL-Alert Low,HH-Alert High <-Panic Low,>-Panic High,A-Abnormal,AA-Critical Abnormal Performed at: 02 [address] [facility] [address] [place] [address] Amy Wong MD, BRUSH-SPATULA CERVIX ENDOCERVIX [facility] ALL CBC WITH AUTO DIFFon BASOPHILS ABSOLUTE AUTO 0.0 [facility] Basophils/100 WBC (Bld) 0.2 % 0.2 - 2.0 % [facility] Eosinophils/100 WBC (Bld) 0.3 % Low 0.9 - 7.0 % [facility] Erythrocyte distribution width (RBC) [Ratio] 12.9 % 11.0 - 15.0 % [facility] Hematocrit (Bld) [Volume fraction] 33.2 % Low 36.0 - 48.0 % [facility] Hemoglobin (Bld) [Mass/Vol] 10.8 g/dL Low 12.0 - 16.0 g/dL [facility] IMMATURE GRANULOCYTES ABS AUTO 0.09 High [facility] Immature granulocytes/100 WBC (Bld) 0.6 % High 0.0 - 0.5 % [facility] Interpretation and review of laboratory results Abnormal [facility] LYMPHOCYTES ABSOLUTE AUTO 1.9 [facility] Lymphocytes/100 WBC (Bld) 12.6 % Low 20.5 - 60.0 % [facility] MCH (RBC) [Entitic mass] 28.9 pg 26.7 - 34.0 pg [facility] MCHC (RBC) [Mass/Vol] 32.5 g/dL 29.9 - 35.2 g/dL [facility] MCV (RBC) [Entitic vol] 88.8 fL 81.0 - 99.0 fL [facility] MONOCYTES ABSOLUTE AUTO 1.1 High [facility] Monocytes/100 WBC (Bld) 6.8 % 1.7 - 12.0 % [facility] NEUTROPHILS ABSOLUTE AUTO 12.3 High [facility] Neutrophils/100 WBC (Bld) 79.5 % High 43.0 - 75.0 % [facility] Platelet mean volume (Bld) [Entitic vol] 11.2 fL 9.5 - 13.5 fL [facility] TB EO # 0.0 [facility] TB PLT [address] [facility] RBC 3.[address] [facility] WBC 15.4 High [facility] WITH PLATELET NO DI FFERENTIALon 05-22-2024 Erythrocyte distribution width (RBC) [Ratio] 12.9 % 11.0 - 15.0 % [facility] Hematocrit (Bld) [Volume fraction] 31.0 % Low 36.0 - 48.0 % [facility] Hemoglobin (Bld) [Mass/Vol] 10.1 g/dL Low 12.0 - 16.0 g/dL [facility] Interpretation and review of laboratory results Abnormal [facility] MCH (RBC) [Entitic mass] 29.2 pg 26.7 - 34.0 pg [facility] MCHC (RBC) [Mass/Vol] 32.6 g/dL 29.9 - 35.2 g/dL [facility] MCV (RBC) [Entitic vol] 89.6 fL 81.0 - 99.0 fL [facility] Platelet mean volume (Bld) [Entitic vol] 11.6 fL 9.5 - 13.5 fL [facility] TB PLT [address] [facility] RBC 3.[address] [facility] WBC 10.5 [facility] Urinalysis macro (dipstick) panel (U)on 05-22-2024 Bilirubin, UA Negative Negative - 4(70) +++ mg/dL [facility] Blood, UA Negative Negative - 50 Shailesh/mcL [facility] Clarity, UA Clear [facility] Color, UA Yellow [facility] Glucose, UA Negative Negative - 2000(110) ++++ mg/dL [facility] Interpretation and review of laboratory results Normal [facility] Ketones, UA Negative Negative - 160(16) ++++ mg/dL [facility] Leukocytes, UA Negative Negative - 500+++ Rod/mcL [facility] Nitrite, UA Negative Negative - Positive [facility] pH, UA 6.5 5 - 9 [facility] Protein, UA Negative Negative - 1999(20) ++++ mg/dL [facility] Spec Grav, UA 1.020 1 - 1.03 [facility] Urobilinogen, UA 0.2 0.2 - 12 mg/dL [facility] Urinalysis macro (dipstick) panel (U)on 05-15-2024 Bilirubin, UA Negative Negative - 4(70) +++ mg/dL [facility] Blood, UA Negative Negative - 50 Shailesh/mcL [facility] Clarity, UA Clear [facility] Color, UA Light Yellow [facility] Glucose, UA Negative Negative - 1999(110) ++++ mg/dL [facility] Interpretation and review of laboratory results Normal [facility] Ketones, UA Negative Negative - 160(16) ++++ mg/dL [facility] Leukocytes, UA Negative Negative - 500+++ Rod/mcL [facility] Nitrite, UA Negative Negative - Positive [facility] pH, UA 6.0 5 - 9 [facility] Protein, UA Negative Negative - 1999(20) ++++ mg/dL [facility] Healthcare Spec Grav, UA 1.010 1 - 1.03 [facility] Urobilinogen, UA 0.2 0.2 - 12 mg/dL [facility] Urinalysis macro (dipstick) panel (U)on 05-09-2024 Bilirubin, UA Negative Negative - 4(70) +++ mg/dL [facility] Blood, UA Negative Negative - 50 Shailesh/mcL [facility] Healthcare Clarity, UA Clear [facility] Color, UA Yellow [facility] Glucose, UA Negative Negative - 1999(110) ++++ mg/dL [facility] Interpretation and review of laboratory results Normal [facility] Ketones, UA Negative Negative - 160(16) ++++ mg/dL [facility] Leukocytes, UA Negative Negative - 500+++ Rod/mcL [facility] Nitrite, UA Negative Negative - Positive [facility] pH, UA 6.0 5 - 9 [facility] Protein, UA Negative Negative - 1999(20) ++++ mg/dL [facility] Spec Grav, UA 1.015 1 - 1.03 [facility] Urobilinogen, UA 1.0 0.2 - 12 mg/dL [facility] Urinalysis macro (dipstick) panel (U)on 05-02-2024 Bilirubin, UA Negative Negative - 4(70) +++ mg/dL [facility] Blood, UA Negative Negative - 50 Shailesh/mcL [facility] Clarity, UA Clear [facility] Color, UA Yellow [facility] Glucose, UA Negative Negative - 1999(110) ++++ mg/dL [facility] Interpretation and review of laboratory results Normal [facility] Ketones, UA Negative Negative - 160(16) ++++ mg/dL [facility] Leukocytes, UA Negative Negative - 500+++ Rod/mcL [facility] Nitrite, UA Negative Negative - Positive [facility] pH, UA 7.0 5 - 9 [facility] Protein, UA Negative Negative - 1999(20) ++++ mg/dL [facility] Spec Grav, UA 1.025 1 - 1.03 [facility] Urobilinogen, UA 0.2 0.2 - 12 mg/dL [facility] Urinalysis macro (dipstick) panel (U)on 04-25-2024 Bilirubin, UA Negative Negative - 4(70) +++ mg/dL [facility] Blood, UA Negative Negative - 50 Shailesh/mcL [facility] Clarity, UA Clear [facility] Color, UA Yellow [facility] Glucose, UA Negative Negative - 1999(110) ++++ mg/dL [facility] Interpretation and review of laboratory results Normal [facility] Ketones, UA Negative Negative - 160(16) ++++ mg/dL [facility] Leukocytes, UA Negative Negative - 500+++ Rod/mcL [facility] Nitrite, UA Negative Negative - Positive [facility] pH, UA 5.5 5 - 9 [facility] Protein, UA Negative Negative - 1999(20) ++++ mg/dL [facility] Spec Grav, UA 1.020 1 - 1.03 [facility] Urobilinogen, UA 1.0 0.2 - 12 mg/dL [facility] Urinalysis macro (dipstick) panel (U)on 04-11-2024 Bilirubin, UA Negative Negative - 4(70) +++ mg/dL [facility] Blood, UA Negative Negative - 50 Shailesh/mcL [facility] Clarity, UA Clear [facility] Color, UA Yellow [facility] Glucose, UA Negative Negative - 1999(110) ++++ mg/dL [facility] Interpretation and review of laboratory results Normal [facility] Ketones, UA Negative Negative - 160(16) ++++ mg/dL [facility] Leukocytes, UA Negative Negative - 500+++ Rod/mcL [facility] Nitrite, UA Negative Negative - Positive [facility] pH, UA 6.5 5 - 9 [facility] Protein, UA Negative Negative - 1999(20) ++++ mg/dL [facility] Spec Grav, UA 1.030 1 - 1.03 [facility] Urobilinogen, UA 0.2 0.2 - 12 mg/dL [facility] Cytology Cervical or vaginal smear or scraping studyon 12-12-2023 [facility] Auto Diffon 05-21-2023 Basophils/100 WBC (Bld) 0.4 % Normal 0.0-2.0 [facility] Comment on above: Order Comment: Order Added by Discern Expert. Performed By: #### 1 [id number], 5091307, 9339726, 6831557, 6040876, 3208306, 95273509, 0431864 #### [facility] [address] [place] [address] Basophils/Leukocytes Auto (Bld) [Pure # fraction] 0.0 E9/L Normal 0.0-0.2 [facility] Comment on above: Order Comment: Order Added by Discern Expert. Performed By: #### 1 [id number], 5218904, 5764744, 9321187, 0420006, 3266205, 60609967, 7878396 #### [facility] [address] [place] [address] Eosinophils/100 WBC (Bld) 1.5 % Normal 0.0-8.0 [facility] Comment on above: Order Comment: Order Added by Discern Expert. Performed By: #### 1 9539491, 7420884, 0423438, 9518731, 1028534, 5536548, 72271834, 3600209 #### [facility] [address] [place] [address] Eosinophils/Leukocyte s Auto (Bld) [Pure # fraction] 0.1 E9/L Normal 0.0-0.5 [facility] Comment on above: Order Comment: Order Added by Discern Expert. Performed By: #### 1 [id number], 2001081, 0708701, 6165385, 3724147, 7683367, 77350217, 9869579 #### [facility] [address] [place] [address] Lymphocytes/100 WBC (Bld) 33.2 % Normal 14.0-50.0 [facility] Comment on above: Order Comment: Order Added by Discern Expert. Performed By: #### 1 1921630, 2154518, 6863716, 7360839, 9093409, 0186277, 17854176, 4468652 #### [facility] [address] [place] [address] Lymphocytes/Leukocyte s Auto (Bld) [Pure # fraction] 2.0 E9/L Normal 1.0-4.0 [facility] Comment on above: Order Comment: Order Added by Discern Expert. Performed By: #### 1 5839561, 6523916, 3521730, 2873786, 1637860, 1059944, 24894423, 7072883 #### [facility] [address] [place] [address] Monocytes/100 WBC (Bld) 7.8 % Normal 4.0-14.0 [facility] Comment on above: Order Comment: Order Added by Discern Expert. Performed By: #### 1 8661672, 6982481, 6926084, 3316910, 3608324, 2477471, 93701535, 7784263 #### [facility] [address] [place] [address] Monocytes/Leukocytes Auto (Bld) [Pure # fraction] 0.5 E9/L Normal 0.2-1.0 [facility] Comment on above: Order Comment: Order Added by Discern Expert. Performed By: #### 1 7684793, 8712603, 0144795, 2279066, 4523139, 2043051, 76705174, 9705671 #### [facility] [address] [place] [address] Neutrophils/100 WBC (Bld) 57.1 % Normal 36.0-75.0 [facility] Comment on above: Order Comment: Order Added by Discern Expert. Performed By: #### 1 0590071, 2303270, 7128338, 2661885, 1519529, 8154904, 58359849, 4687802 #### [facility] [address] [place] [address] Neutrophils/Leukocyte s Auto (Bld) [Pure # fraction] 3.4 E9/L Normal 2.0-7.5 [facility] Comment on above: Order Comment: Order Added by Discern Expert. Performed By: #### 1 4006920, 0582643, 7345808, 5688841, 5661443, 2935595, 71767217, 9683821 #### [facility] [address] [place] [address] B hCG Qualon 05-21-2023 Beta hCG Ql Positive Normal [facility] Comment on above: Performed By: #### 1 6299039, 3055563, 6221965, 8538078, 2188865, 6315987, 28454045, 1135218 #### [facility] [address] [place] [address] BMPon 05-21-2023 Creatinine [Mass/Vol] 0.5 mg/dL Normal 0.5-1.3 [facility] Comment on above: Performed By: #### 1 3497903, 1551249, 6924085, 3364327, 8911542, 8176587, 46861872, 6448627 #### [facility] [address] [place] [address] Urea nitrogen [Mass/Vol] 13 mg/dL Normal 5-21 [facility] Comment on above: Performed By: #### 1 9840302, 2997581, 6181103, 3899181, 4094666, 1577578, 02830438, 5972587 #### [facility] [address] [place] [address] Urea nitrogen/Creatinine [Mass ratio] 26 No Units High 10-20 [facility] Comment on above: Performed By: #### 1 8976199, 9483793, 9714437, 7619591, 4555920, 2700015, 64495092, 1710078 #### [facility] [address] [place] [address] Anion gap [Moles/Vol] 8 mmol/L Normal 6-16 [facility] Comment on above: Performed By: #### 1 7632608, 5521801, 0087575, 4221006, 2163806, 9947095, 85980867, 3630467 #### [facility] [address] [place] [address] Calcium [Mass/Vol] 9.2 mg/dL Normal 8.9-11.1 [facility] Comment on above: Performed By: #### 1 6166803, 7901818, 7671673, 5102838, 8682990, 1009640, 94283638, 8386310 #### [facility] [address] [place] [address] Chloride [Moles/Vol] 111 mmol/L Normal 101-111 [facility] Comment on above: Performed By: #### 1 5665668, 4435549, 4294502, 7173436, 1900484, 8845380, 89165798, 9213427 #### [facility] [address] [place] [address] CO2 [Moles/Vol] 23 mmol/L Normal 21-31 [facility] Comment on above: Performed By: #### 1 8754412, 4681695, 5738822, 5122284, 7198065, 7012609, 53797199, 5465188 #### [facility] [address] [place] [address] Glucose [Mass/Vol] 101 mg/dL Normal 55-199 [facility] Comment on above: Result Comment: If t his glucose result represents a fasting glucose, interpretation should refer to the following reference range: 55-99 mg/dL Performed By: #### 1 1729763, 6224575, 3900579, 2757557, 9825605, 2982316, 45270046, 5787364 #### [facility] [address] [place] [address] Potassium [Moles/Vol] 3.6 mmol/L Normal 3.5-5.3 [facility] Comment on above: Performed By: #### 1 0432816, 6562791, 2853765, 5060793, 2993001, 5205397, 65480022, 5716601 #### [facility] [address] [place] [address] Sodium [Moles/Vol] 138 mmol/L Normal 135-145 [facility] Comment on above: Performed By: #### 1 2418056, 9682670, 1105888, 1698627, 8523443, 2268917, 18525543, 9576665 #### [facility] [address] [place] [address] BhCG Quanton 05-21-2023 HCG.beta subunit Qn 9779 m[IU]/mL High 1-3 [facility] Comment on above: Result Comment: GEST ATIONAL AGE HCG RANGE (mIU/mL) NON- <1-3 0.2-1 WEEKS 5-50 1-2 WEEKS 50-500 2-3 WEEKS 100-5,000 3-4 WEEKS 500-10,000 4-5 WEEKS 1,000-50,000 5-6 WEEKS 10,000-100,000 6-8 WEEKS 15,000-200,000 8-12 WEEKS 10,000-100,000 Performed By: #### 1 0528790, 8866112, 5015629, 9221854, 7582834, 6686779, 04840446, 5616232 #### [facility] [address] [place] [address] CBC w/ Auto Diffon Erythrocyte distribution width (RBC) [Ratio] 12.9 % Normal 10.9-14.2 [facility] Comment on above: Performed By: #### 1 9011527, 9126003, 1848820, 2614064, 7582534, 8829682, 87081962, 1443802 #### [facility] [address] [place] [address] Hematocrit (Bld) [Volume fraction] 36.4 % Normal 34.0-46.0 [facility] Comment on above: Performed By: #### 1 3279754, 4550962, 5473961, 1899538, 5673363, 8119944, 06917652, 8135470 #### [facility] [address] [place] [address] Hemoglobin (Bld) [Mass/Vol] 12.5 g/dL Normal 12.0-16.0 [facility] Comment on above: Performed By: #### 1 4236627, 7950864, 0672537, 5968043, 0981801, 0265238, 76599115, 1312247 #### [facility] [address] [place] [address] MCH (RBC) [Entitic mass] 30.4 pg Normal 27.0-34.0 [facility] Comment on above: Performed By: #### 1 7598659, 0550231, 6365189, 0880654, 4570535, 7375962, 67519123, 6600495 #### [facility] [address] [place] [address] MCHC (RBC) [Mass/Vol] 34.3 g/dL Normal 31.4-36.0 [facility] Comment on above: Performed By: #### 1 1412958, 8006004, 4250303, 2068359, 2861305, 1367692, 18600414, 9123616 #### [facility] [address] [place] [address] MCV (RBC) [Entitic vol] 88.4 fL Normal 80.0-100.0 [facility] Comment on above: Performed By: #### 1 6779057, 7434050, 7229799, 5539963, 9388104, 5726302, 43421990, 9838435 #### [facility] [address] [place] [address] Platelet mean volume (Bld) [Entitic vol] 9.0 fL Normal 6.4-10.8 [facility] Comment on above: Performed By: #### 1 3079097, 8574815, 2069013, 1220552, 1375032, 9254441, 56578915, 0445411 #### [facility] [address] [place] [address] Platelets (Bld) [#/Vol] 273.0 E9/L Normal 150.0-500.0 [facility] Comment on above: Performed By: #### 1 9523314, 6419999, 6274913, 1789223, 3283497, 9536627, 50535076, 7159891 #### [facility] [address] [place] [address] RBC (Bld) [#/Vol] 4.1 E12/L Low 4.3-5.9 [facility] Comment on above: Performed By: #### 1 9238147, 4295602, 1296139, 1559157, 7708426, 0793614, 38647504, [id number] #### [facility] [address] [place] [address] WBC corrected for nucl RBC Auto (Bld) [#/Vol] 5.9 E9/L Normal 4.0-11.0 [facility] Comment on above: Performed By: #### 1 [id number], [id number], 6760289, 6732477, 0075178, 3974715, 86882993, 4339894 #### [facility] [address] [place] [address] CHEMISTRYOrdered By: SYSTEM SYSTEM on 05-21-2023 Albumin [...] 129 mL/min/1.73 m2 Normal >=59mL/min/1. 73 m2 [facility] Chem S Comment on above: Interpretive Data: [...] for Treatmenton Consent for Treatment [id number] #[id number]:127 Normal [facility] Discharge Instructionson Discharge Instructions [id number] #[id number]:127 Normal [facility] ED Clinical Summaryon 2022 ED Clinical Summary [place] [id number] ED Clinical Summary Person Information Name: RONY PLASENCIA ARIK [facility] Age: 32 Years : 1990 Sex: Female Language: Panamanian PCP: NONE, XXXX Marital Status: Single Visit [...] 05/21/2023 15:09:51 05/21/2023 15:09:51 05/21/2023 15:09:51 ADDRESS: [address] [place], [place] [id number] DOC NOTES: MEDICAL INFORMATION: Prescriptions Given: Medications to Continue with No Changes Other Medications dextromethorphan-pro methazine (dextromethorphan-pr omethazine 15 mg-6.25 mg/5 mL Oral Syrup 5 mL) 5 Milliliter By Mouth every 6 hours as needed for cough. Refills: 0. etonogestrel (Nexplanon 68 mg subcutaneous implant) 1 Each Subcutaneous Once. fluticasone nasal (fluticasone 0.05 mg/inh Nasal [place]) 1 Sprays Nasal Inhalation 2 times a [...] EDUCATION INFORMATION: Instructions: Abdominal Pain During , Uaqx-nt-Hvle Follow up: With: Address: When: Jason Raines [address] [place] [address], [place] [address], [place] [address] [facility] (3) In 3 days 05/24/2023 Comments: Follow-up with your [employer]CH[employer]IC. If not have any may follow-up with Dr. Raines. With: Address: When: XXXX NONE , [place] In 3 days DIAGNOSIS: Abdominal pain in ; Unspecified abdominal pain Normal [facility] ED Note-Physicianon 05-21-20 ED Note-Physician Basic Information Time Seen: Osman Ge PA-C 05/21/2023 11:06 Chief Complaint Patient presents with [...] and Complexity of Problems Differential Diagnosis: [] [facility] Data External documents reviewed: [] My [...] your pee (urine) pale yellow. ? Take vwxm-lpa-hvulovd and prescription medicines only as told by [...] Reviewed: 04/20/2021 Elsevier Patient Education ? 2022 [employer] Normal [facility] ED Patient Summaryon 023 ED Patient Summary [address] [address] Patient Discharge Instructions Person Information Name: RONY PLASENCIA Age: 32 Years Arrival Date: 05/21/2023 10:49:01 Discharge Diagnosis: Abdominal pain in ; Unspecified abdominal pain Primary Care Physician: NONE, XXXX Provider Information Primary Provider: Donovan Keller DO Advanced Aed Trainer:Marlo The exam and treatment you received in the Emergency Department were for an urgent problem and are not intended as complete care. It is important that you follow up with a doctor, nurse practitioner, or physician?s drafter assistant for ongoing care. If your symptoms become worse or you do not improve as expected and you are unable to reach your usual health care provider, you should return to the Emergency Department. We are available 24 hours a day. RONY PLASENCIA has been given the following list of patient education materials, prescriptions and follow-up instructions: Follow-up Instructions: With: Address: When: Jason Raines [address] [place] [id number] Business (1) In 3 days 05/24/2023 Comments: Follow-up with your [employer] MECHANIC. If not have any may follow-up with Dr. Raines. With: Address: When: XXARUN MARTINES In 3 days In the event that this physician does not participate in your insurance network, please consult with your insurance company to find a nearby participating provider. Patient Education Materials: Abdominal Pain During , Adrj-co-Iynr A MESSAGE TO ALL PATIENTS REGARDING OPIOIDS PRESCRIPTION OPIOIDS: WHAT YOU NEED TO KNOW Prescription opioids can be used to help relieve ytbamjkm-fh-rczawg pain and are often prescribed following a [...] and overdose (more content not included)... Normal [facility] HEMATOLOGYOrdered By: SYSTEM SYSTEM on 05-21-2023 [...] 5.9 E9/L Normal 4.0 - 11.0 E9/L [facility] HemeAutoSS Hep Func Panelon 05-21-2023 Albumin [Mass/Vol] 4.0 g/dL Normal 3.3-5.0 [facility] Comment on above: Performed By: #### 1 [id number], 4604108, 8613172, 2985696, 4025920, 0880954, 30398459, 3322684 #### [facility] [address] [place] [address] Albumin/Globulin (S) [Mass conc ratio] 1.3 Normal 1.1-2.2 [facility] Comment on above: Performed By: #### 1 5030392, 5902637, 1973338, 1193713, 3627113, 1751748, 20690590, 8091132 #### [facility] [address] [place] [address] ALP [Catalytic activity/Vol] 50 Int._Unit/L Normal 21-98 [facility] Comment on above: Performed By: #### 1 5493235, 9103516, 8413982, 1663730, 5145203, 1380067, 39256695, 1986855 #### [facility] [address] [place] [address] ALT No additional P-5'-P [Catalytic activity/Vol] 19 Int._Unit/L Normal 6-46 [facility] Comment on above: Performed By: #### 1 1590796, 8952904, 7243726, 6226593, 7874395, 1859928, 19383425, 4218839 #### [facility] [address] [place] [address] AST [Catalytic activity/Vol] 17 Int._Unit/L Normal 5-43 [facility] Comment on above: Performed By: #### 1 0620617, 3381563, 6407577, 5986802, 9181927, 0023030, 29133261, 1568801 #### [facility] [address] [place] [address] Bilirubin [Mass/Vol] 0.5 mg/dL Normal 0.0-1.1 [facility] Comment on above: Performed By: #### 1 1612918, 6883201, 8181578, 2940099, 0454941, 2661737, 42608104, 2107468 #### [facility] [address] [place], [place] [address] Bilirubin.direct [Mass/Vol] 0.1 mg/dL Normal 0.1-0.4 [facility] Comment on above: Performed By: #### 1 3878785, 5186035, 3995940, 5311240, 9462962, 2555891, 36332718, 6092576 #### [facility] [address] [place] [address] Bilirubin.indirect [Mass or moles/Vol] 0.4 mg/dL Normal 0.1-0.9 [facility] Comment on above: Performed By: #### 1 2736716, 7987594, 9062288, 4546367, 3876853, 5552167, 31910306, 2145098 #### [facility] [address] [place] [address] Globulin (S) [Mass/Vol] 3.0 g/dL Normal 1.4-4.0 [facility] Comment on above: Performed By: #### 1 1645642, 9871334, 2465121, 4894170, 6206474, 2480125, 08378160, 8123837 #### [facility] [address] [place] [address] Protein [Mass/Vol] 7.0 g/dL Normal 6.0-7.8 [facility] Comment on above: Performed By: #### 1 0302373, 9741092, 8966957, 3526421, 1354171, 6857650, 81663390, 3855703 #### [facility] [address] [place] [address] Influenza A&B Agon Influenzae A Ag Negative Normal Negative [facility] Comment on above: Performed By: #### 1 1491848, [id number] #### [facility] [address] [place] [address] Influenzae B Ag Negative Normal Negative [facility] Comment on above: Result Comment: Test sensitivity and specificity vary for age group, specimen type, antigen types, and prevalence of disease. Test results must be evaluated in conjunction with other clinical data available to the physician. Individuals who received nasally administered Influenza A vaccine may have positive test results up to 3 days after vaccination. Performed By: #### 1 4938572, [id number] #### [facility] [address] [place] [address] Lipase Levelon 05-21-2023 Lipase [Catalytic activity/Vol] 32 U/L Normal 13-58 [facility] Comment on above: Performed By: #### 1 5139510, 6097563, 7757695, 8658880, 2292281, 2992214, 41579385, 9310616 #### [facility] [address] [place] [address] MICRO OTHER TESTSOrdered By: Michelle Can on 05-21-2023 Influenzae A Ag Negative (05/21/23 11:51 AM) Normal Negative [facility] Man Sero Influenzae B Ag Negative 1 (05/21/23 11:51 AM) Normal Negative [facility] Man Sero Comment on above: Interpretive Data: [...] NEG Ctl Pass (05/21/23 11:51 AM) Normal [facility] Man Sero Rapid COV Int POS Ctl Pass (05/21/23 11:51 AM) Normal [facility] Sero SARS-CoV+SARS-CoV-2 (COVID-19) Ag IA.rapid Ql (Resp) Not Detected 5 (05/21/23 11:51 AM) Normal Not Detected [facility] Sero Comment on above: Interpretive Data: [place] [employer]ix Veritor System for Rapid Detection of SARS-CoV-2 [...] COV Int NEG Ctl Pass Normal Fis [facility] Comment on above: Performed By: #### 1 2212749, 1162936, 5327541, 2126977, 5441574, 6176398, 94354199, 7528196 #### [facility] [address] [place] [address] Rapid COV Int POS Ctl Pass Normal [facility] Comment on above: Performed By: #### 1 5138251, 9732438, 4196253, 6759156, 3061928, 8803082, 99228438, 7705767 #### [facility] [address] [place] [address] SARS-CoV+SARS-CoV-2 (COVID-19) Ag IA.rapid Ql (Resp) Not detected Normal Not Detected [facility] Comment on above: Result Comment: The Accu[employer]in? System for Rapid Detection of SARS-CoV-2 is [...] other viruses or pathogens; and, in the [facility], this test is only authorized for the duration of the declaration that circumstances exist justifying the authorization of emergency use of in vitro diagnostics for detection and/or diagnosis of the virus that causes COVID-19 under Section 564(b)(1) of the Act, 21 U.S.C. ? 360bbb-3(b)(1), unless the authorization is terminated or revoked sooner. Performed By: #### 1 6893185, 7348353, 6299880, 0893425, 5327289, 7752809, 59950238, 7219457 #### [facility] [address] [place] [address] SEROLOGYOrdered By: Amairani Louise on 05-21-2023 Beta hCG Ql Positive (05/21/23 11:39 AM) Normal [facility] Man Sero UA With Cult Reflexon 2022 Bilirubin Ql (U) Negative Normal Negative [facility] Comment on above: Performed By: #### 1 6723373 #### [facility] [address] [place] [address] Clarity (U) CLEAR Normal Clear [facility] Comment on above: Performed By: #### 1 6368827 #### [facility] [address] [place] [address] Color (U) YELLOW Normal Yellow [facility] Comment on above: Performed By: #### 1 5991397 #### [facility] [address] [place] [address] Epithelial cells.squamous LM.HPF (Urine sed) [#/Area] 5-8 Normal 0-2 [facility] Comment on above: Performed By: #### 1 4550820 #### [facility] [address] [place] [address] Glucose Test strip (U) [Mass/Vol] Negative Normal Negative [facility] Comment on above: Performed By: #### 1 2350373 #### [facility] [address] [place] [address] Hemoglobin Ql (U) Negative Normal Negative [facility] Comment on above: Performed By: #### 1 7730569 #### [facility] [address] [place] [address] Ketones (U) [Mass/Vol] Negative Normal Negative [facility] Comment on above: Performed By: #### 1 6109536 #### [facility] [address] [place] [address] Durant.plasma/Lithiu m.RBC (Bld) [Mass ratio] 0-3 Normal 0-3 [facility] Comment on above: Performed By: #### 1 5207272 #### [facility] [address] [place] [address] Nitrite Ql (U) Negative Normal Negative [facility] Comment on above: Performed By: #### 1 7843236 #### [facility] [address] [place] [address] pH (U) 5.5 [pH] Invalid Interpretation Code 5.0-9.0 [facility] Comment on above: Performed By: #### 1 6187604 #### [facility] [address] [place] [address] Protein (U) [Mass/Vol] Negative Normal Negative [facility] Comment on above: Performed By: #### 1 9155909 #### [facility] [address] [place] [address] Specific gravity (U) [Rel density] 1.020 Invalid Interpretation Code 1.005-1.030 [facility] Comment on above: Performed By: #### 1 6295914 #### [facility] [address] [place] [address] Type of Urine collection method Clean Catch Normal [facility] Comment on above: Performed By: #### 1 7447164 #### [facility] [address] [place] [address] Urobilinogen Qn (U) 0.2 {Clara'U}/dL Normal 0.0-1.0 [facility] Comment on above: Performed By: #### 1 8201560 #### [facility] [address] [place] [address] WBC Auto Ql (U) Negative Normal Negative [facility] Comment on above: Performed By: #### 1 6083501 #### [facility] [address] [place] [address] WBC LM.HPF (Urine sed) [#/Area] 0-5 Normal 0-5 [facility] Comment on above: Performed By: #### 1 4407713 #### [facility] [address] [place] [address] URINALYSISOrdered By: Chikis Louise on 05-21-2023 Bilirubin [...] AM) Normal Negative [facility] UA Auto SS [place].plasma/Lithiu m.RBC (Bld) [Mass ratio] 0-3 /HPF Normal [...] AM) Invalid Interpretation Code 1.005 - 1.030 [facility] UA Auto SS UA Spec Desc Clean Catch (05/21/23 11:51 AM) Normal [facility] UA Auto SS Urobilinogen Qn (U) 0.9421587 {Clara'U}/dL Normal 0.0 - 1.0 EU/dL [facility] UA Auto SS WBC Auto Ql (U) Negative (05/21/23 11:51 AM) Normal Negative [facility] UA Auto SS WBC LM.HPF (Urine sed) [#/Area] 0-5 /HPF Normal 0-5/HPF [facility] UA Auto SS US 1st Trimesteron 05-21-2023 [...] 3 Transabdominal Ultrasound Performed Transvaginal Ultrasound Performed [facility] US Transvaginalon 05-21-2023 US Transvaginal Exam Date/Time: 05/21/2023 14:36 EDT Reason for Exam: abdominal pain Report PLEASE SEE US 1st Trimester REPORT DATED: 05/21/2023. Ordering Provider: Osman Ge FINAL REPORT Dictated: 05/21/2023 2:53 pm Gonsalo Martinez MD Signed (Electronic Signature): 05/21/2023 2:53 pm Signed by: Gonslao Martinez MD Transcribed by: PAULO Technologist: LUIS ANTONIO Normal [facility] XR Chest 2 Viewson XR Chest [...] mGy = na DAP = na Normal [facility] eGFRon 05-21-2023 GFR/1.73 sq M.predicted among non-blacks MDRD (S/P/Bld) [Vol rate/Area] 129 mL/min/1.73 m2 Normal >=59 [facility] Comment on above: Order Comment: Order added by Discern Expert. Result Comment: Investment Advisor josselin kidney disease could be indicated at eGFR's of less than 60 mL/min/1.73m2. Kidney failure is indicated at less than 15 mL/min/1.73m2. Performed By: #### 1 [id number], 3318051, 1146007, 4117326, 8164581, 5745600, 97339322, 4402813 #### [facility] [address] [place] [address] PAP ACOG PANEL 2: 21 to 29on 06-08-2022 . . Normal [facility] Comment on above: Performed By: #### 4 390355 #### [facility] [address] [place] [address] Dr. Jaspreet Duran Age Gdln ACOG Testing - [facility] Comment on above: Performed By: #### 4 [id number] #### [facility] [address] [place] [address] Dr. Jaspreet Duran DIAGNOSIS: Comment Normal [facility] Comment on above: Result Comment: NEGA TIVE FOR INTRAEPITHELIAL LESION OR MALIGNANCY. Performed By: #### 4 [id number] #### [facility] [address] [place] [address] Dr. Jaspreet Duran Methodology: Comment Normal [facility] Comment on above: Result Comment: This liquid based ThinPrep(R) pap test was screened with the use of an image guided system. Performed By: #### 4 [id number] #### [facility] [address] [place] [address] Dr. Jaspreet Duran Note: Comment Normal [facility] Comment on above: Result Comment: The Pap smear is a screening test designed to aid in the detection of premalignant and malignant conditions of the uterine cervix. It is not a diagnostic procedure and should not be used as the sole means of detecting cervical cancer. Both false-positive and false-negative reports do occur. . Performed By: #### 4 389277 #### [facility] [address] [place] [address] Dr. Jaspreet Duran Performed by: Comment Normal [facility] Comment on above: Result Comment: Pricila Valerio, Bonding Agent (ASCP) Performed By: #### 4 [id number] #### [facility] [address] [address] [address] Jaspreet Duran Reflex Criteria: Comment Normal [facility] Comment on above: Result Comment: The HPV DNA reflex criteria were not met with this specimen result therefore, no HPV testing was performed. . Performed By: #### 4 [id number] #### [facility] [address] [place] [address] Dr. Jaspreet Duran Specimen adequacy: Comment Normal [facility] Comment on above: Result Comment: Sati sfactory for evaluation. No endocervical component is identified. Performed By: #### 4 [id number] #### [facility] [address] [place] [address] Dr. Jaspreet Duran COVID-19 Lab [facility] 11-11-20 21 SARS-CoV-2 (COVID-19) RNA NATALIE+probe Ql (Unsp spec) Not detected Normal Not Detected [facility] Comment on above: Order Comment: Reaso n for Exam Cough;Myalgia Healthcare Worker?: N Result Comment: This nucleic acid amplification test was developed and its performance characteristics determined by [employer]. Nucleic acid amplification tests include RT- PCR [...] detected) result in this assay. PERFORMED BY: [facility] [place] [address] PATHOLOGIST RETAIL ZONE SPECIALIST LAUREANO JACK M.D. Performed By: #### C ORONAVIRUS #### [facility] , Vital Signs Date Time Vital Sign Value Performing Clinician Facility 12-16-2024 10:39-0400 Body mass index (BMI) [Ratio] 37.28 kg/m2 Lynnette Manas Cuil Work Phone: [facility] 12-16-2024 10:39-0400 Body weight 103.19 kg [employer] Cu[employer] Work Phone: [facility] 12-16-2024 10:39-0400 Diastolic blood pressure 80 mm[Hg] Lynnette Manas DO Work Phone: [facility] 12-16-2024 10:39-0400 Systolic blood pressure 130 mm[Hg] Lynnette Manas DO Work Phone: [facility] 07-02-2024 09:30-0500 Body mass index (BMI) [Ratio] 37.76 kg/m2 Kimberlee OLIVEROS Work Phone: [facility] 07-02-2024 09:30-0500 Body weight 104.51 kg Kimberlee OLIVEROS Work Phone: [facility] 07-02-2024 09:30-0500 Diastolic blood pressure 70 mm[Hg] Kimberlee OLIVEROS Work Phone: [facility] 07-02-2024 09:30-0500 Systolic blood pressure 120 mm[Hg] Kimberlee OLIVEROS Work Phone: [facility] 06-27-2024 10:08-0500 Body mass index (BMI) [Ratio] 37.76 kg/m2 Lynnette Manas DO Work Phone: [facility] 06-27-2024 10:08-0500 Body weight 104.51 kg Lynnette Manas DO Work Phone: [facility] 06-27-2024 10:08-0500 Diastolic blood pressure 70 mm[Hg] Lynnette Manas DO Work Phone: [facility] 06-27-2024 10:08-0500 Systolic blood pressure 130 mm[Hg] Lynnette Manas DO Work Phone: [facility] 05-22-2024 13:29-0400 Body mass index (BMI) [Ratio] 40.97 kg/m2 Lynnette Manas DO Work Phone: [facility] 05-22-2024 13:29-0400 Body weight 113.4 kg Lynnette Manas DO Work Phone: [facility] 05-22-2024 13:29-0400 Diastolic blood pressure 74 mm[Hg] Lynnette Manas DO Work Phone: [facility] 05-22-2024 13:29-0400 Systolic blood pressure 122 mm[Hg] Lynnette Manas DO Work Phone: [facility] 05-15-2024 11:45-0400 Body mass index (BMI) [Ratio] 39.66 kg/m2 Lynnette Manas DO Work Phone: [facility] 05-15-2024 11:45-0400 Body weight 109.77 kg Lynnette Manas DO Work Phone: [facility] 05-15-2024 11:45-0400 Diastolic blood pressure 74 mm[Hg] Lynnette Manas DO Work Phone: [facility] 05-15-2024 11:45-0400 Systolic blood pressure 120 mm[Hg] Lynnette Manas DO Work Phone: [facility] 05-09-2024 10:01-0400 Body mass index (BMI) [Ratio] 39.25 kg/m2 Lynnette Manas DO Work Phone: [facility] 05-09-2024 10:01-0400 Body weight 108.64 kg Lynnette Manas DO Work Phone: [facility] 05-09-2024 10:01-0400 Diastolic blood pressure 76 mm[Hg] Lynnette Manas DO Work Phone: [facility] 05-09-2024 10:01-0400 Systolic blood pressure 118 mm[Hg] Lynnette Manas DO Work Phone: [facility] 05-02-2024 10:34-0400 Body mass index (BMI) [Ratio] 38.43 kg/m2 Kimberlee OLIVEROS Work Phone: [facility] 05-02-2024 10:34-0400 Body weight 106.37 kg Kimberlee OLIVEROS Work Phone: [facility] 05-02-2024 10:34-0400 Diastolic blood pressure 80 mm[Hg] Kimberlee OLIVEROS Work Phone: [facility] 05-02-2024 10:34-0400 Systolic blood pressure 124 mm[Hg] Kimberlee Rider PA Work Phone: [facility] 04-25-2024 11:23-0400 Body mass index (BMI) [Ratio] 38.2 kg/m2 Lynnette Manas DO Work Phone: [facility] 04-25-2024 11:23-0400 Body weight 105.74 kg Lynnette Manas DO Work Phone: [facility] 04-25-2024 11:23-0400 Diastolic blood pressure 76 mm[Hg] Lynnette Manas DO Work Phone: [facility] 04-25-2024 11:23-0400 Systolic blood pressure 120 mm[Hg] Lynnette Manas DO Work Phone: [facility] 04-11-2024 10:14-0400 Body mass index (BMI) [Ratio] 37.2 kg/m2 Lynnette Manas DO Work Phone: [facility] 04-11-2024 10:14-0400 Body weight 102.97 kg Lynnette Manas DO Work Phone: [facility] 04-11-2024 10:14-0400 Diastolic blood pressure 78 mm[Hg] Lynnette Manas DO Work Phone: [facility] 04-11-2024 10:14-0400 Systolic blood pressure 124 mm[Hg] Lynnette Manas DO Work Phone: [facility] 05-21-2023 14:00-0400 Diastolic blood pressure 79 mm[Hg] Donovan Krishna [facility] 05-21-2023 14:00-0400 Heart rate 72 /min Donovan Krishna [facility] 05-21-2023 14:00-0400 Respiratory rate 18 /min Donovan Krishna [facility] 05-21-2023 14:00-0400 SaO2% (BldA) [Mass fraction] 99 % Donovan Krishna [facility] 05-21-2023 14:00-0400 Systolic blood pressure 132 mm[Hg] Donovan Krishna [facility] 05-21-2023 11:02-0400 Body temperature 98.06 [degF] Donovan Krishna [facility] 05-21-2023 11:02-0400 Diastolic blood pressure 84 mm[Hg] Donovan Krishna [facility] 05-21-2023 11:02-0400 Heart rate 77 /min Donovan Krishna [facility] 05-21-2023 11:02-0400 Respiratory rate 16 /min Donovan Krishna [facility] 05-21-2023 11:02-0400 SaO2% (BldA) [Mass fraction] 100 % Donovan Krishna [facility] 05-21-2023 11:020400 Systolic blood pressure 147 mm[Hg] Donovan Keller [facility] Encounters Encounter Date Encounter Type Care Provider Facility Start: 12-16-2024 End: 12-16-2024 Bamboo flowsheet Lynnette Manas DO Work Phone: [facility] Start: 12-16-2024 End: 12-19-2024 Bamboo flowsheet Lynnette Manas DO Work Phone: [facility] Start: 12-16-2024 End: 12-19-2024 Clinisync Result Encounter Lynnette Manas DO Work Phone: [facility] External Department Unsolicited Start: 12-16-2024 End: 12-16-2024 ambulatory LYNNETTE MANAS Not Available Start: 12-16-2024 End: 12-16-2024 Patient encounter procedure Lynnette Manas DO Work Phone: [facility] Start: 12-16-2024 End: 12-16-2024 Periodic preventive med est patient 18-39 yrs Lynnette Manas DO Work Phone: [facility] Comment on above: Well woman exam with routine gynecological exam Start: 07-02-2024 End: 07-02-2024 care visit Kimberlee OLIVEROS Work Phone: [facility] Comment on above: 6 weeks f ollow-up Start: 07-02-2024 End: 07-02-2024 ambulatory KIMBERLEE RIDER Not Available Start: 06-27-2024 End: 06-27-2024 care visit Lynnette Manas DO Work Phone: [facility] Comment on above: hypertens ion Start: 06-27-2024 End: 06-27-2024 ambulatory LYNNETTE MANAS Not Available Start: 05-23-2024 End: 05-23-2024 Clinisync Result Encounter Lynnette Manas DO Work Phone: [facility] Unsolicited Start: 05-23-2024 End: 05-23-2024 Clinisync Result Encounter Lynnette Mansa DO Work Phone: [facility] Unsolicited Start: 05-22-2024 End: 05-22-2024 Bamboo flowsheet Lynnette Manas DO Work Phone: [facility] Start: 05-22-2024 End: 05-22-2024 Bamboo flowsheet Lynnette Manas DO Work Phone: [facility] Start: 05-22-2024 End: 05-22-2024 Clinisync Result Encounter Lynnette Manas DO Work Phone: [facility] Unsolicited Start: 05-22-2024 End: 05-22-2024 flow sheet Lynnette Manas DO Work Phone: [facility] Comment on above: Third trimester preg janet; 39 weeks gestation of Start: 05-22-2024 End: 05-22-2024 ambulatory LYNNETTE MANAS Not Available Start: 05-15-2024 End: 05-15-2024 Bamboo flowsheet Lynnette Manas DO Work Phone: [facility] Start: 05-15-2024 End: 05-15-2024 Bamboo flowsheet Lynnette Manas DO Work Phone: [facility] Start: 05-15-2024 End: 05-15-2024 flow sheet Lynnette Manas DO Work Phone: [facility] Comment on above: Third trimester preg janet Start: 05-15-2024 End: 05-15-2024 ambulatory LYNNETTE MANAS Not Available Start: 05-09-2024 End: 05-09-2024 Bamboo flowsheet Lynnette Manas DO Work Phone: [facility] Start: 05-09-2024 End: 05-09-2024 Bamboo flowsheet Lynnette Manas DO Work Phone: [facility] Start: 05-09-2024 End: 05-09-2024 flow sheet Lynnette Manas DO Work Phone: [facility] Comment on above: Third trimester preg janet Start: 05-09-2024 End: 05-09-2024 ambulatory LYNNETTE MANAS Not Available Start: 05-02-2024 End: 05-02-2024 Bamboo flowsheet Kimberlee OLIVEROS Work Phone: [facility] Start: 05-02-2024 End: 05-02-2024 Bamboo flowsheet Kimberlee OLIVEROS Work Phone: [facility] Start: 05-02-2024 End: 05-02-2024 flow sheet Kimberlee OLIVEROS Work Phone: [facility] Comment on above: Third trimester preg janet Start: 05-02-2024 End: 05-02-2024 ambulatory KIMBERLEE RIDER Not Available Start: 04-25-2024 End: 04-25-2024 Bamboo flowsheet Lynnette Manas DO Work Phone: [facility] Start: 04-25-2024 End: 04-25-2024 Bamboo flowsheet Lynnette Manas DO Work Phone: [facility] Start: 04-25-2024 End: 04-25-2024 flow sheet Lynnette Manas DO Work Phone: [facility] Comment on above: Third trimester preg janet Start: 04-25-2024 End: 04-25-2024 ambulatory LYNNETTE MANAS Not Available Start: 04-11-2024 End: 04-11-2024 Bamboo flowsheet Lynnette Manas DO Work Phone: [facility] Start: 04-11-2024 End: 04-11-2024 Bamboo flowsheet Lynnette Manas DO Work Phone: [facility] Start: 04-11-2024 End: 04-11-2024 flow sheet Lynnette Manas DO Work Phone: [facility] Comment on above: Third trimester preg janet Start: 04-11-2024 End: 04-11-2024 ambulatory LYNNETTE MANAS Not Available Start: 03-27-2024 End: 03-27-2024 ambulatory LYNNETTE MANAS Not Available Start: 03-13-2024 End: 03-13-2024 ambulatory KIMBERLEE RIDER Not Available Start: 02-29-2024 End: 02-29-2024 ambulatory LYNNETTE MANAS Not Available Start: 02-08-2024 End: 02-08-2024 ambulatory LYNNETTE MANAS Not Available Start: 01-08-2024 End: 01-08-2024 ambulatory KIMBERLEE RIDER Not Available Start: 05-21-2023 End: 05-21-2023 Emergency department patient visit Donovan Keller Facility:[facility] Start: 05-21-2023 End: 05-21-2023 Emergency department patient visit Donovan Keller [facility] Start: 06-01-2022 End: 06-01-[address] LYNNETTE MALAGON Facility: Procedures Date Procedure Procedure Detail Performing Clinician Start: 12-16-2024 IGP,APTIMA HPV,AGE GDLN Lynnette Manas DO Work Phone: Start: 05-23-2024 ALL CBC WITH AUTO DIFF Lynnette Manas DO Work Phone: Start: 05-22-2024 HMHP CBC WITH PLATEL ET NO DIFFERENTIAL Lynnette Manas DO Work Phone: Start: 05-22-2024 Urnls dip stick/tabl et rgnt non-auto w/o micrscp Lynnette Manas DO Work Phone: Start: 05-15-2024 Urnls dip stick/tabl et rgnt non-auto w/o micrscp Lynnette Manas DO Work Phone: Start: 05-09-2024 Urnls dip stick/tabl et rgnt non-auto w/o micrscp Lynnette Manas DO Work Phone: Start: 05-02-2024 Urnls dip stick/tabl et rgnt non-auto w/o micrscp Kimberlee Rider PA Work Phone: Start: 04-25-2024 Urnls dip stick/tabl et rgnt non-auto w/o micrscp Lynnette Manas DO Work Phone: Start: 04-11-2024 Urnls dip stick/tabl et rgnt non-auto w/o micrscp Lynnette Manas DO Work Phone: Start: 12-12-2023 Microscopic observat ion [Identifier] in Cervix by Cyto stain Lynnette Manas DO Work Phone: Start: 12-12-2023 Cytp cerv/vag auto t hin layer prep mnl screen Lynnette Manas DO Work Phone: Start: 06-01-2022 Microscopic observat ion [Identifier] in Cervix by Cyto stain Lynnette Manas DO Work Phone: Start: 11-02-2017 Cyst of Bartholin's gland duct (disorder) Donovan Keller None (qualifier value) Donovan Keller Plan of Treatment Date Care Activity Detail Author Start: 12-11-2028 Screening for malign ant neoplasm of cervix [facility] Start: 06-01-2027 Screening for malign ant neoplasm of cervix [facility] Start: 12-18-2025 End: 12-18-2025 Patient encounter procedure 12/18/2025 10:00 AM EDT Office Visit [facility] [address] [place] [address] Lynnette Malagon, DO [address] [place] [address] [facility] Start: 04-21-2025 Influenza vaccination Influenz a Vaccine (Season Ended) [facility] Start: 12-16-2024 End: 12-16-2024 Patient encounter procedure 12/16/2024 10:20 AM EDT Office Visit [facility] [address] [place] [phone] Lynnette Malagon, DO [address] [facility] [place] [address] [facility] Start: 07-02-2024 End: 07-02-2024 ambulatory 07/02/2024 9:30 AM EST Visit [facility] [address] [facility] [place] [phone] Kimberlee Rider PA [address] [place] [address] [facility] Start: 05-22-2024 End: 05-22-2024 Patient encounter procedure [facility] Comment on above: Arrived Start: 05-15-2024 End: 05-15-2024 Patient encounter procedure [facility] Comment on above: Arrived Start: 05-09-2024 End: 05-09-2024 Patient encounter procedure [facility] Comment on above: Arrived Start: 05-02-2024 End: 05-02-2024 Patient encounter procedure [facility] Comment on above: Arrived Start: 04-25-2024 End: 04-25-2025 Strep B DNA probe, amplification Strep B DNA probe, amplification Lab Routine Third trimester Expected: 04/25/2024 (Approximate), Expires: 04/25/2025 [facility] Work Phone: Comment on above: Expected: 04/25/2024 (Approximate), Expires: 04/25/2025 Start: 04-25-2024 End: 04-25-2024 Patient encounter procedure [facility] Comment on above: Arrived Start: 04-21-2024 Influenza vaccination Influenza Vacc ine (#1) [facility] Start: 04-11-2024 End: 04-11-2024 Patient encounter procedure 04/11/2024 10:20 AM EDT Routine [facility] [address] [facility] [place] [phone] Lynnette Malagon, DO [address] [facility] [address] [place], [place] [id number] Arrived [facility] Comment on above: Arrived Cytology Cervical or vaginal smear or scraping study Pap Smear Pathology and Cytology Routine Well woman exam with routine gynecological exam Ordered: 12/16/2024 [facility] Work Phone: Comment on above: Ordered: 12/16/2024 Human papilloma viru s DNA [Presence] in Unspecified specimen by Probe with amplification HPV DNA probe, amplified Microbiology Routine Well woman exam with routine gynecological exam Ordered: 12/16/2024 [facility] Comment on above: Ordered: 12/16/2024 Payers Date Payer Category Payer [employer] [id number] 2022 [employer] others[facility] [id number] 2022-Present [address] [place] [address] [id number] 2022 () [id number] 2022 [employer] ( [employer] others) [id number] 2022 [employer] ( [employer] others) [id number] 1992 Unknown [id number] [id number] .593 1992 Unknown [id number] [id number] .727 1992 Unknown [id number] 2.16.840.1.547300.3.579.2 .1258 1992 Unknown [id number] 2.16.840.1.799462.3.579.2 .1258 1992 Unknown [id number] 2.16.840.1.087309.3.579.2 .1258 1992 Unknown [id number] 2.16.840.1.564667.3.579.2 .1258 1992 Unknown [id number] 2.16.840.1.166144.3.579.2 .1258 1992 Unknown [id number] 2.16840.1.026731.3.579.2 .1258 1992 Unknown [id number] 2.16840.1.498293.3.579.2 .1258 1992 Unknown [id number] 2.16840.1.278971.3.579.2 .1258 1992 Unknown [id number] 2.16840.1.132236.3.579.2 .1258 1992 Unknown [id number] 2.16840.1.127514.3.579.2 .9 1992 Unknown [id number] 2.16840.1.241279.3.579.2 .1258 1992 Unknown [id number] 2.16840.1.754113.3.579.2 .1258 1992 Unknown [id number] 2.16840.1.073515.3.579.2 .9 1992 Unknown [id number] [id number] .1259 1959 Unknown [id number] Social History Date Type Detail Facility Tobacco Never smoker [facility] [place] Comment on above: denies Tobacco smoking status No Smokin g Status Entered [facility] Start: 02-08-2024 Sex Assigned At Female F [facility] Start: 02-08-2024 Tobacco smoking stat us NHIS Never smoked tobacco [facility] Start: 02-08-2024 Tobacco use and exposure Smokeless tobacco non-user [facility] Start: 05-15-2024 End: 07-02-2024 Alcoholic beverage intake Lifetime non-drinker (finding) [facility] Start: 02-08-2024 History of Social function [facility] Start: 06-23-2023 Alcohol Comment caffeine: none [facility] Start: 09-01-2023 [facility] Start: 1990 Sex assigned at Not on file [facility] Functional Status Date Assessment Result Facility 05-21-2023 Functional Status N/A [facility] Clinical Notes 05-21-2023 to 12-16-2024 Bea Messer, [facility] - 12/16/2024 10:20 AM Jack Rider, MA - 07/02/2024 9:30 AM Cayla Messer, [facility] - 06/27/2024 9:40 AM Ehsan Wallace, [facility] - 05/22/2024 1:30 PM EDT Note Date & Type Note Facility 12-16-2024 History of Present illness Narrative Reason for Appointment: Patient ID: Rony Plasencia is a 34 y.o. female who presents for Well Women Visit Patient presents today for Annual Exam. MEDICATIONS Current Outpatient Medications Medication Instructions aspirin 81 mg, Daily MV-Min-Fe Fum-FA-DHA ( 1 PO) 1 each, Daily Vit-Fe Fumarate-FA (M- Plus) 27-1 MG tablet 1 tablet, Oral, Every morning ALLERGIES Allergies Allergen Reactions Octacosanol Unknown PROBLEMS Active Ambulatory Problems Diagnosis Date Noted No Active Ambulatory Problems Resolved Ambulatory Problems Diagnosis Date Noted No Resolved Ambulatory Problems Past Medical History: Diagnosis Date Anxiety Bipolar disorder (CMS/HCC) H/O one miscarriage 06/2023 Hepatitis C (CMS/HCC) Jaw fracture (CMS/HCC) Vulvar abscess HISTORY PAST MEDICAL HISTORY SOCIAL HISTORY Past Medical History: Diagnosis Date Anxiety Bipolar disorder (CMS/HCC) H/O one miscarriage 06/2023 Hepatitis C (CMS/HCC) Jaw fracture (CMS/HCC) Vulvar abscess Social History Tobacco Use Smoking status: Never Smokeless tobacco: Never Substance Use Topics Alcohol use: Never Comment: caffeine: none Drug use: Never FAMILY HISTORY Family History Problem Relation Name Age of Onset Thyroid disease Mother Tomeka Devlin Schizophrenia Father Diabetes Other some on mother's side Hypertension Other some on mother's side Rheum arthritis Maternal Grandmother Cristina Payne SURGICAL HISTORY Past Surgical History: Procedure Laterality Date ADENOIDECTOMY 2012 DILATION AND CURETTAGE OF UTERUS 07/07/2023 DILATION AND CURETTAGE OF UTERUS 07/07/2023 MANDIBLE SURGERY 2018 left side jaw OTHER SURGICAL HISTORY 10/25/2017 I and D Debridement of Right Vulvar Abscess under general anesthesia TONSILLECTOMY 2011 REVIEW OF SYSTEMS Review of Systems: Review of Systems Constitutional: Negative. HENT: Negative. Eyes: Negative. Respiratory: Negative. Cardiovascular: Negative. Gastrointestinal: Negative. Genitourinary: Negative. Musculoskeletal: Negative. Skin: Negative. Neurological: Negative. All other systems reviewed and are negative. Hematological: Negative. Endocrine: Negative. Allergic/Immunologic: Negative. OBJECTIVE Objective: Physical Exam Constitutional: Appearance: Normal appearance. She is well-developed. Genitourinary: Vulva normal. Breasts: Breasts are soft. Right: Normal. Left: Normal. Cardiovascular: Rate and Rhythm: Normal rate and regular rhythm. Pulmonary: Effort: Pulmonary effort is normal. Breath sounds: Normal breath sounds. Abdominal: General: Bowel sounds are normal. There is no distension. Palpations: Abdomen is soft. Tenderness: There is no abdominal tenderness. There is no guarding or rebound. Musculoskeletal: General: No swelling. Normal range of motion. Right lower leg: No edema. Left lower leg: No edema. Neurological: Mental Status: She is alert and oriented to person, place, and time. Skin: General: Skin is warm and dry. Psychiatric: Mood and Affect: Mood normal. Behavior: Behavior normal. Vitals and nursing note reviewed. Exam conducted with a kelp or seagrass gatherer present. Vitals: Estimated body mass index is 37.28 kg/m as calculated from the following: Height as of 09/08/22: 5' 5.5 . Weight as of this encounter: 227 lb 8 oz. BP: 130/80 No LMP recorded (lmp unknown). ASSESSMENT & PLAN ICD-10-CM 1. Well woman exam with routine gynecological exam Z01.419 Pap Smear HPV DNA probe, amplified Annual Exam: Patient presents today for an annual exam. Patient states she is doing well and has no complaints. Pap was obtained without difficulty. Patient is still breast feeding and has only had about 2 light cycles since delivery and this could be due to breast feeding. Once patient has completed breast feeding, she will return to clinic to discuss weight loss. Patient stated that Adipex caused increase anxiety previously. Also, discussed GLP-1 medications Orders Placed This Encounter Procedures HPV DNA probe, amplified Follow Up: Patient is to return in one year for annual unless needed otherwise. Documented by Bea Messer LPN on behalf of: Lynnette Malagon DO documented in this encounter [facility] 07-02-2024 History of Present illness Narrative Reason for Appointment: Patient ID: Rony Plasencia is a 33 y.o. female who presents for Follow-up Patient presents today for Post Follow Up appointment. MEDICATIONS Current Outpatient Medications Medication Instructions aspirin 81 mg, Daily MV-Min-Fe Fum-FA-DHA ( 1 PO) 1 each, Daily ALLERGIES Allergies Allergen Reactions Octacosanol Unknown PROBLEMS Active Ambulatory Problems Diagnosis Date Noted No Active Ambulatory Problems Resolved Ambulatory Problems Diagnosis Date Noted No Resolved Ambulatory Problems Past Medical History: Diagnosis Date Anxiety Bipolar disorder (CMS/HCC) H/O one miscarriage 06/2023 Hepatitis C (CMS/HCC) Jaw fracture (CMS/HCC) Vulvar abscess HISTORY PAST MEDICAL HISTORY SOCIAL HISTORY Past Medical History: Diagnosis Date Anxiety Bipolar disorder (CMS/HCC) H/O one miscarriage 06/2023 Hepatitis C (CMS/HCC) Jaw fracture (CMS/HCC) Vulvar abscess Social History Tobacco Use Smoking status: Never Smokeless tobacco: Never Substance Use Topics Alcohol use: Never Comment: caffeine: none Drug use: Never FAMILY HISTORY Family History Problem Relation Name Age of Onset Thyroid disease Mother Tomeka Devlin Schizophrenia Father Diabetes Other some on mother's side Hypertension Other some on mother's side Rheum arthritis Maternal Grandmother Cristina Payne SURGICAL HISTORY Past Surgical History: Procedure Laterality Date ADENOIDECTOMY 2012 DILATION AND CURETTAGE OF UTERUS 07/07/2023 DILATION AND CURETTAGE OF UTERUS 07/07/2023 MANDIBLE SURGERY 2018 left side jaw OTHER SURGICAL HISTORY 10/25/2017 I and D Debridement of Right Vulvar Abscess under general anesthesia TONSILLECTOMY 2012 REVIEW OF SYSTEMS Review of Systems: Review of Systems Constitutional: Negative. HENT: Negative. Eyes: Negative. Respiratory: Negative. Cardiovascular: Negative. Gastrointestinal: Negative. Genitourinary: Negative. Musculoskeletal: Negative. Skin: Negative. Neurological: Negative. All other systems reviewed and are negative. Hematological: Negative. Endocrine: Negative. Allergic/Immunologic: Negative. OBJECTIVE Objective: Physical Exam Constitutional: Appearance: Normal appearance. She is normal weight. HENT: Head: Normocephalic. Cardiovascular: Rate and Rhythm: Normal rate. Pulses: Normal pulses. Pulmonary: Effort: Pulmonary effort is normal. Breath sounds: Normal breath sounds. Abdominal: Palpations: Abdomen is soft. Musculoskeletal: General: Normal range of motion. Neurological: General: No focal deficit present. Mental Status: She is alert and oriented to person, place, and time. Psychiatric: Mood and Affect: Mood normal. Behavior: Behavior normal. Thought Content: Thought content normal. Judgment: Judgment normal. Vitals and nursing note reviewed. Vitals: Estimated body mass index is 37.76 kg/m as calculated from the following: Height as of 09/08/22: 5' 5.5 . Weight as of this encounter: 230 lb 6.4 oz. BP: 120/70 Patient's last menstrual period was 08/18/2023. ASSESSMENT & PLAN ICD-10-CM 1. 6 weeks follow-up Z39.2 Post Follow Up: Patient is doing wel. Patient presents today for 6 week visit. Patient is s/p Vaginal delivery. Patient states depression but denies suicidal and homicidal ideations. All options were discussed with the patient regarding control and patient desires none at this time. Follow Up: Patient is to return for annual unless needed otherwise. Documented by DOMO Hughes on behalf of: DOMO Hughes documented in this encounter [facility] 06-27-2024 History of Present illness Narrative Reason for Appointment: Patient ID: Rony Plasencia is a 33 y.o. female who presents for Follow-up and Blood Pressure Check Patient presents today for Post Follow Up appointment. MEDICATIONS Current Outpatient Medications Medication Instructions aspirin 81 mg, Daily NIFEdipine XL (PROCARDIA XL) 30 mg, Oral, Daily, Do not crush, chew, or split. MV-Min-Fe Fum-FA-DHA ( 1 PO) 1 each, Oral, Daily ALLERGIES Allergies Allergen Reactions Octacosanol Unknown PROBLEMS Active Ambulatory Problems Diagnosis Date Noted No Active Ambulatory Problems Resolved Ambulatory Problems Diagnosis Date Noted No Resolved Ambulatory Problems Past Medical History: Diagnosis Date Anxiety Bipolar disorder (CMS/HCC) H/O one miscarriage 06/2023 Hepatitis C (CMS/HCC) Jaw fracture (CMS/HCC) Vulvar abscess HISTORY PAST MEDICAL HISTORY SOCIAL HISTORY Past Medical History: Diagnosis Date Anxiety Bipolar disorder (CMS/HCC) H/O one miscarriage 06/2023 Hepatitis C (CMS/HCC) Jaw fracture (CMS/HCC) Vulvar abscess Social History Tobacco Use Smoking status: Never Smokeless tobacco: Never Substance Use Topics Alcohol use: Never Comment: caffeine: none Drug use: Never FAMILY HISTORY Family History Problem Relation Name Age of Onset Thyroid disease Mother Tomeka Devlin Schizophrenia Father Diabetes Other some on mother's side Hypertension Other some on mother's side Rheum arthritis Maternal Grandmother Cristina Payne SURGICAL HISTORY Past Surgical History: Procedure Laterality Date ADENOIDECTOMY 2012 DILATION AND CURETTAGE OF UTERUS 07/07/2023 DILATION AND CURETTAGE OF UTERUS 07/07/2023 MANDIBLE SURGERY 2018 left side jaw OTHER SURGICAL HISTORY 10/25/2017 I and D Debridement of Right Vulvar Abscess under general anesthesia TONSILLECTOMY 2011 REVIEW OF SYSTEMS Review of Systems: Review of Systems All other systems reviewed and are negative. OBJECTIVE Objective: Physical Exam Constitutional: Appearance: Normal appearance. She is well-developed. Cardiovascular: Rate and Rhythm: Normal rate and regular rhythm. Pulmonary: Effort: Pulmonary effort is normal. Breath sounds: Normal breath sounds. Abdominal: General: Bowel sounds are normal. There is no distension. Palpations: Abdomen is soft. Tenderness: There is no abdominal tenderness. There is no guarding or rebound. Musculoskeletal: General: No swelling. Normal range of motion. Right lower leg: No edema. Left lower leg: No edema. Neurological: Mental Status: She is alert and oriented to person, place, and time. Skin: General: Skin is warm and dry. Psychiatric: Mood and Affect: Mood normal. Behavior: Behavior normal. Vitals and nursing note reviewed. Exam conducted with a kelp or seagrass gatherer present. Vitals: Estimated body mass index is 37.76 kg/m as calculated from the following: Height as of 09/08/22: 5' 5.5 . Weight as of this encounter: 230 lb 6.4 oz. BP: 130/70 Patient's last menstrual period was 08/18/2023. ASSESSMENT & PLAN ICD-10-CM 1. hypertension O16.5 Patient presents today for follow up elevated blood pressure post . Patient had vaginal delivery on 05/22/24. Patient to return to clinic in 1 week. Patient is currently breast feeding. Patient is to discontinue Procardia. Documented by Bea Messer LPN on behalf of: Lynnette Malagon DO documented in this encounter [facility] 05-22-2024 History of Present illness Narrative Reason for Appointment: Patient ID: Rony Plasencia is a 33 y.o. female who presents for Routine Visit Patient presents today for Return OB appointment. MEDICATIONS Current Outpatient Medications Medication Instructions aspirin 81 mg, Oral, Daily iron polysaccharides (PROFE) 391.3 mg, Oral, Daily Vit-Fe Fumarate-FA (M-Geraldine Plus) 27-1 MG tablet 1 tablet, Oral, Daily ALLERGIES Allergies Allergen Reactions Octacosanol Unknown PROBLEMS Active Ambulatory Problems Diagnosis Date Noted No Active Ambulatory Problems Resolved Ambulatory Problems Diagnosis Date Noted No Resolved Ambulatory Problems Past Medical History: Diagnosis Date Anxiety Bipolar disorder (CMS/HCC) H/O one miscarriage 06/2023 Hepatitis C (CMS/HCC) Jaw fracture (CMS/HCC) Vulvar abscess HISTORY PAST MEDICAL HISTORY SOCIAL HISTORY Past Medical History: Diagnosis Date Anxiety Bipolar disorder (CMS/HCC) H/O one miscarriage 06/2023 Hepatitis C (CMS/HCC) Jaw fracture (CMS/HCC) Vulvar abscess Social History Tobacco Use Smoking status: Never Smokeless tobacco: Never Substance Use Topics Alcohol use: Never Comment: caffeine: none Drug use: Never FAMILY HISTORY Family History Problem Relation Name Age of Onset Thyroid disease Mother Tomeka Devlin Schizophrenia Father Diabetes Other some on mother's side Hypertension Other some on mother's side Rheum arthritis Maternal Grandmother Cristina Hardeepolivia SURGICAL HISTORY Past Surgical History: Procedure Laterality Date ADENOIDECTOMY 2012 DILATION AND CURETTAGE OF UTERUS 07/07/2023 DILATION AND CURETTAGE OF UTERUS 07/07/2023 MANDIBLE SURGERY 2018 left side jaw OTHER SURGICAL HISTORY 10/25/2017 I and D Debridement of Right Vulvar Abscess under general anesthesia TONSILLECTOMY 2011 REVIEW OF SYSTEMS Review of Systems: Review of Systems Constitutional: Negative. HENT: Negative. Eyes: Negative. Respiratory: Negative. Cardiovascular: Negative. Gastrointestinal: Negative. Genitourinary: Negative. Musculoskeletal: Negative. Skin: Negative. Neurological: Negative. All other systems reviewed and are negative. Hematological: Negative. Endocrine: Negative. Allergic/Immunologic: Negative. OBJECTIVE Objective: Physical Exam Constitutional: Appearance: Normal appearance. She is well-developed. Genitourinary: Vulva normal. Cardiovascular: Rate and Rhythm: Normal rate and regular rhythm. Pulmonary: Effort: Pulmonary effort is normal. Breath sounds: Normal breath sounds. Abdominal: General: Bowel sounds are normal. There is no distension. Palpations: Abdomen is soft. Tenderness: There is no abdominal tenderness. There is no guarding or rebound. Musculoskeletal: General: No swelling. Normal range of motion. Right lower leg: No edema. Left lower leg: No edema. Neurological: Mental Status: She is alert and oriented to person, place, and time. Skin: General: Skin is warm and dry. Psychiatric: Mood and Affect: Mood normal. Behavior: Behavior normal. Vitals and nursing note reviewed. Exam conducted with a kelp or seagrass gatherer present. Vitals: Estimated body mass index is 40.97 kg/m as calculated from the following: Height as of 09/08/22: 5' 5.5 . Weight as of this encounter: 250 lb. BP: 122/74 Patient's last menstrual period was 08/18/2023. ASSESSMENT & PLAN ICD-10-CM 1. Third trimester Z34.93 POCT urinalysis dipstick manually resulted 2. 39 weeks gestation of Z3A.39 POCT urinalysis dipstick manually resulted Return OB: Patient presents today for a routine obstetrics appointment. Patient is currently 39w5d . Patient states she is doing well but has complaints of being tired due to current . Patient has verbalizes frequent movement. labor precautions was discussed/given and patient was instructed to perform kick counts three times a day. Orders Placed This Encounter Procedures POCT urinalysis dipstick manually resulted Follow Up: Patient is to return to office in 6 weeks for pp visit. Documented by Cata Wallace LPN on behalf of: Lynnette Malagon DO documented in this encounter [facility] 05-15-2024 History of Present illness Narrative Reason for Appointment: Patient ID: Rony Plasencia is a 33 y.o. female who presents for Routine Visit Patient presents today for Return OB appointment. MEDICATIONS Current Outpatient Medications Medication Instructions aspirin 81 mg, Oral, Daily iron polysaccharides (PROFE) 391.3 mg, Oral, Daily Vit-Fe Fumarate-FA (M- Plus) 27-1 MG tablet 1 tablet, Oral, Daily ALLERGIES Allergies Allergen Reactions Octacosanol Unknown PROBLEMS Active Ambulatory Problems Diagnosis Date Noted No Active Ambulatory Problems Resolved Ambulatory Problems Diagnosis Date Noted No Resolved Ambulatory Problems Past Medical History: Diagnosis Date Anxiety Bipolar disorder (CMS/HCC) H/O one miscarriage 06/2023 Hepatitis C (CMS/HCC) Jaw fracture (HCC) (CMS/HCC) Vulvar abscess HISTORY PAST MEDICAL HISTORY SOCIAL HISTORY Past Medical History: Diagnosis Date Anxiety Bipolar disorder (CMS/HCC) H/O one miscarriage 06/2023 Hepatitis C (CMS/HCC) Jaw fracture (HCC) (CMS/HCC) Vulvar abscess Social History Tobacco Use Smoking status: Never Smokeless tobacco: Never Substance Use Topics Alcohol use: Never Comment: caffeine: none Drug use: Never FAMILY HISTORY Family History Problem Relation Name Age of Onset Thyroid disease Mother Tomeka Devlin Schizophrenia Father Diabetes Other some on mother's side Hypertension Other some on mother's side Rheum arthritis Maternal Grandmother Cristina Payne SURGICAL HISTORY Past Surgical History: Procedure Laterality Date ADENOIDECTOMY 2012 DILATION AND CURETTAGE OF UTERUS 07/07/2023 DILATION AND CURETTAGE OF UTERUS 07/07/2023 MANDIBLE SURGERY 2018 left side jaw OTHER SURGICAL HISTORY 10/25/2017 I and D Debridement of Right Vulvar Abscess under general anesthesia TONSILLECTOMY 2011 REVIEW OF SYSTEMS Review of Systems: Review of Systems Constitutional: Negative. HENT: Negative. Eyes: Negative. Respiratory: Negative. Cardiovascular: Negative. Gastrointestinal: Negative. Genitourinary: Negative. Musculoskeletal: Negative. Skin: Negative. Neurological: Negative. All other systems reviewed and are negative. Hematological: Negative. Endocrine: Negative. Allergic/Immunologic: Negative. OBJECTIVE Objective: Physical Exam Constitutional: Appearance: Normal appearance. She is well-developed. Genitourinary: Vulva normal. Cardiovascular: Rate and Rhythm: Normal rate and regular rhythm. Pulmonary: Effort: Pulmonary effort is normal. Breath sounds: Normal breath sounds. Abdominal: General: Bowel sounds are normal. There is no distension. Palpations: Abdomen is soft. Tenderness: There is no abdominal tenderness. There is no guarding or rebound. Musculoskeletal: General: No swelling. Normal range of motion. Right lower leg: No edema. Left lower leg: No edema. Neurological: Mental Status: She is alert and oriented to person, place, and time. Skin: General: Skin is warm and dry. Psychiatric: Mood and Affect: Mood normal. Behavior: Behavior normal. Vitals and nursing note reviewed. Exam conducted with a kelp or seagrass gatherer present. Vitals: Estimated body mass index is 39.66 kg/m as calculated from the following: Height as of 09/08/22: 5' 5.5 . Weight as of this encounter: 242 lb. BP: 120/74 Patient's last menstrual period was 08/18/2023. ASSESSMENT & PLAN ICD-10-CM 1. Third trimester Z34.93 POCT urinalysis dipstick manually resulted Return OB: Patient presents today for a routine obstetrics appointment. Patient is currently 38w5d . Patient states she is doing well but has complaints of being tired due to current . Patient has verbalizes frequent movement. labor precautions was discussed/given and patient was instructed to perform kick counts three times a day. [facility] 05/27/24 Orders Placed This Encounter Procedures POCT urinalysis dipstick manually resulted Follow Up: Patient is to return to office in 1 week for routine OB appointment. Documented by Cata Wallace LPN on behalf of: Lynnette Malagon DO documented in this encounter [facility] 05-09-2024 History of Present illness Narrative Reason for Appointment: Patient ID: Rony Plasencia is a 33 y.o. female who presents for Routine Visit Patient presents today for Return OB appointment. MEDICATIONS Current Outpatient Medications Medication Instructions aspirin 81 mg, Oral, Daily iron polysaccharides (PROFE) 391.3 mg, Oral, Daily Vit-Fe Fumarate-FA (M-Geraldine Plus) 27-1 MG tablet 1 tablet, Oral, Daily ALLERGIES Allergies Allergen Reactions Octacosanol Unknown PROBLEMS Active Ambulatory Problems Diagnosis Date Noted No Active Ambulatory Problems Resolved Ambulatory Problems Diagnosis Date Noted No Resolved Ambulatory Problems Past Medical History: Diagnosis Date Anxiety Bipolar disorder (CMS/HCC) H/O one miscarriage 06/2023 Hepatitis C (CMS/HCC) Jaw fracture (HCC) (CMS/HCC) Vulvar abscess HISTORY PAST MEDICAL HISTORY SOCIAL HISTORY Past Medical History: Diagnosis Date Anxiety Bipolar disorder (CMS/HCC) H/O one miscarriage 06/2023 Hepatitis C (CMS/HCC) Jaw fracture (HCC) (CMS/HCC) Vulvar abscess Social History Tobacco Use Smoking status: Never Smokeless tobacco: Never Substance Use Topics Alcohol use: Never Comment: caffeine: none Drug use: Never FAMILY HISTORY Family History Problem Relation Name Age of Onset Thyroid disease Mother Tomeka Devlin Schizophrenia Father Diabetes Other some on mother's side Hypertension Other some on mother's side Rheum arthritis Maternal Grandmother Cristina Payne SURGICAL HISTORY Past Surgical History: Procedure Laterality Date ADENOIDECTOMY 2012 DILATION AND CURETTAGE OF UTERUS 07/07/2023 DILATION AND CURETTAGE OF UTERUS 07/07/2023 MANDIBLE SURGERY 2018 left side jaw OTHER SURGICAL HISTORY 10/25/2017 I and D Debridement of Right Vulvar Abscess under general anesthesia TONSILLECTOMY 2011 REVIEW OF SYSTEMS Review of Systems: Review of Systems All other systems reviewed and are negative. OBJECTIVE Objective: Physical Exam Constitutional: Appearance: Normal appearance. She is well-developed. Genitourinary: Vulva normal. Cardiovascular: Rate and Rhythm: Normal rate and regular rhythm. Pulmonary: Effort: Pulmonary effort is normal. Breath sounds: Normal breath sounds. Abdominal: General: Bowel sounds are normal. There is no distension. Palpations: Abdomen is soft. Tenderness: There is no abdominal tenderness. There is no guarding or rebound. Musculoskeletal: General: No swelling. Normal range of motion. Right lower leg: No edema. Left lower leg: No edema. Neurological: Mental Status: She is alert and oriented to person, place, and time. Skin: General: Skin is warm and dry. Psychiatric: Mood and Affect: Mood normal. Behavior: Behavior normal. Vitals and nursing note reviewed. Exam conducted with a kelp or seagrass gatherer present. Vitals: Estimated body mass index is 39.25 kg/m as calculated from the following: Height as of 09/08/22: 5' 5.5 . Weight as of this encounter: 239 lb 8 oz. BP: 118/76 Patient's last menstrual period was 08/18/2023. ASSESSMENT & PLAN ICD-10-CM 1. Third trimester Z34.93 POCT urinalysis dipstick manually resulted Patient presents today for a routine obstetrics appointment. Patient is currently 37w6d with a Estimated Date of Delivery: 05/24/24. Cervical check and patient is only 1cm dilated. Patient to return to clinic in 1 week for routine OB appointment. Patient will have cervical check next appointment. Documented by Bea eMsser LPN on behalf of: Lynnette Malagon DO documented in this encounter [facility] 05-02-2024 History of Present illness Narrative Reason for Appointment: Patient ID: Rony Plasencia is a 33 y.o. female who presents for Routine Visit Patient presents today for Return OB appointment. MEDICATIONS Current Outpatient Medications Medication Instructions aspirin 81 mg, Oral, Daily iron polysaccharides (PROFE) 391.3 mg, Oral, Daily Vit-Fe Fumarate-FA (M- Plus) 27-1 MG tablet 1 tablet, Oral, Daily ALLERGIES Allergies Allergen Reactions Octacosanol Unknown PROBLEMS Active Ambulatory Problems Diagnosis Date Noted No Active Ambulatory Problems Resolved Ambulatory Problems Diagnosis Date Noted No Resolved Ambulatory Problems Past Medical History: Diagnosis Date Anxiety Bipolar disorder (CMS/HCC) H/O one miscarriage 06/2023 Hepatitis C (CMS/HCC) Jaw fracture (HCC) (CMS/HCC) Vulvar abscess HISTORY PAST MEDICAL HISTORY SOCIAL HISTORY Past Medical History: Diagnosis Date Anxiety Bipolar disorder (CMS/HCC) H/O one miscarriage 06/2023 Hepatitis C (CMS/HCC) Jaw fracture (HCC) (CMS/HCC) Vulvar abscess Social History Tobacco Use Smoking status: Never Smokeless tobacco: Never Substance Use Topics Alcohol use: Never Comment: caffeine: none Drug use: Never FAMILY HISTORY Family History Problem Relation Name Age of Onset Thyroid disease Mother Tomeka Devlin Schizophrenia Father Diabetes Other some on mother's side Hypertension Other some on mother's side Rheum arthritis Maternal Grandmother Cristina Payne SURGICAL HISTORY Past Surgical History: Procedure Laterality Date ADENOIDECTOMY 2012 DILATION AND CURETTAGE OF UTERUS 07/07/2023 DILATION AND CURETTAGE OF UTERUS 07/07/2023 MANDIBLE SURGERY 2018 left side jaw OTHER SURGICAL HISTORY 10/25/2017 I and D Debridement of Right Vulvar Abscess under general anesthesia TONSILLECTOMY 2011 REVIEW OF SYSTEMS Review of Systems: Review of Systems Constitutional: Negative. HENT: Negative. Eyes: Negative. Respiratory: Negative. Cardiovascular: Negative. Gastrointestinal: Negative. Genitourinary: Negative. Musculoskeletal: Negative. Skin: Negative. Neurological: Negative. All other systems reviewed and are negative. Hematological: Negative. Endocrine: Negative. Allergic/Immunologic: Negative. OBJECTIVE Objective: Physical Exam Constitutional: Appearance: Normal appearance. She is normal weight. HENT: Head: Normocephalic. Cardiovascular: Rate and Rhythm: Normal rate. Pulses: Normal pulses. Pulmonary: Effort: Pulmonary effort is normal. Breath sounds: Normal breath sounds. Abdominal: Palpations: Abdomen is soft. Musculoskeletal: General: Normal range of motion. Neurological: General: No focal deficit present. Mental Status: She is alert and oriented to person, place, and time. Psychiatric: Mood and Affect: Mood normal. Behavior: Behavior normal. Thought Content: Thought content normal. Judgment: Judgment normal. Vitals and nursing note reviewed. Vitals: Estimated body mass index is 38.43 kg/m as calculated from the following: Height as of 09/08/22: 5' 5.5 . Weight as of this encounter: 234 lb 8 oz. BP: 124/80 Patient's last menstrual period was 08/18/2023. ASSESSMENT & PLAN ICD-10-CM 1. Third trimester Z34.93 POCT urinalysis dipstick manually resulted Return OB: Patient presents today for a routine obstetrics appointment. Patient is currently 36w6d . Patient states she is doing well but has complaints of being tired due to current . Patient has verbalizes frequent movement. labor precautions was discussed/given and patient was instructed to perform kick counts three times a day. Orders Placed This Encounter Procedures POCT urinalysis dipstick manually resulted Follow Up: Patient is to return to office in 1 week for routine OB appointment. Documented by DOMO Hughes on behalf of: DOMO Hughes documented in this encounter [facility] 04-25-2024 History of Present illness Narrative 0 Reason for Appointment: Patient ID: Rony Plasencia is a 33 y.o. female who presents for Routine Visit Patient presents today for Return OB appointment. MEDICATIONS Current Outpatient Medications Medication Instructions aspirin 81 mg, Oral, Daily iron polysaccharides (PROFE) 391.3 mg, Oral, Daily Vit-Fe Fumarate-FA (M-Geraldine Plus) 27-1 MG tablet 1 tablet, Oral, Daily ALLERGIES Allergies Allergen Reactions Octacosanol Unknown PROBLEMS Active Ambulatory Problems Diagnosis Date Noted No Active Ambulatory Problems Resolved Ambulatory Problems Diagnosis Date Noted No Resolved Ambulatory Problems Past Medical History: Diagnosis Date Anxiety Bipolar disorder (CMS/HCC) H/O one miscarriage 06/2023 Hepatitis C (CMS/HCC) Jaw fracture (HCC) (CMS/HCC) Vulvar abscess HISTORY PAST MEDICAL HISTORY SOCIAL HISTORY Past Medical History: Diagnosis Date Anxiety Bipolar disorder (CMS/HCC) H/O one miscarriage 06/2023 Hepatitis C (CMS/HCC) Jaw fracture (HCC) (CMS/HCC) Vulvar abscess Social History Tobacco Use Smoking status: Never Smokeless tobacco: Never Substance Use Topics Alcohol use: Never Comment: caffeine: none Drug use: Never FAMILY HISTORY Family History Problem Relation Name Age of Onset Thyroid disease Mother Tomeka Devlin Schizophrenia Father Diabetes Other some on mother's side Hypertension Other some on mother's side Rheum arthritis Maternal Grandmother Cristina Payne SURGICAL HISTORY Past Surgical History: Procedure Laterality Date ADENOIDECTOMY 2012 DILATION AND CURETTAGE OF UTERUS 07/07/2023 DILATION AND CURETTAGE OF UTERUS 07/07/2023 MANDIBLE SURGERY 2018 left side jaw OTHER SURGICAL HISTORY 10/25/2017 I and D Debridement of Right Vulvar Abscess under general anesthesia TONSILLECTOMY 2012 REVIEW OF SYSTEMS Review of Systems: Review of Systems All other systems reviewed and are negative. OBJECTIVE Objective: Physical Exam Constitutional: Appearance: Normal appearance. She is well-developed. Genitourinary: Vulva normal. Cardiovascular: Rate and Rhythm: Normal rate and regular rhythm. Pulmonary: Effort: Pulmonary effort is normal. Breath sounds: Normal breath sounds. Abdominal: General: Bowel sounds are normal. There is no distension. Palpations: Abdomen is soft. Tenderness: There is no abdominal tenderness. There is no guarding or rebound. Musculoskeletal: General: No swelling. Normal range of motion. Right lower leg: No edema. Left lower leg: No edema. Neurological: Mental Status: She is alert and oriented to person, place, and time. Skin: General: Skin is warm and dry. Psychiatric: Mood and Affect: Mood normal. Behavior: Behavior normal. Vitals and nursing note reviewed. Exam conducted with a kelp or seagrass gatherer present. Vitals: Estimated body mass index is 38.2 kg/m as calculated from the following: Height as of 09/08/22: 5' 5.5 . Weight as of this encounter: 233 lb 1.9 oz. BP: 120/76 Patient's last menstrual period was 08/18/2023. ASSESSMENT & PLAN ICD-10-CM 1. Third trimester Z34.93 POCT urinalysis dipstick manually resulted Strep B DNA probe, amplification Patient is doing well but has complaints of being tired and having maternal discomfort due to . Patient verbalized frequent movement and was instructed to perform kick counts three times per day. labor precautions were given, LARC consent was signed/declined, and GBS was obtained. Cervical check was performed and patient is 1cm dilated. Patient inquired as to if referral is needed for partner to have a vasectomy. Informed patient that referral is not needed and gave information to [facility] for patient and spouse to reach out to setup consult appointment. Orders Placed This Encounter Procedures Strep B DNA probe, amplification POCT urinalysis dipstick manually resulted Follow Up: Patient is to return to office in 1 week for routine OB appointment Documented by Bea Messer LPN on behalf of: Lynnette Malagon DO documented in this encounter [facility] 04-11-2024 History of Present illness Narrative Reason for Appointment: Patient ID: Rony Plasencia is a 33 y.o. female who presents for Routine Visit Patient presents today for Return OB appointment. MEDICATIONS Current Outpatient Medications Medication Instructions aspirin 81 mg, Oral, Daily iron polysaccharides (PROFE) 391.3 mg, Oral, Daily Vit-Fe Fumarate-FA (M-Geraldine Plus) 27-1 MG tablet 1 tablet, Oral, Daily ALLERGIES Allergies Allergen Reactions Octacosanol Unknown PROBLEMS Active Ambulatory Problems Diagnosis Date Noted No Active Ambulatory Problems Resolved Ambulatory Problems Diagnosis Date Noted No Resolved Ambulatory Problems Past Medical History: Diagnosis Date Anxiety Bipolar disorder (CMS/HCC) H/O one miscarriage 06/2023 Hepatitis C (CMS/HCC) Jaw fracture (HCC) (CMS/HCC) Vulvar abscess HISTORY PAST MEDICAL HISTORY SOCIAL HISTORY Past Medical History: Diagnosis Date Anxiety Bipolar disorder (CMS/HCC) H/O one miscarriage 06/2023 Hepatitis C (CMS/HCC) Jaw fracture (HCC) (CMS/HCC) Vulvar abscess Social History Tobacco Use Smoking status: Never Smokeless tobacco: Never Substance Use Topics Alcohol use: Never Comment: caffeine: none Drug use: Never FAMILY HISTORY Family History Problem Relation Name Age of Onset Thyroid disease Mother Tomeka Devlin Schizophrenia Father Diabetes Other some on mother's side Hypertension Other some on mother's side Rheum arthritis Maternal Grandmother Cristina Payne SURGICAL HISTORY Past Surgical History: Procedure Laterality Date ADENOIDECTOMY 2012 DILATION AND CURETTAGE OF UTERUS 07/07/2023 DILATION AND CURETTAGE OF UTERUS 07/07/2023 MANDIBLE SURGERY 2018 left side jaw OTHER SURGICAL HISTORY 10/25/2017 I and D Debridement of Right Vulvar Abscess under general anesthesia TONSILLECTOMY 2011 REVIEW OF SYSTEMS Review of Systems: Review of Systems All other systems reviewed and are negative. OBJECTIVE Objective: Physical Exam Constitutional: Appearance: Normal appearance. She is well-developed. Cardiovascular: Rate and Rhythm: Normal rate and regular rhythm. Pulmonary: Effort: Pulmonary effort is normal. Breath sounds: Normal breath sounds. Abdominal: General: Bowel sounds are normal. There is no distension. Palpations: Abdomen is soft. Tenderness: There is no abdominal tenderness. There is no guarding or rebound. Musculoskeletal: General: No swelling. Normal range of motion. Right lower leg: No edema. Left lower leg: No edema. Neurological: Mental Status: She is alert and oriented to person, place, and time. Skin: General: Skin is warm and dry. Psychiatric: Mood and Affect: Mood normal. Behavior: Behavior normal. Vitals and nursing note reviewed. Exam conducted with a kelp or seagrass gatherer present. Vitals: Estimated body mass index is 37.2 kg/m as calculated from the following: Height as of 09/08/22: 5' 5.5 . Weight as of this encounter: 227 lb. BP: 124/78 Patient's last menstrual period was 08/18/2023. ASSESSMENT & PLAN ICD-10-CM 1. Third trimester Z34.93 POCT urinalysis dipstick manually resulted Patient presents today for a routine obstetrics appointment. Patient is currently 33w6d with a Estimated Date of Delivery: 05/24/24. Patient has no complaints today. Patient to return to clinic in 2 weeks for routine OB appointment. Documented by Bea Messer LPN on behalf of: Lynnette Malagon DO documented in this encounter [facility] 05-21-2023 Hospital Discharge instructions Patient Education 05/21/2023 15:09:51 Abdominal Pain During , [id number] Abdominal Pain During Belly (abdominal) pain is [...] keep your pee (urine) pale yellow. Take [id number] and prescription medicines only as told by [...] provider. Document Revised: 04/20/2021 Document Reviewed: 04/20/2021 [employer] Patient Education 2022 Smart Panel Follow Up Care 05/21/2023 10:51:24 With:Jason Raines Address: [address], [address] [place] [address]- Business (1) When:05/24/2023 14:59:00 Comments:Follow-up with your [employer]. If not have any may follow-up with Dr. Raines. With:XXXX NONE Address: [place] When:Within 3 Day(s) [facility] 05-21-2023 Evaluation + Plan note Extrac chano [...] A&B Ag Lipase Level Rapid COVID Antigen ([facility]) UA With Cult Reflex US 1st Trimester US Transvaginal XR Chest 2 Views [facility] Diagnosis Third trimester state, incidental 39 weeks gestation of documented [facility] encounter [facility]* Diagnosis hypertension documented in this encounter [facility]* Diagnosis 6 weeks follow-up documented in this encounter [facility] note* Diagnosis Third trimester state, incidental documented in this encounter [facility] note* Diagnosis Third trimester state, incidental documented in this encounter [facility]Evaluation note* Diagnosis Well woman exam with routine gynecological exam Routine gynecological examination [facility] Narr[facility] No data available for this section [facility] No data available for this section [facility] Summary Purpose Family History No Family History Records FoundNo Family History Records Found No data available for this section No Family History Records FoundNo Family History Records Found Advance Directives No Advanced Directives Records FoundNo Advanced Directives Records FoundNo Advanced Directives Records FoundNo Advanced Directives Records Found Additional Source Comments INFORMATION SOURCE (unrecogn ized section and content) DATE CREATED AUTHOR 09/30/2021 [facility] DATE CREATED AUTHOR AUTHOR'S ORGANIZ ATION 06/13/2022 [facility] DATE CREATED AUTHOR AUTHOR'S ORGANIZ ATION 05/26/2023 [facility] DATE CREATED AUTHOR AUTHOR'S ORGANIZ ATION 12/16/2024 [facility] EPIC Reason for Visit (unrecogniz ed section and content) Reason Comments Routine Visit Reason Comments Follow-up Blood Pressure Check Reason Comments Follow-up Reason Comments Well Women Visit FOR RECORDS PERTAINING TO PATIENTS WHO ARE [...] BE BASED ON THE PRIMARY CLINICAL RECORDS. [facility] [place] [facility]. provides no warranty or guarantee of the accuracy or completeness of information in this document.
--- OUTSIDE RECORDS SUMMARY | 2025-04-04 09:43 | XMS_ITS | CCD ---
Author Organization [facility] Care Team Providers Care Transmission Engineer Name Role Phone DR LYNNETTE MALAGON Admitting [...] (1 source) Cefaclor Drug Allergy 06-06-2013 [facility] Repository Medications Current Medications Medication Drug Class(es) Dates Sig (Normalized) Sig (Original) aspirin 81 mg delayed release oral tablet (20 sources) Platelet Aggregation Inhibitor, Nonsteroidal Anti-inflammatory Drug take 1 tablet by mouth once daily aspirin 81 MG EC tablet Take 81 mg by mouth Daily Active dextromethorphan hydrobromide 3 mg/ml / promethazine hydrochloride 1.25 mg/ml oral solution (1 source) Phenothiazine, Uncompetitive Z-ilyays-E-aspartate Receptor Antagonist, Sigma-1 Agonist Start: 9 take [...] 05/24/18 Status: Ordered fluticasone 0.05 mg/inh Nasal [place] (1 source) Start: 9 fluticasone 0.05 mg/inh Nasal [place] 1 spray(s), Nasal, BID, 16 gram, Refill(s) [...] Daily, # 30 tab(s), Refills(s) 0, Pharmacy: [facility]/pharmacy #[id number], 165, cm, 05/21/21 11:57:00 EDT, [...] Nausea/Vomiting, # 12 tab(s), Refills(s) 0, Pharmacy: [facility]/pharmacy #[id number], 165, cm, 05/21/21 11:57:00 EDT, [...] of containers..01 ThinPrep Vial Age Algo ACOG Mei... 30-65 01 FLAG LEGEND: L-Low Normal,H-High Normal,LL-Alert Low,HH-Alert High <-Panic Low,>-Panic High,A-Abnormal,AA-Critical Abnormal Performed at: 01 =[address] [place] [address] Amy Wong MD, HPV APTIMA Negative Negative [facility] Comment on above: This nucleic acid am plification test detects fourteen high- risk HPV types (16,18,31,33,35,39,45,51,52,56,58,59,66,68) without differentiation. Performed at: =[address] [id number] Spotter: Amy Wong MD, Phone: [phone] Performed at: [address] [id number] Spotter: Amy Wong MD, Phone: [phone] IGP, APTIMA HPV, RFX 16/18,45 Note . [facility] Comment on above: TESTS RESULT FLAG UN ITS REF RANGE LAB DIAGNOSIS: 02 NEGATIVE FOR INTRAEPITHELIAL LESION OR MALIGNANCY. Specimen adequacy: 02 Satisfactory for evaluation. Endocervical and/or squamous metaplastic cells (endocervical component) are present. Performed by: Melissa Valerio, Insurance Office Supervisor (ASCP) . 02 Note: Note 02 The [...] High,A-Abnormal,AA-Critical Abnormal Performed at: 02 WB [facility] [address] [place] [address] Amy Wong MD, BRUSH-SPATULA CERVIX ENDOCERVIX [facility] ALL CBC WITH AUTO DIFFon BASOPHILS ABSOLUTE AUTO 0.0 [facility] Basophils/100 WBC (Bld) 0.2 % 0.2 - 2.0 % [facility] Eosinophils/100 WBC (Bld) 0.3 % Low 0.9 - 7.0 % [facility] Erythrocyte distribution width (RBC) [Ratio] 12.9 % 11.0 - 15.0 % [facility] Hematocrit (Bld) [Volume fraction] 33.2 % Low 36.0 - 48.0 % [facility] Hemoglobin (Bld) [Mass/Vol] 10.8 g/dL Low 12.0 - 16.0 g/dL [facility] IMMATURE GRANULOCYTES ABS AUTO 0.09 High [facility] Immature granulocytes/100 WBC (Bld) 0.6 % High 0.0 - 0.5 % [facility] Interpretation and review of laboratory results Abnormal [facility] LYMPHOCYTES ABSOLUTE AUTO 1.9 [facility] Lymphocytes/100 WBC (Bld) 12.6 % Low 20.5 - 60.0 % [facility] MCH (RBC) [Entitic mass] 28.9 pg 26.7 - 34.0 pg [facility] MCHC (RBC) [Mass/Vol] 32.5 g/dL 29.9 - 35.2 g/dL [facility] MCV (RBC) [Entitic vol] 88.8 fL 81.0 - 99.0 fL [facility] MONOCYTES ABSOLUTE AUTO 1.1 High [facility] Monocytes/100 WBC (Bld) 6.8 % 1.7 - 12.0 % [facility] NEUTROPHILS ABSOLUTE AUTO 12.3 High [facility] Neutrophils/100 WBC (Bld) 79.5 % High 43.0 - 75.0 % [facility] Platelet mean volume (Bld) [Entitic vol] 11.2 fL 9.5 - 13.5 fL [facility] TB EO # 0.0 [facility] TB PLT 265 [facility] RBC 3.74 Low [facility] WBC 15.4 High [facility] WITH PLATELET NO DI FFERENTIALon 05-22-2024 Erythrocyte distribution width (RBC) [Ratio] 12.9 % 11.0 - 15.0 % [facility] Hematocrit (Bld) [Volume fraction] 31.0 % Low 36.0 - 48.0 % [facility] Hemoglobin (Bld) [Mass/Vol] 10.1 g/dL Low 12.0 - 16.0 g/dL [facility] Interpretation and review of laboratory results Abnormal [facility] MCH (RBC) [Entitic mass] 29.2 pg 26.7 - 34.0 pg [facility] MCHC (RBC) [Mass/Vol] 32.6 g/dL 29.9 - 35.2 g/dL [facility] MCV (RBC) [Entitic vol] 89.6 fL 81.0 - 99.0 fL [facility] Platelet mean volume (Bld) [Entitic vol] 11.6 fL 9.5 - 13.5 fL [facility] TB PLT 262 [facility] RBC 3.46 Low [facility] WBC 10.5 [facility] Urinalysis macro (dipstick) panel (U)on 05-22-2024 Bilirubin, UA Negative Negative - 4(70) +++ mg/dL [facility] Blood, UA Negative Negative - 50 Shailesh/mcL [facility] Clarity, UA Clear [facility] Color, UA Yellow [facility] Glucose, UA Negative Negative - 2000(110) ++++ mg/dL [facility] Interpretation and review of laboratory results Normal [facility] Ketones, UA Negative Negative - 160(16) ++++ mg/dL [facility] Leukocytes, UA Negative Negative - 500+++ Rod/mcL [facility] Nitrite, UA Negative Negative - Positive [facility] pH, UA 6.5 5 - 9 [facility] Healthcare Protein, UA Negative Negative - 1999(20) ++++ mg/dL [facility] Spec Grav, UA 1.020 1 - 1.03 [facility] Urobilinogen, UA 0.2 0.2 - 12 mg/dL [facility] Urinalysis macro (dipstick) panel (U)on 05-15-2024 Bilirubin, UA Negative Negative - 4(70) +++ mg/dL [facility] Blood, UA Negative Negative - 50 Shailesh/mcL [facility] Healthcare Clarity, UA Clear [facility] Color, UA Light Yellow [facility] Glucose, UA Negative Negative - 1999(110) ++++ mg/dL [facility] Interpretation and review of laboratory results Normal [facility] Ketones, UA Negative Negative - 160(16) ++++ mg/dL [facility] Leukocytes, UA Negative Negative - 500+++ Rod/mcL [facility] Nitrite, UA Negative Negative - Positive [facility] pH, UA 6.0 5 - 9 [facility] Healthcare Protein, UA Negative Negative - 1999(20) ++++ mg/dL [facility] Healthcare Spec Grav, UA 1.010 1 - 1.03 [facility] Urobilinogen, UA 0.2 0.2 - 12 mg/dL [facility] Urinalysis macro (dipstick) panel (U)on 05-09-2024 Bilirubin, UA Negative Negative - 4(70) +++ mg/dL [facility] Blood, UA Negative Negative - 50 Shailesh/mcL [facility] Healthcare Clarity, UA Clear [facility] Color, UA Yellow [facility] Glucose, UA Negative Negative - 1999(110) ++++ mg/dL [facility] Interpretation and review of laboratory results Normal [facility] Ketones, UA Negative Negative - 160(16) ++++ mg/dL [facility] Leukocytes, UA Negative Negative - 500+++ Rod/mcL [facility] Nitrite, UA Negative Negative - Positive [facility] pH, UA 6.0 5 - 9 [facility] Healthcare Protein, UA Negative Negative - 1999(20) ++++ mg/dL [facility] Spec Grav, UA 1.015 1 - 1.03 [facility] Urobilinogen, UA 1.0 0.2 - 12 mg/dL [facility] Urinalysis macro (dipstick) panel (U)on 05-02-2024 Bilirubin, UA Negative Negative - 4(70) +++ mg/dL [facility] Blood, UA Negative Negative - 50 Shailesh/mcL [facility] Clarity, UA Clear [facility] Color, UA Yellow [facility] Glucose, UA Negative Negative - 1999(110) ++++ mg/dL [facility] Interpretation and review of laboratory results Normal [facility] Ketones, UA Negative Negative - 160(16) ++++ mg/dL [facility] Leukocytes, UA Negative Negative - 500+++ Rod/mcL [facility] Nitrite, UA Negative Negative - Positive [facility] pH, UA 7.0 5 - 9 [facility] Protein, UA Negative Negative - 1999(20) ++++ mg/dL [facility] Spec Grav, UA 1.025 1 - 1.03 [facility] Urobilinogen, UA 0.2 0.2 - 12 mg/dL [facility] Urinalysis macro (dipstick) panel (U)on 04-25-2024 Bilirubin, UA Negative Negative - 4(70) +++ mg/dL [facility] Blood, UA Negative Negative - 50 Shailesh/mcL [facility] Clarity, UA Clear [facility] Color, UA Yellow [facility] Glucose, UA Negative Negative - 1999(110) ++++ mg/dL [facility] Interpretation and review of laboratory results Normal [facility] Ketones, UA Negative Negative - 160(16) ++++ mg/dL [facility] Leukocytes, UA Negative Negative - 500+++ Rod/mcL [facility] Nitrite, UA Negative Negative - Positive [facility] pH, UA 5.5 5 - 9 [facility] Protein, UA Negative Negative - 1999(20) ++++ mg/dL [facility] Spec Grav, UA 1.020 1 - 1.03 [facility] Urobilinogen, UA 1.0 0.2 - 12 mg/dL [facility] Urinalysis macro (dipstick) panel (U)on 04-11-2024 Bilirubin, UA Negative Negative - 4(70) +++ mg/dL [facility] Blood, UA Negative Negative - 50 Shailesh/mcL [facility] Clarity, UA Clear [facility] Color, UA Yellow [facility] Glucose, UA Negative Negative - 1999(110) ++++ mg/dL [facility] Interpretation and review of laboratory results Normal [facility] Ketones, UA Negative Negative - 160(16) ++++ mg/dL [facility] Leukocytes, UA Negative Negative - 500+++ Rod/mcL [facility] Nitrite, UA Negative Negative - Positive [facility] pH, UA 6.5 5 - 9 [facility] Protein, UA Negative Negative - 1999(20) ++++ mg/dL [facility] Spec Grav, UA 1.030 1 - 1.03 [facility] Urobilinogen, UA 0.2 0.2 - 12 mg/dL [facility] Cytology Cervical or vaginal smear or scraping studyon 12-12-2023 [facility] Auto Diffon 05-21-2023 Basophils/100 WBC (Bld) 0.4 % Normal 0.0-2.0 [facility] Comment on above: Order Comment: Order Added by Discern Expert. Performed By: #### 1 [id number], 7171337, 5691830, 7622755, 8048864, 7958900, 93419247, 2206768 #### [facility] [address] [place] [address] Basophils/Leukocytes Auto (Bld) [Pure # fraction] 0.0 E9/L Normal 0.0-0.2 [facility] Comment on above: Order Comment: Order Added by Discern Expert. Performed By: #### 1 [id number], 5796983, 2344489, 1425891, 4816214, 0045954, 28284646, 3352864 #### [facility] [address] [place] [address] Eosinophils/100 WBC (Bld) 1.5 % Normal 0.0-8.0 [facility] Comment on above: Order Comment: Order Added by Discern Expert. Performed By: #### 1 8455272, 6010179, 9479363, 1872788, 6481029, 6910070, 40356160, 9528320 #### [facility] [address] [place] [address] Eosinophils/Leukocyte s Auto (Bld) [Pure # fraction] 0.1 E9/L Normal 0.0-0.5 [facility] Comment on above: Order Comment: Order Added by Discern Expert. Performed By: #### 1 5886112, 4402813, 0564237, 5727272, 8974325, 4514529, 16808993, 1339895 #### [facility] [address] [place] [address] Lymphocytes/100 WBC (Bld) 33.2 % Normal 14.0-50.0 [facility] Comment on above: Order Comment: Order Added by Discern Expert. Performed By: #### 1 9097563, 5729543, 6334961, 7974269, 8191092, 8952266, 36912874, 6012012 #### [facility] [address] [place] [address] Lymphocytes/Leukocyte s Auto (Bld) [Pure # fraction] 2.0 E9/L Normal 1.0-4.0 [facility] Comment on above: Order Comment: Order Added by Discern Expert. Performed By: #### 1 3805506, 1301949, 2904931, 6168454, 2968634, 8798604, 61328226, 2736336 #### [facility] [address] [place] [address] Monocytes/100 WBC (Bld) 7.8 % Normal 4.0-14.0 [facility] Comment on above: Order Comment: Order Added by Discern Expert. Performed By: #### 1 5785421, 6642265, 3369658, 2056027, 3084521, 6461000, 65966583, 8954997 #### [facility] [address] [place] [address] Monocytes/Leukocytes Auto (Bld) [Pure # fraction] 0.5 E9/L Normal 0.2-1.0 [facility] Comment on above: Order Comment: Order Added by Discern Expert. Performed By: #### 1 4323740, 9938122, 3123828, 4874105, 9478584, 9805014, 21880149, 0262445 #### [facility] [address] [place] [address] Neutrophils/100 WBC (Bld) 57.1 % Normal 36.0-75.0 [facility] Comment on above: Order Comment: Order Added by Discern Expert. Performed By: #### 1 9239466, 8730376, 5460312, 4437043, 8049192, 3139364, 20781993, 3862143 #### [facility] [address] [place] [address] Neutrophils/Leukocyte s Auto (Bld) [Pure # fraction] 3.4 E9/L Normal 2.0-7.5 [facility] Comment on above: Order Comment: Order Added by Discern Expert. Performed By: #### 1 4670735, 9512983, 9113607, 5030968, 4395654, 9427926, 15881161, 2063231 #### [facility] [address] [place] [address] B hCG Qualon 05-21-2023 Beta hCG Ql Positive Normal [facility] Comment on above: Performed By: #### 1 6706777, 2709780, 5949978, 9974482, 0038966, 5687829, 88821071, 7719224 #### [facility] [address] [place] [address] BMPon 05-21-2023 Creatinine [Mass/Vol] 0.5 mg/dL Normal 0.5-1.[address] [facility] Comment on above: Performed By: #### 1 3291471, 4997714, 9473267, 7238874, 6645579, 2577355, 54683758, 4337179 #### [facility] [address] [place] [address] Urea nitrogen [Mass/Vol] 13 mg/dL Normal 5-21 [facility] Comment on above: Performed By: #### 1 7743741, 0790937, 5442129, 0814807, 4770757, 3324628, 46180199, 2561177 #### [facility] [address] [place] [address] Urea nitrogen/Creatinine [Mass ratio] 26 No Units High 10-20 [facility] Comment on above: Performed By: #### 1 1208016, 2613549, 7072088, 5880634, 4480325, 7958945, 46748900, 1774944 #### [facility] [address] [place] [address] Anion gap [Moles/Vol] 8 mmol/L Normal 6-[address] [facility] Comment on above: Performed By: #### 1 8391671, 2600246, 4138053, 6827711, 1284510, 1310224, 43755086, 1278579 #### [facility] [address] [place] [address] Calcium [Mass/Vol] 9.2 mg/dL Normal 8.9-11.1 [facility] Comment on above: Performed By: #### 1 0186929, 7000062, 1817263, 0402751, 8249097, 2670350, 59410698, 9952069 #### [facility] [address] [place] [address] Chloride [Moles/Vol] 111 mmol/L Normal 101-111 [facility] Comment on above: Performed By: #### 1 0808941, 5594971, 1350465, 0367203, 4474901, 7487317, 12074463, 4837483 #### [facility] [address] [place] [address] CO2 [Moles/Vol] 23 mmol/L Normal 21-31 [facility] Comment on above: Performed By: #### 1 8791320, 9477731, 7145231, 4462493, 8326630, 1054511, 34940375, 2138424 #### [facility] [address] [place] [address] Glucose [Mass/Vol] 101 mg/dL Normal 55-199 [facility] Comment on above: Result Comment: If t his glucose result represents a fasting glucose, interpretation should refer to the following reference range: 55-99 mg/dL Performed By: #### 1 4237675, 1196358, 2561942, 2451981, 4855998, 6050220, 26957272, 3832847 #### [facility] [address] [place] [address] Potassium [Moles/Vol] 3.6 mmol/L Normal 3.5-5.[address] [facility] Comment on above: Performed By: #### 1 6388950, 3150376, 9747484, 6768492, 9156056, 3676302, 09296255, 5722141 #### [facility] [address] [place] [address] Sodium [Moles/Vol] 138 mmol/L Normal 135-145 [facility] Comment on above: Performed By: #### 1 1837390, 1309356, 5147914, 3954394, 2100956, 8313088, 38828917, 5348608 #### [facility] [address] [place] [address] BhCG Quanton 05-21-2023 HCG.beta subunit Qn 9779 m[IU]/mL High 1-3 [facility] Comment on above: Result Comment: GEST ATIONAL AGE HCG RANGE (mIU/mL) NON- <1-3 0.2-1 WEEKS 5-50 1-2 WEEKS 50-500 2-3 WEEKS 100-5,000 3-4 WEEKS 500-10,000 4-5 WEEKS 1,000-50,000 5-6 WEEKS 10,000-100,000 6-8 WEEKS 15,000-200,000 8-12 WEEKS 10,000-100,000 Performed By: #### 1 6732552, 2127761, 4056234, 9823956, 5717830, 7371023, 56940701, 6234884 #### [facility] [address] [place] [address] CBC w/ Auto Diffon Erythrocyte distribution width (RBC) [Ratio] 12.9 % Normal 10.9-14.2 [facility] Comment on above: Performed By: #### 1 2058732, 6993659, 9473426, 7237224, 7380980, 8424614, 68902149, 5068211 #### [facility] [address] [place] [address] Hematocrit (Bld) [Volume fraction] 36.4 % Normal 34.0-46.0 [facility] Comment on above: Performed By: #### 1 8877099, 7231374, 0532985, 1165330, 0465186, 7164734, 58707700, 5650450 #### [facility] [address] [place] [address] Hemoglobin (Bld) [Mass/Vol] 12.5 g/dL Normal 12.0-16.0 [facility] Comment on above: Performed By: #### 1 5975680, 0652147, 3712036, 9664034, 8159761, 8346866, 98114461, 6965049 #### [facility] [address] [place] [address] MCH (RBC) [Entitic mass] 30.4 pg Normal 27.0-34.0 [facility] Comment on above: Performed By: #### 1 0680306, 1455983, 1748736, 8868150, 2109617, 8968845, 36951050, 6135005 #### [facility] [address] [place] [address] MCHC (RBC) [Mass/Vol] 34.3 g/dL Normal 31.4-36.[address] [facility] Comment on above: Performed By: #### 1 9980151, 2459411, 8782331, 9646656, 5603628, 9121206, 25544296, 6908350 #### [facility] [address] [place] [address] MCV (RBC) [Entitic vol] 88.4 fL Normal 80.0-100.0 [facility] Comment on above: Performed By: #### 1 9405500, 0335963, 3546629, 6158856, 2721097, 8357694, 21842752, 5657315 #### [facility] [address] [place] [address] Platelet mean volume (Bld) [Entitic vol] 9.0 fL Normal 6.4-10.8 [facility] Comment on above: Performed By: #### 1 2397255, 8779201, 1916911, 9877726, 2583513, 0712504, 44993035, 8446472 #### [facility] [address] [place] [address] Platelets (Bld) [#/Vol] 273.0 E9/L Normal 150.0-500.0 [facility] Comment on above: Performed By: #### 1 6661086, 4851551, 8288398, 0047498, 5923196, 9672266, 18138826, 3787812 #### [facility] [address] [place] [address] RBC (Bld) [#/Vol] 4.1 E12/L Low 4.3-5.9 [facility] Comment on above: Performed By: #### 1 9278987, 3633217, 0393732, 7020838, 7440732, 1074054, 90054473, 6597782 #### [facility] [address] [place] [address] WBC corrected for nucl RBC Auto (Bld) [#/Vol] 5.9 E9/L Normal 4.0-11.0 [facility] Comment on above: Performed By: #### 1 9352661, 2992686, 8332571, 3630335, 7376615, 5380302, 68359156, 9147768 #### [facility] [address] [place] [address] CHEMISTRYOrdered By: SYSTEM SYSTEM on 05-21-2023 Albumin [...] 129 mL/min/1.73 m2 Normal >=59mL/min/1. 73 m2 [facility] Chem S Comment on above: Interpretive Data: [...] for Treatmenton Consent for Treatment [id number] #[id number]:127 Normal [facility] Discharge Instructionson Discharge Instructions [id number] #1.00CD:127 Normal [facility] ED Clinical Summaryon 2022 ED Clinical Summary [place] [id number] ED Clinical Summary Person Information Name: RONY PLASENCIA ARIK [facility] Age: 32 Years : 1990 Sex: Female Language: Burundian PCP: NONE, XXXX Marital Status: Single Visit [...] 05/21/2023 15:09:51 05/21/2023 15:09:51 05/21/2023 15:09:51 AD[address]ESS: [address] [place], [place] [address] [id number] PH[facility] DOC NOTES: MEDICAL INFORMATION: Prescriptions Given: Medications to Continue with No Changes Other Medications dextromethorphan-pro methazine (dextromethorphan-pr omethazine 15 mg-6.25 mg/5 mL Oral Syrup 5 mL) 5 Milliliter By Mouth every 6 hours as needed for cough. Refills: 0. etonogestrel (Nexplanon 68 mg subcutaneous implant) 1 Each Subcutaneous Once. 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 If not have any may follow-up with Dr. Raines. With: Address: When: XXXX NONE , [place] In 3 days DIAGNOSIS: Abdominal pain in ; Unspecified abdominal pain Normal [facility] ED Note-Physicianon 05-21-20 ED Note-Physician Basic [...] and Complexity of Problems Differential Diagnosis: [] [facility] Data External documents reviewed: [] [...] Refl (more content not included)... Normal [facility] Comment on above: Result Comment: Elec [...] your pee (urine) pale yellow. ? Take [id number] and prescription medicines only as told by [...] Reviewed: 04/20/2021 Elsevier Patient Education ? 2022 [employer] Normal [facility] ED Patient Summaryon 023 ED Patient Summary [address] [address] Patient Discharge Instructions Person Information Name: RONY PLASENCIA Age: 32 Years Arrival Date: 05/21/2023 10:49:01 Discharge Diagnosis: Abdominal pain in ; Unspecified abdominal pain Primary Care Physician: NONE, XXXX Provider Information Primary Provider: Donovan Keller DO Advanced Certified Corporate Travel Executive:Marlo The exam and treatment you received in the Emergency Department were for an urgent problem and are not intended as complete care. It is important that you follow up with a doctor, nurse practitioner, or physician?s offset press assistant for ongoing care. If your symptoms [...] Follow-up Instructions: With: Address: When: Jason Raines [address] [place] [address] Business (1) In 3 days 05/24/2023 Comments: Follow-up with your [employer] REMOVAL SUPERVISOR. If not have any may follow-up with Dr. Raines. With: Address: When: XXARUN MARTINES In 3 days In the event that this physician does not participate in your insurance network, please consult with your insurance company to find a nearby participating provider. Patient Education Materials: Abdominal Pain During , Ssev-al-Stob A MESSAGE TO ALL PATIENTS REGARDING OPIOIDS PRESCRIPTION OPIOIDS: WHAT YOU NEED TO KNOW Prescription opioids can be used to help relieve uzbtaodx-bw-kxbamw pain and are often prescribed following a [...] and overdose (more content not included)... Normal [facility] HEMATOLOGYOrdered By: SYSTEM SYSTEM on 05-21-2023 [...] 5.9 E9/L Normal 4.0 - 11.0 E9/L [facility] HemeAutoSS Hep Func Panelon 05-21-2023 Albumin [Mass/Vol] 4.0 g/dL Normal 3.3-5.0 [facility] Comment on above: Performed By: #### 1 [id number], 6753745, 3486764, 2264275, 4941940, 5337199, 00143993, 7401001 #### [facility] [address] [place] [address] Albumin/Globulin (S) [Mass conc ratio] 1.3 Normal 1.1-2.2 [facility] Comment on above: Performed By: #### 1 [id number], 4766438, 5687323, 7266587, 8879562, 1510781, 38432038, 8476345 #### [facility] [address] [place] [address] ALP [Catalytic activity/Vol] 50 Int._Unit/L Normal 21-98 [facility] Comment on above: Performed By: #### 1 [id number], 9099151, 4086086, 0090151, 6253714, 9522118, 58584056, 6621023 #### [facility] [address] [place] [address] ALT No additional P-5'-P [Catalytic activity/Vol] 19 Int._Unit/L Normal 6-46 [facility] Comment on above: Performed By: #### 1 7718008, 4874239, 5781731, 8100640, 3752906, 0955352, 08496983, 5424586 #### [facility] [address] [place] [address] AST [Catalytic activity/Vol] 17 Int._Unit/L Normal 5-43 [facility] Comment on above: Performed By: #### 1 0622286, 1141153, 3743617, 6403429, 2844549, 2701321, 65092255, 3804822 #### [facility] [address] [place] [address] Bilirubin [Mass/Vol] 0.5 mg/dL Normal 0.0-1.1 [facility] Comment on above: Performed By: #### 1 7435499, 7844474, 7200181, 2757475, 6115232, 4454855, 99851315, 9157105 #### [facility] [address] [place], [place] [address] Bilirubin.direct [Mass/Vol] 0.1 mg/dL Normal 0.1-0.4 [facility] Comment on above: Performed By: #### 1 6385234, 8942626, 1778569, 0610827, 5843998, 6875172, 70169389, 9658473 #### [facility] [address] [place] [address] Bilirubin.indirect [Mass or moles/Vol] 0.4 mg/dL Normal 0.1-0.9 [facility] Comment on above: Performed By: #### 1 5073022, 2123666, 3845785, 9253499, 5633598, 1627797, 79268493, 6605167 #### [facility] [address] [place] [address] Globulin (S) [Mass/Vol] 3.0 g/dL Normal 1.4-4.0 [facility] Comment on above: Performed By: #### 1 5939395, 9883314, 6373040, 0731859, 9206539, 6425626, 25432253, 6104737 #### [facility] [address] [place] [address] Protein [Mass/Vol] 7.0 g/dL Normal 6.0-7.8 [facility] Comment on above: Performed By: #### 1 8719202, 9491619, 5700569, 3459869, 9977063, 9200525, 11302875, 5292584 #### [facility] [address] [place] [address] Influenza A&B Agon Influenzae A Ag Negative Normal Negative [facility] Comment on above: Performed By: #### 1 8403447, [id number] #### [facility] [address] [place] [address] Influenzae B Ag Negative Normal Negative [facility] Comment on above: Result Comment: Test sensitivity and specificity vary for age group, specimen type, antigen types, and prevalence of disease. Test results must be evaluated in conjunction with other clinical data available to the physician. Individuals who received nasally administered Influenza A vaccine may have positive test results up to 3 days after vaccination. Performed By: #### 1 6147087, [id number] #### [facility] [address] [place] [address] Lipase Levelon 05-21-2023 Lipase [Catalytic activity/Vol] 32 U/L Normal 13-58 [facility] Comment on above: Performed By: #### 1 0566733, 6872340, 9559364, 5635583, 3913973, 6861744, 78604433, 3954311 #### [facility] [address] [place] [address] MICRO OTHER TESTSOrdered By: Michelle Can on 05-21-2023 Influenzae A Ag Negative (05/21/23 11:51 AM) Normal Negative [facility] Man Sero Influenzae B Ag Negative 1 (05/21/23 11:51 AM) Normal Negative [facility] Man Sero Comment on above: Interpretive Data: [...] NEG Ctl Pass (05/21/23 11:51 AM) Normal [facility] Man Sero Rapid COV Int POS Ctl Pass (05/21/23 11:51 AM) Normal [facility] Sero SARS-CoV+SARS-CoV-2 (COVID-19) Ag IA.rapid Ql (Resp) Not Detected 5 (05/21/23 11:51 AM) Normal Not Detected [facility] Sero Comment on above: Interpretive Data: [employer] Veritor System for Rapid Detection of SARS-CoV-2 [...] Comment on above: Performed By: #### 1 1655261, 1757779, 5239817, 1408712, 3453099, 5363645, 48158261, 3077106 #### [facility] [address] [place] [address] Rapid COV Int POS Ctl Pass Normal [facility] Comment on above: Performed By: #### 1 3354503, 0012519, 7225317, 6229085, 0539978, 8169316, 77591225, 9889803 #### [facility] [address] [place] [address] SARS-CoV+SARS-CoV-2 (COVID-19) Ag IA.rapid Ql (Resp) Not detected Normal Not Detected [facility] Comment on above: Result Comment: The [employer]? System for Rapid Detection of SARS-CoV-2 is [...] other viruses or pathogens; and, in the [facility], this test is only authorized for the duration of the declaration that circumstances exist justifying the authorization of emergency use of in vitro diagnostics for detection and/or diagnosis of the virus that causes COVID-19 under Section 564(b)(1) of the Act, 21 U.S.C. ? 360bbb-3(b)(1), unless the authorization is terminated or revoked sooner. Performed By: #### 1 1103021, 3737952, 1279637, 4133031, 3802999, 2760877, 48647810, 3467798 #### [facility] [address] [place] [address] SEROLOGYOrdered By: Amairani Louise on 05-21-2023 Beta hCG Ql Positive (05/21/23 11:39 AM) Normal [facility] Man Sero UA With Cult Reflexon 2022 Bilirubin Ql (U) Negative Normal Negative [facility] Comment on above: Performed By: #### 1 [id number] #### [facility] [address] [place] [address] Clarity (U) CLEAR Normal Clear [facility] Comment on above: Performed By: #### 1 2518906 #### [facility] [address] [place] [address] Color (U) YELLOW Normal Yellow [facility] Comment on above: Performed By: #### 1 3932176 #### [facility] [address] [place] [address] Epithelial cells.squamous LM.HPF (Urine sed) [#/Area] 5-8 Normal 0-2 [facility] Comment on above: Performed By: #### 1 4581629 #### [facility] [address] [place] [address] Glucose Test strip (U) [Mass/Vol] Negative Normal Negative [facility] Comment on above: Performed By: #### 1 7149536 #### [facility] [address] [place] [address] Hemoglobin Ql (U) Negative Normal Negative [facility] Comment on above: Performed By: #### 1 4584368 #### [facility] [address] [place] [address] Ketones (U) [Mass/Vol] Negative Normal Negative [facility] Comment on above: Performed By: #### 1 6542524 #### [facility] [address] [place] [address] [place].plasma/Lithiu m.RBC (Bld) [Mass ratio] 0-3 Normal 0-3 [facility] Comment on above: Performed By: #### 1 [id number] #### [facility] [address] [place] [address] Nitrite Ql (U) Negative Normal Negative [facility] Comment on above: Performed By: #### 1 7249714 #### [facility] [address] [place] [address] pH (U) 5.5 [pH] Invalid Interpretation Code 5.0-9.0 [facility] Comment on above: Performed By: #### 1 0097175 #### [facility] [address] [place] [address] Protein (U) [Mass/Vol] Negative Normal Negative [facility] Comment on above: Performed By: #### 1 1610502 #### [facility] [address] [place] [address]69 Specific gravity (U) [Rel density] 1.020 Invalid Interpretation Code 1.005-1.030 [facility] Comment on above: Performed By: #### 1 4148300 #### [facility] [address] [place] [address] Type of Urine collection method Clean Catch Normal [facility] Comment on above: Performed By: #### 1 [id number] #### [facility] [address] [place] [address] Urobilinogen Qn (U) 0.2 {Clara'U}/dL Normal 0.0-1.0 [facility] Comment on above: Performed By: #### 1 3869129 #### [facility] [address] [place] [address] WBC Auto Ql (U) Negative Normal Negative [facility] Comment on above: Performed By: #### 1 7555191 #### [facility] [address] [place] [address] WBC LM.HPF (Urine sed) [#/Area] 0-5 Normal 0-5 [facility] Comment on above: Performed By: #### 1 8133621 #### [facility] [address] [place] [address] URINALYSISOrdered By: Chikis Louise on 05-21-2023 Bilirubin [...] AM) Normal Negative [facility] UA Auto SS [place].plasma/Lithiu m.RBC (Bld) [Mass ratio] 0-3 /HPF Normal [...] AM) Invalid Interpretation Code 1.005 - 1.030 [facility] UA Auto SS UA Spec Desc Clean Catch (05/21/23 11:51 AM) Normal [facility] UA Auto SS Urobilinogen Qn (U) 0.9075387 {Clara'U}/dL Normal 0.0 - 1.0 EU/dL [facility] UA Auto SS WBC Auto Ql (U) Negative (05/21/23 11:51 AM) Normal Negative [facility] UA Auto SS WBC LM.HPF (Urine sed) [#/Area] 0-5 /HPF Normal 0-5/HPF [facility] UA Auto SS US 1st Trimesteron 05-21-2023 [...] 3 Transabdominal Ultrasound Performed Transvaginal Ultrasound Performed [facility] US Transvaginalon 05-21-2023 US Transvaginal Exam Date/Time: 05/21/2023 14:36 EDT Reason for Exam: abdominal pain Report PLEASE SEE US 1st Trimester REPORT DATED: 05/21/2023. Ordering Provider: Osman Ge FINAL REPORT Dictated: 05/21/2023 2:53 pm Gonsalo Martinez MD Signed (Electronic Signature): 05/21/2023 2:53 pm Signed by: Gonsalo Martinez MD Transcribed by: PAULO Technologist: LUIS ANTONIO Normal [facility] XR Chest 2 Viewson XR Chest [...] mGy = na DAP = na Normal [facility] eGFRon 05-21-2023 GFR/1.73 sq M.predicted among non-blacks MDRD (S/P/Bld) [Vol rate/Area] 129 mL/min/1.73 m2 Normal >=59 [facility] Comment on above: Order Comment: Order added by Discern Expert. Result Comment: Lead Teacher josselin kidney disease could be indicated at eGFR's of less than 60 mL/min/1.73m2. Kidney failure is indicated at less than 15 mL/min/1.73m2. Performed By: #### 1 [id number], 9032398, 2419137, 1491064, 0838385, 7710462, 40958085, 3560399 #### [facility] [address] [place] [address] PAP ACOG PANEL 2: 21 to 29on 06-08-2022 . . Normal [facility] Comment on above: Performed By: #### 4 [id number] #### [facility] [address] [place] [address] Dr. Jaspreet Duran Age Gdln ACOG Testing - [facility] Comment on above: Performed By: #### 4 [id number] #### [facility] [address] [place] [address] Dr. Jaspreet Duran DIAGNOSIS: Comment Normal [facility] Comment on above: Result Comment: NEGA TIVE FOR INTRAEPITHELIAL LESION OR MALIGNANCY. Performed By: #### 4 [id number] #### [facility] [address] [place] [address] Dr. Jaspreet Duran Methodology: Comment Normal [facility] Comment on above: Result Comment: This liquid based ThinPrep(R) pap test was screened with the use of an image guided system. Performed By: #### 4 [id number] #### [facility] [address] [place] [address] Dr. Jaspreet Duran Note: Comment Normal [facility] Comment on above: Result Comment: The Pap smear is a screening test designed to aid in the detection of premalignant and malignant conditions of the uterine cervix. It is not a diagnostic procedure and should not be used as the sole means of detecting cervical cancer. Both false-positive and false-negative reports do occur. . Performed By: #### 4 [id number] #### [facility] [address] [place] [address] Dr. Jaspreet Duran Performed by: Comment Normal [facility] Comment on above: Result Comment: Pricila Valerio, Human Services Care Specialist (ASCP) Performed By: #### 4 [id number] #### [facility] [address] [address] [address] Jaspreet Duran Reflex Criteria: Comment Normal [facility] Comment on above: Result Comment: The HPV DNA reflex criteria were not met with this specimen result therefore, no HPV testing was performed. . Performed By: #### 4 [id number] #### [facility] [address] [place] [address] Dr. Jaspreet Duran Specimen adequacy: Comment Normal [facility] Comment on above: Result Comment: Sati sfactory for evaluation. No endocervical component is identified. Performed By: #### 4 [id number] #### [facility] [address] [place] [address] Dr. Jaspreet Duran COVID-19 Lab Corpon 11-11-20 21 SARS-CoV-2 (COVID-19) RNA NATALIE+probe Ql (Unsp spec) Not detected Normal Not Detected [facility] Comment on above: Order Comment: Reaso n for Exam Cough;Myalgia Healthcare Worker?: N Result Comment: This nucleic acid amplification test was developed and its performance characteristics determined by [employer]. Nucleic acid amplification tests include RT- PCR [...] detected) result in this assay. PERFORMED BY: [facility] [place] [address] PATHOLOGIST ROLL CUTTER LAUREANO JACK M.D. Performed By: #### C ORONAVIRUS #### [facility] , Vital Signs Date Time Vital Sign Value Performing Clinician Facility 12-16-2024 10:39-0400 Body mass index (BMI) [Ratio] 37.28 kg/m2 Lynnette Manas [employer] Work Phone: [facility] 12-16-2024 10:39-0400 Body weight 103.19 kg [employer] Work Phone: [facility] 12-16-2024 10:39-0400 Diastolic blood pressure 80 mm[Hg] Lynnette Manas DO Work Phone: [facility] 12-16-2024 10:39-0400 Systolic blood pressure 130 mm[Hg] Lynnette Manas DO Work Phone: [facility] 07-02-2024 09:30-0500 Body mass index (BMI) [Ratio] 37.76 kg/m2 Kimberlee OLIVEROS Work Phone: [facility] 07-02-2024 09:30-0500 Body weight 104.51 kg Kimberlee OLIVEROS Work Phone: [facility] 07-02-2024 09:30-0500 Diastolic blood pressure 70 mm[Hg] Kimberlee OLIVEROS Work Phone: [facility] 07-02-2024 09:30-0500 Systolic blood pressure 120 mm[Hg] Kimberlee OLIVEROS Work Phone: [facility] 06-27-2024 10:08-0500 Body mass index (BMI) [Ratio] 37.76 kg/m2 Lynnette Manas DO Work Phone: [facility] 06-27-2024 10:08-0500 Body weight 104.51 kg Lynnette Manas DO Work Phone: [facility] 06-27-2024 10:08-0500 Diastolic blood pressure 70 mm[Hg] Lynnette Manas DO Work Phone: [facility] 06-27-2024 10:08-0500 Systolic blood pressure 130 mm[Hg] Lynnette Manas DO Work Phone: [facility] 05-22-2024 13:29-0400 Body mass index (BMI) [Ratio] 40.97 kg/m2 Lynnette Manas DO Work Phone: [facility] 05-22-2024 13:29-0400 Body weight 113.4 kg Lynnette Manas DO Work Phone: [facility] 05-22-2024 13:29-0400 Diastolic blood pressure 74 mm[Hg] Lynnette Manas DO Work Phone: [facility] 05-22-2024 13:29-0400 Systolic blood pressure 122 mm[Hg] Lynnette Manas DO Work Phone: [facility] 05-15-2024 11:45-0400 Body mass index (BMI) [Ratio] 39.66 kg/m2 Lynnette Manas DO Work Phone: [facility] 05-15-2024 11:45-0400 Body weight 109.77 kg Lynnette Manas DO Work Phone: [facility] 05-15-2024 11:45-0400 Diastolic blood pressure 74 mm[Hg] Lynnette Manas DO Work Phone: [facility] 05-15-2024 11:45-0400 Systolic blood pressure 120 mm[Hg] Lynnette Manas DO Work Phone: [facility] 05-09-2024 10:01-0400 Body mass index (BMI) [Ratio] 39.25 kg/m2 Lynnette Manas DO Work Phone: [facility] 05-09-2024 10:01-0400 Body weight 108.64 kg Lynnette Manas DO Work Phone: [facility] 05-09-2024 10:01-0400 Diastolic blood pressure 76 mm[Hg] Lynnette Manas DO Work Phone: [facility] 05-09-2024 10:01-0400 Systolic blood pressure 118 mm[Hg] Lynnette Manas DO Work Phone: [facility] 05-02-2024 10:34-0400 Body mass index (BMI) [Ratio] 38.43 kg/m2 Kimberlee OLIVEROS Work Phone: [facility] 05-02-2024 10:34-0400 Body weight 106.37 kg Kimberlee OLIVEROS Work Phone: [facility] 05-02-2024 10:34-0400 Diastolic blood pressure 80 mm[Hg] Kimberlee OLIVEROS Work Phone: [facility] 05-02-2024 10:34-0400 Systolic blood pressure 124 mm[Hg] Kimberlee Rider PA Work Phone: [facility] 04-25-2024 11:23-0400 Body mass index (BMI) [Ratio] 38.2 kg/m2 Lynnette Manas DO Work Phone: [facility] 04-25-2024 11:23-0400 Body weight 105.74 kg Lynnette Manas DO Work Phone: [facility] 04-25-2024 11:23-0400 Diastolic blood pressure 76 mm[Hg] Lynnette Manas DO Work Phone: [facility] 04-25-2024 11:23-0400 Systolic blood pressure 120 mm[Hg] Lynnette Manas DO Work Phone: [facility] 04-11-2024 10:14-0400 Body mass index (BMI) [Ratio] 37.2 kg/m2 Lynnette Manas DO Work Phone: [facility] 04-11-2024 10:14-0400 Body weight 102.97 kg Lynnette Manas DO Work Phone: [facility] 04-11-2024 10:14-0400 Diastolic blood pressure 78 mm[Hg] Lynnette Manas DO Work Phone: [facility] 04-11-2024 10:14-0400 Systolic blood pressure 124 mm[Hg] Lynnette Manas DO Work Phone: [facility] 05-21-2023 14:00-0400 Diastolic blood pressure 79 mm[Hg] Donovan Krishna [facility] 05-21-2023 14:00-0400 Heart rate 72 /min Donovan Krishna [facility] 05-21-2023 14:00-0400 Respiratory rate 18 /min Donovan Krishna [facility] 05-21-2023 14:00-0400 SaO2% (BldA) [Mass fraction] 99 % Donovan Krishna [facility] 05-21-2023 14:00-0400 Systolic blood pressure 132 mm[Hg] Donovan Krishna [facility] 05-21-2023 11:02-0400 Body temperature 98.06 [degF] Donovan Krishna [facility] 05-21-2023 11:02-0400 Diastolic blood pressure 84 mm[Hg] Donovan Krishna [facility] 05-21-2023 11:02-0400 Heart rate 77 /min Donovan Krishna [facility] 05-21-2023 11:02-0400 Respiratory rate 16 /min Donovan Krishna [facility] 05-21-2023 11:02-0400 SaO2% (BldA) [Mass fraction] 100 % Donovan Krishna [facility] 05-21-2023 11:020400 Systolic blood pressure 147 mm[Hg] Donovan Keller [facility] Encounters Encounter Date Encounter Type Care [...] Start: 04-25-2024 End: 04-25-2024 Bamboo flowsheet Lynnette Amnas DO Work Phone: [facility] Start: [...] 05-21-2023 Emergency department patient visit Donovan Keller Facility:[facility] Start: 05-21-2023 End: 05-21-2023 Emergency department patient visit Donovan Keller [facility] Start: 06-01-2022 End: 06-01-[address] [...] Screening for malign ant neoplasm of cervix [facility] Start: 06-01-2027 Screening for malign ant neoplasm of cervix [facility] Start: 12-18-2025 End: 12-18-2025 Patient encounter procedure 12/18/2025 10:00 AM EDT Office Visit [facility] [address] [place] [address] Lynnette Malagon, DO [address] [place] [address] [facility] Start: 04-21-2025 Influenza vaccination Influenz a Vaccine (Season Ended) [facility] Start: 12-16-2024 End: 12-16-2024 Patient encounter procedure 12/16/2024 10:20 AM EDT Office Visit [facility] [address] [place] [id number] Lynnette Malagon, DO [address] [place] [address] [facility] Start: 07-02-2024 End: 07-02-2024 ambulatory 07/02/2024 9:30 AM EST Visit [facility] [address] [place] [id number] Kimberlee Rider PA [address] [place] [address] [facility] Start: 05-22-2024 End: 05-22-2024 [...] AM EDT Routine [facility] [address] [place] [id number] Lynnette Malagon, DO [address] [place], [place] [id number] Arrived [facility] Comment on above: Arrived Cytology Cervical or vaginal smear or scraping study Pap Smear Pathology and Cytology Routine Well woman exam with routine gynecological exam Ordered: 12/16/2024 [facility] Work Phone: Comment on above: Ordered: 12/16/2024 Human papilloma viru s DNA [Presence] in Unspecified specimen by Probe with amplification HPV DNA probe, amplified Microbiology Routine Well woman exam with routine gynecological exam Ordered: 12/16/2024 [facility] Comment on above: Ordered: 12/16/2024 Payers Date Payer Category Payer [employer] [id number] 2022 [employer] [facility] [id number] 2022-Present [address] [place] [address] [id number] 2022 () [id number] 2022 [employer] ( and others) [id number] 2022 [employer] ( and others) [id number] 1992 Unknown [id number] 2.16.840.1.047605.3.579.2 .593 1992 Unknown [id number] 2.16.840.1.959314.3.579.2 .727 1992 Unknown [id number] 2.16.840.1.501949.3.579.2 .1258 1992 Unknown [id number] 2.16.840.1.749676.3.579.2 .1258 1992 Unknown [id number] 2.16.840.1.819924.3.579.2 .1258 1992 Unknown [id number] 2.16.840.1.483610.3.579.2 .1258 1992 Unknown [id number] 2.16.840.1.874925.3.579.2 .1258 1992 Unknown [id number] 2.16840.1.249670.3.579.2 .1258 1992 Unknown [id number] 2.16840.1.937398.3.579.2 .1258 1992 Unknown [id number] 2.16840.1.948268.3.579.2 .1258 1992 Unknown [id number] 2.16840.1.593101.3.579.2 .1258 1992 Unknown [id number] 2.16840.1.635973.3.579.2 .9 1992 Unknown [id number] 2.16840.1.651798.3.579.2 .1258 1992 Unknown [id number] 2.16840.1.341501.3.579.2 .1258 1992 Unknown [id number] 2.16840.1.260458.3.579.2 .9 1992 Unknown [id number] 2.16840.1.752852.3.579.2 .1259 1959 Unknown [id number] Social History Date Type Detail Facility Tobacco Never smoker [facility] Comment on above: denies Tobacco smoking status No Smokin g Status Entered [facility] Start: 02-08-2024 Sex Assigned At Female [facility] Start: 02-08-2024 Tobacco smoking stat us NHIS [...] Assessment Result Facility 05-21-2023 Functional Status N/A [facility] Clinical Notes 05-21-2023 to 12-16-2024 Bea Messer, [facility] - 12/16/2024 10:20 AM Jack Rider, [place] - 07/02/2024 9:30 AM Cayla Messer, [facility] - 06/27/2024 9:40 AM Ehsan Wallace, [facility] - 05/22/2024 1:30 PM EDT Note Date [...] nursing note reviewed. Exam conducted with a tubing mill operator present. Vitals: Estimated body mass index is [...] Lynnette Malagon DO documented in this encounter [facility] 07-02-2024 History of Present illness Narrative [...] of: DOMO Hughes documented in this encounter [facility] 06-27-2024 History of Present illness Narrative [...] nursing note reviewed. Exam conducted with a tubing mill operator present. Vitals: Estimated body mass index is [...] Lynnette Malagon DO documented in this encounter [facility] 05-22-2024 History of Present illness Narrative [...] nursing note reviewed. Exam conducted with a tubing mill operator present. Vitals: Estimated body mass index is [...] Lynnette Malagon DO documented in this encounter [facility] 05-15-2024 History of Present illness Narrative [...] on mother's side Rheum arthritis Maternal Grandmother Cirstina Payne SURGICAL HISTORY Past Surgical History: Procedure [...] nursing note reviewed. Exam conducted with a tubing mill operator present. Vitals: Estimated body mass index is [...] Lynnette Malagon DO documented in this encounter [facility] 05-09-2024 History of Present illness Narrative [...] nursing note reviewed. Exam conducted with a tubing mill operator present. Vitals: Estimated body mass index is [...] cervical check next appointment. Documented by Bea Messer LPN on behalf of: Lynnette Malagon DO documented in this encounter [facility] 05-02-2024 History of Present illness Narrative [...] of: DOMO Hughes documented in this encounter [facility] 04-25-2024 History of Present illness Narrative [...] nursing note reviewed. Exam conducted with a tubing mill operator present. Vitals: Estimated body mass index is [...] Lynnette Malagon DO documented in this encounter [facility] 04-11-2024 History of Present illness Narrative [...] Age of Onset Thyroid disease Mother Tomeka eDvlin Schizophrenia Father Diabetes Other some on mother's [...] nursing note reviewed. Exam conducted with a tubing mill operator present. Vitals: Estimated body mass index is [...] Lynnette Malagon DO documented in this encounter [facility] 05-21-2023 Hospital Discharge instructions Patient Education 05/21/2023 15:09:51 Abdominal Pain During , Dyer-ov-Dvds Abdominal Pain During Belly (abdominal) pain is [...] keep your pee (urine) pale yellow. Take [id number] and prescription medicines only as told by [...] provider. Document Revised: 04/20/2021 Document Reviewed: 04/20/2021 [employer] Patient Education 2022 [employer] Follow Up Care 05/21/2023 10:51:24 With:Jason Raines Address: [address] [place] [address]- Business (1) When:05/24/2023 14:59:00 Comments:Follow-up with your [employer] REMOVAL SUPERVISOR. If not have any may follow-up with Dr. Raines. With:XXXX NONE Address: [place] When:Within 3 Day(s) [facility] 05-21-2023 Evaluation + Plan note Extrac chano [...] A&B Ag Lipase Level Rapid COVID Antigen ([facility]) UA With Cult Reflex US 1st Trimester US Transvaginal XR Chest [facility] Diagnosis Third trimester state, incidental 39 weeks gestation of [facility] Diagnosis hypertension documented in this encounter [facility]* Diagnosis 6 weeks follow-up documented in this encounter [facility]* Diagnosis Third trimester state, incidental documented in this encounter [facility]* Diagnosis Third trimester state, incidental documented in this encounter [facility]* Diagnosis Well woman exam with routine gynecological exam Routine gynecological examination [facility] N[facility] No data available for this section [facility] data available for this section [facility] Summary Purpose Family History No Family History Records FoundNo Family History Records Found No data available for this section No Family History Records FoundNo Family History Records Found Advance Directives No Advanced Directives Records FoundNo Advanced Directives Records FoundNo Advanced Directives Records FoundNo Advanced Directives Records Found Additional Source Comments INFORMATION SOURCE (unrecogn ized section and content) DATE CREATED AUTHOR 09/30/2021 [facility] DATE CREATED AUTHOR AUTHOR'S ORGANIZ ATION 06/13/2022 [facility] DATE CREATED AUTHOR AUTHOR'S ORGANIZ ATION 05/26/2023 [facility] DATE CREATED AUTHOR AUTHOR'S ORGANIZ ATION 12/16/2024 [facility] EPIC Reason for Visit (unrecogniz ed [...] BE BASED ON THE PRIMARY CLINICAL RECORDS. [facility]. provides no warranty or guarantee of the accuracy or completeness of information in this document.
[2025-04-04 11:03] LABS: Hematocrit 37.8 % (36.0-48.0); Hemoglobin 12.5 g/dL (12.0-16.0); Immature Granulocytes Abs Auto 0.02 10^3/uL (0.00-0.03); Immature Granulocytes Pct Auto 0.3 % (0.0-0.5); Lymphocytes Absolute Auto 1.7 10^3/uL (1.2-3.8); Mean Corpuscular HGB Conc 33.1 g/dL (29.9-35.2); Mean Corpuscular Hemoglobin 29.7 pg (26.7-34.0); Mean Corpuscular Volume 89.8 fL (81.0-99.0); Platelet Count 293 10^3/uL (150-450); Red Blood Count 4.21 10^6/uL (4.20-5.40); White Blood Count 6.0 10^3/uL (4.0-11.0)
[2025-04-04 11:26] LABS: Alanine Aminotransferase 22 U/L (14-59); Albumin Globulin Ratio 1.1; Albumin Level 3.8 g/dL (3.4-5.0); Alkaline Phosphatase 95 U/L (46-116); Anion Gap 10.4; Aspartate Amino Transferase 10 U/L (15-37); Blood Urea Nitrogen 12.0 mg/dL (7.0-18.0); Calcium 8.7 mg/dL (8.5-10.1); Carbon Dioxide 27.5 mmol/L (21.0-32.0); Chloride 107 mmol/L (98-107); Cholesterol 164 mg/dL (<=200); Estimated GFR (African America >60 (>=60 mL/min/1.73m^2); Estimated GFR (Non-African Ame >60 (>=60 mL/min/1.73m^2); Free T3 2.73 pg/mL (2.18-3.98); Globulin 3.6 g/dL; Glucose 94 mg/dL (74-106); HDL Cholesterol 69 mg/dL (40-60); Potassium 3.9 mmol/L (3.5-5.1); Sodium 141 mmol/L (136-145); Thyroid Stimulating Hormone 4.524 uIU/mL (0.358-3.740); Total Protein 7.4 g/dL (6.4-8.2); Triglycerides 28 mg/dL (<=150); VLDL CHOLESTEROL 5.6 mg/dL
== END 2025-04-04 09:40 | disposition home or self-care (01) ==
LOC: LAB 09:39
PROVIDERS: PCP Family Medicine; Visit Provider Family Medicine
DX: Z00.00 Encounter for general adult medical examination without abnormal findings (principal)
CPT/HCPCS: 36415; 80053; 80061; 83036; 83525; 84436; 84443; 84481; 85025